=== PATIENT | female | born 1940 | race Asian ===

== ENCOUNTER 2017-11-18 17:20 | Inpatient (IN) | payer MEDICARE, OTHER ==
[~2017-11-18] VITALS: Ht 154.9 cm; Wt 44.5 kg
[2017-11-18] MEDS ORDERED: Gastrograffin 30ml ORAL ONE (17:45)
[2017-11-18 18:15] VITALS: BP 137/57
[2017-11-18 18:56] LABS: BILIRUBIN, URINE NEGATIVE (NEGATIVE); GLUCOSE, URINE (UA) NEGATIVE (NEGATIVE); KETONES,URINE NEGATIVE (NEGATIVE); LEUKOCYTE ESTERASE ,URINE 3+ (NEGATIVE); NITRITE,URINE NEGATIVE (NEGATIVE); PH,URINE 7 (4.5-8.0); PROTEIN,URINE 1+ (NEGATIVE); UROBILINOGEN,URINE 4 MG/DL (0.0-1.0)
[2017-11-18 18:58] LABS: APPEARANCE,URINE SLIGHTLY CLOUDY; COLOR,URINE YELLOW
[2017-11-18 19:00] LABS: BASOPHILS % (AUTO) 1.1 % (0.0-2.0); EOSINOPHILS % (AUTO) 1.3 % (0.0-3.0); LYMPHOCYTES % (AUTO) 24.7 % (20.0-45.0); MEAN CORPUSCULAR VOLUME 87 FL (80-99); MONOCYTES % (AUTO) 8.4 % (1.0-10.0); NEUTROPHILS % (AUTO) 64.6 % (45.0-75.0); PLATELET COUNT 318 K/UL (150-450); RED BLOOD COUNT 3.91 M/UL (4.20-5.40); RED CELL DISTRIBUTION WIDTH 12.6 % (11.6-14.8); WHITE BLOOD COUNT 7.1 K/UL (4.8-10.8)
[2017-11-18 19:09] LABS: ALANINE AMINOTRANSFERASE 26 U/L (12-78); ALBUMIN 2.5 G/DL (3.4-5.0); ALBUMIN/GLOBULIN RATIO 0.5 (1.0-2.7); ALKALINE PHOSPHATASE 136 U/L (46-116); ANION GAP 4 mmol/L (5-15); ASPARTATE AMINO TRANSFERASE 62 U/L (15-37); BILIRUBIN,TOTAL 0.7 MG/DL (0.2-1.0); BLOOD UREA NITROGEN 9 mg/dL (7-18); CALCIUM 8.6 MG/DL (8.5-10.1); CARBON DIOXIDE 31 MMOL/L (21-32); CHLORIDE 86 MMOL/L (98-107); CREATININE 0.3 MG/DL (0.55-1.30); POTASSIUM 5.5 MMOL/L (3.5-5.1)
[2017-11-18 19:11] LABS: SODIUM 119 MMOL/L (136-145)
--- NOTE | 2017-11-18 19:55 | Emergency Room Report ---
History of Present Illness General Chief Complaint: Malfunctioning Gastric Tube Source: Patient, EMS Present Illness HPI Patient is a 77-year-old female brought in by EMS for possible malfunctioning G- tube. Patient had prior history of neurologic debilitation. Patient was noted to be G-tube dependent. The patient's G-tube had become malplaced reportedly had become leaking. Allergies: Coded Allergies: AMOXICILLIN (Verified Allergy, Mild, 06/21/09) ASPIRIN (Verified Allergy, Mild, 06/21/09) SALICYLATES (Verified Allergy, Mild, 06/21/09) PENICILLINS (Unverified Allergy, Unknown, 11/18/17) Patient History Last Menstrual Period: N/A Reviewed Nursing Documentation: PMH: Agreed; PSxH: Agreed Nursing Documentation-PMH Past Medical History: No History, Except For Hx Hypertension: Yes Hx Diabetes: Yes Hx Cerebrovascular Accident: Yes Physical Exam Vital Signs Date Time Temp Pulse Resp B/P (MAP) Pulse Ox O2 Delivery O2 Flow Rate FiO2 11/18/17 17:16 97.2 80 16 130/84 97 Room Air 97.2 Medical Decision Making Diagnostic Impression: Primary Impression: Malfunction of gastrostomy tube Additional Impressions: Hyponatremia Dehydration Urinary tract infection ER Course Patient presented for G-tube malfunction.The differential diagnosis included was not limited to dehydration, electrolyte abnormalities, cellulitis, bowel obstruction, gastric outlet obstruction among others.Because of complexity of patient's case laboratory testing and imaging studies were ordered. KUB with Gastrografin read by radiology showed no evidence of G-tube leaking. The patient was noted to have very low sodium was started on IV fluids. Dr. Tyrell Underwood was contacted for inpatient management. Labs Test 11/18/17 16:15 11/18/17 18:15 White Blood Count 7.1 K/UL (4.8-10.8) Red Blood Count 3.91 M/UL (4.20-5.40) Hemoglobin 12.0 G/DL (12.0-16.0) Hematocrit 34.0 % (37.0-47.0) Mean Corpuscular Volume 87 FL (80-99) Mean Corpuscular Hemoglobin 30.7 PG (27.0-31.0) Mean Corpuscular Hemoglobin Concent 35.3 G/DL (32.0-36.0) Red Cell Distribution Width 12.6 % (11.6-14.8) Platelet Count 318 K/UL (150-450) Mean Platelet Volume 5.8 FL (6.5-10.1) Neutrophils (%) (Auto) 64.6 % (45.0-75.0) Lymphocytes (%) (Auto) 24.7 % (20.0-45.0) Monocytes (%) (Auto) 8.4 % (1.0-10.0) Eosinophils (%) (Auto) 1.3 % (0.0-3.0) Basophils (%) (Auto) 1.1 % (0.0-2.0) Prothrombin Time 10.5 SEC (9.30-11.50) Prothromb Time International Ratio 1.0 (0.9-1.1) Activated Partial Thromboplast Time 31 SEC (23-33) Sodium Level 119 MMOL/L (136-145) Potassium Level 5.5 MMOL/L (3.5-5.1) Chloride Level 86 MMOL/L (98-107) Carbon Dioxide Level 31 MMOL/L (21-32) Anion Gap 4 mmol/L (5-15) Blood Urea Nitrogen 9 mg/dL (7-18) Creatinine 0.3 MG/DL (0.55-1.30) Estimat Glomerular Filtration Rate mL/min (>60) Glucose Level 116 MG/DL (74-106) Calcium Level 8.6 MG/DL (8.5-10.1) Total Bilirubin 0.7 MG/DL (0.2-1.0) Aspartate Amino Transf (AST/SGOT) 62 U/L (15-37) Alanine Aminotransferase (ALT/SGPT) 26 U/L (12-78) Alkaline Phosphatase 136 U/L (46-116) Total Protein 7.9 G/DL (6.4-8.2) Albumin 2.5 G/DL (3.4-5.0) Globulin 5.4 g/dL Albumin/Globulin Ratio 0.5 (1.0-2.7) Urine Color Yellow Urine Appearance Slightly cloudy Urine pH 7 (4.5-8.0) Urine Specific [place] 1.010 (1.005-1.035) Urine Protein 1+ (NEGATIVE) Urine Glucose (UA) Negative (NEGATIVE) Urine Ketones Negative (NEGATIVE) Urine Occult Blood 3+ (NEGATIVE) Urine Nitrite Negative (NEGATIVE) Urine Bilirubin Negative (NEGATIVE) Urine Urobilinogen 4 MG/DL (0.0-1.0) Urine Leukocyte Esterase 3+ (NEGATIVE) Urine RBC 5-10 /HPF (0 - 2) Urine WBC 10-15 /HPF (0 - 2) Urine Squamous Epithelial Cells Few /LPF (NONE/OCC) Urine Amorphous Sediment Few /LPF (NONE) Urine Bacteria Many /HPF (NONE) EKG Diagnostic Results Rate: normal - 75 Rhythm: NSR ST Segments: no acute changes Last Vital Signs Date Time Temp Pulse Resp B/P (MAP) Pulse Ox O2 Delivery O2 Flow Rate FiO2 11/18/17 18:15 80 16 137/57 99 Room Air 11/18/17 17:16 97.2 97.2 Status: improved Disposition: HOME, SELF-CARE Condition: Stable Scripts Unable to Obtain Active Prescriptions or Reported Meds Referrals: NOT CHOSEN IPA/,REFERRING (PCP) Raul Weaver November 18, 2017 19:55
[2017-11-18 19:57] VITALS: BP 148/54
[2017-11-18 21:25] VITALS: BP 151/61
[2017-11-19] VITALS (7 sets, daily range): BP systolic 158–197; BP diastolic 69–97
[2017-11-19] MEDS ORDERED: OMEPRAZOLE20 M2 GT (02:09)
[2017-11-19] MEDS ORDERED: CARDIZEM90 MG GT (02:14)
[2017-11-19] MEDS ORDERED: DiphenhydrAMINE 25mg/10ml Elixir GT PRN (04:30)
[2017-11-19] MEDS: Vancomycin 500mg/D5W 110ml IVPB SCH ×4 (06:05→17:31)
[2017-11-19] MEDS: NovoLOG Insulin Flexpen SUBQ SCH ×4 (06:30→23:44)
[2017-11-19] MEDS: Heparin 5000 units/ml inj SUBQ SCH ×2 (08:27→21:08)
[2017-11-19] MEDS ORDERED: TRAMADOL HCL100 M2 ORAL (09:40)
[2017-11-19] MEDS ORDERED: OMEPRAZOLE20 M2 ORAL (09:40)
[2017-11-19] MEDS ORDERED: DILTIAZEM HCL90 MG PO (09:40)
[2017-11-19] MEDS ORDERED: MACROBID100 MG ORAL (09:40)
[2017-11-19] MEDS ORDERED: SENNA LAXATIVE8.6 MG (09:40)
--- NOTE | 2017-11-19 09:51 | Diagnostic Imaging Report ---
Indication: Gastrostomy tube placement Comparison: None Single view of the abdomen obtained Findings: Contrast demonstrated within the stomach and duodenum. No extravasation seen. The gastrostomy tip is in the antrum of the stomach. IMPRESSION: Unremarkable gastrostomy check
[2017-11-19 11:09] LABS: BASOPHILS % (AUTO) 1.2 % (0.0-2.0); HEMATOCRIT 32.1 % (37.0-47.0); HEMOGLOBIN 11.2 G/DL (12.0-16.0); LYMPHOCYTES % (AUTO) 21.3 % (20.0-45.0); MEAN CORPUSCULAR VOLUME 89 FL (80-99); MONOCYTES % (AUTO) 6.4 % (1.0-10.0); NEUTROPHILS % (AUTO) 70.2 % (45.0-75.0); PLATELET COUNT 207 K/UL (150-450); RED BLOOD COUNT 3.61 M/UL (4.20-5.40); RED CELL DISTRIBUTION WIDTH 12.7 % (11.6-14.8); WHITE BLOOD COUNT 4.2 K/UL (4.8-10.8)
[2017-11-19 12:38] LABS: CHLORIDE 95 MMOL/L (98-107)
[2017-11-19] MEDS: Norco 5mg/325mg tab GT PRN ×2 (12:57→17:57)
[2017-11-19 13:02] LABS: ALANINE AMINOTRANSFERASE 23 U/L (12-78); ALBUMIN 2.5 G/DL (3.4-5.0); ALBUMIN/GLOBULIN RATIO 0.5 (1.0-2.7); ALKALINE PHOSPHATASE 128 U/L (46-116); ANION GAP 8 mmol/L (5-15); ASPARTATE AMINO TRANSFERASE 19 U/L (15-37); BILIRUBIN,TOTAL 0.5 MG/DL (0.2-1.0); BLOOD UREA NITROGEN 4 mg/dL (7-18); CALCIUM 8.3 MG/DL (8.5-10.1); CARBON DIOXIDE 26 MMOL/L (21-32); CREATININE 0.4 MG/DL (0.55-1.30); POTASSIUM 3.3 MMOL/L (3.5-5.1); SODIUM 129 MMOL/L (136-145)
[2017-11-19] MEDS ORDERED: Sterile Water Irrig 1000ml IRRIG ONE (16:45)
[2017-11-19] MEDS ORDERED: Tubing IV Secondary IV ONE (16:45)
[2017-11-19] MEDS ORDERED: HydrALAZINE 25mg tab ORAL PRN (19:00)
[2017-11-19] MEDS: HydrALAZINE 25mg tab ORAL PRN (21:18)
[2017-11-20] VITALS: BP 165/69
[2017-11-20] MEDS: HydrALAZINE 25mg tab ORAL PRN ×2 (01:39→14:05)
--- NOTE | 2017-11-20 03:00 | History and Physical Report ---
DATE OF ADMISSION: 11/18/2017 REASON FOR ADMISSION: Hyponatremia and G-tube malfunction. HISTORY OF PRESENT ILLNESS: This is a 77-year-old Arabic female, lives at home with family members and was brought into the emergency room by EMS because of a nonfunctioning G-tube. The patient has a prior stroke and is quite debilitated. Family members provide total care. In the emergency room, abnormal laboratory studies were also noted and hospitalization initiated. PAST MEDICAL HISTORY: Cerebrovascular disease, dysphagia, gastrostomy tube, hypertensive heart disease, and type 2 diabetes mellitus. MEDICATIONS: Medications prior to admission, reviewed and reconciled. ALLERGIES: Include aspirin, penicillin, and salicylate. FAMILY HISTORY: Noncontributory. SOCIAL HISTORY: No record of smoking, alcohol, or substance abuse. REVIEW OF SYSTEMS: Not obtainable from the patient. All available data from family members and prior records is outlined above. PHYSICAL EXAMINATION: VITAL SIGNS: Blood pressure 130/84, heart rate 80, respirations 16, and afebrile. HEENT: Temporal wasting. Oropharynx clear. Mucous membranes moist. NECK: Supple. Jugular venous pressure normal. LUNGS: Clear. CARDIAC: Regular rhythm and rate. Normal S1 and S2 with a fourth heart sound. ABDOMEN: Soft. G-tube site is leaking. There is erythema around the site. EXTREMITIES: Revealed no clubbing or cyanosis. There is no edema. There is distal muscle atrophy and contractures. There is diffuse body rash and decubitus pictured in the chart. LABORATORY DATA: White count 7.1 and hemoglobin 12. Glucose 116. Sodium 119, potassium 5.5, chloride 86, bicarb 31, BUN 9, and creatinine 0.3. Urinalysis with 10 to 15 white cells. IMPRESSION: 1. Gastrostomy tube malfunction. 2. Dysphagia. 3. Hyponatremia. 4. Hypochloremia. 5. Type 2 diabetes mellitus. 6. Cerebrovascular disease with dementia. 7. Moderate protein-calorie malnutrition. 8. Hyperkalemia. PLAN: 1. NPO. 2. Gastrointestinal consult to evaluate feeding tube. 3. Saline hydration. 4. No diuretic therapy. 5. DVT and stress ulcer prophylaxes. 6. Await urine cultures. 7. Empiric antibiotics. Tyrell Underwood M.D. DR: KENNETH JOB#: [id number] CC:
--- NOTE | 2017-11-20 03:15 | Progress Note ---
DATE: 11/19/2017 INTERNAL MEDICINE PROGRESS NOTE SUBJECTIVE: G-tube was evaluated by Dr. Rojas and functioning adequately. Skin infection overlying the site was noted. The patient's laboratory studies have improved. OBJECTIVE: VITAL SIGNS: Blood pressure 165/69, pulse 73, and respirations 19. LUNGS: Bilateral breath sounds. CARDIAC: Regular rhythm and rate. Normal S1, S2. ABDOMEN: Soft. G-tube site intact. Erythema and rash around the site. EXTREMITIES: Trace dependent edema. LABORATORY DATA: Sodium 129, potassium 3.3, bicarbonate 26, BUN 4, and creatinine 0.4. Albumin 2.5. B12, folate, and TSH are within normal limits. LABORATORY DATA: White count 4.2, hemoglobin 11.2. IMPRESSION: 1. Hyponatremia, improving. 2. Hypochloremia, improving. 3. Hyperkalemia, resolved and now with lower range potassium. 4. Accelerated hypertension. 5. Cerebrovascular disease. 6. Type 2 diabetes mellitus. 7. Severe protein calorie malnutrition. PLAN: 1. Advance feedings. 2. Replace potassium. 3. Adjust IV fluids with continued saline hydration. 4. Check uric acid. 5. Check magnesium. 6. Protein supplements. 7. Nutritional consult. 8. Continue antibiotics and skin care. 9. Await culture results. Tyrell Underwood M.D. DR: HALIMA JOB#: [id number] CC: KISHAN
[2017-11-20 04:00] VITALS: BP 155/72
[2017-11-20] MEDS: NovoLOG Insulin Flexpen SUBQ SCH ×3 (06:00→17:32)
[2017-11-20] MEDS: Vancomycin 500mg/D5W 110ml IVPB SCH ×4 (07:26→17:26)
[2017-11-20 08:00] VITALS: BP 187/86
[2017-11-20] MEDS: Metoprolol 25mg tab GT SCH ×2 (08:32→20:40)
[2017-11-20] MEDS: Heparin 5000 units/ml inj SUBQ SCH ×2 (08:34→20:40)
[2017-11-20 09:29] LABS: BASOPHILS % (AUTO) 0.9 % (0.0-2.0); EOSINOPHILS % (AUTO) 1.7 % (0.0-3.0); HEMATOCRIT 30.9 % (37.0-47.0); HEMOGLOBIN 10.8 G/DL (12.0-16.0); LYMPHOCYTES % (AUTO) 23.5 % (20.0-45.0); MEAN CORPUSCULAR VOLUME 88 FL (80-99); MONOCYTES % (AUTO) 9.4 % (1.0-10.0); NEUTROPHILS % (AUTO) 64.4 % (45.0-75.0); PLATELET COUNT 294 K/UL (150-450); RED BLOOD COUNT 3.49 M/UL (4.20-5.40); RED CELL DISTRIBUTION WIDTH 12.7 % (11.6-14.8); WHITE BLOOD COUNT 4.6 K/UL (4.8-10.8)
[2017-11-20 09:34] LABS: ALANINE AMINOTRANSFERASE 21 U/L (12-78); ALBUMIN 2.3 G/DL (3.4-5.0); ALBUMIN/GLOBULIN RATIO 0.5 (1.0-2.7); ALKALINE PHOSPHATASE 113 U/L (46-116); ANION GAP 7 mmol/L (5-15); ASPARTATE AMINO TRANSFERASE 13 U/L (15-37); BILIRUBIN,TOTAL 0.4 MG/DL (0.2-1.0); BLOOD UREA NITROGEN 5 mg/dL (7-18); CALCIUM 7.8 MG/DL (8.5-10.1); CARBON DIOXIDE 27 MMOL/L (21-32); CHLORIDE 96 MMOL/L (98-107); CREATININE 0.4 MG/DL (0.55-1.30); SODIUM 130 MMOL/L (136-145)
[2017-11-20 12:00] VITALS: BP 175/75
[2017-11-20] MEDS ORDERED: Cefepime HCl 2 GM in D5W 110 ML IVPB SCH (13:00)
--- NOTE | 2017-11-20 14:33 | Physician Query ---
[facility] [address] [id number] Patient: Tan Woodruff [facility] Rec #: [id number] PT Number #: [id number] Dear Dr. Dr. Underwood Date: 11/20/2017 Email Production Specialist/CDS Name: Yonatan Rosas Email Production Specialist/CDS Phone No.: [phone] Exercise your independent professional judgment when responding to the query. Questions asked do not imply a particular answer is desired or expected. We greatly appreciate your clarification on this issue. CLINICAL DOCUMENTATION STATES: Protein Calorie Malnutrition (H&P from 11/20/2017 ) Clinical finding shows: Patient is admitted with Hyponatremia and G tube malfunction. Abnormal laboratory studies were noted. Albumin level from last 3 days are as follow: 2.5/2.5/2.3 BMI: 18.5 Please select the most appropriate option: [] Mild [] Moderate [] Protein/Calorie Malnutrition [] Protein Malnutrition >Serum albumin 2.8 to 3.4 g/dL or Pre-albumin 5 to 7 mg/dl (3) >Inadequate nutritional intake (1, 2, 3, 4) >NPO > 5 days >Weight loss: 5% in 1 month or 7.5% in 3 months or 10% in 6 months (1,3,4) >BMI 16 to 18.4 or Weight <90 of ideal body weight (1,2,3,4) [] Severe Malnutrition (Protein/Calorie) [] Severe Protein Malnutrition >Serum Albumin < 2.8 g/dL (1,2) >Lymphocytes < 1500/uL (2) >Inadequate nutritional intake3 , high stress e.g. major trauma, sepsis, pancreatitis, recio etc. >Decubitus ulcers (1,2) , skin breakdown(2), easy hair pluckability >Weight <80% standard for height (2) >Triceps skin fold <3 mm2 >Mid-arm muscle circumference <25 cm2 >Creatinine-height index <60% standard (2) _ [] Hypoalbuminemia [] Emancipated w/ Malnutrition [] [place] (rare in [place]) [] Marasmus [] Other [] Unable to determine [] Not Applicable Condition Present on Admission: [] Yes [] No [ ] Unable to determine Please also document in your Progress Notes and/or Discharge Summary and indicate if the condition was present on admission. Date: 11/20/2017 M.D. References: 1 [facility] [place] Board. (2007). Nutritional support strategy for protein -energy malnutrition in the elderly. Clinical Practice Guidelines. 2 Jensen [place] (2011). Malnutrition and nutritional assessment. In [place] (18th Ed.) Tashi's Principle of Internal Medicine ([phone]) [place], [place]: [facility] 3 Rahel Betts (2001). Clinical Nutrition: Protein-energy malnutrition in the inpatient. [place] [employer] Journal, vol. 165 no. 10 (pp. 1216- 3159 ). 4 Jabari Haro (2012). Geriactric Nutrition: Nutritional Issues in Older Adults. [email or web address]
--- NOTE | 2017-11-20 14:44 | Diagnostic Imaging Report ---
Indication: Abnormal labs Technique: US ABD Complete Comparison: None Findings: Limited exam due to overlying bowel gas and bandages. Liver appears normal in length. There is increased hepatic echogenicity. There is question of some ankle lesions within the posterior liver. There is gallbladder wall thickening with apparent gallbladder wall measuring approximately 2 to 4 mm in thickness. There is no pericholecystic fluid. There is a anechoic structure adjacent to the gallbladder which may represent a small cyst in the adjacent liver or may potentially be related to the gallbladder. Sonographic Hylton sign not reported. The common bile duct is normal in caliber measuring 4 to 6 mm. Kidneys are symmetric in size. Both demonstrate normal parenchymal echogenicity and no evidence of urinary tract stone or hydronephrosis bilaterally. Spleen is normal in size. IMPRESSION: Limited exam due to overlying bowel gas, overlying bandages and patient contracture/body habitus. Within these limitations the following observations are made: Equivocal gallbladder wall thickening. No definite cholelithiasis or gallbladder sludge appreciated. Sonographic Hylton sign not reported. Correlate clinically. If there is concern for acute cholecystitis then recommend further evaluation with additional imaging (contrast-enhanced CT or HIDA scan). Anechoic structures in the liver possibly representing cysts. Subcentimeter anechoic structure adjacent to the gallbladder may represent a cyst in the adjacent liver or may originate from the gallbladder itself. Attention to this area on follow-up exams recommended. No appreciable biliary ductal dilatation. Renal parenchymal echogenicity is within normal limits. No evidence of hydronephrosis bilaterally.
--- NOTE | 2017-11-20 15:21 | Cardiology Report ---
APPROVED REPORT EKG Measurement Heart [id number] Normal sinus rhythm Cannot rule out Anterior infarct, age undetermined Abnormal ECG
[2017-11-20 16:00] VITALS: BP 159/77
--- NOTE | 2017-11-20 16:00 | Consultation ---
DATE OF CONSULTATION: 11/19/2017 NOTE: CANCELED DICTATION Alex Rojas M.D. DR: MEDHAT JOB#: [id number] CC: KISHAN
--- NOTE | 2017-11-20 16:00 | Consultation ---
DATE OF CONSULTATION: 11/19/2017 GASTROENTEROLOGY CONSULTATION CONSULTING PHYSICIAN: Alex Rojas M.D. REFERRING PHYSICIAN: Tyrell Underwood M.D. CHIEF COMPLAINT: I was asked to see this patient by Dr. Tyrell Underwood for evaluation of malfunction of gastrostomy tube. HISTORY OF PRESENT ILLNESS: The patient is a debilitated 77-year-old middle woman, who lives at home, who was brought in due to leakage of gastrostomy tube. The problem was unclear, but the nurse states that the family stated there is leakage around the gastrostomy site. The gastrostomy catheter appears to be a 26-[place] catheter, which is old and quite deteriorated. The x-ray studies in the emergency room showed it appears to be in good position. The patient was still quite debilitated and contracted. She is nonverbal and bedbound. She lives at home and requires tube feedings [id number]. In the emergency room, she was noted to be severely hyponatremic and she is to be treated soon and the laboratory findings are being followed. There is no further information available from this patient. PAST MEDICAL HISTORY: History of cerebrovascular disease with stroke and contracture deformities, which are severe, history of dysphagia, status post gastrostomy tube placement, history of hypertensive heart disease, and type 2 diabetes. MEDICATIONS: See chart list for details. ALLERGIES: Aspirin, penicillin, and salsalate. FAMILY HISTORY: Unavailable and noncontributory in this setting. SOCIAL HISTORY: The patient has had no recent history of smoking or drinking. She lives at home with family and requires [id number] care. REVIEW OF SYSTEMS: Otherwise negative. PHYSICAL EXAMINATION: GENERAL: This is a thin elderly debilitated woman, seen in her room. She has severe contracture deformities of the hip with hip flexion. HEENT: Normocephalic and atraumatic. Sclerae anicteric. Oropharynx could not be evaluated. NECK: Somewhat stiff alone. The patient was contracted. CHEST: Revealed coarse breath sounds. CARDIOVASCULAR: Revealed a regular rate. ABDOMEN: Soft with a 26-[place] gastrostomy tube. There is some degree of skin moisturization around the gastrostomy site but does not appear to be infected. EXTREMITIES: Revealed contractures. NEUROLOGIC: Notable for dementia and contracture deformities. LABORATORY DATA: Laboratory data were noted. ASSESSMENT: This patient presents with dysfunctional gastrostomy tube, which is also old and needs to be replaced. This was done at bedside today as the gastrostomy tube has been placed, the 20-[place] catheter. The position was verified by bedside techniques. The open skin irritation around the gastrostomy is mainly due to moisture and can be avoided with the area kept dry. I advised the nurse to change the dressing with dry gauze every eight hours and to maintain dry as to minimize leakage. The tube feeding can be restarted today and the patient can be monitored. In the meantime, the patient received IV hydration as to correct her hyponatremia. This is being done with IV saline. The patient also has some mild degree of abnormal liver tests of unclear etiology. An ultrasound of the abdomen will be ordered to evaluate the liver and gallbladder areas. Hepatitis serologies will also be ordered. RECOMMENDATIONS: Per above discussion and per orders written in the chart. Thank you for asking me to participate in the care of this patient. Alex Rojas M.D. DR: NOE JOB#: [id number] CC: KISHAN
[2017-11-20] MEDS ORDERED: NS 275ml ONE (16:48)
[2017-11-20] MEDS ORDERED: Tubing IV Secondary IV ONE (16:48)
--- NOTE | 2017-11-20 17:15 | Consultation ---
DATE OF CONSULTATION: 11/20/2017 INFECTIOUS DISEASES CONSULTATION CONSULTING PHYSICIAN: Mary Manriquez M.D. REFERRING PHYSICIAN: Tyrell Underwood M.D. REASON FOR CONSULTATION: G-tube site cellulitis. HISTORY OF PRESENTING ILLNESS: This is a 77-year-old lady with history of diabetes, hypertension, CVA, and status post G-tube placement, who came in because of a nonfunctioning G-tube. There has been leaking around the G-tube and there is a G-tube site cellulitis. An Infectious Diseases consultation has been obtained for antibiotics. PAST MEDICAL HISTORY: 1. History of diabetes. 2. Hypertension. 3. Hypertensive heart disease. 4. CVA. 5. Dysphagia. 6. Status post G-tube placement. MEDICATIONS: As an inpatient, she is on amlodipine, metoprolol, hydralazine, Levaquin, insulin, [place], subcutaneous heparin, intravenous vancomycin, and Benadryl. ALLERGIES: 1. Amoxicillin. 2. Aspirin. 3. Penicillin. 4. Salicylates. SOCIAL HISTORY: No history of smoking, alcohol, or drug use. FAMILY HISTORY: Unknown. REVIEW OF SYSTEMS: Unable to obtain currently. PHYSICAL EXAMINATION: VITAL SIGNS: On examination, temperature of 97.9, T-max of 98.9, pulse of 79, respiratory rate 17, blood pressure 187/86, and O2 saturation of 98%. HEENT: Pupils equally reactive to light and accommodation. Mouth appears clean without thrush. NECK: Supple. No adenopathy. No JVD. CARDIOVASCULAR: Regular rate and rhythm. No murmurs. LUNGS: Clear to auscultation bilaterally. No crackles. No wheezes. ABDOMEN: Soft and nontender. No organomegaly. G-tube site with surrounding erythema noted. EXTREMITIES: No cyanosis, no clubbing, no edema. LABORATORY AND DIAGNOSTIC DATA: White count 4.6, hemoglobin 10.8, hematocrit 30.9,MCV 88, and platelet count of 294,000 with neutrophils of 64%. Sodium 130, potassium 3, chloride 96, bicarb 27, BUN 5, creatinine 0.4, glucose 102, and calcium 7.8. Total bilirubin 0.4. AST 13, ALT 21, and alkaline phosphatase 113. Total protein 6.8. Albumin 2.3. UA is showing 10 to 15 white cells. Urine culture is showing gram-negative rods. Wound cultures are pending from 11/18/2017. Abdominal x-ray was unremarkable. ASSESSMENT: This is a 77-year-old lady with history of diabetes and hypertension, who comes in with, 1. Gastrostomy tube site cellulitis. 2. Gram-negative urinary tract infection. PLAN: 1. Continue IV vancomycin. 2. Discontinue Levaquin. 3. We will start the patient on cefepime. 4. We will order an ultrasound of the abdomen to rule out an abdominal abscess. 5. We would suggest a GI evaluation. I would like to thank, Dr. Underwood, for this consultation. Mary Manriquez M.D. DR: SG JOB#: [id number] CC: Tyrell Underwood M.D.
--- NOTE | 2017-11-20 19:51 | General Progress Note ---
Assessment/Plan Assessment/Plan Assessment - dysphagia - abnormal LFT - OBS Recommendations - continue TF - GT site care - f/u LFT - check abd u/s - elevated HOB Subjective Allergies: Coded Allergies: AMOXICILLIN (Verified Allergy, Mild, 06/21/09) ASPIRIN (Verified Allergy, Mild, 06/21/09) SALICYLATES (Verified Allergy, Mild, 06/21/09) PENICILLINS (Unverified Allergy, Unknown, 11/18/17) Subjective non-verbal tolerating TF d/w RN no significant leak Objective Last 24 Hour Vital Signs Date Time Temp Pulse Resp B/P (MAP) Pulse Ox O2 Delivery O2 Flow Rate FiO2 11/20/17 17:26 79 152/76 11/20/17 16:00 97.9 77 18 159/77 98 Room Air 97.9 11/20/17 16:00 74 11/20/17 14:05 164/74 11/20/17 12:00 97.2 71 20 175/75 95 Room Air 97.2 11/20/17 12:00 68 11/20/17 08:32 79 187/86 11/20/17 08:32 79 187/86 11/20/17 08:00 71 11/20/17 08:00 97.9 79 17 187/86 98 Room Air 97.9 11/20/17 04:00 72 11/20/17 04:00 97.5 76 20 155/72 98 Room Air 97.5 11/20/17 01:39 165/69 11/20/17 00:00 68 11/20/17 00:00 97.5 76 20 165/69 99 Room Air 97.5 11/19/17 21:18 165/69 11/19/17 20:00 68 11/19/17 20:00 97.3 73 19 165/69 99 Room Air 97.3 Intake and Output 11/19/17 11/20/17 19:00 07:00 Intake Total 1830 ml 1445 ml Output Total 950 ml Balance 880 ml 1445 ml Intake Free Water 30 ml IV Total 1725 ml 1445 ml Tube Feeding 75 ml Output Urine Total 950 ml # Voids 1 2 # Bowel Movements 3 1 Laboratory Tests 11/20/17 08:30: White Blood Count 4.6L, Red Blood Count 3.49L, Hemoglobin 10.8L, Hematocrit 30.9L, Mean Corpuscular Volume 88, Mean Corpuscular Hemoglobin 31.0, Mean Corpuscular Hemoglobin Concent 35.1, Red Cell Distribution Width 12.7, Platelet Count 294, Mean Platelet Volume 5.8L, Neutrophils (%) (Auto) 64.4, Lymphocytes ( %) (Auto) 23.5, Monocytes (%) (Auto) 9.4, Eosinophils (%) (Auto) 1.7, Basophils (%) (Auto) 0.9, Sodium Level 130L, Potassium Level 3.0L, Chloride Level 96L, Carbon Dioxide Level 27, Anion Gap 7, Blood Urea Nitrogen 5L, Creatinine 0.4L, Estimat Glomerular Filtration Rate , Glucose Level 102, Uric Acid 2.7, Calcium Level 7.8L, Magnesium Level 1.8, Total Bilirubin 0.4, Aspartate Amino Transf ( AST/SGOT) 13L, Alanine Aminotransferase (ALT/SGPT) 21, Alkaline Phosphatase 113 , Total Protein 6.8, Albumin 2.3L, Globulin 4.5, Albumin/Globulin Ratio 0.5L 11/20/17 17:30: Vancomycin Level Trough 7.2 Height (Feet): 5 Height (Inches): 1.00 Weight (Pounds): 98 Objective Debilitated Woman NCAT Supple CTA RRR Abd soft, ND, GT in good position (++) contractures OBS JUAN RAMON CAMACHO November 20, 2017 19:51
[2017-11-20 20:00] VITALS: BP 156/91
--- NOTE | 2017-11-20 20:45 | Consultation ---
DATE OF CONSULTATION: 11/20/2017 NEPHROLOGY CONSULTATION CONSULTING PHYSICIAN: Bernardo Levi M.D. REFERRING PHYSICIAN: Tyrell Underwood M.D. REASON FOR CONSULTATION: Hyponatremia. HISTORY OF PRESENT ILLNESS: The patient is a resident of an [facility], who has had prior CVAs, who is unable to give a history. She presented with gastrostomy tube malfunction and hyponatremia. The patient is severely disabled with tube feeding, contractures, old CVA. PAST HISTORY AND REVIEW OF SYSTEMS: Unable to obtain at this time. MEDICATIONS: Per the computer list medications at the facility include diltiazem, nitrofurantoin, omeprazole, and tramadol. Medications in the hospital currently include cefepime, levofloxacin, vancomycin, amlodipine, diphenhydramine, subcutaneous heparin, hydralazine p.r.n., [place], insulin sliding scale, metoprolol, and vancomycin. PHYSICAL EXAMINATION: GENERAL: The patient is lying in bed, eyes open, nonverbal. VITAL SIGNS: Temperature 97.2 degrees, pulse 71, respirations 20, and blood pressure 175/75. HEENT: Sclerae nonicteric. Does not open her mouth. NECK: No adenopathy. LUNGS: Clear. HEART: Regular rhythm. No murmur. ABDOMEN: Soft without organomegaly or masses. Gastrostomy is in position. EXTREMITIES: Muscle atrophy. Contracture of the right leg. SKIN: There is a wound dressing over the left foot, which is contraced. NEUROLOGIC: The patient is aphasic, nonverbal, has had right hemiplegia with contractures and also left-sided weakness. LABORATORY AND DIAGNOSTIC DATA: Pertinent labs as follows, on 11/18/2017, sodium 119, 11/19/2017 sodium 129 and 11/20/2017 sodium 130, potassium 3.0, chloride 96, CO2 27, BUN 5 and creatinine 0.4. Calcium is 7.8. Albumin is 2.3. TSH is 2.71. White count 4.6, hemoglobin is 10.8. Urinalysis on admission had pH of 7 with specific gravity of 1.010, 1+ protein, 10 to 15 white cells and 5 to 10 red cells per high-power field. 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 I do not have any further prior to admission medications and there is no obvious diuretics or other medications to cause hyponatremia, very likely the patient got free water in the senior living for hydration. PLAN: At this time, the patient has had correction of most of her sodium in line to avoid over correction limit fluids and replace her potassium. Her TSH is normal and I doubt that she has adrenal insufficiency. We will check a cortisone and repeat her electrolytes tomorrow. Thank you so much. Bernardo Levi M.D. DR: SOLOMON JOB#: [id number] CC:
--- NOTE | 2017-11-20 21:45 | Progress Note ---
DATE: 11/20/2017 CARDIOLOGY PROGRESS NOTE SUBJECTIVE: The patient continues on IV antibiotics and local skin care. The patient is started back on feedings. Abdominal ultrasound was completed, results pending. OBJECTIVE: VITAL SIGNS: Blood pressure 175/75, pulse 71, respiratory rate 20 and afebrile. LUNGS: Bilateral breath sounds. CARDIAC: Regular rhythm and rate. Normal S1 and S2. ABDOMEN: Soft. Slight erythema of NG tube. EXTREMITIES: With trace edema. There is a stage IV heel decubitus on the left and multiple stage I and II. IMPRESSION: 1. G-tube migration, not stable, cellulitis at G-tube site. 2. Multiple decubitus. 3. Hypertensive heart disease. 4. CVA with advanced dementia. 5. Dysphagia with feeding tube. PLAN: 1. Advance directives per family, DNR. 2. Advance antihypertensives. 3. Skin care. 4. Antimicrobials. 5. Follow up results of ultrasound. 6. GI and Infectious Disease followup. Tyrell Underwood M.D. DR: NATASHA JOB#: [id number] CC:
[2017-11-21] VITALS (7 sets, daily range): BP systolic 144–163; BP diastolic 55–103
[2017-11-21] MEDS ORDERED: Norco 5mg/325mg tab GT PRN (00:45)
[2017-11-21] MEDS ORDERED: DiphenhydrAMINE 25mg/10ml Elixir GT PRN (04:30)
[2017-11-21] MEDS: Vancomycin 750mg/NS 250ml 250 ML IVPB SCH ×2 (05:01→17:49)
[2017-11-21] MEDS: NovoLOG Insulin Flexpen SUBQ SCH ×3 (05:58→18:27)
[2017-11-21] MEDS ORDERED: Vancomycin 750mg/NS 250ml IVPB SCH (06:00)
[2017-11-21 06:28] LABS: ANION GAP 4 mmol/L (5-15); BLOOD UREA NITROGEN 6 mg/dL (7-18); CALCIUM 8.5 MG/DL (8.5-10.1); CARBON DIOXIDE 29 MMOL/L (21-32); CHLORIDE 92 MMOL/L (98-107); CREATININE 0.4 MG/DL (0.55-1.30); PHOSPHORUS 2.8 MG/DL (2.5-4.9); POTASSIUM 4.4 MMOL/L (3.5-5.1); SODIUM 125 MMOL/L (136-145)
[2017-11-21] MEDS: Metoprolol 25mg tab GT SCH ×2 (08:21→21:56)
[2017-11-21] MEDS: Heparin 5000 units/ml inj SUBQ SCH ×2 (08:24→21:55)
[2017-11-21] MEDS ORDERED: Sodium Chloride 1gm Tab ORAL SCH (10:30)
[2017-11-21] MEDS ORDERED: Sterile Water For Irrig 2000ml IRRIG ONE (10:43)
[2017-11-21] MEDS: Cefepime HCl 2 GM in D5W 110 ML IVPB SCH (12:22)
--- NOTE | 2017-11-21 12:56 | Nephrology Progress Note ---
Assessment/Plan Problem List: (1) Malnutrition of moderate degree (2) Malfunction of gastrostomy tube (3) Hyponatremia Plan Na lower, observe with fluid restriction for siadh Subjective ROS Limited/Unobtainable: Yes Objective Objective Last 24 Hour Vital Signs Date Time Temp Pulse Resp B/P (MAP) Pulse Ox O2 Delivery O2 Flow Rate FiO2 11/21/17 11:46 98.2 75 18 148/68 95 98.2 11/21/17 08:21 71 161/72 11/21/17 08:21 71 161/72 11/21/17 08:03 97.8 71 18 161/72 95 97.8 11/21/17 04:00 97.7 78 19 144/103 98 Room Air 97.7 11/21/17 00:00 98.1 73 20 148/55 100 Room Air 98.1 11/20/17 20:40 79 150/91 11/20/17 20:00 98.2 79 18 156/91 98 98.2 11/20/17 20:00 80 11/20/17 17:26 79 152/76 11/20/17 16:00 97.9 77 18 159/77 98 Room Air 97.9 11/20/17 16:00 74 11/20/17 14:05 164/74 Intake and Output 11/20/17 11/21/17 19:00 07:00 Intake Total 1382 ml 1160.000 ml Balance 1382 ml 1160.000 ml Intake Free Water 250 ml IV Total 1327 ml 250.000 ml Tube Feeding 55 ml 660 ml # Voids 1 2 Laboratory Tests 11/20/17 17:30: Vancomycin Level Trough 7.2 11/21/17 05:50: Sodium Level 125L, Potassium Level 4.4, Chloride Level 92L, Carbon Dioxide Level 29, Anion Gap 4L, Blood Urea Nitrogen 6L, Creatinine 0.4L, Estimat Glomerular Filtration Rate , Glucose Level 119H, Calcium Level 8.5, Phosphorus Level 2.8, Magnesium Level 1.9, Cortisol AM Sample [Pending] Height (Feet): 5 Height (Inches): 1.00 Weight (Pounds): 98 General Appearance: confused EENT: normal ENT inspection Neck: normal alignment Cardiovascular: regular rhythm Respiratory/Chest: lungs clear Abdomen: soft Neurologic: motor weakness, unresponsive BLAIRE ANDRADE November 21, 2017 12:56
--- NOTE | 2017-11-21 15:57 | General Progress Note ---
Assessment/Plan Assessment/Plan Assessment - dysphagia - abnormal LFT - borderline GB thickening on U/S - OBS Recommendations - continue TF - GT site care - elevated HOB - periodic labs Subjective Allergies: Coded Allergies: AMOXICILLIN (Verified Allergy, Mild, 06/21/09) ASPIRIN (Verified Allergy, Mild, 06/21/09) SALICYLATES (Verified Allergy, Mild, 06/21/09) PENICILLINS (Unverified Allergy, Unknown, 11/18/17) Subjective non-verbal tolerating TF new GT in good position no significant leak Objective Last 24 Hour Vital Signs Date Time Temp Pulse Resp B/P (MAP) Pulse Ox O2 Delivery O2 Flow Rate FiO2 11/21/17 11:46 98.2 75 18 148/68 95 98.2 11/21/17 08:21 71 161/72 11/21/17 08:21 71 161/72 11/21/17 08:03 97.8 71 18 161/72 95 97.8 11/21/17 04:00 97.7 78 19 144/103 98 Room Air 97.7 11/21/17 00:00 98.1 73 20 148/55 100 Room Air 98.1 11/20/17 20:40 79 150/91 11/20/17 20:00 98.2 79 18 156/91 98 98.2 11/20/17 20:00 80 11/20/17 17:26 79 152/76 11/20/17 16:00 97.9 77 18 159/77 98 Room Air 97.9 11/20/17 16:00 74 Intake and Output 11/20/17 11/21/17 19:00 07:00 Intake Total 1382 ml 1160.000 ml Balance 1382 ml 1160.000 ml Intake Free Water 250 ml IV Total 1327 ml 250.000 ml Tube Feeding 55 ml 660 ml # Voids 1 2 Laboratory Tests 11/20/17 17:30: Vancomycin Level Trough 7.2 11/21/17 05:50: Sodium Level 125L, Potassium Level 4.4, Chloride Level 92L, Carbon Dioxide Level 29, Anion Gap 4L, Blood Urea Nitrogen 6L, Creatinine 0.4L, Estimat Glomerular Filtration Rate , Glucose Level 119H, Calcium Level 8.5, Phosphorus Level 2.8, Magnesium Level 1.9, Cortisol AM Sample [Pending] Height (Feet): 5 Height (Inches): 1.00 Weight (Pounds): 98 Objective Debilitated Woman NCAT Supple CTA RRR Abd soft, ND, GT in good position, (+) margin of erythema (++) contractures OBS JUAN RAMON CAMACHO November 21, 2017 15:57
[2017-11-21] MEDS: Sodium Chloride 1gm Tab ORAL SCH (17:48)
--- NOTE | 2017-11-21 18:08 | Infectious Diseases Prog Note ---
Assessment/Plan Assessment/Plan A: GT site cellulitis UTI with E. coli & Enterococcus Left heel pressure ulcer DM HPN Penicillin allergy P; Continue Cefepime & Vancomycin Will f/u cultures Subjective ROS Limited/Unobtainable: Yes Allergies: Coded Allergies: AMOXICILLIN (Verified Allergy, Mild, 06/21/09) ASPIRIN (Verified Allergy, Mild, 06/21/09) SALICYLATES (Verified Allergy, Mild, 06/21/09) PENICILLINS (Unverified Allergy, Unknown, 11/18/17) Objective Vital Signs Last 24 Hour Vital Signs Date Time Temp Pulse Resp B/P (MAP) Pulse Ox O2 Delivery O2 Flow Rate FiO2 11/21/17 17:48 71 149/60 11/21/17 16:02 97.6 71 18 149/60 95 97.6 11/21/17 11:46 98.2 75 18 148/68 95 98.2 11/21/17 08:21 71 161/72 11/21/17 08:21 71 161/72 11/21/17 08:03 97.8 71 18 161/72 95 97.8 11/21/17 04:00 97.7 78 19 144/103 98 Room Air 97.7 11/21/17 00:00 98.1 73 20 148/55 100 Room Air 98.1 11/20/17 20:40 79 150/91 11/20/17 20:00 98.2 79 18 156/91 98 98.2 11/20/17 20:00 80 Height (Feet): 5 Height (Inches): 1.00 Weight (Pounds): 98 General Appearance: no acute distress HEENT: mucous membranes moist Respiratory/Chest: lungs clear Cardiovascular: normal rate Abdomen: soft, non tender, other - GT feeding Skin: ulcers, other - left heel Neurologic/Psychiatric: alert, aphasia Musculoskeletal: other - contracted legs Microbiology Date/Time Source Procedure Growth Status 11/18/17 23:30 Wound Gram Stain - Final Resulted 11/18/17 23:30 Wound Culture - Preliminary Staphylococcus Aureus Gram Negative Bacillus 2 Resulted 11/18/17 19:58 Nasal Nares MRSA Culture - Final NO METHICILLIN RESISTANT STAPH AUREUS... Complete 11/18/17 18:15 Urine,Clean Catch Urine Culture - Preliminary Escherichia Coli Enterococcus Species Resulted 11/18/17 19:58 Rectum VRE Culture - Final Enterococcus Faecalis - Vre Complete Laboratory Tests Test 11/21/17 05:50 Sodium Level 125 MMOL/L (136-145) L Potassium Level 4.4 MMOL/L (3.5-5.1) Chloride Level 92 MMOL/L (98-107) L Carbon Dioxide Level 29 MMOL/L (21-32) Anion Gap 4 mmol/L (5-15) L Blood Urea Nitrogen 6 mg/dL (7-18) L Creatinine 0.4 MG/DL (0.55-1.30) L Estimat Glomerular Filtration Rate mL/min (>60) Glucose Level 119 MG/DL (74-106) H Calcium Level 8.5 MG/DL (8.5-10.1) Phosphorus Level 2.8 MG/DL (2.5-4.9) Magnesium Level 1.9 MG/DL (1.8-2.4) Cortisol AM Sample 12.9 UG/DL Current Medications Medications (Trade) Dose Ordered Sig/Satish Route PRN Reason Start Time Stop Time Status Last Admin Dose Admin Acetaminophen/ Hydrocodone Bitart ([place] 5/325) 1 tab Q4H PRN GT Moderate Pain (Pain Scale 4-6) 11/21/17 00:45 11/26/17 12:41 Amlodipine Besylate (Norvasc) 5 mg BID ORAL 11/21/17 09:00 12/20/17 17:59 11/21/17 17:48 Cefepime HCl 2 gm/ Dextrose 110 ml @ 220 mls/hr Q24H IVPB 11/21/17 13:00 11/27/17 12:59 11/21/17 12:22 Dextrose (Dextrose 50%) 25 ml STAT PRN IV Hypoglycemia 11/21/17 04:30 12/19/17 04:29 Dextrose (Dextrose 50%) 50 ml STAT PRN IV Hypoglycemia 11/21/17 04:30 12/19/17 04:29 Diphenhydramine HCl (Benadryl) 25 mg Q6H PRN GT Itching 11/21/17 04:30 12/19/17 04:29 Heparin Sodium (Porcine) (Heparin 5000 units/ml) 5,000 units EVERY 12 HOURS SUBQ 11/21/17 09:00 12/19/17 08:59 11/21/17 08:24 Hydralazine HCl (Apresoline) 25 mg Q4HR PRN ORAL SBP>160 11/21/17 01:00 12/19/17 19:28 Insulin Aspart (NovoLOG) Q6HR SUBQ 11/21/17 06:00 12/19/17 06:29 11/21/17 12:00 Metoprolol Tartrate (Lopressor) 25 mg Q12HR GT 11/21/17 09:00 12/20/17 08:59 11/21/17 08:21 Sodium Chloride (NaCl) 1 gm BID ORAL 11/21/17 18:00 12/21/17 17:59 11/21/17 17:48 Vancomycin HCl (Vanco rx to dose) 1 ea DAILY PRN MISC Per rx protocol 11/21/17 09:00 12/19/17 04:29 Vancomycin/Sodium Chloride 250 ml @ 166.667 mls/hr Q12HR@0600,1800 IVPB 11/21/17 06:00 11/26/17 05:59 11/21/17 17:49 FER MORTON November 21, 2017 18:08
[2017-11-22] VITALS (8 sets, daily range): BP systolic 141–165; BP diastolic 56–81
[2017-11-22] MEDS: NovoLOG Insulin Flexpen SUBQ SCH ×5 (00:06→23:40)
[2017-11-22] MEDS: HydrALAZINE 25mg tab ORAL PRN ×2 (04:25→12:16)
[2017-11-22] MEDS: Vancomycin 750mg/NS 250ml 250 ML IVPB SCH ×2 (06:09→17:45)
--- NOTE | 2017-11-22 08:18 | Infectious Diseases Prog Note ---
Assessment/Plan Assessment/Plan A: GT site cellulitis UTI with E. coli & Enterococcus Left heel pressure ulcer DM HPN Hyponatremia Penicillin allergy P; Continue Cefepime & Vancomycin Will f/u cultures Subjective ROS Limited/Unobtainable: Yes Allergies: Coded Allergies: AMOXICILLIN (Verified Allergy, Mild, 06/21/09) ASPIRIN (Verified Allergy, Mild, 06/21/09) SALICYLATES (Verified Allergy, Mild, 06/21/09) PENICILLINS (Unverified Allergy, Unknown, 11/18/17) Objective Vital Signs Last 24 Hour Vital Signs Date Time Temp Pulse Resp B/P (MAP) Pulse Ox O2 Delivery O2 Flow Rate FiO2 11/22/17 08:00 97.0 79 18 163/75 96 Room Air 97.0 11/22/17 06:37 97.0 79 18 155/80 98 Room Air 97.0 11/22/17 04:25 163/71 11/22/17 04:12 97.0 74 20 163/71 98 Nasal Cannula 97.0 11/22/17 00:24 97.9 72 20 155/70 97 Room Air 97.9 11/21/17 21:56 97.7 79 18 149/71 99 97.7 11/21/17 21:56 79 149/71 11/21/17 19:24 97.7 74 20 163/74 99 Room Air 97.7 11/21/17 17:48 71 149/60 11/21/17 16:02 97.6 71 18 149/60 95 97.6 11/21/17 11:46 98.2 75 18 148/68 95 98.2 11/21/17 08:21 71 161/72 11/21/17 08:21 71 161/72 Height (Feet): 5 Height (Inches): 1.00 Weight (Pounds): 98 General Appearance: no acute distress HEENT: mucous membranes moist Respiratory/Chest: lungs clear Cardiovascular: normal rate Abdomen: soft, non tender, other - GT feeding Extremities: no edema Skin: ulcers Neurologic/Psychiatric: aphasia, other - opens eyes Musculoskeletal: atrophy Current Medications Medications (Trade) Dose Ordered Sig/Satish Route PRN Reason Start Time Stop Time Status Last Admin Dose Admin Acetaminophen/ Hydrocodone Bitart ([place] 5/325) 1 tab Q4H PRN GT Moderate Pain (Pain Scale 4-6) 11/21/17 00:45 11/26/17 12:41 Amlodipine Besylate (Norvasc) 5 mg BID ORAL 11/21/17 09:00 12/20/17 17:59 11/21/17 17:48 Cefepime HCl 2 gm/ Dextrose 110 ml @ 220 mls/hr Q24H IVPB 11/21/17 13:00 11/27/17 12:59 11/21/17 12:22 Dextrose (Dextrose 50%) 25 ml STAT PRN IV Hypoglycemia 11/21/17 04:30 12/19/17 04:29 Dextrose (Dextrose 50%) 50 ml STAT PRN IV Hypoglycemia 11/21/17 04:30 12/19/17 04:29 Diphenhydramine HCl (Benadryl) 25 mg Q6H PRN GT Itching 11/21/17 04:30 12/19/17 04:29 Heparin Sodium (Porcine) (Heparin 5000 units/ml) 5,000 units EVERY 12 HOURS SUBQ 11/21/17 09:00 12/19/17 08:59 11/21/17 21:55 Hydralazine HCl (Apresoline) 25 mg Q4HR PRN ORAL SBP>160 11/21/17 01:00 12/19/17 19:28 11/22/17 04:25 Insulin Aspart (NovoLOG) Q6HR SUBQ 11/21/17 06:00 12/19/17 06:29 11/22/17 05:49 Metoprolol Tartrate (Lopressor) 25 mg Q12HR GT 11/21/17 09:00 12/20/17 08:59 11/21/17 21:56 Sodium Chloride (NaCl) 1 gm BID ORAL 11/21/17 18:00 12/21/17 17:59 11/21/17 17:48 Vancomycin HCl (Vanco rx to dose) 1 ea DAILY PRN MISC Per rx protocol 11/21/17 09:00 12/19/17 04:29 Vancomycin/Sodium Chloride 250 ml @ 166.667 mls/hr Q12HR@0600,1800 IVPB 11/21/17 06:00 11/26/17 05:59 11/22/17 06:09 FER MORTON November 22, 2017 08:18
[2017-11-22] MEDS: Sodium Chloride 1gm Tab ORAL SCH ×2 (08:22→17:45)
[2017-11-22] MEDS: Metoprolol 25mg tab GT SCH ×2 (08:22→20:50)
[2017-11-22] MEDS: Heparin 5000 units/ml inj SUBQ SCH ×2 (08:38→20:51)
[2017-11-22 11:04] LABS: ANION GAP 8 mmol/L (5-15); BLOOD UREA NITROGEN 10 mg/dL (7-18); CALCIUM 8.9 MG/DL (8.5-10.1); CARBON DIOXIDE 28 MMOL/L (21-32); CHLORIDE 95 MMOL/L (98-107); CREATININE 0.5 MG/DL (0.55-1.30); POTASSIUM 4.1 MMOL/L (3.5-5.1); SODIUM 131 MMOL/L (136-145)
[2017-11-22] MEDS: Cefepime HCl 2 GM in D5W 110 ML IVPB SCH (12:18)
--- NOTE | 2017-11-22 13:43 | Nephrology Progress Note ---
Assessment/Plan Problem List: (1) Malnutrition of moderate degree (2) Malfunction of gastrostomy tube (3) Hyponatremia Plan Na better today, observe with fluid restriction for siadh Subjective ROS Limited/Unobtainable: Yes Objective Objective Last 24 Hour Vital Signs Date Time Temp Pulse Resp B/P (MAP) Pulse Ox O2 Delivery O2 Flow Rate FiO2 11/22/17 13:32 81 141/64 11/22/17 12:16 165/81 11/22/17 12:00 97.7 78 18 165/81 100 Room Air 97.7 11/22/17 08:22 79 163/75 11/22/17 08:22 79 163/75 11/22/17 08:00 97.0 79 18 163/75 96 Room Air 97.0 11/22/17 06:37 97.0 79 18 155/80 98 Room Air 97.0 11/22/17 04:25 163/71 11/22/17 04:12 97.0 74 20 163/71 98 Nasal Cannula 97.0 11/22/17 00:24 97.9 72 20 155/70 97 Room Air 97.9 11/21/17 21:56 97.7 79 18 149/71 99 97.7 11/21/17 21:56 79 149/71 11/21/17 19:24 97.7 74 20 163/74 99 Room Air 97.7 11/21/17 17:48 71 149/60 11/21/17 16:02 97.6 71 18 149/60 95 97.6 Intake and Output 11/21/17 11/22/17 19:00 07:00 Intake Total 775 ml 760 ml Balance 775 ml 760 ml Intake Free Water 60 ml 100 ml IV Total 110 ml Tube Feeding 605 ml 660 ml # Voids 3 3 # Bowel Movements 2 1 Laboratory Tests 11/22/17 08:55: Sodium Level 131L, Potassium Level 4.1, Chloride Level 95L, Carbon Dioxide Level 28, Anion Gap 8, Blood Urea Nitrogen 10, Creatinine 0.5L, Estimat Glomerular Filtration Rate , Glucose Level 132H, Calcium Level 8.9 Height (Feet): 5 Height (Inches): 1.00 Weight (Pounds): 98 General Appearance: no apparent distress EENT: normal ENT inspection Neck: normal alignment Cardiovascular: normal rate, regular rhythm Respiratory/Chest: lungs clear Abdomen: non tender, soft Extremities: other - no edeema, contractures Neurologic: motor weakness BLAIRE ANDRADE November 22, 2017 13:43
--- NOTE | 2017-11-22 22:00 | General Progress Note ---
Assessment/Plan Assessment/Plan Assessment - dysphagia - abnormal LFT - borderline GB thickening on U/S - OBS Recommendations - continue TF - GT site care - elevated HOB - periodic labs Subjective Allergies: Coded Allergies: AMOXICILLIN (Verified Allergy, Mild, 06/21/09) ASPIRIN (Verified Allergy, Mild, 06/21/09) SALICYLATES (Verified Allergy, Mild, 06/21/09) PENICILLINS (Unverified Allergy, Unknown, 11/18/17) Subjective non-verbal tolerating TF new GT in good position no significant leak Objective Last 24 Hour Vital Signs Date Time Temp Pulse Resp B/P (MAP) Pulse Ox O2 Delivery O2 Flow Rate FiO2 11/22/17 20:50 83 144/64 11/22/17 17:46 79 152/56 11/22/17 16:00 97.0 79 18 152/56 99 Room Air 97.0 11/22/17 13:32 81 141/64 11/22/17 12:16 165/81 11/22/17 12:00 97.7 78 18 165/81 100 Room Air 97.7 11/22/17 08:22 79 163/75 11/22/17 08:22 79 163/75 11/22/17 08:00 97.0 79 18 163/75 96 Room Air 97.0 11/22/17 06:37 97.0 79 18 155/80 98 Room Air 97.0 11/22/17 04:25 163/71 11/22/17 04:12 97.0 74 20 163/71 98 Nasal Cannula 97.0 11/22/17 00:24 97.9 72 20 155/70 97 Room Air 97.9 Intake and Output 11/21/17 11/22/17 19:00 07:00 Intake Total 775 ml 760 ml Balance 775 ml 760 ml Intake Free Water 60 ml 100 ml IV Total 110 ml Tube Feeding 605 ml 660 ml # Voids 3 3 # Bowel Movements 2 1 Laboratory Tests 11/22/17 08:55: Sodium Level 131L, Potassium Level 4.1, Chloride Level 95L, Carbon Dioxide Level 28, Anion Gap 8, Blood Urea Nitrogen 10, Creatinine 0.5L, Estimat Glomerular Filtration Rate , Glucose Level 132H, Calcium Level 8.9 Height (Feet): 5 Height (Inches): 1.00 Weight (Pounds): 98 Objective Debilitated Woman NCAT Supple CTA RRR Abd soft, ND, GT in good position, (+) margin of erythema (++) contractures OBS JUAN RAMON CAMACHO November 22, 2017 22:00
[2017-11-23] VITALS: BP 147/61
--- NOTE | 2017-11-23 02:30 | Progress Note ---
DATE: 11/21/2017 INTERNAL MEDICINE PROGRESS NOTE SUBJECTIVE: The patient is tolerating feedings by G-tube. No leakage noted. The patient remains on adjusted IV fluids for electrolyte disturbances. She continues on antimicrobial therapy. Blood pressure control is improved, but still not optimal. The patient remains at baseline level of interaction with advanced dementia. OBJECTIVE: VITAL SIGNS: Blood pressure 149/60, pulse 71, respiratory rate 18, and afebrile. LUNGS: Bilateral breath sounds. No wheezing. CARDIAC: Regular rhythm and rate. Normal S1 and S2 with a fourth heart sound. ABDOMEN: Soft. G-tube intact. Erythema around the site. No edema. Contractures are noted. Aphasia. LABORATORY AND DIAGNOSTIC DATA: Wound culture from the G-tube site revealed Staph aureus and Pseudomonas aeruginosa. Urine culture revealed E. coli and enterococcus. Sodium 125, potassium 4.4, chloride 92, bicarbonate 29, BUN 6 and creatinine 0.4. IMPRESSION: 1. Polymicrobial G-tube site cellulitis. 2. Polymicrobial urinary tract infection. 3. Pressure ulcers. 4. Type 2 diabetes mellitus. 5. Hypertensive heart disease. 6. Hyponatremia. PLAN: 1. Antimicrobials. 2. Skin care. 3. Saline hydration. 4. Fluid restriction to follow. 5. Skin care. 6. Nutrition by feeding tube. Tyrell Underwood M.D. DR: NATASHA JOB#: [id number] CC:
--- NOTE | 2017-11-23 02:30 | Progress Note ---
DATE: 11/22/2017 INTERNAL MEDICINE PROGRESS NOTE SUBJECTIVE: The patient is without apparent distress. She is tolerating nutrition by feeding tube. OBJECTIVE: VITAL SIGNS: Blood pressure 144/64, pulse 83, and respiratory rate 18. NECK: Supple. LUNGS: Clear. CARDIAC: Regular rhythm and rate. Normal S1 and, S2. No new murmur. ABDOMEN: Soft. G-tube intact. Erythema around G-tube site. Slightly better. EXTREMITIES: With contractures. No edema. NEUROLOGIC: Aphasia. LABORATORY AND DIAGNOSTIC DATA: Sodium 131, potassium 4.1, bicarbonate 28, BUN 10 and creatinine 0.5. IMPRESSION: 1. Hypertension, controlled. 2. Dysphagia with G-tube and associated cellulitis. 3. Urinary tract infection, polymicrobial. 4. Anemia. 5. Hyponatremia, overall improved. 6. Multiple decubitus ulcers. PLAN: 1. Continue current antihypertensives. 2. Avoid tighter control. 3. Continue antibiotics per [facility] sales consultant. 4. Skin care. 5. Fluid restriction. Tyrell Underwood M.D. DR: NATASHA JOB#: [id number] CC:
[2017-11-23 04:00] VITALS: BP 146/62
[2017-11-23] MEDS: Vancomycin 750mg/NS 250ml 250 ML IVPB SCH ×2 (05:16→21:23)
[2017-11-23] MEDS: NovoLOG Insulin Flexpen SUBQ SCH ×4 (05:20→23:37)
[2017-11-23 08:00] VITALS: BP 149/76
[2017-11-23 08:34] LABS: ANION GAP 6 mmol/L (5-15); BLOOD UREA NITROGEN 11 mg/dL (7-18); CALCIUM 8.5 MG/DL (8.5-10.1); CARBON DIOXIDE 30 MMOL/L (21-32); CHLORIDE 98 MMOL/L (98-107); CREATININE 0.5 MG/DL (0.55-1.30); POTASSIUM 3.3 MMOL/L (3.5-5.1); SODIUM 134 MMOL/L (136-145)
[2017-11-23] MEDS: Sodium Chloride 1gm Tab ORAL SCH ×2 (08:55→17:30)
[2017-11-23] MEDS: Metoprolol 25mg tab GT SCH ×2 (08:56→20:26)
[2017-11-23] MEDS: Heparin 5000 units/ml inj SUBQ SCH ×2 (08:58→20:27)
[2017-11-23 09:39] LABS: EOSINOPHILS % (AUTO) 1.6 % (0.0-3.0); HEMATOCRIT 32.4 % (37.0-47.0); HEMOGLOBIN 11.1 G/DL (12.0-16.0); MEAN CORPUSCULAR VOLUME 89 FL (80-99); MONOCYTES % (AUTO) 8.7 % (1.0-10.0); NEUTROPHILS % (AUTO) 70.8 % (45.0-75.0); PLATELET COUNT 296 K/UL (150-450); RED BLOOD COUNT 3.63 M/UL (4.20-5.40); WHITE BLOOD COUNT 6.3 K/UL (4.8-10.8)
--- NOTE | 2017-11-23 09:56 | Infectious Diseases Prog Note ---
Assessment/Plan Assessment/Plan A: GT site cellulitis UTI with E. coli & Enterococcus Left heel pressure ulcer DM HPN Hyponatremia Penicillin allergy P; Continue Cefepime & Vancomycin Will f/u cultures Subjective ROS Limited/Unobtainable: Yes Allergies: Coded Allergies: AMOXICILLIN (Verified Allergy, Mild, 06/21/09) ASPIRIN (Verified Allergy, Mild, 06/21/09) SALICYLATES (Verified Allergy, Mild, 06/21/09) PENICILLINS (Unverified Allergy, Unknown, 11/18/17) Objective Vital Signs Last 24 Hour Vital Signs Date Time Temp Pulse Resp B/P (MAP) Pulse Ox O2 Delivery O2 Flow Rate FiO2 11/23/17 08:56 79 149/76 11/23/17 08:56 79 149/76 11/23/17 08:00 98.2 79 18 149/76 99 Room Air 98.2 11/23/17 04:00 98.1 81 15 146/62 99 Room Air 98.1 11/23/17 00:00 98.1 81 15 147/61 98 Room Air 98.1 11/22/17 20:50 83 144/64 11/22/17 20:00 97.2 85 15 144/64 98 Room Air 97.2 11/22/17 17:46 79 152/56 11/22/17 16:00 97.0 79 18 152/56 99 Room Air 97.0 11/22/17 13:32 81 141/64 11/22/17 12:16 165/81 11/22/17 12:00 97.7 78 18 165/81 100 Room Air 97.7 Height (Feet): 5 Height (Inches): 1.00 Weight (Pounds): 98 General Appearance: no acute distress HEENT: mucous membranes moist Respiratory/Chest: lungs clear Cardiovascular: normal rate Abdomen: soft, non tender, other - gt FEEDING Skin: ulcers Neurologic/Psychiatric: aphasia Musculoskeletal: other - contracted legs Laboratory Tests Test 11/23/17 05:30 White Blood Count 6.3 K/UL (4.8-10.8) Red Blood Count 3.63 M/UL (4.20-5.40) L Hemoglobin 11.1 G/DL (12.0-16.0) L Hematocrit 32.4 % (37.0-47.0) L Mean Corpuscular Volume 89 FL (80-99) Mean Corpuscular Hemoglobin 30.4 PG (27.0-31.0) Mean Corpuscular Hemoglobin Concent 34.1 G/DL (32.0-36.0) Red Cell Distribution Width 13.0 % (11.6-14.8) Platelet Count 296 K/UL (150-450) Mean Platelet Volume 5.5 FL (6.5-10.1) L Neutrophils (%) (Auto) 70.8 % (45.0-75.0) Lymphocytes (%) (Auto) 18.0 % (20.0-45.0) L Monocytes (%) (Auto) 8.7 % (1.0-10.0) Eosinophils (%) (Auto) 1.6 % (0.0-3.0) Basophils (%) (Auto) 1.0 % (0.0-2.0) Sodium Level 134 MMOL/L (136-145) L Potassium Level 3.3 MMOL/L (3.5-5.1) L Chloride Level 98 MMOL/L (98-107) Carbon Dioxide Level 30 MMOL/L (21-32) Anion Gap 6 mmol/L (5-15) Blood Urea Nitrogen 11 mg/dL (7-18) Creatinine 0.5 MG/DL (0.55-1.30) L Estimat Glomerular Filtration Rate mL/min (>60) Glucose Level 141 MG/DL (74-106) H Calcium Level 8.5 MG/DL (8.5-10.1) Pro-B-Type Natriuretic Peptide 408 pg/mL (0-125) H Current Medications Medications (Trade) Dose Ordered Sig/Satish Route PRN Reason Start Time Stop Time Status Last Admin Dose Admin Acetaminophen/ Hydrocodone Bitart ([place] 5/325) 1 tab Q4H PRN GT Moderate Pain (Pain Scale 4-6) 11/21/17 00:45 11/26/17 12:41 Amlodipine Besylate (Norvasc) 5 mg BID ORAL 11/21/17 09:00 12/20/17 17:59 11/23/17 08:56 Cefepime HCl 2 gm/ Dextrose 110 ml @ 220 mls/hr Q24H IVPB 11/21/17 13:00 11/27/17 12:59 11/22/17 12:18 Dextrose (Dextrose 50%) 25 ml STAT PRN IV Hypoglycemia 11/21/17 04:30 12/19/17 04:29 Dextrose (Dextrose 50%) 50 ml STAT PRN IV Hypoglycemia 11/21/17 04:30 12/19/17 04:29 Diphenhydramine HCl (Benadryl) 25 mg Q6H PRN GT Itching 11/21/17 04:30 12/19/17 04:29 Heparin Sodium (Porcine) (Heparin 5000 units/ml) 5,000 units EVERY 12 HOURS SUBQ 11/21/17 09:00 12/19/17 08:59 11/23/17 08:58 Hydralazine HCl (Apresoline) 25 mg Q4HR PRN ORAL SBP>160 11/21/17 01:00 12/19/17 19:28 11/22/17 12:16 Insulin Aspart (NovoLOG) Q6HR SUBQ 11/21/17 06:00 12/19/17 06:29 11/23/17 05:20 Metoprolol Tartrate (Lopressor) 25 mg Q12HR GT 11/21/17 09:00 12/20/17 08:59 11/23/17 08:56 Sodium Chloride (NaCl) 1 gm BID ORAL 11/21/17 18:00 12/21/17 17:59 11/23/17 08:55 Vancomycin HCl (Vanco rx to dose) 1 ea DAILY PRN MISC Per rx protocol 11/21/17 09:00 12/19/17 04:29 Vancomycin/Sodium Chloride 250 ml @ 166.667 mls/hr Q12HR@0600,1800 IVPB 11/21/17 06:00 11/26/17 05:59 11/23/17 05:16 FER MORTON November 23, 2017 09:56
--- NOTE | 2017-11-23 10:04 | Diagnostic Imaging Report ---
APPROVED REPORT CPT Code: 22530 Present Symptoms Comments: R/O DVT Technically difficult and limited study due to BLE contracture of hip and knee. BILATERAL: Imaging reveals a patent deep venous system bilaterally. There is no evidence of thrombus within the femoral, or tibial segments. The greater saphenous veins are also within normal limits. Doppler indicates normal spontaneous flow within these segments. The popliteal veins were not imaged due to contracture of knee.
[2017-11-23 12:00] VITALS: BP 159/70
[2017-11-23] MEDS: Cefepime HCl 2 GM in D5W 110 ML IVPB SCH (12:37)
[2017-11-23 15:50] VITALS: BP 131/62
--- NOTE | 2017-11-23 19:28 | Nephrology Progress Note ---
Assessment/Plan Problem List: (1) Malnutrition of moderate degree (2) Malfunction of gastrostomy tube (3) Hyponatremia (4) Hypokalemia Plan Na better today, observe with fluid restriction for siadh replace K Subjective ROS Limited/Unobtainable: Yes Objective Objective Last 24 Hour Vital Signs Date Time Temp Pulse Resp B/P (MAP) Pulse Ox O2 Delivery O2 Flow Rate FiO2 11/23/17 17:30 77 131/62 11/23/17 15:50 97.3 77 18 131/62 100 Room Air 97.3 11/23/17 12:00 97.0 74 18 159/70 96 Room Air 97.0 11/23/17 08:56 79 149/76 11/23/17 08:56 79 149/76 11/23/17 08:00 98.2 79 18 149/76 99 Room Air 98.2 11/23/17 04:00 98.1 81 15 146/62 99 Room Air 98.1 11/23/17 00:00 98.1 81 15 147/61 98 Room Air 98.1 11/22/17 20:50 83 144/64 11/22/17 20:00 97.2 85 15 144/64 98 Room Air 97.2 Intake and Output 11/22/17 11/23/17 19:00 07:00 Intake Total 925.000 ml 660 ml Balance 925.000 ml 660 ml Intake Free Water 70 ml IV Total 250.000 ml Tube Feeding 605 ml 660 ml # Voids 2 Laboratory Tests 11/23/17 05:30: White Blood Count 6.3, Red Blood Count 3.63L, Hemoglobin 11.1L, Hematocrit 32.4L , Mean Corpuscular Volume 89, Mean Corpuscular Hemoglobin 30.4, Mean Corpuscular Hemoglobin Concent 34.1, Red Cell Distribution Width 13.0, Platelet Count 296, Mean Platelet Volume 5.5L, Neutrophils (%) (Auto) 70.8, Lymphocytes ( %) (Auto) 18.0L, Monocytes (%) (Auto) 8.7, Eosinophils (%) (Auto) 1.6, Basophils (%) (Auto) 1.0, Sodium Level 134L, Potassium Level 3.3L, Chloride Level 98, Carbon Dioxide Level 30, Anion Gap 6, Blood Urea Nitrogen 11, Creatinine 0.5L, Estimat Glomerular Filtration Rate , Glucose Level 141H, Calcium Level 8.5, Pro-B-Type Natriuretic Peptide 408H 11/23/17 17:45: Vancomycin Level Trough [Pending] Height (Feet): 5 Height (Inches): 1.00 Weight (Pounds): 98 General Appearance: no apparent distress EENT: normal ENT inspection Neck: normal alignment Cardiovascular: regular rhythm Respiratory/Chest: lungs clear Abdomen: soft Neurologic: abnormal sheet metal assembler II-XII, motor weakness BLAIRE ANDRADE November 23, 2017 19:28
[2017-11-23 20:00] VITALS: BP 148/79
--- NOTE | 2017-11-23 20:30 | Progress Note ---
DATE: 11/23/2017 INTERNAL MEDICINE AND CARDIOLOGY PROGRESS NOTE SUBJECTIVE: The patient is noncommunicative. No apparent distress. OBJECTIVE: VITAL SIGNS: Blood pressure 131/62, pulse 77, respirations 18, and afebrile. LUNGS: Clear. CARDIAC: Regular. ABDOMEN: Soft. EXTREMITIES: With no edema. Wound as pictured. Contractures are severe. LABORATORY DATA: Labs reviewed. IMPRESSION: 1. Hyponatremia, improving. 2. Severe protein-calorie malnutrition. 3. Dysphagia with G-tube and cellulitis around the G-tube site. 4. Decubitus. 5. CVA with advanced dementia, contractures, and aphasia. 6. Hypertension. 7. Acute on chronic diastolic congestive heart failure. PLAN: 1. Discontinue intravenous fluids. 2. Fluid restriction. 3. Antimicrobials. 4. Skin care. 5. Respiratory hygiene. 6. Discharge planning to be addressed with family members. 7. Social service to confirm adequate care at home for this patient's needs. Tyrell Underwood M.D. : HALIMA JOB#: [id number] CC:
--- NOTE | 2017-11-23 23:55 | General Progress Note ---
Assessment/Plan Assessment/Plan Assessment - dysphagia - abnormal LFT - borderline GB thickening on U/S - OBS Recommendations - continue TF - GT site care - elevated HOB - periodic labs Subjective Allergies: Coded Allergies: AMOXICILLIN (Verified Allergy, Mild, 06/21/09) ASPIRIN (Verified Allergy, Mild, 06/21/09) SALICYLATES (Verified Allergy, Mild, 06/21/09) PENICILLINS (Unverified Allergy, Unknown, 11/18/17) Subjective non-verbal tolerating TF new GT in good position no events overnight Objective Last 24 Hour Vital Signs Date Time Temp Pulse Resp B/P (MAP) Pulse Ox O2 Delivery O2 Flow Rate FiO2 11/23/17 20:26 75 148/79 11/23/17 20:00 98.1 86 19 148/79 99 98.1 11/23/17 17:30 77 131/62 11/23/17 15:50 97.3 77 18 131/62 100 Room Air 97.3 11/23/17 12:00 97.0 74 18 159/70 96 Room Air 97.0 11/23/17 08:56 79 149/76 11/23/17 08:56 79 149/76 11/23/17 08:00 98.2 79 18 149/76 99 Room Air 98.2 11/23/17 04:00 98.1 81 15 146/62 99 Room Air 98.1 11/23/17 00:00 98.1 81 15 147/61 98 Room Air 98.1 Intake and Output 11/22/17 11/23/17 19:00 07:00 Intake Total 925.000 ml 660 ml Balance 925.000 ml 660 ml Intake Free Water 70 ml IV Total 250.000 ml Tube Feeding 605 ml 660 ml # Voids 2 Laboratory Tests 11/23/17 05:30: White Blood Count 6.3, Red Blood Count 3.63L, Hemoglobin 11.1L, Hematocrit 32.4L , Mean Corpuscular Volume 89, Mean Corpuscular Hemoglobin 30.4, Mean Corpuscular Hemoglobin Concent 34.1, Red Cell Distribution Width 13.0, Platelet Count 296, Mean Platelet Volume 5.5L, Neutrophils (%) (Auto) 70.8, Lymphocytes ( %) (Auto) 18.0L, Monocytes (%) (Auto) 8.7, Eosinophils (%) (Auto) 1.6, Basophils (%) (Auto) 1.0, Sodium Level 134L, Potassium Level 3.3L, Chloride Level 98, Carbon Dioxide Level 30, Anion Gap 6, Blood Urea Nitrogen 11, Creatinine 0.5L, Estimat Glomerular Filtration Rate , Glucose Level 141H, Calcium Level 8.5, Pro-B-Type Natriuretic Peptide 408H 11/23/17 17:45: Vancomycin Level Trough 14.8H Height (Feet): 5 Height (Inches): 1.00 Weight (Pounds): 98 Objective Debilitated Woman NCAT Supple CTA RRR Abd soft, ND, GT in good position, (+) margin of erythema (++) contractures OBS JUAN RAMON CAMACHO November 23, 2017 23:55
[2017-11-24] VITALS: BP 133/56
[2017-11-24 04:00] VITALS: BP 147/74
[2017-11-24] MEDS: Vancomycin 750mg/NS 250ml 250 ML IVPB SCH (05:35)
[2017-11-24] MEDS: NovoLOG Insulin Flexpen SUBQ SCH ×4 (05:39→23:50)
[2017-11-24 08:07] VITALS: BP 149/67
[2017-11-24] MEDS: Sodium Chloride 1gm Tab ORAL SCH ×2 (09:06→17:37)
[2017-11-24] MEDS: Metoprolol 25mg tab GT SCH ×2 (09:07→20:28)
[2017-11-24] MEDS: Heparin 5000 units/ml inj SUBQ SCH ×2 (09:09→20:29)
--- NOTE | 2017-11-24 11:44 | Infectious Diseases Prog Note ---
"Assessment/Plan Assessment/Plan antibiotics : vancomycin iv, cefepime A 1. e.coli | enterococcus UTI 2. GT site cellulitis with staph aureus | pseudomonas 3. diabetes mellitus 4. hypertension P 1. continue vancomycin iv, cefepime 2. will follow up cultures Subjective ROS Limited/Unobtainable: Yes Allergies: Coded Allergies: AMOXICILLIN (Verified Allergy, Mild, 06/21/09) ASPIRIN (Verified Allergy, Mild, 06/21/09) SALICYLATES (Verified Allergy, Mild, 06/21/09) PENICILLINS (Unverified Allergy, Unknown, 11/18/17) Objective Vital Signs Last 24 Hour Vital Signs Date Time Temp Pulse Resp B/P (MAP) Pulse Ox O2 Delivery O2 Flow Rate FiO2 11/24/17 09:07 78 149/67 11/24/17 09:07 78 149/67 11/24/17 08:07 98.1 78 20 149/67 98 98.1 11/24/17 04:00 98.2 81 19 147/74 98 98.2 11/24/17 04:00 Room Air 11/24/17 00:00 Room Air 11/24/17 00:00 97.9 79 19 133/56 98 97.9 11/23/17 20:26 75 148/79 11/23/17 20:00 Room Air 11/23/17 20:00 98.1 86 19 148/79 99 98.1 11/23/17 17:30 77 131/62 11/23/17 15:50 97.3 77 18 131/62 100 Room Air 97.3 11/23/17 12:00 97.0 74 18 159/70 96 Room Air 97.0 Height (Feet): 5 Height (Inches): 1.00 Weight (Pounds): 98 Respiratory/Chest: lungs clear Cardiovascular: normal rate, regular rhythm, no gallop/murmur Abdomen: soft, non tender, other - GT Extremities: no edema, other - left foot dressings Laboratory Tests Test 11/23/17 17:45 Vancomycin Level Trough 14.8 ug/mL (5.0-12.0) H Current Medications Medications (Trade) Dose Ordered Sig/Satish Route PRN Reason Start Time Stop Time Status Last Admin Dose Admin Acetaminophen/ Hydrocodone Bitart ([place] 5/325) 1 tab Q4H PRN GT Moderate Pain (Pain Scale 4-6) 5/5/18 00:45 11/26/17 12:41 Amlodipine Besylate (Norvasc) 5 mg BID ORAL 11/21/17 09:00 12/20/17 17:59 11/24/17 09:07 Cefepime HCl 2 gm/ Dextrose 110 ml @ 220 mls/hr Q24H IVPB 11/21/17 13:00 11/27/17 12:59 11/23/17 12:37 Dextrose (Dextrose 50%) 25 ml STAT PRN IV Hypoglycemia 11/21/17 04:30 12/19/17 04:29 Dextrose (Dextrose 50%) 50 ml STAT PRN IV Hypoglycemia 11/21/17 04:30 12/19/17 04:29 Diphenhydramine HCl (Benadryl) 25 mg Q6H PRN GT Itching 11/21/17 04:30 12/19/17 04:29 Heparin Sodium (Porcine) (Heparin 5000 units/ml) 5,000 units EVERY 12 HOURS SUBQ 11/21/17 09:00 12/19/17 08:59 11/24/17 09:09 Hydralazine HCl (Apresoline) 25 mg Q4HR PRN ORAL SBP>160 11/21/17 01:00 12/19/17 19:28 11/22/17 12:16 Insulin Aspart (NovoLOG) Q6HR SUBQ 11/21/17 06:00 12/19/17 06:29 11/24/17 05:39 Metoprolol Tartrate (Lopressor) 25 mg Q12HR GT 11/21/17 09:00 12/20/17 08:59 11/24/17 09:07 Sodium Chloride (NaCl) 1 gm BID ORAL 11/21/17 18:00 12/21/17 17:59 11/24/17 09:06 Vancomycin HCl (Vanco rx to dose) 1 ea DAILY PRN MISC Per rx protocol 11/21/17 09:00 12/19/17 04:29 Vancomycin/Sodium Chloride 250 ml @ 166.667 mls/hr Q12HR@0600,1800 IVPB 11/21/17 06:00 11/26/17 05:59 11/24/17 05:35 FELICITAS MUIR November 24, 2017 11:44"
[2017-11-24 12:46] VITALS: BP 146/67
[2017-11-24] MEDS: Cefepime HCl 2 GM in D5W 110 ML IVPB SCH (13:00)
[2017-11-24 15:55] VITALS: BP 157/77
--- NOTE | 2017-11-24 19:56 | General Progress Note ---
Assessment/Plan Assessment/Plan Assessment - dysphagia - abnormal LFT - borderline GB thickening on U/S - OBS Recommendations - continue TF - GT site care - elevated HOB - periodic labs Subjective Allergies: Coded Allergies: AMOXICILLIN (Verified Allergy, Mild, 06/21/09) ASPIRIN (Verified Allergy, Mild, 06/21/09) SALICYLATES (Verified Allergy, Mild, 06/21/09) PENICILLINS (Unverified Allergy, Unknown, 11/18/17) Subjective non-verbal tolerating TF new GT in good position no events overnight Objective Last 24 Hour Vital Signs Date Time Temp Pulse Resp B/P (MAP) Pulse Ox O2 Delivery O2 Flow Rate FiO2 11/24/17 17:38 82 157/77 11/24/17 15:55 98.2 82 18 157/77 96 98.2 11/24/17 12:46 97.7 77 18 146/67 99 97.7 11/24/17 09:07 78 149/67 11/24/17 09:07 78 149/67 11/24/17 08:07 98.1 78 20 149/67 98 98.1 11/24/17 04:00 98.2 81 19 147/74 98 98.2 11/24/17 04:00 Room Air 11/24/17 00:00 Room Air 11/24/17 00:00 97.9 79 19 133/56 98 97.9 11/23/17 20:26 75 148/79 11/23/17 20:00 Room Air 11/23/17 20:00 98.1 86 19 148/79 99 98.1 Intake and Output 11/23/17 11/24/17 19:00 07:00 Intake Total 765 ml 1126.667 ml Balance 765 ml 1126.667 ml Intake Free Water 50 ml 50 ml IV Total 110 ml 416.667 ml Tube Feeding 605 ml 660 ml # Voids 5 2 Height (Feet): 5 Height (Inches): 1.00 Weight (Pounds): 98 Objective Debilitated Woman NCAT Supple CTA RRR Abd soft, ND, GT in good position, (+) margin of erythema (++) contractures OBS JUAN RAMON CAMACHO November 24, 2017 19:56
[2017-11-24 20:40] VITALS: BP 141/70
--- NOTE | 2017-11-24 20:41 | Nephrology Progress Note ---
Assessment/Plan Problem List: (1) Malnutrition of moderate degree (2) Malfunction of gastrostomy tube (3) Hyponatremia (4) Hypokalemia Plan Na better, observe with fluid restriction for siadh replace K Subjective ROS Limited/Unobtainable: Yes Objective Objective Last 24 Hour Vital Signs Date Time Temp Pulse Resp B/P (MAP) Pulse Ox O2 Delivery O2 Flow Rate FiO2 11/24/17 20:40 97.7 84 17 141/70 98 97.7 11/24/17 20:28 84 141/71 11/24/17 17:38 82 157/77 11/24/17 15:55 98.2 82 18 157/77 96 98.2 11/24/17 12:46 97.7 77 18 146/67 99 97.7 11/24/17 09:07 78 149/67 11/24/17 09:07 78 149/67 11/24/17 08:07 98.1 78 20 149/67 98 98.1 11/24/17 04:00 98.2 81 19 147/74 98 98.2 11/24/17 04:00 Room Air 11/24/17 00:00 Room Air 11/24/17 00:00 97.9 79 19 133/56 98 97.9 Intake and Output 11/23/17 11/24/17 19:00 07:00 Intake Total 765 ml 1126.667 ml Balance 765 ml 1126.667 ml Intake Free Water 50 ml 50 ml IV Total 110 ml 416.667 ml Tube Feeding 605 ml 660 ml # Voids 5 2 Height (Feet): 5 Height (Inches): 1.00 Weight (Pounds): 98 General Appearance: lethargic Neck: normal alignment Cardiovascular: regular rhythm Respiratory/Chest: lungs clear Abdomen: soft Extremities: trace edema Neurologic: motor weakness BLAIRE ANDRADE November 24, 2017 20:41
[2017-11-24] MEDS ORDERED: Levofloxacin 500mg tab ORAL ONE (22:30)
[2017-11-25 00:33] VITALS: BP 134/73
--- NOTE | 2017-11-25 01:30 | Progress Note ---
DATE: 11/24/2017 NOTE: "POOR AUDIO QUALITY" SUBJECTIVE: The patient continues on antimicrobials. no apparent shortness of breath or respiratory distress. OBJECTIVE: GENERAL: Unchanged. Feels dry. VITALS SIGNS: Blood pressure 141/70, pulse 84, respiratory rate 18. LUNGS: Clear. CARDIAC: Regular. Normal S1 and S2. ABDOMEN: Soft. EXTREMITIES: Trace edema. Severe contractures . IMPRESSION: 1. UTI. 2. Sepsis. 3. Infected decubiti with cellulitis. 4. G-tube site cellulitis. 5. CVA with dementia. 6. Hyponatremia, corrected. PLAN: 1. Continue nutrition by feeding tube. 2. Antibiotics per Infectious Disease workers compensation consultant. 3. Wound care. 4. Fluid restriction. 5. Titrate diabetic regimen. Tyrell Underwood M.D. DR: NATASHA JOB#: [id number] CC:
[2017-11-25 04:21] VITALS: BP 126/72
[2017-11-25] MEDS: NovoLOG Insulin Flexpen SUBQ SCH ×4 (05:33→23:53)
[2017-11-25 08:35] VITALS: BP 152/73
[2017-11-25 09:27] LABS: BASOPHILS % (AUTO) 0.9 % (0.0-2.0); EOSINOPHILS % (AUTO) 1.8 % (0.0-3.0); HEMATOCRIT 30.7 % (37.0-47.0); HEMOGLOBIN 10.2 G/DL (12.0-16.0); MEAN CORPUSCULAR VOLUME 91 FL (80-99); MONOCYTES % (AUTO) 8.3 % (1.0-10.0); PLATELET COUNT 297 K/UL (150-450); RED BLOOD COUNT 3.38 M/UL (4.20-5.40); RED CELL DISTRIBUTION WIDTH 13.5 % (11.6-14.8); WHITE BLOOD COUNT 7.3 K/UL (4.8-10.8)
[2017-11-25] MEDS: Metoprolol 25mg tab GT SCH ×2 (09:41→20:27)
[2017-11-25] MEDS: Sodium Chloride 1gm Tab ORAL SCH ×2 (09:41→17:38)
[2017-11-25] MEDS: Heparin 5000 units/ml inj SUBQ SCH ×2 (09:43→20:28)
[2017-11-25 09:51] LABS: ALANINE AMINOTRANSFERASE 47 U/L (12-78); ALBUMIN 2.4 G/DL (3.4-5.0); ALBUMIN/GLOBULIN RATIO 0.5 (1.0-2.7); ALKALINE PHOSPHATASE 112 U/L (46-116); ANION GAP 5 mmol/L (5-15); ASPARTATE AMINO TRANSFERASE 36 U/L (15-37); BILIRUBIN,TOTAL 0.3 MG/DL (0.2-1.0); BLOOD UREA NITROGEN 19 mg/dL (7-18); CALCIUM 8.6 MG/DL (8.5-10.1); CARBON DIOXIDE 31 MMOL/L (21-32); CHLORIDE 102 MMOL/L (98-107); CREATININE 0.6 MG/DL (0.55-1.30); POTASSIUM 3.7 MMOL/L (3.5-5.1); SODIUM 138 MMOL/L (136-145)
[2017-11-25 12:44] VITALS: BP 153/73
--- NOTE | 2017-11-25 13:54 | Infectious Diseases Prog Note ---
Assessment/Plan Assessment/Plan A: GT site cellulitis UTI with E. coli & Enterococcus Left heel pressure ulcer DM HPN Hyponatremia Penicillin allergy MRSA & VRE colonization P; Continue Levaquin Subjective ROS Limited/Unobtainable: Yes Allergies: Coded Allergies: AMOXICILLIN (Verified Allergy, Mild, 06/21/09) ASPIRIN (Verified Allergy, Mild, 06/21/09) SALICYLATES (Verified Allergy, Mild, 06/21/09) PENICILLINS (Unverified Allergy, Unknown, 11/18/17) Objective Vital Signs Last 24 Hour Vital Signs Date Time Temp Pulse Resp B/P (MAP) Pulse Ox O2 Delivery O2 Flow Rate FiO2 11/25/17 12:44 98.6 76 18 153/73 99 Nasal Cannula 98.6 11/25/17 09:41 88 152/73 11/25/17 09:39 88 152/73 11/25/17 08:35 99.1 88 20 152/73 98 Nasal Cannula 99.1 11/25/17 04:22 Room Air 11/25/17 04:21 97.6 87 17 126/72 98 97.6 11/25/17 00:34 Room Air 11/25/17 00:33 97.4 82 17 134/73 98 97.4 11/24/17 20:41 Room Air 11/24/17 20:40 97.7 84 17 141/70 98 97.7 11/24/17 20:28 84 141/71 11/24/17 17:38 82 157/77 11/24/17 15:55 98.2 82 18 157/77 96 98.2 Height (Feet): 5 Height (Inches): 1.00 Weight (Pounds): 98 General Appearance: no acute distress HEENT: mucous membranes moist Respiratory/Chest: lungs clear Cardiovascular: normal rate Abdomen: soft, non tender, other - Gt feeding Extremities: no edema Neurologic/Psychiatric: aphasia Laboratory Tests Test 11/25/17 06:49 White Blood Count 7.3 K/UL (4.8-10.8) Red Blood Count 3.38 M/UL (4.20-5.40) L Hemoglobin 10.2 G/DL (12.0-16.0) L Hematocrit 30.7 % (37.0-47.0) L Mean Corpuscular Volume 91 FL (80-99) Mean Corpuscular Hemoglobin 30.2 PG (27.0-31.0) Mean Corpuscular Hemoglobin Concent 33.3 G/DL (32.0-36.0) Red Cell Distribution Width 13.5 % (11.6-14.8) Platelet Count 297 K/UL (150-450) Mean Platelet Volume 5.2 FL (6.5-10.1) L Neutrophils (%) (Auto) 68.0 % (45.0-75.0) Lymphocytes (%) (Auto) 21.0 % (20.0-45.0) Monocytes (%) (Auto) 8.3 % (1.0-10.0) Eosinophils (%) (Auto) 1.8 % (0.0-3.0) Basophils (%) (Auto) 0.9 % (0.0-2.0) Sodium Level 138 MMOL/L (136-145) Potassium Level 3.7 MMOL/L (3.5-5.1) Chloride Level 102 MMOL/L (98-107) Carbon Dioxide Level 31 MMOL/L (21-32) Anion Gap 5 mmol/L (5-15) Blood Urea Nitrogen 19 mg/dL (7-18) H Creatinine 0.6 MG/DL (0.55-1.30) Estimat Glomerular Filtration Rate mL/min (>60) Glucose Level 127 MG/DL (74-106) H Calcium Level 8.6 MG/DL (8.5-10.1) Magnesium Level 2.3 MG/DL (1.8-2.4) Total Bilirubin 0.3 MG/DL (0.2-1.0) Aspartate Amino Transf (AST/SGOT) 36 U/L (15-37) Alanine Aminotransferase (ALT/SGPT) 47 U/L (12-78) Alkaline Phosphatase 112 U/L (46-116) Total Protein 7.6 G/DL (6.4-8.2) Albumin 2.4 G/DL (3.4-5.0) L Globulin 5.2 g/dL Albumin/Globulin Ratio 0.5 (1.0-2.7) L Current Medications Medications (Trade) Dose Ordered Sig/Satish Route PRN Reason Start Time Stop Time Status Last Admin Dose Admin Acetaminophen/ Hydrocodone Bitart ([place] 5/325) 1 tab Q4H PRN GT Moderate Pain (Pain Scale 4-6) 11/21/17 00:45 11/26/17 12:41 Amlodipine Besylate (Norvasc) 5 mg BID ORAL 11/21/17 09:00 12/20/17 17:59 11/25/17 09:39 Dextrose (Dextrose 50%) 25 ml STAT PRN IV Hypoglycemia 11/21/17 04:30 12/19/17 04:29 Dextrose (Dextrose 50%) 50 ml STAT PRN IV Hypoglycemia 11/21/17 04:30 12/19/17 04:29 Diphenhydramine HCl (Benadryl) 25 mg Q6H PRN GT Itching 11/21/17 04:30 12/19/17 04:29 Heparin Sodium (Porcine) (Heparin 5000 units/ml) 5,000 units EVERY 12 HOURS SUBQ 11/21/17 09:00 12/19/17 08:59 11/25/17 09:43 Hydralazine HCl (Apresoline) 25 mg Q4HR PRN ORAL SBP>160 11/21/17 01:00 12/19/17 19:28 11/22/17 12:16 Insulin Aspart (NovoLOG) Q6HR SUBQ 11/21/17 06:00 12/19/17 06:29 11/25/17 12:17 Levofloxacin (Levaquin) 250 mg DAILY ORAL 11/25/17 09:00 12/02/17 08:59 11/25/17 09:38 Metoprolol Tartrate (Lopressor) 25 mg Q12HR GT 11/21/17 09:00 12/20/17 08:59 11/25/17 09:41 Sodium Chloride (NaCl) 1 gm BID ORAL 11/21/17 18:00 12/21/17 17:59 11/25/17 09:41 FER MORTON November 25, 2017 13:54
--- NOTE | 2017-11-25 16:30 | Nephrology Progress Note ---
Assessment/Plan Problem List: (1) Malnutrition of moderate degree (2) Malfunction of gastrostomy tube (3) Hyponatremia (4) Hypokalemia Plan Na better, observe with fluid restriction for siadh replace K done Subjective ROS Limited/Unobtainable: Yes Objective Objective Last 24 Hour Vital Signs Date Time Temp Pulse Resp B/P (MAP) Pulse Ox O2 Delivery O2 Flow Rate FiO2 11/25/17 16:16 97.9 82 18 100 Nasal Cannula 97.9 11/25/17 12:44 98.6 76 18 153/73 99 Nasal Cannula 98.6 11/25/17 09:41 88 152/73 11/25/17 09:39 88 152/73 11/25/17 08:35 99.1 88 20 152/73 98 Nasal Cannula 99.1 11/25/17 04:22 Room Air 11/25/17 04:21 97.6 87 17 126/72 98 97.6 11/25/17 00:34 Room Air 11/25/17 00:33 97.4 82 17 134/73 98 97.4 11/24/17 20:41 Room Air 11/24/17 20:40 97.7 84 17 141/70 98 97.7 11/24/17 20:28 84 141/71 11/24/17 17:38 82 157/77 Intake and Output 11/24/17 11/25/17 19:00 07:00 Intake Total 793.333 ml 655 ml Balance 793.333 ml 655 ml Intake Free Water 50 ml 50 ml IV Total 83.333 ml Tube Feeding 660 ml 605 ml # Voids 7 2 Laboratory Tests 11/25/17 06:49: White Blood Count 7.3, Red Blood Count 3.38L, Hemoglobin 10.2L, Hematocrit 30.7L , Mean Corpuscular Volume 91, Mean Corpuscular Hemoglobin 30.2, Mean Corpuscular Hemoglobin Concent 33.3, Red Cell Distribution Width 13.5, Platelet Count 297, Mean Platelet Volume 5.2L, Neutrophils (%) (Auto) 68.0, Lymphocytes ( %) (Auto) 21.0, Monocytes (%) (Auto) 8.3, Eosinophils (%) (Auto) 1.8, Basophils (%) (Auto) 0.9, Sodium Level 138, Potassium Level 3.7, Chloride Level 102, Carbon Dioxide Level 31, Anion Gap 5, Blood Urea Nitrogen 19H, Creatinine 0.6, Estimat Glomerular Filtration Rate , Glucose Level 127H, Calcium Level 8.6, Magnesium Level 2.3, Total Bilirubin 0.3, Aspartate Amino Transf (AST/SGOT) 36, Alanine Aminotransferase (ALT/SGPT) 47, Alkaline Phosphatase 112, Total Protein 7.6, Albumin 2.4L, Globulin 5.2, Albumin/Globulin Ratio 0.5L Height (Feet): 5 Height (Inches): 1.00 Weight (Pounds): 98 General Appearance: no apparent distress, lethargic EENT: normal ENT inspection Neck: normal alignment Cardiovascular: regular rhythm Respiratory/Chest: lungs clear Abdomen: soft Neurologic: abnormal electroplating technician II-XII, motor weakness BLAIRE ANDRADE November 25, 2017 16:30
[2017-11-25 20:00] VITALS: BP 141/95
--- NOTE | 2017-11-25 22:21 | General Progress Note ---
Assessment/Plan Assessment/Plan Assessment - dysphagia - abnormal LFT - borderline GB thickening on U/S - OBS Recommendations - continue TF - GT site care - elevated HOB - periodic labs Subjective Allergies: Coded Allergies: AMOXICILLIN (Verified Allergy, Mild, 06/21/09) ASPIRIN (Verified Allergy, Mild, 06/21/09) SALICYLATES (Verified Allergy, Mild, 06/21/09) PENICILLINS (Unverified Allergy, Unknown, 11/18/17) Subjective non-verbal tolerating TF new GT in good position no events overnight Objective Last 24 Hour Vital Signs Date Time Temp Pulse Resp B/P (MAP) Pulse Ox O2 Delivery O2 Flow Rate FiO2 11/25/17 20:27 87 141/95 11/25/17 20:00 98.2 87 18 141/95 99 98.2 11/25/17 17:38 82 153/73 11/25/17 16:16 97.9 82 18 100 Nasal Cannula 97.9 11/25/17 12:44 98.6 76 18 153/73 99 Nasal Cannula 98.6 11/25/17 09:41 88 152/73 11/25/17 09:39 88 152/73 11/25/17 08:35 99.1 88 20 152/73 98 Nasal Cannula 99.1 11/25/17 04:22 Room Air 11/25/17 04:21 97.6 87 17 126/72 98 97.6 11/25/17 00:34 Room Air 11/25/17 00:33 97.4 82 17 134/73 98 97.4 Intake and Output 11/24/17 11/25/17 19:00 07:00 Intake Total 793.333 ml 655 ml Balance 793.333 ml 655 ml Intake Free Water 50 ml 50 ml IV Total 83.333 ml Tube Feeding 660 ml 605 ml # Voids 7 2 Laboratory Tests 11/25/17 06:49: White Blood Count 7.3, Red Blood Count 3.38L, Hemoglobin 10.2L, Hematocrit 30.7L , Mean Corpuscular Volume 91, Mean Corpuscular Hemoglobin 30.2, Mean Corpuscular Hemoglobin Concent 33.3, Red Cell Distribution Width 13.5, Platelet Count 297, Mean Platelet Volume 5.2L, Neutrophils (%) (Auto) 68.0, Lymphocytes ( %) (Auto) 21.0, Monocytes (%) (Auto) 8.3, Eosinophils (%) (Auto) 1.8, Basophils (%) (Auto) 0.9, Sodium Level 138, Potassium Level 3.7, Chloride Level 102, Carbon Dioxide Level 31, Anion Gap 5, Blood Urea Nitrogen 19H, Creatinine 0.6, Estimat Glomerular Filtration Rate , Glucose Level 127H, Calcium Level 8.6, Magnesium Level 2.3, Total Bilirubin 0.3, Aspartate Amino Transf (AST/SGOT) 36, Alanine Aminotransferase (ALT/SGPT) 47, Alkaline Phosphatase 112, Total Protein 7.6, Albumin 2.4L, Globulin 5.2, Albumin/Globulin Ratio 0.5L Height (Feet): 5 Height (Inches): 1.00 Weight (Pounds): 98 Objective Debilitated Woman NCAT Supple CTA RRR Abd soft, ND, GT in good position, (+) margin of erythema (++) contractures OBS JUAN RAMON CAMACHO November 25, 2017 22:21
[2017-11-25 23:56] VITALS: BP 145/63
--- NOTE | 2017-11-26 03:15 | Progress Note ---
DATE: 11/25/2017 INTERNAL MEDICINE PROGRESS NOTE SUBJECTIVE: The patient is without new signs or distress. She is tolerating feedings by G-tube. She continues with wound care. Family members anticipate taking the patient home. We will consider hospice in the future although it appears that she was on hospice for a year and it was discontinued. Home health will be started upon discharge in the interim. OBJECTIVE: VITAL SIGNS: Blood pressure 152/73, pulse 88, respirations 20, and temperature max 99.1. HEENT: Oropharynx is clear. NECK: Supple. LUNGS: Clear. CARDIAC: Regular. Normal S1 and S2 with no new murmur. ABDOMEN: Soft. G-tube site with less erythema and no drainage. EXTREMITIES: Left heel ulcer is dry and clean. NEUROLOGIC: Contractures are noted and severe cognitive impairment. LABORATORY DATA: White count 7.3 and hemoglobin 10.2. Potassium 3.7. BUN 19, creatinine 0.6, and albumin 2.4. IMPRESSION: 1. Gastrostomy tube site cellulitis. 2. Heel pressure ulcers have healed. 3. Severe protein-calorie malnutrition. 4. Hyponatremia, corrected. 5. Hypovolemia and dehydration, resolved. 6. Cerebrovascular accident with dementia. 7. Contractures. 8. Aphasia. 9. Dysphagia. 10. Type 2 diabetes mellitus, controlled. 11. Urinary tract infection with sepsis, status post therapy. PLAN: 1. Skin care. 2. Antimicrobials per G-tube. 3. Nutrition by feeding tube. 4. Discharge planning as outlined above. Tyrell Underwood M.D. DR: KENNETH JOB#: [id number] CC:
[2017-11-26 04:00] VITALS: BP 160/76
[2017-11-26] MEDS: NovoLOG Insulin Flexpen SUBQ SCH ×2 (05:44→12:00)
[2017-11-26 08:12] VITALS: BP 154/76
[2017-11-26] MEDS: Metoprolol 25mg tab GT SCH (08:27)
[2017-11-26 08:29] VITALS: BP 154/76
[2017-11-26] MEDS: Heparin 5000 units/ml inj SUBQ SCH (08:31)
--- NOTE | 2017-11-26 10:50 | General Progress Note ---
Assessment/Plan Assessment/Plan Assessment - dysphagia - abnormal LFT - borderline GB thickening on U/S - OBS - anemia Recommendations - continue TF - GT site care - elevated HOB - periodic labs Subjective Allergies: Coded Allergies: AMOXICILLIN (Verified Allergy, Mild, 06/21/09) ASPIRIN (Verified Allergy, Mild, 06/21/09) SALICYLATES (Verified Allergy, Mild, 06/21/09) PENICILLINS (Unverified Allergy, Unknown, 11/18/17) Subjective non-verbal tolerating TF no events overnight Objective Last 24 Hour Vital Signs Date Time Temp Pulse Resp B/P (MAP) Pulse Ox O2 Delivery O2 Flow Rate FiO2 11/26/17 08:29 82 154/76 11/26/17 08:27 82 154/76 11/26/17 08:12 97.5 82 18 154/76 97 Room Air 97.5 11/26/17 04:00 98.3 83 18 160/76 99 98.3 11/25/17 23:56 98.8 81 18 145/63 100 98.8 11/25/17 21:00 Room Air 11/25/17 20:27 87 141/95 11/25/17 20:00 98.2 87 18 141/95 99 98.2 11/25/17 17:38 82 153/73 11/25/17 16:16 97.9 82 18 100 Nasal Cannula 97.9 11/25/17 12:44 98.6 76 18 153/73 99 Nasal Cannula 98.6 Intake and Output 11/25/17 11/26/17 19:00 07:00 Intake Total 55 ml 755 ml Balance 55 ml 755 ml Intake Free Water 150 ml Tube Feeding 55 ml 605 ml # Voids 3 4 Height (Feet): 5 Height (Inches): 1.00 Weight (Pounds): 98 Objective Debilitated Woman NCAT Supple CTA RRR Abd soft, ND, GT in good position, (+) margin of erythema (++) contractures OBS Alex Rojas MD November 26, 2017 10:50
[2017-11-26] MEDS ORDERED: NORVASC10 MG GT (11:25)
[2017-11-26] MEDS ORDERED: BENADRYL25 M3 GT (11:27)
[2017-11-26] MEDS ORDERED: LEVOFLOXACIN250 MG GT (11:30)
[2017-11-26] MEDS ORDERED: METOPROLOL TART25 MG GT (11:33)
[2017-11-26] MEDS ORDERED: D5 1/2NS 1000ml IV ONE (12:06)
--- NOTE | 2017-11-27 01:45 | Discharge Summary ---
DATE OF ADMISSION: 11/18/2017 DATE OF DISCHARGE: 11/26/2017 DISPOSITION: Home. CONDITION: Stable. FOLLOWUP DOCTOR: With primary care physician. ACTIVITY: Bed rest. DIET: By G-tube. MEDICATIONS: Listed on discharge medication list. PHYSICAL EXAMINATION: VITAL SIGNS: On discharge, blood pressure 154/76, pulse 82, and respirations 18. HEENT: Oropharynx clear. NECK: Supple. LUNGS: Clear. CARDIAC: Regular rhythm and rate. Normal S1, S2 with a fourth heart sound. ABDOMEN: Soft and nontender. G-tube intact. Minimal erythema around the site. No leakage. EXTREMITIES: With severe contractures. Stage IV left heel wound. No edema. 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 She was brought to the emergency room for evaluation of nonfunctional leaking G-tube and was noted to have multiple other acute on chronic medical conditions including hyponatremia and active infection of the skin with significant decubitus. The patient was seen by GI consult. G-tube was replaced and found to be functioning appropriately thereafter. Nutrition was reinitiated and was to be continued post discharge with protein supplementation. In addition, there was an infection around the G-tube site with results of cultures revealing Pseudomonas as well as Staph aureus, the latter felt to be a colonizer. The patient was treated with IV antibiotics and completion of therapy with oral antibiotics by G-tube at discharge. The patient was also noted to be hyponatremic, hypovolemic, and treated with saline hydration with subsequent salt tablet for possible SIADH component. Sodium was normalized as well as volume status at the time of discharge. The patient's wounds were evaluated. The patient's daughter was offered fdc care as these wounds developed at home. Family members refused fdc care and opted to take the patient home despite recommendations. Home healthcare was arranged and APS report was to be filed by social service. disaster recovery manager confirmed primary care follow-up as well as new home healthcare company as the prior company had reportedly stopped seeing the patient. FINAL DIAGNOSES: 1. Gastrostomy tube site infection. 2. Gastrostomy tube malfunction. 3. Gastrostomy tube replacement. 4. Dysphagia. 5. Cerebrovascular disease with contractures and aphasia as well as advanced dementia. 6. Hyponatremia. 7. Hypovolemia. 8. Decubitus, multiple. 9. Type 2 diabetes mellitus. 10. Hypertensive heart disease. 11. Urinary tract infection. 12. Severe protein-calorie malnutrition. 13. Acute on chronic diastolic congestive heart failure. Tyrell Underwood M.D. DR: KENNETH JOB#: [id number] CC:
== END 2017-11-26 12:07 | disposition home health service (06) | DRG 393 ==
LOC: EDBD 17:20 → EMR 18:14 → 2E 18:23 → EDBEDREQ 19:42 → EDBEDREQSVC 19:42 → EDBEDREQ 21:09 → 4W 11-21 00:06
PROC: 0D20XUZ Change Feeding Device in Upper Intestinal Tract, External Approach (ICD-10-PCS; principal; 2017-11-19)
DX: K94.22 Gastrostomy infection (principal); E43 Unspecified severe protein-calorie malnutrition; I50.33 Acute on chronic diastolic (congestive) heart failure; N39.0 Urinary tract infection, site not specified; E22.2 Syndrome of inappropriate secretion of antidiuretic hormone; Z68.1 Body mass index [BMI] 19.9 or less, adult; K94.23 Gastrostomy malfunction; R13.10 Dysphagia, unspecified; I69.320 Aphasia following cerebral infarction; E87.8 Other disorders of electrolyte and fluid balance, not elsewhere classified; I11.0 Hypertensive heart disease with heart failure; E11.9 Type 2 diabetes mellitus without complications; Z88.6 Allergy status to analgesic agent; Z88.0 Allergy status to penicillin; F01.50 Vascular dementia, unspecified severity, without behavioral disturbance, psychotic disturbance, mood disturbance, and anxiety; E87.5 Hyperkalemia; Y83.3 Surgical operation with formation of external stoma as the cause of abnormal reaction of the patient, or of later complication, without mention of misadventure at the time of the procedure; M24.50 Contracture, unspecified joint; Z88.1 Allergy status to other antibiotic agents; B96.20 Unspecified Escherichia coli [E. coli] as the cause of diseases classified elsewhere; B95.2 Enterococcus as the cause of diseases classified elsewhere; L89.629 Pressure ulcer of left heel, unspecified stage; B95.61 Methicillin susceptible Staphylococcus aureus infection as the cause of diseases classified elsewhere; B96.5 Pseudomonas (aeruginosa) (mallei) (pseudomallei) as the cause of diseases classified elsewhere; Z66 Do not resuscitate
CPT/HCPCS: 36415; 43760; 74018; 76700; 80048; 80053; 80202; 81001; 82533; 82607; 82746; 82962; 83735; 83880; 84100; 84443; 84550; 85025; 85610; 85730; 86850; 86900; 86901; 87070; 87081; 87086; 87181; 87205; 93005; 93970; 99285; J1815; J8499

== ENCOUNTER 2017-11-30 11:18 | Inpatient (IN) | payer MEDICARE, OTHER ==
[~2017-11-30] VITALS: Ht 121.9 cm; Wt 45.4 kg
[~2017-11-30 11:18] MED LIST: BENADRYL25 M3 GT; CARDIZEM90 MG GT; DILTIAZEM HCL90 MG PO; LEVOFLOXACIN250 MG GT; MACROBID100 MG ORAL; METOPROLOL TART25 MG GT; NORVASC10 MG GT; OMEPRAZOLE20 M2 GT; OMEPRAZOLE20 M2 ORAL; SENNA LAXATIVE8.6 MG; TRAMADOL HCL100 M2 ORAL
[2017-11-30 11:22] VITALS: BP 124/63
[2017-11-30] MEDS ORDERED: VIBRAMYCIN100 MG ORAL (11:25)
[2017-11-30] MEDS ORDERED: CIPROFLOXACIN500 M2 ORAL (11:25)
[2017-11-30 12:34] LABS: BASOPHILS % (AUTO) 0.9 % (0.0-2.0); EOSINOPHILS % (AUTO) 1.6 % (0.0-3.0); HEMATOCRIT 35.3 % (37.0-47.0); HEMOGLOBIN 11.4 G/DL (12.0-16.0); LYMPHOCYTES % (AUTO) 23.9 % (20.0-45.0); MEAN CORPUSCULAR VOLUME 90 FL (80-99); MONOCYTES % (AUTO) 8.2 % (1.0-10.0); NEUTROPHILS % (AUTO) 65.3 % (45.0-75.0); PLATELET COUNT 306 K/UL (150-450); RED BLOOD COUNT 3.92 M/UL (4.20-5.40); RED CELL DISTRIBUTION WIDTH 13.6 % (11.6-14.8); WHITE BLOOD COUNT 7.2 K/UL (4.8-10.8)
[2017-11-30 12:37] LABS: ANION GAP 6 mmol/L (5-15); BLOOD UREA NITROGEN 12 mg/dL (7-18); CALCIUM 8.2 MG/DL (8.5-10.1); CARBON DIOXIDE 29 MMOL/L (21-32); CHLORIDE 99 MMOL/L (98-107); CREATININE 0.5 MG/DL (0.55-1.30); POTASSIUM 3.7 MMOL/L (3.5-5.1); SODIUM 134 MMOL/L (136-145)
--- NOTE | 2017-11-30 12:38 | Emergency Room Report ---
History of Present Illness General Chief Complaint: General Complaint Source: Family Member, EMS Present Illness HPI Patient is sent in for a nonfunctioning G-tube. In addition to that there is a question about whether she has infection of her left heel. The daughter states she has foul drainage from the pressure sore. Allegedly, they were expecting antibiotics to be started. Family deny fever. No vomiting. Patient unable to given hx. H/O HTN H/O CVA Patient discharged 11/26 with these d/c dx: 1. Gastrostomy tube site infection. 2. Gastrostomy tube malfunction. 3. Gastrostomy tube replacement. 4. Dysphagia. 5. Cerebrovascular disease with contractures and aphasia as well as advanced dementia. 6. Hyponatremia. 7. Hypovolemia. 8. Decubitus, multiple. 9. Type 2 diabetes mellitus. 10. Hypertensive heart disease. 11. Urinary tract infection. 12. Severe protein-calorie malnutrition. 13. Acute on chronic diastolic congestive heart failure. Allergies: Coded Allergies: AMOXICILLIN (Verified Allergy, Mild, 06/21/09) ASPIRIN (Verified Allergy, Mild, 06/21/09) SALICYLATES (Verified Allergy, Mild, 06/21/09) PENICILLINS (Unverified Allergy, Unknown, 11/18/17) Patient History Limited by: medical condition Past Medical History: see triage record, old chart reviewed Past Surgical History: other - g tube Social History: Denies: smoking Social History Narrative at home Reviewed Nursing Documentation: PMH: Agreed; PSxH: Agreed Nursing Documentation-PMH Past Medical History Deferred: No Family Available Hx Hypertension: Yes Hx Diabetes: Yes Hx Cancer: No Hx Cerebrovascular Accident: Yes Hx Aphasia: Yes Review of Systems All Other Systems: limited Physical Exam Vital Signs Date Time Temp Pulse Resp B/P (MAP) Pulse Ox O2 Delivery O2 Flow Rate FiO2 11/30/17 11:09 97.8 74 16 124/63 98 Room Air 97.9 Sp02 EP Interpretation: reviewed, normal General Appearance: no apparent distress, thin, other - ebulic but looks at examiner, responds to pain with withdrawal, Chronically Ill Eyes: bilateral eye normal inspection, bilateral eye PERRL Neck: other - some rigidity Respiratory: lungs clear, normal breath sounds Cardiovascular #1: regular rate, rhythm Gastrointestinal: normal inspection, normal bowel sounds, other - G tube, scaphoid Musculoskeletal: no calf tenderness, pelvis stable, other - contractures Neurologic: responsive, sensory intact, motor weakness - spasticity, other - looks with eyes at examiner Reflexes: 3+ knee (R), 3+ knee (L) Skin: other - stage 4 decubitus L ankle to bone with some eschar and drainage Procedures Additional Procedure Procedure Narrative Old G tube removed. Min transient bleeding. New gastrostomy tube placed with ease. BS good, stomach contents aspirated and xray ordered. Medical Decision Making Diagnostic Impression: Primary Impression: Osteomyelitis Qualified Codes: M86.9 - Osteomyelitis, unspecified Additional Impressions: Gastrostomy tube dysfunction Malnutrition of moderate degree Functional quadriplegia ER Course Patient with 2 problems. 1. G tube not working. Plan to replace and check xray. 2. Heel decub to bone. Need to exclude osteo and sepsis. Also need to exclude other source for potential infection. Evaluation with EKG, labs. Will get wound culture. L foot x-ray ordered. O2 sat good and normal lung exam - CXR not indicated. EKG without injury. CXR clear. Labs with normal WBC but elevated ESR. Xrays with osteopenia and erosive lesion on heel. Elevated ESR and xrays suggest active osteomyelitis. G tube replaced by me with abd film done after with good placement. Blood cultures ordered and antibiotics ordered. Patient admitted medical Dr. Underwood. Laboratory Tests Test 11/30/17 11:15 11/30/17 12:21 White Blood Count 7.2 K/UL (4.8-10.8) Red Blood Count 3.92 M/UL (4.20-5.40) L Hemoglobin 11.4 G/DL (12.0-16.0) L Hematocrit 35.3 % (37.0-47.0) L Mean Corpuscular Volume 90 FL (80-99) Mean Corpuscular Hemoglobin 29.2 PG (27.0-31.0) Mean Corpuscular Hemoglobin Concent 32.4 G/DL (32.0-36.0) Red Cell Distribution Width 13.6 % (11.6-14.8) Platelet Count 306 K/UL (150-450) Mean Platelet Volume 6.3 FL (6.5-10.1) L Neutrophils (%) (Auto) 65.3 % (45.0-75.0) Lymphocytes (%) (Auto) 23.9 % (20.0-45.0) Monocytes (%) (Auto) 8.2 % (1.0-10.0) Eosinophils (%) (Auto) 1.6 % (0.0-3.0) Basophils (%) (Auto) 0.9 % (0.0-2.0) Erythrocyte Sedimentation Rate 100 MM/HR (0-30) H Prothrombin Time 40.2 SEC (9.30-11.50) H Prothrombin Time INR 3.8 (0.9-1.1) H PTT 46 SEC (23-33) H Sodium Level 134 MMOL/L (136-145) L Potassium Level 3.7 MMOL/L (3.5-5.1) Chloride Level 99 MMOL/L (98-107) Carbon Dioxide Level 29 MMOL/L (21-32) Anion Gap 6 mmol/L (5-15) Blood Urea Nitrogen 12 mg/dL (7-18) Creatinine 0.5 MG/DL (0.55-1.30) L Estimate Glomerular Filtration Rate mL/min (>60) Glucose Level 124 MG/DL (74-106) H Lactic Acid Level 1.70 mmol/L (0.66-2.22) Calcium Level 8.2 MG/DL (8.5-10.1) L Total Bilirubin 0.7 MG/DL (0.2-1.0) Aspartate Amino Transferase (AST) 38 U/L (15-37) H Alanine Aminotransferase (ALT) 38 U/L (12-78) Alkaline Phosphatase 103 U/L (46-116) Total Creatine Kinase 66 U/L (26-308) Troponin I 0.036 ng/mL (0.000-0.056) Pro-B-Type Natriuretic Peptide 378 pg/mL (0-125) H Total Protein 8.2 G/DL (6.4-8.2) Albumin 2.6 G/DL (3.4-5.0) L Globulin 5.6 g/dL Albumin/Globulin Ratio 0.5 (1.0-2.7) L Urine Color Yellow Urine Appearance Clear Urine pH 8 (4.5-8.0) Urine Specific [place] 1.015 (1.005-1.035) Urine Protein Negative (NEGATIVE) Urine Glucose (UA) Negative (NEGATIVE) Urine Ketones Negative (NEGATIVE) Urine Occult Blood Negative (NEGATIVE) Urine Nitrite Negative (NEGATIVE) Urine Bilirubin Negative (NEGATIVE) Urine Urobilinogen 1 MG/DL (0.0-1.0) H Urine Leukocyte Esterase 1+ (NEGATIVE) H Urine RBC 0-2 /HPF (0 - 2) Urine WBC 2-4 /HPF (0 - 2) Urine Squamous Epithelial Cells Moderate /LPF (NONE/OCC) H Urine Bacteria Few /HPF (NONE) EKG Diagnostic Results Rate: normal Rhythm: NSR ST Segments: no acute changes Rhythm Strip Diag. Results EP Interpretation: yes Rhythm: NSR, no PVC's, no ectopy Other X-Ray Diagnostic Results Other X-Ray Diagnostic Results #1: X-Ray ordered: R heel # of Views/Limited Vs Complete: 3 View Indication: Other EP Interpretation: Yes Interpretation: no dislocation, no fractures, other - bone defect and ST defect Impression: Other Electronically Signed by: Tyrell Dia MD Other X-Ray Diagnostic Results #2: X-Ray ordered: abd # of Views/Limited Vs Complete: 1 View Indication: Other EP Interpretation: Yes Interpretation: nonspecific bowel gas, no sbo, other - G tube in place Impression: Other Electronically Signed by: Tyrell Dia MD Last Vital Signs Date Time Temp Pulse Resp B/P (MAP) Pulse Ox O2 Delivery O2 Flow Rate FiO2 11/30/17 11:22 97.9 16 124/63 98 Room Air 97.9 11/30/17 11:09 74 Status: improved Disposition: ADMITTED INPATIENT Condition: Serious Referrals: NOT CHOSEN MASOUD/,REFERRING (PCP) Tyrell Dia M.D. November 30, 2017 12:38
[2017-11-30 12:41] LABS: INR 3.8 (0.9-1.1)
[2017-11-30 12:42] LABS: APPEARANCE,URINE CLEAR; BILIRUBIN, URINE NEGATIVE (NEGATIVE); GLUCOSE, URINE (UA) NEGATIVE (NEGATIVE); KETONES,URINE NEGATIVE (NEGATIVE); LEUKOCYTE ESTERASE ,URINE 1+ (NEGATIVE); NITRITE,URINE NEGATIVE (NEGATIVE); PH,URINE 8 (4.5-8.0); PROTEIN,URINE NEGATIVE (NEGATIVE); UROBILINOGEN,URINE 1 MG/DL (0.0-1.0)
[2017-11-30 12:43] LABS: COLOR,URINE YELLOW
[2017-11-30 12:51] LABS: ALANINE AMINOTRANSFERASE 38 U/L (12-78); ALBUMIN 2.6 G/DL (3.4-5.0); ALBUMIN/GLOBULIN RATIO 0.5 (1.0-2.7); ALKALINE PHOSPHATASE 103 U/L (46-116); ASPARTATE AMINO TRANSFERASE 38 U/L (15-37); BILIRUBIN,TOTAL 0.7 MG/DL (0.2-1.0); CREATINE KINASE 66 U/L (26-308)
--- NOTE | 2017-11-30 15:16 | Diagnostic Imaging Report ---
Indication: Gastrostomy tube placed Technique: XRAY Abdomen 1v Comparison: 11/18/2017 Findings: Gastrostomy tube balloon is noted within the distal stomach. The retention balloon is inflated more than prior, measuring possibly 4 cm in diameter (previously measuring 3.2 cm diameter). Injected contrast opacifies the stomach and small bowel. Some less dense contrast is also noted within the colon, possibly sequela from prior contrast administration. No extraluminal extravasation of contrast noted. There are degenerative changes in the spine. No acute osseous abnormality seen. Impression: Gastrostomy tube in the stomach.
--- NOTE | 2017-11-30 15:21 | Diagnostic Imaging Report ---
Indication: Question osteomyelitis Technique: XRAY Foot Complete L Comparison: None Findings: The bones are severely demineralized. This limits evaluation for subtle fractures. No definite/displaced fractures identified. Anatomic alignment appears preserved. Probable heel ulcer. There is possible destructive change in the posterior calcaneus which is concerning for osteomyelitis. IMPRESSION: Severe osteopenia. Heel ulcer with bony irregularity of the posterior calcaneus concerning for osteomyelitis. Correlate clinically. Consider MRI for confirmation as clinically indicated.
[2017-11-30] MEDS ORDERED: Vancomycin 500 MG in D5W 110 ML IVPB ONE (15:45)
[2017-11-30] MEDS ORDERED: traMADol 50mg tab GT PRN ×2 (17:30)
[2017-11-30] MEDS ORDERED: Levofloxacin 500mg tab GT SCH (18:30)
[2017-11-30] MEDS: NS w/KCl 20mEq 1,000 ML IV SCH (18:45)
[2017-11-30 20:00] VITALS: BP 131/73
[2017-11-30] MEDS: Metoprolol 25mg tab GT SCH (21:00)
[2017-12-01] VITALS: BP 153/82
--- NOTE | 2017-12-01 01:00 | History and Physical Report ---
DATE OF ADMISSION: 11/30/2017 REASON FOR ADMISSION: Left heel infection. HISTORY OF PRESENT ILLNESS: This 77-year-old female was sent to the emergency room because of a nonfunctioning G-tube. There is also complaint of left heel infection with increasing drainage noted. The patient was just hospitalized here and discharged on 11/26/2017 following treatment of a G-tube site infection with G-tube replacement and assessment of her left heel ulcer, which was with imaging studies noted to be negative for osteomyelitis. The patient was offered long term home care, but family members refused. The patient was discharged on oral antibiotics. PAST MEDICAL HISTORY: Cerebrovascular disease, hypertensive heart disease, type 2 diabetes mellitus, protein-calorie malnutrition, history of diastolic congestive heart failure, cerebrovascular disease with dementia and aphasia, and history of hyponatremia due to SIADH. ALLERGIES: Include penicillin, aspirin, and salicylates. SOCIAL HISTORY: Negative for smoking, alcohol, or substance abuse. FAMILY HISTORY: Noncontributory. MEDICATIONS: Reviewed and reconciled. REVIEW OF SYSTEMS: Not obtainable. PHYSICAL EXAMINATION: VITAL SIGNS: Afebrile, blood pressure 124/63, pulse 74, and respirations 16. HEENT: Temporal wasting. Dry mucous membranes. NECK: Supple. LUNGS: Clear. CARDIAC: Regular rhythm and rate. Normal S1, S2 with a fourth heart sound. ABDOMEN: Soft. G-tube intact, site without drainage. EXTREMITIES: Contractures, severe. There is no edema. The left heel has a stage IV ulcer. At this time, no drainage is noted. LABORATORY AND DIAGNOSTIC DATA: studies, plain films suggest possible osteomyelitis. White count 7, hemoglobin 11, sedimentation rate 100. Lactic acid 1.7. Pro-natriuretic peptide 378. Sodium 134, BUN 12, creatinine 0.5. PLAN: 1. Panculture. 2. Empiric antibiotics. 3. MRI of the left foot. 4. Protein supplements by a feeding tube. 5. Cautious hydration. 6. Titrate cardiovascular regimen and diabetic therapy based on clinical parameters. 7. We will obtain social service evaluation as it appears that family members are not able to provide adequate care at home. Tyrell Underwood M.D. DR: HALIMA JOB#: [id number] CC:
[2017-12-01 04:00] VITALS: BP 141/65
[2017-12-01] MEDS: Vancomycin 750mg/NS 250ml IVPB SCH ×2 (04:06→16:18)
[2017-12-01 08:22] LABS: BASOPHILS % (AUTO) 1.2 % (0.0-2.0); EOSINOPHILS % (AUTO) 2.1 % (0.0-3.0); HEMATOCRIT 30.1 % (37.0-47.0); LYMPHOCYTES % (AUTO) 12.2 % (20.0-45.0); MEAN CORPUSCULAR VOLUME 91 FL (80-99); NEUTROPHILS % (AUTO) 77.6 % (45.0-75.0); PLATELET COUNT 318 K/UL (150-450); RED BLOOD COUNT 3.32 M/UL (4.20-5.40); RED CELL DISTRIBUTION WIDTH 13.5 % (11.6-14.8); WHITE BLOOD COUNT 6.8 K/UL (4.8-10.8)
[2017-12-01 08:40] LABS: ALANINE AMINOTRANSFERASE 29 U/L (12-78); ALBUMIN 2.4 G/DL (3.4-5.0); ALBUMIN/GLOBULIN RATIO 0.5 (1.0-2.7); ALKALINE PHOSPHATASE 102 U/L (46-116); ANION GAP 6 mmol/L (5-15); ASPARTATE AMINO TRANSFERASE 18 U/L (15-37); BILIRUBIN,TOTAL 0.4 MG/DL (0.2-1.0); BLOOD UREA NITROGEN 13 mg/dL (7-18); CALCIUM 8.3 MG/DL (8.5-10.1); CARBON DIOXIDE 30 MMOL/L (21-32); CHLORIDE 103 MMOL/L (98-107); CREATININE 0.6 MG/DL (0.55-1.30); POTASSIUM 2.9 MMOL/L (3.5-5.1); SODIUM 139 MMOL/L (136-145)
[2017-12-01] MEDS: Metoprolol 25mg tab GT SCH ×2 (09:00→22:30)
[2017-12-01 12:00] VITALS: BP 140/67
--- NOTE | 2017-12-01 14:38 | Cardiology Report ---
APPROVED REPORT EKG Measurement Heart [id number] Normal sinus rhythm Possible Left atrial enlargement Borderline ECG
[2017-12-01 16:00] VITALS: BP 154/65
[2017-12-01] MEDS: NS w/KCl 20mEq 1,000 ML IV SCH ×2 (16:18→22:30)
--- NOTE | 2017-12-01 17:15 | Consultation ---
DATE OF CONSULTATION: 12/01/2017 INFECTIOUS DISEASES CONSULTATION CONSULTING PHYSICIAN: Mary Manriquez M.D. REFERRING PHYSICIAN: Tyrell Underwood M.D. REASON FOR CONSULTATION: Left heel ulcer infection to rule out osteomyelitis. HISTORY OF PRESENTING ILLNESS: This is a 77-year-old lady with history of CVA, hypertension, diabetes, who came in because of a nonfunctioning G-tube. She also had a left heel infection with increasing drainage and Infectious Diseases consultation has been obtained for antibiotics. PAST MEDICAL HISTORY: 1. History of CVA. 2. Hypertension. 3. Diabetes. 4. Congestive heart failure. 5. Dementia. 6. Hyponatremia due to SIADH. SOCIAL HISTORY: No history of smoking, alcohol, or drug use. FAMILY HISTORY: Noncontributory. REVIEW OF SYSTEMS: Unable to obtain currently. MEDICATIONS: As an inpatient, the patient is on amlodipine, Levaquin, vancomycin, metoprolol, famotidine, and tramadol. ALLERGIES: 1. Amoxicillin. 2. Penicillin. 3. Aspirin. 4. Salicylates. PHYSICAL EXAMINATION: VITAL SIGNS: Temperature of 97.3, T-max of 98.7, pulse of 82, respiratory rate of 20, blood pressure 161/77, and O2 saturation of 98%. HEENT: Pupils are equally reactive to light and accommodation. Mouth appears clean without thrush. NECK: Supple. No adenopathy. No JVD. CARDIOVASCULAR: Regular rate and rhythm. No murmurs. LUNGS: Clear to auscultation bilaterally. No crackles. No wheezes. ABDOMEN: Soft and nontender. No organomegaly. G-tube noted. EXTREMITIES: No cyanosis, no clubbing, no edema. Left heel ulcer noted, which is clean with some necrotic area in the posterior end. LABORATORY DATA: White count 6.8, hemoglobin 10, hematocrit 30.1, MCV 91, and platelet count of 318 with neutrophils of 77%. Sodium 139, potassium 2.9, chloride 103, bicarb 30, BUN 13, creatinine 0.6, glucose 150, calcium 8.3. Total bilirubin 0.4, AST 18, ALT 29, alkaline phosphatase 102, and C-reactive protein 4.8. Total protein 7.5. Albumin 2.4. UA showing 2 to 4 white cells. Foot x-ray is showing heel ulcer with bony irregularity of the posterior calcaneus concerning for osteomyelitis, severe osteopenia noted. Abdominal x-ray showing G-tube in the stomach. ASSESSMENT: This is a 77-year-old lady with history of cerebrovascular accident, hypertension, diabetes, who comes in with: 1. Nonfunctioning gastrostomy tube. 2. Left heel infection with possible osteomyelitis. 3. Diabetes. 4. Hypertension. PLAN: 1. Continue vancomycin and Levaquin. 2. We will order left heel cultures. 3. The patient was unable to do an MRI because of contractures. I would like to thank Dr. Underwood for this consultation. Mary Manriquez M.D. DR: RADHA JOB#: [id number] CC: Tyrell Underwood M.D.
[2017-12-01 20:00] VITALS: BP 146/76
[2017-12-01 23:42] VITALS: BP 150/63
--- NOTE | 2017-12-02 00:45 | Progress Note ---
DATE: 12/01/2017 INTERNAL MEDICINE PROGRESS NOTE SUBJECTIVE: The patient remains on IV fluids. She is tolerating tube feedings with NG tube. The G-tube is functioning appropriately. Infectious Disease consultation was appreciated. Antibiotics are continuing. Heel wound is being assessed for osteomyelitis; however, MRI could not be performed due to patient's severe contractures. The case was discussed with radiologist, Dr. Sinha and recommendation for 3-phase bone scan attempt was made. OBJECTIVE: VITAL SIGNS: Afebrile, blood pressure 146/76, pulse 82, respiratory rate 16, temporal wasting. LUNGS: Clear. CARDIAC: Regular. ABDOMEN: Soft with G-tube intact. EXTREMITIES: With edema. Wounds without changes documented. LABORATORY AND DIAGNOSTIC DATA: Potassium 2.9. Albumin 2.4. IMPRESSION: 1. Cerebrovascular disease with dementia. 2. Hypokalemia. 3. Left heel wound, possible osteomyelitis. 4. Severe protein-calorie malnutrition. 5. Dysphagia with G-tube. 6. Aphasia. 7. Anemia of chronic disease. 8. Hypertensive heart disease. 9. Type 2 diabetes mellitus. PLAN: 1. Maintain plan of care as previously outlined. 2. Replace potassium. 3. Check magnesium. 4. Attempt 3-phase bone scan. Tyrell Underwood M.D. : NATASHA JOB#: [id number] CC:
[2017-12-02 04:00] VITALS: BP 169/82
[2017-12-02 04:13] LABS: ANION GAP 6 mmol/L (5-15); BLOOD UREA NITROGEN 15 mg/dL (7-18); CALCIUM 8.2 MG/DL (8.5-10.1); CARBON DIOXIDE 31 MMOL/L (21-32); CHLORIDE 106 MMOL/L (98-107); CREATININE 0.6 MG/DL (0.55-1.30); POTASSIUM 3.4 MMOL/L (3.5-5.1); SODIUM 143 MMOL/L (136-145)
[2017-12-02] MEDS: Vancomycin 750mg/NS 250ml IVPB SCH ×2 (06:20→17:32)
[2017-12-02 08:00] VITALS: BP 163/77
[2017-12-02] MEDS: Metoprolol 25mg tab GT SCH ×2 (08:47→20:44)
[2017-12-02] MEDS: NS w/KCl 20mEq 1,000 ML IV SCH (11:38)
[2017-12-02 12:00] VITALS: BP 144/89
--- NOTE | 2017-12-02 14:26 | Diagnostic Imaging Report ---
Indication: Reason For Exam: INFECT Technique: IV administration mCi 99 M technetium MDP. Flow, blood pool, and static images obtained of the bilateral distal lower extremities. Comparison: Reference made to foot radiograph dated 11/30/2017 Findings: Increased activity is seen in the region of the left calcaneal tuberosity on the flow, blood pool, and static images. This corresponds to the area of abnormality reported on recent radiograph. No other worrisome foci of increased tracer uptake demonstrated Impression: Increased flow, blood pool, and static activity in the region of the left calcaneal tuberosity. This is consistent with osteomyelitis, also suspected on recent plain radiograph
[2017-12-02 16:00] VITALS: BP 139/74
[2017-12-02 20:00] VITALS: BP 133/67
[2017-12-02] MEDS ORDERED: Heparin 2000 units/Ns 1000ml INJ ONE (22:30)
[2017-12-02] MEDS ORDERED: Lidocaine 1% Plain 30 ml INJ ONE (22:30)
[2017-12-03] VITALS: BP 151/73
--- NOTE | 2017-12-03 | Progress Note ---
DATE: 12/02/2017 CARDIOLOGY PROGRESS NOTE SUBJECTIVE: The patient without any apparent distress. She has increasing swelling of her upper extremity. The bone scan is positive for osteomyelitis of the left heel. PHYSICAL EXAMINATION: VITAL SIGNS: Blood pressure 133/67, pulse 84, and respirations 19. LUNGS: Clear. CARDIAC: Regular. Normal S1, S2. ABDOMEN: Soft. G-tube intact. EXTREMITIES: A 1+ upper extremity edema. Left heel dressing in place. Severe contractures. IMPRESSION: 1. Osteomyelitis, left heel. 2. Severe protein-calorie malnutrition. 3. Dysphagia with G-tube. 4. Advanced dementia with cerebrovascular disease. 5. Type 2 diabetes mellitus. PLAN: Continue antibiotics per ID. Surgical evaluation for I and D. Noninvasive vascular study of lower extremity if possible as contractures are limiting. Discontinue IV fluids. Continue nutrition by feeding tube. Tyrell Underwood M.D. DR: BUCKY JOB#: [id number] CC:
[2017-12-03 04:00] VITALS: BP 153/78
[2017-12-03] MEDS: Vancomycin 750mg/NS 250ml IVPB SCH ×2 (04:39→15:15)
[2017-12-03 08:00] VITALS: BP 150/76
[2017-12-03] MEDS: Metoprolol 25mg tab GT SCH ×2 (08:54→20:30)
[2017-12-03] MEDS ORDERED: NovoLOG Insulin Flexpen SUBQ SCH (11:30)
[2017-12-03] MEDS ORDERED: Lidocaine 1% Plain 30 ml INJ PRN (12:14)
[2017-12-03] MEDS ORDERED: Heparin 2000 units/Ns 1000ml INJ PRN (12:15)
[2017-12-03 12:30] VITALS: BP 144/72
[2017-12-03 16:00] VITALS: BP 137/76
--- NOTE | 2017-12-03 16:02 | Consultation ---
Consult Note Assessment/Plan A/ 1) Osteomyelitis left calcaneus 2) Complex Pressure ulcer Stage 4 left heel 3) PAD - noted on arterial duplex 4) Severe rigid knee contractures 5) DM 6) Nonambulatory P/ 1) All studies reviewed - moderate to severe dz on arterial studies and x-rays correlate with bone scan + osteo 2) Complex wound noted with achilles detached, exposed bone, exposed kaiger's triangle. 3) Patient is an unlikely candidate for vascular intervention due to her rigid knee contractures, light of this and the complex wound with osteomyelitis, and the fact that the patient is nonambulatory, I believe the patient has a poor prognosis for limb salvage and would recommend an above knee amputation. 4) Will obtain a vascular consult to confirm if patient is nonoperable to treat arterial dz. 5) Agree with current wound care regimen Thank you Alex Vega DPM December 03, 2017 16:02
--- NOTE | 2017-12-03 16:44 | Diagnostic Imaging Report ---
Indications: Needs long-term IV access Technique: Ultrasound confirms patent compressible left basilic vein. Total sterile technique, including sterile probe cover and sterile gel, hat, mask,, sterile gown, large sterile drape, and preparation with 2% chlorhexidine utilized. Local anesthesia with 1% lidocaine. Under real-time ultrasound guidance, puncture vein using 21-gauge needle, documented and archived, passage 0.018 guidewire under direct fluoroscopy, which was used to determine appropriate catheter length, exchange for 5 Yemeni peel-away sheath. 5 Yemeni Bard dual-lumen power PICC cut to 41 cm. It was inserted through the peel-away sheath. Peel-away sheath and guidewire removed. Catheter fixed to the skin. Both catheter ports aspirated and flushed. Patient tolerated procedure well, without immediate complication. Digital radiograph documents satisfactory catheter tip position, at the cavoatrial junction. Total fluoroscopy time 0.6 minutes. Total dose area product 8.6 dGycm2 Impression: Successful placement of left arm PICC under sonographic and fluoroscopic guidance, as described above.
[2017-12-03 20:00] VITALS: BP 146/83
[2017-12-03] MEDS ORDERED: Ertapenem 1gm in NS 55ml IVPB SCH (20:00)
[2017-12-03] MEDS: Dyna-Hex 2% Top Sol 2oz TOPIC SCH (20:29)
[2017-12-04] VITALS: BP 145/82
--- NOTE | 2017-12-04 00:30 | Progress Note ---
DATE: 12/03/2017 SUBJECTIVE: The patient is poorly responsive. Left heel ulcer is associated with osteomyelitis. Noninvasive vascular studies revealed severe ischemia of the associated limb. The patient has severe contractures. She was seen in consultation by metal filer, Dr. Melendez and vascular surgeon, Dr. Gonzalez. She was not felt to be a candidate for revascularization for debridement due to her bedridden status and amputation was recommended. I have attempted to contact family members, but so far unsuccessful. OBJECTIVE: VITAL SIGNS: Blood pressure 144/72, pulse 89, and respirations 18. LUNGS: Clear. CARDIAC: Regular. ABDOMEN: Soft. EXTREMITIES: No edema. Left wound healed and unchanged. LABORATORY DATA: Cultures noted. IMPRESSION: 1. Osteomyelitis. 2. Poor IV access. 3. Status post PICC placement. 4. Severe peripheral artery disease. 5. Nonambulatory state. 6. Advanced dementia. 7. Dysphagia with gastrostomy tube. 8. Type 2 diabetes mellitus. 9. Hypertensive heart disease. PLAN: 1. Continue antibiotics. 2. Local wound care. 3. Nutrition by feeding tube. 4. We will continue efforts to discuss further care with family members. Tyrell Underwood M.D. DR: KENNETH JOB#: [id number] CC:
--- NOTE | 2017-12-04 01:30 | Consultation ---
DATE OF CONSULTATION: 12/03/2017 VASCULAR SURGERY CONSULTATION CONSULTING PHYSICIAN: Monico Gonzalez M.D. REFERRING PHYSICIAN: 1. Alex Melendez D.P.M. 2. Tyrell Underwood M.D. REASON FOR CONSULT: Left heel necrosis. HISTORY OF PRESENT ILLNESS: The patient is a 77-year-old, nonverbal [place]ian elderly female who presented through the emergency room with malfunctioning G-tube and left heel wound necrosis. The patient was found to have severe knee contracture and left heel wound necrosis with exposed bone and clinical osteomyelitis. Vascular Surgery is consulted for further evaluation. The patient is nonverbal. All the history was obtained from medical records. PAST MEDICAL HISTORY: As above, history of stroke, hypertension, type 2 diabetes mellitus, malnutrition, history of diastolic congestive heart failure, dementia, aphasia, history of hyponatremia due to SIADH. MEDICATIONS: See attached MAR. ALLERGIES: Penicillin, aspirin, and salicylates. SOCIAL HISTORY: Unobtainable due to nonverbal dementia, stroke. FAMILY HISTORY: Unobtainable. REVIEW OF SYSTEMS: Unobtainable due to dementia. PHYSICAL EXAMINATION: GENERAL: The patient is nonverbal. VITAL SIGNS: Afebrile at 97 degrees, heart rate 74, blood pressure 124/63, and respirations 16. The patient has palpable radial pulses. LUNGS: Clear to auscultation. HEART: Regular rate and rhythm. ABDOMEN: Soft and nontender. She has palpable femoral pulses. She is severely contracted in her knees and legs. She had locked knees. She has absent pedal pulses bilaterally. She has extensive left heel wound necrosis with exposed bone. LABORATORY AND DIAGNOSTIC DATA: WBC is 7 and hemoglobin 11. Lactate 1.7. BUN is 12 and creatinine 0.5. IMPRESSION: 1. Nonsalvageable left leg with extensive large left heel necrosis and exposed bone. 2. Clinical osteomyelitis with calcific tibial multilevel arterial occlusive disease and absent pedal pulses. 3. Severe knee contracture, nonambulatory, nonverbal, stroke, dementia, and encephalopathy. 4. History of diabetes, hypertension, and heart failure. PLAN AND RECOMMENDATION: The patient will benefit from left leg above-knee amputation. The patient is not a candidate for any modes of revascularization surgical or percutaneous given severe knee contracture and her comorbidities. We will schedule her for an left leg above-knee amputation once medically optimized for anesthesia and OR and consented by family. The above was discussed at length with the patient's nurse, Dr. Underwood and Dr. Melendez. Monico Gonzalez M.D. DR: ESTER JOB#: [id number] CC:
[2017-12-04] MEDS: Vancomycin 750mg/NS 250ml IVPB SCH ×2 (03:24→17:09)
--- NOTE | 2017-12-04 03:30 | Consultation ---
DATE OF CONSULTATION: 12/03/2017 CONSULTING PHYSICIAN: Alex Melendez D.P.M. REQUESTING PHYSICIAN: Tyrell Underwood M.D. REASON FOR CONSULTATION: Osteomyelitis left heel in the presence of diabetes mellitus. HISTORY OF PRESENT ILLNESS: The patient is an unfortunate 77-year-old female who was admitted to [facility] on November 30, 2017 for osteomyelitis of the left heel. The patient is nonverbal and history was obtained through chart review. PAST MEDICAL HISTORY: Significant for G-tube placement, left heel ulcer, cerebrovascular disease, hypertensive heart disease, type 2 diabetes mellitus, protein-calorie malnutrition, history of diastolic congestive heart failure, dementia, aphasia, and history of . MEDICATIONS: Per MAR and include ertapenem, heparin for DVT prophylaxis, and vancomycin. ALLERGIES: She is allergic to penicillin, aspirin and salicylates. SOCIAL HISTORY: Noncontributory. FAMILY HISTORY: Noncontributory. REVIEW OF SYSTEMS: Unobtainable as the patient is nonverbal. PHYSICAL EXAMINATION: VITAL SIGNS: Temperature is 98.0 degrees, pulse is 91, respiration rate is 18, blood pressure is 153/78, and saturating 97% on room air. EXTREMITIES: Lower extremity physical exam, vascular, nonpalpable pedal pulses are noted bilaterally. Feet are equally warm. There is no edema or cyanosis noted. DERMATOLOGICAL: There are no open sores or lesions noted on the right lower extremity. Left lower extremity, there is a large full-thickness ulceration noted on the posterior aspect of the left heel. The wound base is mainly granular with a thick layer of biofilm. No malodor is noted from the site. There is positive serous discharge noted. Kager's triangle was exposed. The Achilles tendon is completely detached from the posterior attachment to the calcaneus. There is bone exposed as well. No purulence is noted. Again, no malodor and no periwound erythema. MUSCULOSKELETAL: The patient is nonambulatory and bedbound with rigid contractures of bilateral knees, which are severe. LABORATORY AND DIAGNOSTIC DATA: White blood cell count is 6.8, hemoglobin and hematocrit is 10.0 and 30.1, and platelet count is 318. Sedimentation rate is 113. Potassium is 3.4, BUN is 15, creatinine is 0.6, and glucose is 139. Lactic acid is 1.70. C-reactive protein is 4.8. Albumin is 2.4. INR is 3.8. Cultures of the left foot wound show E. coli Staph aureus and diphtheroids. Blood cultures x2 are negative after 48 hours. Imaging, foot x-ray done of the left foot shows severe osteopenia. Heel ulcer is noted with bony irregularity of the posterior calcaneus concerning for osteomyelitis. Bone scan performed that showed increased flow and blood flow and static activity in the region of the left calcaneal tuberosity, which is consistent with osteomyelitis and correlates with recent radiographs. Arterial studies of bilateral lower extremities show right lower extremity has Doppler tibial arterial waveforms analysis, which is compatible with moderate ischemia at rest, the left lower extremity shows Doppler tibial arterial waveforms analysis compatible with [id number] ischemia with apparent stenosis in the mid superficial femoral artery. ASSESSMENT: 1. Osteomyelitis of the left calcaneus. 2. Complex pressure ulcer stage IV of the left heel. 3. Peripheral arterial disease as noted on the arterial duplex. 4. Severe rigid knee contractures noted. 5. Diabetes mellitus. 6. Nonambulatory. PLAN: 1. All studies reviewed, moderate to severe disease on arterial studies and x-rays correlate with bone scan showing possible osteomyelitis. 2. Complex wound is noted with Achilles detached exposed bone and exposed Kager's triangle. 3. The patient is an unlikely candidate for vascular intervention due to her rigid knee contractures. In light of this complex wound with osteomyelitis and the fact that the patient is nonambulatory, I believe the patient has a poor prognosis for limb salvage and would recommend an above-knee amputation. 4. We will obtain a Vascular consult to confirm if the patient is nonoperable to treat her arterial disease. 5. Agree with the current wound care regimen at this time. Thank you for the courtesy of this consultation, Dr. Underwood. Alex Melendez D.P.M. DR: DORCAS JOB#: [id number] CC:
[2017-12-04 04:00] VITALS: BP 156/86
[2017-12-04 08:00] VITALS: BP 151/80
[2017-12-04] MEDS: Metoprolol 25mg tab GT SCH ×2 (10:02→21:21)
--- NOTE | 2017-12-04 11:03 | Infectious Diseases Prog Note ---
"Assessment/Plan Assessment/Plan antibiotics : vancomycin iv, ertapenem A 1. 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 DM 3. hypertension 4. CVA P 1. continue iv vancomycin 2. d/c ertapenem 3. start ceftriaxone 4. will follow up cultures 5. plan per vascular surgery and podiatry Subjective ROS Limited/Unobtainable: Yes Allergies: Coded Allergies: AMOXICILLIN (Verified Allergy, Mild, 06/21/09) ASPIRIN (Verified Allergy, Mild, 06/21/09) SALICYLATES (Verified Allergy, Mild, 06/21/09) PENICILLINS (Unverified Allergy, Unknown, 11/18/17) Objective Vital Signs Last 24 Hour Vital Signs Date Time Temp Pulse Resp B/P (MAP) Pulse Ox O2 Delivery O2 Flow Rate FiO2 12/04/17 10:03 105 151/80 12/04/17 10:02 105 151/80 12/04/17 08:00 97.1 105 20 151/80 95 Room Air 97.1 12/04/17 04:00 99.2 102 18 156/86 99.2 12/04/17 00:00 99.3 95 19 145/82 100 99.3 12/03/17 20:30 92 146/83 12/03/17 20:00 98.1 92 18 146/83 100 98.1 12/03/17 20:00 Room Air 12/03/17 16:00 98.4 82 18 137/76 96 Room Air 98.4 12/03/17 12:30 97.5 89 18 144/72 96 Room Air 97.5 Height (Feet): 4 Height (Inches): 0.00 Weight (Pounds): 100 Respiratory/Chest: lungs clear Cardiovascular: normal rate, regular rhythm, no gallop/murmur Abdomen: soft, non tender, other - GT Extremities: no edema, other - left heel ulcer, left arm PICC Current Medications Medications (Trade) Dose Ordered Sig/Satish Route PRN Reason Start Time Stop Time Status Last Admin Dose Admin Amlodipine Besylate (Norvasc) 10 mg DAILY GT 12/01/17 09:00 12/31/17 08:59 12/04/17 10:03 Chlorhexidine Gluconate (Mireya-Hex 2%) 1 applic DAILY@1999 TOPIC 12/03/17 20:00 01/02/18 19:59 12/03/17 20:29 Dextrose (Dextrose 50%) 25 ml STAT PRN IV Hypoglycemia 11/30/17 17:30 12/30/17 17:29 Dextrose (Dextrose 50%) 50 ml STAT PRN IV Hypoglycemia 11/30/17 17:30 12/30/17 17:29 Ertapenem 1 gm/ Sodium Chloride 55 ml @ 110 mls/hr Q24H IVPB 12/03/17 20:00 12/08/17 19:59 12/03/17 20:29 Famotidine (Pepcid) 20 mg BID GT 11/30/17 18:00 12/30/17 17:59 12/04/17 10:03 Metoprolol Tartrate (Lopressor) 25 mg Q12HR GT 11/30/17 21:00 12/30/17 20:59 12/04/17 10:02 Tramadol HCl (Ultram) 50 mg Q8H PRN GT For Pain 11/30/17 17:30 12/07/17 17:29 Vancomycin HCl (Vanco rx to dose) 1 ea DAILY PRN MISC Per rx protocol 11/30/17 17:30 12/30/17 17:29 Vancomycin/Sodium Chloride 250 ml @ 166.667 mls/hr Q12HR@0400,1600 IVPB 12/01/17 04:00 12/06/17 03:59 12/04/17 03:24 FELICITAS MUIR December 04, 2017 11:03"
[2017-12-04 12:00] VITALS: BP 142/75
[2017-12-04] MEDS: 1/2NS w/KCl 20mEq 1000ml 1,000 ML IV SCH (14:55)
[2017-12-04 16:00] VITALS: BP 144/74
[2017-12-04 16:40] LABS: BASOPHILS % (AUTO) 0.7 % (0.0-2.0); EOSINOPHILS % (AUTO) 1.2 % (0.0-3.0); HEMATOCRIT 31.1 % (37.0-47.0); HEMOGLOBIN 10.5 G/DL (12.0-16.0); MEAN CORPUSCULAR VOLUME 90 FL (80-99); MONOCYTES % (AUTO) 7.9 % (1.0-10.0); NEUTROPHILS % (AUTO) 73.2 % (45.0-75.0); PLATELET COUNT 338 K/UL (150-450); RED BLOOD COUNT 3.44 M/UL (4.20-5.40); RED CELL DISTRIBUTION WIDTH 14.3 % (11.6-14.8); WHITE BLOOD COUNT 10.7 K/UL (4.8-10.8)
--- NOTE | 2017-12-04 17:01 | Progress Note ---
DATE: 12/04/2017 CARDIOLOGY PROGRESS NOTE SUBJECTIVE: The patient was seen and evaluated. The patient's was at bedside. A export sales assistant was available from the nursing staff, who communicated my concerns, plan of care, and other service loss control consultant recommendations following the recent evaluations and diagnostic studies. OBJECTIVE: GENERAL: The patient is in no distress. VITALS SIGNS: Stable. Blood pressure is in the range of 140 to 150 systolic, heart rate 94 to 105, and respiratory rate 18 to 20. LUNGS: Clear. CARDIAC: Regular. Normal S1, S2. ABDOMEN: Soft. G-tube intact. EXTREMITIES: With severe contractures. Left heel has dressing in place. The bone is exposed when reviewed. IMPRESSION: The patient has osteomyelitis of the left heel. The patient has severe vascular disease. The patient is bed-bound and has advanced dementia with contractures and is not amenable to any vascular intervention as discussed by the Vascular and Podiatry consultants yesterday. PLAN: It is recommended that the patient have amputation. Otherwise, because of her severe debility, hospice care may be an alternative and this has been relayed to the patient's , who will discuss with his daughter. In the interim, additional IV fluid hydration will be added in view of suspected mild dehydration and hypovolemia due to insensible losses. Tyrell Underwood M.D. DR: KENNETH JOB#: [id number] CC:
[2017-12-04 17:07] LABS: ALANINE AMINOTRANSFERASE 28 U/L (12-78); ALBUMIN 2.4 G/DL (3.4-5.0); ALBUMIN/GLOBULIN RATIO 0.5 (1.0-2.7); ALKALINE PHOSPHATASE 96 U/L (46-116); ANION GAP 5 mmol/L (5-15); ASPARTATE AMINO TRANSFERASE 24 U/L (15-37); BILIRUBIN,TOTAL 0.3 MG/DL (0.2-1.0); BLOOD UREA NITROGEN 20 mg/dL (7-18); CALCIUM 8.1 MG/DL (8.5-10.1); CARBON DIOXIDE 32 MMOL/L (21-32); CHLORIDE 109 MMOL/L (98-107); CREATININE 0.6 MG/DL (0.55-1.30); POTASSIUM 3.6 MMOL/L (3.5-5.1); SODIUM 146 MMOL/L (136-145)
[2017-12-04 20:00] VITALS: BP 153/77
[2017-12-04] MEDS: Dyna-Hex 2% Top Sol 2oz TOPIC SCH (20:00)
[2017-12-04] MEDS: cefTRIAXone 2 GM in D5W 55 ML IVPB SCH (20:00)
[2017-12-05] VITALS (7 sets, daily range): BP systolic 124–151; BP diastolic 74–97
[2017-12-05] MEDS: 1/2NS w/KCl 20mEq 1000ml 1,000 ML IV SCH ×2 (03:36→15:44)
[2017-12-05] MEDS: Vancomycin 750mg/NS 250ml IVPB SCH ×2 (03:36→15:40)
[2017-12-05] MEDS: Metoprolol 25mg tab GT SCH ×2 (08:46→20:42)
--- NOTE | 2017-12-05 11:46 | Consultation ---
DATE OF CONSULTATION: 12/03/2017 INTERNAL MEDICINE CONSULTATION CONSULTING PHYSICIAN: Satinder Kirk M.D. REASON FOR CONSULTATION: Internal Medicine consultation regarding the patient's diabetes, peripheral artery disease, and diabetic foot ulcer. HISTORY OF PRESENT ILLNESS: This is an unfortunate 77-year-old female. She has a history of dementia, stroke, diabetes, severe peripheral artery disease, and has a prior history of G-tube. She was previously admitted several days ago for a G-tube site infection. She was diagnosed with left heel osteomyelitis and treated with oral antibiotics. The wound was progressed and family brought the patient back to the emergency room. While in house, the patient has been on antibiotic therapy. She has been receiving local wound care. She has severe peripheral artery disease. A bone scan is positive for osteomyelitis. The patient completed a full course of antibiotic therapy. Podiatry consultation has been obtained and a below-knee amputation has been recommended. PAST MEDICAL HISTORY: As above. PAST SURGICAL HISTORY: Includes history of a G-tube. CURRENT MEDICATIONS: Reconciled and reviewed. ALLERGIES: Include penicillin, aspirin, and salicylates. FAMILY HISTORY: Noncontributory. SOCIAL HISTORY: There is no known history of tobacco, ethanol, or drugs. REVIEW OF SYSTEMS: From the patient is unobtainable as she is nonverbal. PHYSICAL EXAMINATION: VITAL SIGNS: Temperature 98.1, pulse 87, respirations 20, and blood pressure 148/87. GENERAL: The patient is a chronically ill-appearing thin female, in no apparent distress. She is awake, but does not answer to questions. NECK: Supple. HEART: Regular rate and rhythm. LUNGS: Clear. ABDOMEN: Soft, nontender, and nondistended. EXTREMITIES: Without clubbing or cyanosis. There is a large pressure ulcer involving the entire back of the heel with some yellow slough noted. LABORATORY DATA: Most recent laboratories show white count of 10, hemoglobin 10, hematocrit 31, and platelet count 338. Coags, INR was 3.8. Sodium 146, potassium 3.6, chloride 109, bicarb 32, BUN 20, and creatinine 0.6. Urinalysis is clear. ASSESSMENT: This is an unfortunate female with a prior history of stroke, dementia, dysphagia, status post G-tube and with left foot osteomyelitis. She has failed conservative therapy as an outpatient. RECOMMENDATIONS: 1. Agreed plan for possible below-knee amputation. 2. the patient could possibly benefit from a six-week course of IV antibiotics. 3. An aggressive wound care at a subacute or assisted facility. 4. Regardless the patient's overall prognosis in light of her multiple comorbidities is poor, hospice would be appropriate. Family does not want more aggressive measures. Satinder Kirk M.D. DR: DOUGIE JOB#: [id number] CC:
[2017-12-05] MEDS: Potassium Chloride 40 MEQ in 1/2 NS 1000ml 1,000 ML IV SCH (17:57)
[2017-12-05] MEDS: Dyna-Hex 2% Top Sol 2oz TOPIC SCH (20:03)
[2017-12-05] MEDS: cefTRIAXone 2 GM in D5W 55 ML IVPB SCH (20:04)
[2017-12-05] MEDS: Norco 5mg/325mg tab ORAL SCH (20:43)
[2017-12-05] MEDS: Heparin 5000 units/ml inj SUBQ SCH (20:44)
--- NOTE | 2017-12-05 23:31 | Progress Note ---
DATE: 12/05/2017 CARDIOLOGY PROGRESS NOTE SUBJECTIVE: The patient remains withdrawn. Poor oral hygiene noted. Difficulty with mouth care due to the patient's clenching her mouth shut. This was discussed with the patient's daughter today as well as multiple other issues. The patient's daughter confirmed DNR/DNI status and does not want any life support. The patient's daughter also confirms that she wants her mother pain. She understands that the length of her life is not something that we can readily determine. As such, amputation is felt to be likely the best method at this point for improving her comfort care and reduce pain and this will be pursued. OBJECTIVE: VITAL SIGNS: Notable for heart rate 112, blood pressure 129/80, and respiratory rate 20. LUNGS: Clear. CARDIAC: Regular rhythm. Rapid rate. Normal S1, S2. EXTREMITIES: Unchanged with ulcer and dressing in place. IMPRESSION: 1. Osteomyelitis, left heel. 2. Severe contractures. 3. Advanced dementia. 4. Severe protein-calorie malnutrition. 5. Dehydration. 6. Hyponatremia. PLAN: 1. DNR/DNI. 2. We will discuss amputation with surgical staff. 3. Hypotonic IV fluid hydration. 4. Continue nutrition by feeding tube. 5. Pain control as needed. Tyrell Underwood M.D. DR: KENNETH JOB#: [id number] CC:
[2017-12-06 00:33] VITALS: BP 123/75
[2017-12-06 04:30] VITALS: BP 140/76
[2017-12-06] MEDS: Potassium Chloride 40 MEQ in 1/2 NS 1000ml 1,000 ML IV SCH ×2 (04:34→15:18)
[2017-12-06 08:00] VITALS: BP 135/78
[2017-12-06] MEDS: Heparin 5000 units/ml inj SUBQ SCH ×2 (08:52→20:22)
[2017-12-06] MEDS: Norco 5mg/325mg tab ORAL SCH ×2 (08:52→20:15)
[2017-12-06] MEDS: Metoprolol 25mg tab GT SCH ×2 (08:55→20:14)
--- NOTE | 2017-12-06 09:33 | General Progress Note ---
Assessment/Plan Problem List: (1) Hypokalemia ICD Codes: E87.6 - Hypokalemia SNOMED: 12718455 (2) Functional quadriplegia ICD Codes: R53.2 - Functional quadriplegia SNOMED: 880572697246593 (3) Malnutrition of moderate degree ICD Codes: E44.0 - Moderate protein-calorie malnutrition SNOMED: 899436807 (4) Osteomyelitis ICD Codes: M86.9 - Osteomyelitis, unspecified SNOMED: 71868951 Qualifiers: Qualified Codes: M86.9 - Osteomyelitis, unspecified (5) Gastrostomy tube dysfunction ICD Codes: K94.23 - Gastrostomy malfunction SNOMED: 423495699 Status: stable Assessment/Plan iv abx ivf monitor lytes wound care possible amputation Subjective ROS Limited/Unobtainable: Yes Constitutional: Reports: malaise, weakness HEENT: Reports: no symptoms Cardiovascular: Reports: no symptoms Respiratory: Reports: no symptoms Gastrointestinal/Abdominal: Reports: difficulty swallowing Genitourinary: Reports: no symptoms Neurologic/Psychiatric: Reports: pre-existing deficit Endocrine: Reports: no symptoms Hematologic/Lymphatic: Reports: no symptoms Allergies: Coded Allergies: AMOXICILLIN (Verified Allergy, Mild, 06/21/09) ASPIRIN (Verified Allergy, Mild, 06/21/09) SALICYLATES (Verified Allergy, Mild, 06/21/09) PENICILLINS (Unverified Allergy, Unknown, 11/18/17) All Systems: reviewed and negative except above Subjective no events. tachycardic. on ivf. on pain rx. IV abx. no distress. appears comfortable. Objective Last 24 Hour Vital Signs Date Time Temp Pulse Resp B/P (MAP) Pulse Ox O2 Delivery O2 Flow Rate FiO2 12/06/17 08:55 126 135/78 12/06/17 08:54 126 135/78 12/06/17 04:30 98.2 117 18 140/76 93 98.2 12/06/17 04:00 Nasal Cannula 4.0 12/06/17 00:33 98.4 110 16 123/75 92 98.4 12/06/17 00:00 Nasal Cannula 4.0 12/05/17 20:42 124 136/83 12/05/17 20:01 97.4 124 19 136/83 92 97.4 12/05/17 20:00 Nasal Cannula 4.0 12/05/17 18:56 98.0 122 20 128/74 89 98.0 12/05/17 16:00 98.0 112 20 129/80 95 98.0 12/05/17 12:00 98.1 109 20 124/76 95 98.1 Intake and Output 12/05/17 12/06/17 19:00 07:00 Intake Total 1275.000 ml 1860 ml Balance 1275.000 ml 1860 ml Intake Oral 0 ml Free Water 50 ml 150 ml IV Total 875.000 ml 1110 ml Tube Feeding 350 ml 600 ml # Voids 5 2 # Bowel Movements 1 2 Height (Feet): 4 Height (Inches): 0.00 Weight (Pounds): 100 General Appearance: WD/WN, thin Neck: supple Cardiovascular: bradycardia Respiratory/Chest: chest wall non-tender, lungs clear, normal breath sounds Abdomen: normal bowel sounds, non tender, soft, no organomegaly Edema: no edema noted Arm (L), no edema noted Arm (R), no edema noted Leg (L), no edema noted Leg (R), no edema noted Pedal (L), no edema noted Pedal (R), no edema noted Generalized CAROL SMITH December 06, 2017 09:33
[2017-12-06] MEDS ORDERED: Tubing IV Secondary IV ONE (09:55)
--- NOTE | 2017-12-06 10:33 | Infectious Diseases Prog Note ---
"Assessment/Plan Assessment/Plan antibiotics : vancomycin iv, ceftriaxone A 1. 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 DM 3. hypertension 4. CVA P 1. continue iv vancomycin, ceftriaxone 2. will follow up cultures 3. plan per vascular surgery and podiatry Subjective ROS Limited/Unobtainable: Yes Allergies: Coded Allergies: AMOXICILLIN (Verified Allergy, Mild, 06/21/09) ASPIRIN (Verified Allergy, Mild, 06/21/09) SALICYLATES (Verified Allergy, Mild, 06/21/09) PENICILLINS (Unverified Allergy, Unknown, 11/18/17) Objective Vital Signs Last 24 Hour Vital Signs Date Time Temp Pulse Resp B/P (MAP) Pulse Ox O2 Delivery O2 Flow Rate FiO2 12/06/17 08:55 126 135/78 12/06/17 08:54 126 135/78 12/06/17 04:30 98.2 117 18 140/76 93 98.2 12/06/17 04:00 Nasal Cannula 4.0 12/06/17 00:33 98.4 110 16 123/75 92 98.4 12/06/17 00:00 Nasal Cannula 4.0 12/05/17 20:42 124 136/83 12/05/17 20:01 97.4 124 19 136/83 92 97.4 12/05/17 20:00 Nasal Cannula 4.0 12/05/17 18:56 98.0 122 20 128/74 89 98.0 12/05/17 16:00 98.0 112 20 129/80 95 98.0 12/05/17 12:00 98.1 109 20 124/76 95 98.1 Height (Feet): 4 Height (Inches): 0.00 Weight (Pounds): 100 Respiratory/Chest: lungs clear Cardiovascular: normal rate, regular rhythm, no gallop/murmur Abdomen: soft, non tender, other - Gt Extremities: no edema, other - left heel ulcer Current Medications Medications (Trade) Dose Ordered Sig/Satish Route PRN Reason Start Time Stop Time Status Last Admin Dose Admin Acetaminophen/ Hydrocodone Bitart (Cavour 5/325) 1 tab EVERY 12 HOURS ORAL 12/05/17 21:00 12/12/17 20:59 12/06/17 08:52 Amlodipine Besylate (Norvasc) 10 mg DAILY GT 12/01/17 09:00 12/31/17 08:59 12/06/17 08:54 Ceftriaxone Sodium 2 gm/ Dextrose 55 ml @ 110 mls/hr Q24H IVPB 12/04/17 20:00 12/11/17 19:59 12/05/17 20:04 Chlorhexidine Gluconate (Mireya-Hex 2%) 1 applic DAILY@2000 TOPIC 12/03/17 20:00 01/02/18 19:59 12/05/17 20:03 Dextrose (Dextrose 50%) 25 ml STAT PRN IV Hypoglycemia 11/30/17 17:30 12/30/17 17:29 Dextrose (Dextrose 50%) 50 ml STAT PRN IV Hypoglycemia 11/30/17 17:30 12/30/17 17:29 Famotidine (Pepcid) 20 mg BID GT 11/30/17 18:00 12/30/17 17:59 12/06/17 08:50 Heparin Sodium (Porcine) (Heparin 5000 units/ml) 5,000 units EVERY 12 HOURS SUBQ 12/05/17 21:00 01/04/18 20:59 12/06/17 08:52 Metoprolol Tartrate (Lopressor) 25 mg Q12HR GT 11/30/17 21:00 12/30/17 20:59 12/06/17 08:55 Potassium Chloride 40 meq/ Sodium Chloride 1,020 ml @ 100 mls/hr [id number] IV 12/05/17 18:00 01/04/18 17:59 12/06/17 04:34 Tramadol HCl (Ultram) 50 mg Q8H PRN GT For Pain 11/30/17 17:30 12/07/17 17:29 12/05/17 13:19 Vancomycin HCl (Vanco rx to dose) 1 ea DAILY PRN MISC Per rx protocol 11/30/17 17:30 12/30/17 17:29 FELICITAS MUIR December 06, 2017 10:33"
[2017-12-06 12:00] VITALS: BP 117/68
[2017-12-06] MEDS: Vancomycin 750mg/NS 250ml IVPB SCH (15:18)
[2017-12-06 16:00] VITALS: BP 144/74
--- NOTE | 2017-12-06 19:45 | Progress Note ---
DATE: 12/06/2017 CARDIOLOGY PROGRESS NOTE SUBJECTIVE: The patient has some hypoxia, but no congestion noted last night. She is stable on nasal cannula. OBJECTIVE: VITAL SIGNS: Blood pressure 117/68, pulse 106, respirations 20, afebrile, and T-max 99.1 degrees. LUNGS: Coarse breath sounds. No wheezes or rales. CARDIAC: Regular rhythm. Rapid rate. Normal S1 and S2. ABDOMEN: Soft. G-tube intact. EXTREMITIES: No edema. Left heel dressed. LABORATORY DATA: Pending. IMPRESSION: 1. Osteomyelitis, left foot. 2. Hypoxia and congestion, possible aspiration or pulmonary venous congestion. 3. Dehydration and hypernatremia, corrected. 4. Type 2 diabetes mellitus. 5. Hypertensive heart disease. 6. Cerebrovascular disease with advanced dementia. 7. Severe contractures. PLAN: 1. Antimicrobials. 2. Discontinue IV fluids. 3. Followup lab studies. 4. Recheck chest x-ray. 5. DNR/DNI per daughter. 6. Await vascular followup. 7. Family member now agreeable to amputation with goal of resolution of pain and discomfort with respect to left heel. Tyrell Underwood M.D. DR: Jeanna JOB#: [id number] CC:
[2017-12-06 20:00] VITALS: BP 139/73
[2017-12-06] MEDS: Dyna-Hex 2% Top Sol 2oz TOPIC SCH (20:14)
[2017-12-06] MEDS: cefTRIAXone 2 GM in D5W 55 ML IVPB SCH (20:17)
[2017-12-07] VITALS: BP 131/68
[2017-12-07] MEDS: Vancomycin 750mg/NS 250ml IVPB SCH ×2 (03:00→16:27)
[2017-12-07 04:00] VITALS: BP 136/79
[2017-12-07 07:18] LABS: HEMOGLOBIN 9.8 G/DL (12.0-16.0); MEAN CORPUSCULAR VOLUME 91 FL (80-99); PLATELET COUNT 325 K/UL (150-450); RED BLOOD COUNT 3.18 M/UL (4.20-5.40); RED CELL DISTRIBUTION WIDTH 14.8 % (11.6-14.8)
[2017-12-07 07:31] LABS: ALANINE AMINOTRANSFERASE 26 U/L (12-78); ALBUMIN 1.9 G/DL (3.4-5.0); ALBUMIN/GLOBULIN RATIO 0.4 (1.0-2.7); ALKALINE PHOSPHATASE 96 U/L (46-116); ANION GAP 7 mmol/L (5-15); ASPARTATE AMINO TRANSFERASE 22 U/L (15-37); BILIRUBIN,TOTAL 0.5 MG/DL (0.2-1.0); BLOOD UREA NITROGEN 15 mg/dL (7-18); CALCIUM 7.8 MG/DL (8.5-10.1); CARBON DIOXIDE 30 MMOL/L (21-32); CHLORIDE 110 MMOL/L (98-107); CREATININE 0.6 MG/DL (0.55-1.30); POTASSIUM 3.2 MMOL/L (3.5-5.1); SODIUM 147 MMOL/L (136-145)
[2017-12-07 07:38] LABS: WHITE BLOOD COUNT 22.6 K/UL (4.8-10.8)
[2017-12-07 08:00] VITALS: BP 140/70
[2017-12-07] MEDS: Norco 5mg/325mg tab ORAL SCH ×2 (09:00→21:27)
[2017-12-07] MEDS ORDERED: traMADol 50mg tab GT PRN (09:30)
[2017-12-07] MEDS: Metoprolol 25mg tab GT SCH ×2 (10:13→21:27)
[2017-12-07] MEDS: Heparin 5000 units/ml inj SUBQ SCH ×2 (10:23→21:00)
--- NOTE | 2017-12-07 10:53 | Diagnostic Imaging Report ---
Indication: Abnormal breath sounds Comparison: 06/21/2009 A single view chest radiograph was obtained. Findings: There is a moderate size right pleural effusion. PICC line is present with the tip in the SVC. Heart is enlarged. Bones are osteopenic. IMPRESSION: Moderate right pleural effusion suspected.
[2017-12-07 12:00] VITALS: BP 139/79
--- NOTE | 2017-12-07 13:22 | Diagnostic Imaging Report ---
Indication: Tachypnea Comparison: 12/06/2017 A single view chest radiograph was obtained. Findings: PICC line is stable. Cardiomegaly is stable. Moderate right pleural effusion suspected. IMPRESSION: No change. Moderate right pleural effusion
[2017-12-07 16:00] VITALS: BP 128/75
[2017-12-07 20:00] VITALS: BP 140/75
[2017-12-07] MEDS: Dyna-Hex 2% Top Sol 2oz TOPIC SCH (21:26)
[2017-12-07] MEDS: cefTRIAXone 2 GM in D5W 55 ML IVPB SCH (21:26)
[2017-12-08] VITALS: BP 134/75
[2017-12-08] MEDS: Vancomycin 750mg/NS 250ml IVPB SCH ×2 (02:40→15:59)
[2017-12-08 04:00] VITALS: BP 137/75
[2017-12-08 04:43] LABS: HEMATOCRIT 29.2 % (37.0-47.0); HEMOGLOBIN 9.6 G/DL (12.0-16.0); MEAN CORPUSCULAR VOLUME 91 FL (80-99); PLATELET COUNT 341 K/UL (150-450); RED BLOOD COUNT 3.22 M/UL (4.20-5.40); RED CELL DISTRIBUTION WIDTH 14.5 % (11.6-14.8); WHITE BLOOD COUNT 19.1 K/UL (4.8-10.8)
[2017-12-08 05:05] LABS: ANION GAP 6 mmol/L (5-15); BLOOD UREA NITROGEN 19 mg/dL (7-18); CALCIUM 7.8 MG/DL (8.5-10.1); CARBON DIOXIDE 30 MMOL/L (21-32); CHLORIDE 112 MMOL/L (98-107); CREATININE 0.6 MG/DL (0.55-1.30); POTASSIUM 3.4 MMOL/L (3.5-5.1); SODIUM 148 MMOL/L (136-145)
[2017-12-08 05:09] LABS: ALANINE AMINOTRANSFERASE 34 U/L (12-78); ALBUMIN 1.6 G/DL (3.4-5.0); ALBUMIN/GLOBULIN RATIO 0.3 (1.0-2.7); ALKALINE PHOSPHATASE 99 U/L (46-116); ASPARTATE AMINO TRANSFERASE 34 U/L (15-37); BILIRUBIN,TOTAL 0.4 MG/DL (0.2-1.0)
[2017-12-08 08:00] VITALS: BP 133/76
--- NOTE | 2017-12-08 08:32 | Anethesia Preoperative Eval ---
Anesthesia Pre-op PMH/ROS General Date of Evaluation: December 08, 2017 Anesthesiologist: Sahil ASA Score: ASA 3 Mallampati Score Class I : Soft palate, uvula, fauces, pillars visible Class II: Soft palate, uvula, fauces visible Class III: Soft palate, base of uvula visible Class IV: Only hard plate visible Mallampati Classification: Class II Surgeon: Lisa Diagnosis: Osteomyelitis, PVD Surgical Procedure: AKA Allergies: Coded Allergies: AMOXICILLIN (Verified Allergy, Mild, 06/21/09) ASPIRIN (Verified Allergy, Mild, 06/21/09) SALICYLATES (Verified Allergy, Mild, 06/21/09) PENICILLINS (Unverified Allergy, Unknown, 11/18/17) Past Medical History Cardiovascular: Reports: HTN, CAD, other - Hypertensive heart disease, diastolic dysfunction and CHF Neurologic/Psychiatric: Reports: dementia, CVA PMH Narrative: PVD, HTN, hypertensive heart disease, diastolic dysfunction, CVA, dementia, contractures, Osteomyelitis Anesthesia Pre-op Phys. Exam Physician Exam Last Vital Signs Date Time Temp Pulse Resp B/P (MAP) Pulse Ox O2 Delivery O2 Flow Rate FiO2 12/08/17 04:00 98.1 102 18 137/75 100 98.1 12/07/17 16:00 Non-Rebreather 15.0 Constitutional: other - Patient is contracted and non communicative Neurologic: other - Deferred Cardiovascular: other - On face mask O2 Respiratory: other - Deferred Gastrointestinal: other - Deferred Airway Exam Mallampati Score: Class II Anesthesia Pre-op A/P Labs Hematology Test 12/08/17 05:00 White Blood Count 19.1 K/UL (4.8-10.8) H Red Blood Count 3.22 M/UL (4.20-5.40) L Hemoglobin 9.6 G/DL (12.0-16.0) L Hematocrit 29.2 % (37.0-47.0) L Mean Corpuscular Volume 91 FL (80-99) Mean Corpuscular Hemoglobin 29.9 PG (27.0-31.0) Mean Corpuscular Hemoglobin Concent 32.9 G/DL (32.0-36.0) Red Cell Distribution Width 14.5 % (11.6-14.8) Platelet Count 341 K/UL (150-450) Mean Platelet Volume 6.8 FL (6.5-10.1) Neutrophils (%) (Auto) % (45.0-75.0) Lymphocytes (%) (Auto) % (20.0-45.0) Monocytes (%) (Auto) % (1.0-10.0) Eosinophils (%) (Auto) % (0.0-3.0) Basophils (%) (Auto) % (0.0-2.0) Differential Total Cells Counted 100 Neutrophils % (Manual) 80 % (45-75) H Lymphocytes % (Manual) 14 % (20-45) L Monocytes % (Manual) 6 % (1-10) Eosinophils % (Manual) 0 % (0-3) Basophils % (Manual) 0 % (0-2) Band Neutrophils 0 % (0-8) Platelet Estimate Adequate Platelet Morphology Normal Hypochromasia 2+ Anisocytosis 1+ Coagulation Test 12/08/17 04:20 Prothrombin Time 10.1 SEC (9.30-11.50) Prothromb Time International Ratio 1.0 (0.9-1.1) Activated Partial Thromboplast Time 35 SEC (23-33) H Chemistry Test 12/08/17 04:20 Sodium Level 148 MMOL/L (136-145) H Potassium Level 3.4 MMOL/L (3.5-5.1) L Chloride Level 112 MMOL/L (98-107) H Carbon Dioxide Level 30 MMOL/L (21-32) Anion Gap 6 mmol/L (5-15) Blood Urea Nitrogen 19 mg/dL (7-18) H Creatinine 0.6 MG/DL (0.55-1.30) Estimat Glomerular Filtration Rate mL/min (>60) Glucose Level 144 MG/DL (74-106) H Calcium Level 7.8 MG/DL (8.5-10.1) L Total Bilirubin 0.4 MG/DL (0.2-1.0) Aspartate Amino Transf (AST/SGOT) 34 U/L (15-37) Alanine Aminotransferase (ALT/SGPT) 34 U/L (12-78) Alkaline Phosphatase 99 U/L (46-116) Total Protein 6.5 G/DL (6.4-8.2) Albumin 1.6 G/DL (3.4-5.0) L Globulin 4.9 g/dL Albumin/Globulin Ratio 0.3 (1.0-2.7) L Risk Assessment & Plan Status Change Before Surgery: Yes - Case cancelled secondary to episode of hypoxia...now on face mask O2 Luca Batxer MD December 08, 2017 08:32
--- NOTE | 2017-12-08 08:47 | General Progress Note ---
Assessment/Plan Problem List: (1) Hypokalemia ICD Codes: E87.6 - Hypokalemia SNOMED: 37821963 (2) Functional quadriplegia ICD Codes: R53.2 - Functional quadriplegia SNOMED: 527833737928682 (3) Malnutrition of moderate degree ICD Codes: E44.0 - Moderate protein-calorie malnutrition SNOMED: 824491911 (4) Osteomyelitis ICD Codes: M86.9 - Osteomyelitis, unspecified SNOMED: 01576178 Qualifiers: Qualified Codes: M86.9 - Osteomyelitis, unspecified (5) Gastrostomy tube dysfunction ICD Codes: K94.23 - Gastrostomy malfunction SNOMED: 483905877 (6) Respiratory failure ICD Codes: J96.90 - Respiratory failure, unspecified, unspecified whether with hypoxia or hypercapnia SNOMED: 912337196 (7) Pneumonia ICD Codes: J18.9 - Pneumonia, unspecified organism SNOMED: 881815808 (8) Pleural effusion ICD Codes: J90 - Pleural effusion, not elsewhere classified SNOMED: 40956807 Status: deteriorating Assessment/Plan iv abx ivf monitor abg tap effusion monitor lytes wound care possible amputation when stabilized Subjective ROS Limited/Unobtainable: Yes Constitutional: Reports: malaise, weakness HEENT: Reports: no symptoms Cardiovascular: Reports: no symptoms Respiratory: Reports: shortness of breath Gastrointestinal/Abdominal: Reports: no symptoms Genitourinary: Reports: no symptoms Neurologic/Psychiatric: Reports: pre-existing deficit Endocrine: Reports: no symptoms Hematologic/Lymphatic: Reports: no symptoms Allergies: Coded Allergies: AMOXICILLIN (Verified Allergy, Mild, 06/21/09) ASPIRIN (Verified Allergy, Mild, 06/21/09) SALICYLATES (Verified Allergy, Mild, 06/21/09) PENICILLINS (Unverified Allergy, Unknown, 11/18/17) All Systems: reviewed and negative except above Subjective no events. tachycardic and tachypneic. on nrb. on ivf. on pain rx. IV abx. no distress. Objective Last 24 Hour Vital Signs Date Time Temp Pulse Resp B/P (MAP) Pulse Ox O2 Delivery O2 Flow Rate FiO2 12/08/17 04:00 98.1 102 18 137/75 100 98.1 12/08/17 00:00 98.6 110 18 134/75 100 98.6 12/07/17 21:27 98.7 12/07/17 21:27 125 140/75 12/07/17 20:00 98.7 125 18 140/75 98 98.7 12/07/17 16:00 97.5 118 39 128/75 98 Non-Rebreather 15.0 97.5 12/07/17 12:00 99.9 104 36 139/79 96 Non-Rebreather 15.0 99.9 12/07/17 10:34 98.0 12/07/17 10:13 119 140/70 12/07/17 10:13 119 140/70 12/07/17 09:35 100.2 12/07/17 09:00 100.2 Intake and Output 12/07/17 12/08/17 19:00 07:00 Intake Total 610 ml 305.000 ml Balance 610 ml 305.000 ml Free Water 60 ml IV Total 305.000 ml Tube Feeding 550 ml # Voids 3 3 # Bowel Movements 1 Laboratory Tests 12/07/17 09:47: Arterial Blood pH 7.532H, Arterial Blood Partial Pressure CO2 33.7L, Arterial Blood Partial Pressure O2 72.8L, Arterial Blood HCO3 27.7H, Arterial Blood Oxygen Saturation 94.5, Arterial Blood Base Excess 5.1, Braden Test Positive 12/08/17 04:20: Prothrombin Time 10.1, Prothromb Time International Ratio 1.0, Activated Partial Thromboplast Time 35H, Sodium Level 148H, Potassium Level 3.4L, Chloride Level 112H, Carbon Dioxide Level 30, Anion Gap 6, Blood Urea Nitrogen 19H, Creatinine 0.6, Estimat Glomerular Filtration Rate , Glucose Level 144H, Calcium Level 7.8L, Total Bilirubin 0.4, Aspartate Amino Transf (AST/SGOT) 34, Alanine Aminotransferase (ALT/SGPT) 34, Alkaline Phosphatase 99, Total Protein 6.5, Albumin 1.6L, Globulin 4.9, Albumin/Globulin Ratio 0.3L 12/08/17 05:00: White Blood Count 19.1H, Red Blood Count 3.22L, Hemoglobin 9.6L, Hematocrit 29.2L, Mean Corpuscular Volume 91, Mean Corpuscular Hemoglobin 29.9, Mean Corpuscular Hemoglobin Concent 32.9, Red Cell Distribution Width 14.5, Platelet Count 341, Mean Platelet Volume 6.8, Neutrophils (%) (Auto) , Lymphocytes (%) ( Auto) , Monocytes (%) (Auto) , Eosinophils (%) (Auto) , Basophils (%) (Auto) , Differential Total Cells Counted 100, Neutrophils % (Manual) 80H, Lymphocytes % (Manual) 14L, Monocytes % (Manual) 6, Eosinophils % (Manual) 0, Basophils % ( Manual) 0, Band Neutrophils 0, Platelet Estimate Adequate, Platelet Morphology Normal, Hypochromasia 2+, Anisocytosis 1+ 12/08/17 08:24: Arterial Blood pH 7.514H, Arterial Blood Partial Pressure CO2 38.2, Arterial Blood Partial Pressure O2 81.5, Arterial Blood HCO3 30.1H, Arterial Blood Oxygen Saturation 95.4, Arterial Blood Base Excess 6.7, Braden Test Positive Height (Feet): 4 Height (Inches): 0.00 Weight (Pounds): 100 General Appearance: WD/WN, confused, mild distress Neck: supple Cardiovascular: tachycardia Respiratory/Chest: normal breath sounds, rhonchi - bilaterally Abdomen: normal bowel sounds, non tender, soft, no organomegaly Edema: no edema noted Arm (L), no edema noted Arm (R), no edema noted Leg (L), no edema noted Leg (R), no edema noted Pedal (L), no edema noted Pedal (R), no edema noted Generalized CAROL SMITH December 08, 2017 08:47
--- NOTE | 2017-12-08 08:49 | General Progress Note ---
Assessment/Plan Problem List: (1) Hypokalemia ICD Codes: E87.6 - Hypokalemia SNOMED: 45113143 (2) Functional quadriplegia ICD Codes: R53.2 - Functional quadriplegia SNOMED: 352906929041197 (3) Malnutrition of moderate degree ICD Codes: E44.0 - Moderate protein-calorie malnutrition SNOMED: 417374225 (4) Osteomyelitis ICD Codes: M86.9 - Osteomyelitis, unspecified SNOMED: 25794982 Qualifiers: Qualified Codes: M86.9 - Osteomyelitis, unspecified (5) Gastrostomy tube dysfunction ICD Codes: K94.23 - Gastrostomy malfunction SNOMED: 538447385 (6) Respiratory failure ICD Codes: J96.90 - Respiratory failure, unspecified, unspecified whether with hypoxia or hypercapnia SNOMED: 559394819 (7) Pneumonia ICD Codes: J18.9 - Pneumonia, unspecified organism SNOMED: 567878685 (8) Pleural effusion ICD Codes: J90 - Pleural effusion, not elsewhere classified SNOMED: 33327661 Assessment/Plan iv abx ivf monitor abg hospital monitor lytes wound care possible amputation when stabilized Subjective Date patient seen: December 07, 2017 Constitutional: Reports: malaise, weakness HEENT: Reports: no symptoms Cardiovascular: Reports: no symptoms Respiratory: Reports: SOB at rest Gastrointestinal/Abdominal: Reports: difficulty swallowing Genitourinary: Reports: no symptoms Neurologic/Psychiatric: Reports: no symptoms Endocrine: Reports: no symptoms Hematologic/Lymphatic: Reports: no symptoms Allergies: Coded Allergies: AMOXICILLIN (Verified Allergy, Mild, 06/21/09) ASPIRIN (Verified Allergy, Mild, 06/21/09) SALICYLATES (Verified Allergy, Mild, 06/21/09) PENICILLINS (Unverified Allergy, Unknown, 11/18/17) All Systems: reviewed and negative except above Subjective no events. no distress, on o2. poorly responsive. Objective Last 24 Hour Vital Signs Date Time Temp Pulse Resp B/P (MAP) Pulse Ox O2 Delivery O2 Flow Rate FiO2 12/08/17 04:00 98.1 102 18 137/75 100 98.1 12/08/17 00:00 98.6 110 18 134/75 100 98.6 12/07/17 21:27 98.7 12/07/17 21:27 125 140/75 12/07/17 20:00 98.7 125 18 140/75 98 98.7 12/07/17 16:00 97.5 118 39 128/75 98 Non-Rebreather 15.0 97.5 12/07/17 12:00 99.9 104 36 139/79 96 Non-Rebreather 15.0 99.9 12/07/17 10:34 98.0 12/07/17 10:13 119 140/70 12/07/17 10:13 119 140/70 12/07/17 09:35 100.2 12/07/17 09:00 100.2 Intake and Output 12/07/17 12/08/17 19:00 07:00 Intake Total 610 ml 305.000 ml Balance 610 ml 305.000 ml Free Water 60 ml IV Total 305.000 ml Tube Feeding 550 ml # Voids 3 3 # Bowel Movements 1 Laboratory Tests 12/07/17 09:47: Arterial Blood pH 7.532H, Arterial Blood Partial Pressure CO2 33.7L, Arterial Blood Partial Pressure O2 72.8L, Arterial Blood HCO3 27.7H, Arterial Blood Oxygen Saturation 94.5, Arterial Blood Base Excess 5.1, Braden Test Positive 12/08/17 04:20: Prothrombin Time 10.1, Prothromb Time International Ratio 1.0, Activated Partial Thromboplast Time 35H, Sodium Level 148H, Potassium Level 3.4L, Chloride Level 112H, Carbon Dioxide Level 30, Anion Gap 6, Blood Urea Nitrogen 19H, Creatinine 0.6, Estimat Glomerular Filtration Rate , Glucose Level 144H, Calcium Level 7.8L, Total Bilirubin 0.4, Aspartate Amino Transf (AST/SGOT) 34, Alanine Aminotransferase (ALT/SGPT) 34, Alkaline Phosphatase 99, Total Protein 6.5, Albumin 1.6L, Globulin 4.9, Albumin/Globulin Ratio 0.3L 12/08/17 05:00: White Blood Count 19.1H, Red Blood Count 3.22L, Hemoglobin 9.6L, Hematocrit 29.2L, Mean Corpuscular Volume 91, Mean Corpuscular Hemoglobin 29.9, Mean Corpuscular Hemoglobin Concent 32.9, Red Cell Distribution Width 14.5, Platelet Count 341, Mean Platelet Volume 6.8, Neutrophils (%) (Auto) , Lymphocytes (%) ( Auto) , Monocytes (%) (Auto) , Eosinophils (%) (Auto) , Basophils (%) (Auto) , Differential Total Cells Counted 100, Neutrophils % (Manual) 80H, Lymphocytes % (Manual) 14L, Monocytes % (Manual) 6, Eosinophils % (Manual) 0, Basophils % ( Manual) 0, Band Neutrophils 0, Platelet Estimate Adequate, Platelet Morphology Normal, Hypochromasia 2+, Anisocytosis 1+ 12/08/17 08:24: Arterial Blood pH 7.514H, Arterial Blood Partial Pressure CO2 38.2, Arterial Blood Partial Pressure O2 81.5, Arterial Blood HCO3 30.1H, Arterial Blood Oxygen Saturation 95.4, Arterial Blood Base Excess 6.7, Braden Test Positive Height (Feet): 4 Height (Inches): 0.00 Weight (Pounds): 100 General Appearance: WD/WN, lethargic, confused Neck: supple Cardiovascular: tachycardia Respiratory/Chest: chest wall non-tender, lungs clear Edema: no edema noted Arm (L), no edema noted Arm (R), no edema noted Leg (L), no edema noted Leg (R), no edema noted Pedal (L), no edema noted Pedal (R), no edema noted Generalized CAROL SMITH December 08, 2017 08:49
[2017-12-08] MEDS: Heparin 5000 units/ml inj SUBQ SCH ×2 (09:00→20:56)
[2017-12-08] MEDS: Norco 5mg/325mg tab ORAL SCH ×2 (09:00→20:55)
[2017-12-08] MEDS: Metoprolol 25mg tab GT SCH ×2 (10:19→20:55)
[2017-12-08 12:00] VITALS: BP 132/71
--- NOTE | 2017-12-08 13:18 | Infectious Diseases Prog Note ---
"Assessment/Plan Assessment/Plan A 1. 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 DM 3. hypertension 4. CVA P 1. continue iv vancomycin, ceftriaxone 2. will have left AKA, after being stable Subjective ROS Limited/Unobtainable: Yes Allergies: Coded Allergies: AMOXICILLIN (Verified Allergy, Mild, 06/21/09) ASPIRIN (Verified Allergy, Mild, 06/21/09) SALICYLATES (Verified Allergy, Mild, 06/21/09) PENICILLINS (Unverified Allergy, Unknown, 11/18/17) Objective Vital Signs Last 24 Hour Vital Signs Date Time Temp Pulse Resp B/P (MAP) Pulse Ox O2 Delivery O2 Flow Rate FiO2 12/08/17 12:00 97.7 96 28 132/71 96 Non-Rebreather 15.0 97.7 12/08/17 10:21 107 138/73 12/08/17 10:19 107 138/73 12/08/17 08:00 97.9 113 32 133/76 96 Non-Rebreather 15.0 97.9 12/08/17 04:00 98.1 102 18 137/75 100 98.1 12/08/17 00:00 98.6 110 18 134/75 100 98.6 12/07/17 21:27 98.7 12/07/17 21:27 125 140/75 12/07/17 20:00 98.7 125 18 140/75 98 98.7 12/07/17 16:00 97.5 118 39 128/75 98 Non-Rebreather 15.0 97.5 Height (Feet): 4 Height (Inches): 0.00 Weight (Pounds): 100 HEENT: normocephalic Respiratory/Chest: lungs clear, other - O2 by rebreathing mask Cardiovascular: tachycardia Abdomen: soft, non tender, other - GT feeding Extremities: no edema, other - left leg contracture Skin: ulcers, other - on left heel Neurologic/Psychiatric: unresponsiveness Microbiology Date/Time Source Procedure Growth Status 12/06/17 23:10 Foot Left Gram Stain - Final Resulted 12/06/17 23:10 Wound Culture - Preliminary Staphylococcus Aureus Gram Negative Bacillus 2 Resulted Laboratory Tests Test 12/08/17 04:20 12/08/17 05:00 12/08/17 08:24 Prothrombin Time 10.1 SEC (9.30-11.50) Prothromb Time International Ratio 1.0 (0.9-1.1) Activated Partial Thromboplast Time 35 SEC (23-33) H Sodium Level 148 MMOL/L (136-145) H Potassium Level 3.4 MMOL/L (3.5-5.1) L Chloride Level 112 MMOL/L (98-107) H Carbon Dioxide Level 30 MMOL/L (21-32) Anion Gap 6 mmol/L (5-15) Blood Urea Nitrogen 19 mg/dL (7-18) H Creatinine 0.6 MG/DL (0.55-1.30) Estimat Glomerular Filtration Rate mL/min (>60) Glucose Level 144 MG/DL (74-106) H Calcium Level 7.8 MG/DL (8.5-10.1) L Total Bilirubin 0.4 MG/DL (0.2-1.0) Aspartate Amino Transf (AST/SGOT) 34 U/L (15-37) Alanine Aminotransferase (ALT/SGPT) 34 U/L (12-78) Alkaline Phosphatase 99 U/L (46-116) Total Protein 6.5 G/DL (6.4-8.2) Albumin 1.6 G/DL (3.4-5.0) L Globulin 4.9 g/dL Albumin/Globulin Ratio 0.3 (1.0-2.7) L White Blood Count 19.1 K/UL (4.8-10.8) H Red Blood Count 3.22 M/UL (4.20-5.40) L Hemoglobin 9.6 G/DL (12.0-16.0) L Hematocrit 29.2 % (37.0-47.0) L Mean Corpuscular Volume 91 FL (80-99) Mean Corpuscular Hemoglobin 29.9 PG (27.0-31.0) Mean Corpuscular Hemoglobin Concent 32.9 G/DL (32.0-36.0) Red Cell Distribution Width 14.5 % (11.6-14.8) Platelet Count 341 K/UL (150-450) Mean Platelet Volume 6.8 FL (6.5-10.1) Neutrophils (%) (Auto) % (45.0-75.0) Lymphocytes (%) (Auto) % (20.0-45.0) Monocytes (%) (Auto) % (1.0-10.0) Eosinophils (%) (Auto) % (0.0-3.0) Basophils (%) (Auto) % (0.0-2.0) Differential Total Cells Counted 100 Neutrophils % (Manual) 80 % (45-75) H Lymphocytes % (Manual) 14 % (20-45) L Monocytes % (Manual) 6 % (1-10) Eosinophils % (Manual) 0 % (0-3) Basophils % (Manual) 0 % (0-2) Band Neutrophils 0 % (0-8) Platelet Estimate Adequate Platelet Morphology Normal Hypochromasia 2+ Anisocytosis 1+ Arterial Blood pH 7.514 (7.350-7.450) Arterial Blood Partial Pressure CO2 38.2 mmHg (35.0-45.0) Arterial Blood Partial Pressure O2 81.5 mmHg (75.0-100.0) Arterial Blood HCO3 30.1 mmol/L (22.0-26.0) H Arterial Blood Oxygen Saturation 95.4 % (92.0-98.0) Arterial Blood Base Excess 6.7 Braden Test Positive Current Medications Medications (Trade) Dose Ordered Sig/Satish Route PRN Reason Start Time Stop Time Status Last Admin Dose Admin Acetaminophen (Tylenol) 650 mg Q4H PRN ORAL Mild Pain/Temp > 100.5 12/07/17 09:30 01/06/18 09:29 12/07/17 09:35 Acetaminophen/ Hydrocodone Bitart (Elma 5/325) 1 tab EVERY 12 HOURS ORAL 12/05/17 21:00 12/12/17 20:59 12/07/17 21:27 Amlodipine Besylate (Norvasc) 10 mg DAILY GT 12/01/17 09:00 12/31/17 08:59 12/08/17 10:21 Ceftriaxone Sodium 2 gm/ Dextrose 55 ml @ 110 mls/hr Q24H IVPB 12/04/17 20:00 12/11/17 19:59 12/07/17 21:26 Chlorhexidine Gluconate (Mireya-Hex 2%) 1 applic DAILY@2000 TOPIC 12/03/17 20:00 01/02/18 19:59 12/07/17 21:26 Dextrose (Dextrose 50%) 25 ml STAT PRN IV Hypoglycemia 11/30/17 17:30 12/30/17 17:29 Dextrose (Dextrose 50%) 50 ml STAT PRN IV Hypoglycemia 11/30/17 17:30 12/30/17 17:29 Famotidine (Pepcid) 20 mg BID GT 11/30/17 18:00 12/30/17 17:59 12/08/17 10:21 Heparin Sodium (Porcine) (Heparin 5000 units/ml) 5,000 units EVERY 12 HOURS SUBQ 12/05/17 21:00 01/04/18 20:59 12/07/17 10:23 Metoprolol Tartrate (Lopressor) 25 mg Q12HR GT 11/30/17 21:00 12/30/17 20:59 12/08/17 10:19 Vancomycin HCl (Vanco rx to dose) 1 ea DAILY PRN MISC Per rx protocol 11/30/17 17:30 12/30/17 17:29 Vancomycin/Sodium Chloride 250 ml @ 166.667 mls/hr Q12H IVPB 12/06/17 15:00 12/11/17 14:59 12/08/17 02:40 FER MORTON December 08, 2017 13:18"
--- NOTE | 2017-12-08 14:44 | Vascular Surgery Progress Note ---
Subjective Subjective All noted Non verbal Looks in distress on oxygen Per daughter family agreed for left AKA-- cancelled today due to medical issues as per Dr Kirk Objective Objective Last 24 Hour Vital Signs Date Time Temp Pulse Resp B/P (MAP) Pulse Ox O2 Delivery O2 Flow Rate FiO2 12/08/17 12:00 97.7 96 28 132/71 96 Non-Rebreather 15.0 97.7 12/08/17 10:21 107 138/73 12/08/17 10:19 107 138/73 12/08/17 08:00 97.9 113 32 133/76 96 Non-Rebreather 15.0 97.9 12/08/17 04:00 98.1 102 18 137/75 100 98.1 12/08/17 00:00 98.6 110 18 134/75 100 98.6 12/07/17 21:27 98.7 12/07/17 21:27 125 140/75 12/07/17 20:00 98.7 125 18 140/75 98 98.7 12/07/17 16:00 97.5 118 39 128/75 98 Non-Rebreather 15.0 97.5 Intake and Output 12/07/17 12/08/17 19:00 07:00 Intake Total 610 ml 305.000 ml Balance 610 ml 305.000 ml Free Water 60 ml IV Total 305.000 ml Tube Feeding 550 ml # Voids 3 3 # Bowel Movements 1 Laboratory Tests Test 12/08/17 04:20 12/08/17 05:00 12/08/17 08:24 12/08/17 13:50 Prothrombin Time 10.1 SEC (9.30-11.50) Prothromb Time International Ratio 1.0 (0.9-1.1) Activated Partial Thromboplast Time 35 SEC (23-33) H Sodium Level 148 MMOL/L (136-145) H Potassium Level 3.4 MMOL/L (3.5-5.1) L Chloride Level 112 MMOL/L (98-107) H Carbon Dioxide Level 30 MMOL/L (21-32) Anion Gap 6 mmol/L (5-15) Blood Urea Nitrogen 19 mg/dL (7-18) H Creatinine 0.6 MG/DL (0.55-1.30) Estimat Glomerular Filtration Rate mL/min (>60) Glucose Level 144 MG/DL (74-106) H Calcium Level 7.8 MG/DL (8.5-10.1) L Total Bilirubin 0.4 MG/DL (0.2-1.0) Aspartate Amino Transf (AST/SGOT) 34 U/L (15-37) Alanine Aminotransferase (ALT/SGPT) 34 U/L (12-78) Alkaline Phosphatase 99 U/L (46-116) Total Protein 6.5 G/DL (6.4-8.2) Albumin 1.6 G/DL (3.4-5.0) L Globulin 4.9 g/dL Albumin/Globulin Ratio 0.3 (1.0-2.7) L White Blood Count 19.1 K/UL (4.8-10.8) H Red Blood Count 3.22 M/UL (4.20-5.40) L Hemoglobin 9.6 G/DL (12.0-16.0) L Hematocrit 29.2 % (37.0-47.0) L Mean Corpuscular Volume 91 FL (80-99) Mean Corpuscular Hemoglobin 29.9 PG (27.0-31.0) Mean Corpuscular Hemoglobin Concent 32.9 G/DL (32.0-36.0) Red Cell Distribution Width 14.5 % (11.6-14.8) Platelet Count 341 K/UL (150-450) Mean Platelet Volume 6.8 FL (6.5-10.1) Neutrophils (%) (Auto) % (45.0-75.0) Lymphocytes (%) (Auto) % (20.0-45.0) Monocytes (%) (Auto) % (1.0-10.0) Eosinophils (%) (Auto) % (0.0-3.0) Basophils (%) (Auto) % (0.0-2.0) Differential Total Cells Counted 100 Neutrophils % (Manual) 80 % (45-75) H Lymphocytes % (Manual) 14 % (20-45) L Monocytes % (Manual) 6 % (1-10) Eosinophils % (Manual) 0 % (0-3) Basophils % (Manual) 0 % (0-2) Band Neutrophils 0 % (0-8) Platelet Estimate Adequate Platelet Morphology Normal Hypochromasia 2+ Anisocytosis 1+ Arterial Blood pH 7.514 (7.350-7.450) Arterial Blood Partial Pressure CO2 38.2 mmHg (35.0-45.0) Arterial Blood Partial Pressure O2 81.5 mmHg (75.0-100.0) Arterial Blood HCO3 30.1 mmol/L (22.0-26.0) H Arterial Blood Oxygen Saturation 95.4 % (92.0-98.0) Arterial Blood Base Excess 6.7 Braden Test Positive Vancomycin Level Trough Pending Height (Feet): 4 Height (Inches): 0.00 Weight (Pounds): 100 Objective Non verbal Lungs rhonchi on oxygen cvs rrr abd soft nontender + femorals severely contracted knees legs with left foot ulcer exposed bone Assessment/Plan Assessment Worsening resp issues with tachypnea ? r/o aspiration/ pneumonia Non salvageable left leg with exposed bone clinical osteo Severe PAD multilevel Dementia CVA Non ambulatory Malnourished Plan Medical pulm eval optimization Abx per ID Nutrition Left leg AKA once medically cleared for OR d/w Monico Abbasi MD December 08, 2017 14:44
[2017-12-08] MEDS ORDERED: Lidocaine 1% Plain 30 ml INJ PRN (15:00)
[2017-12-08 16:00] VITALS: BP 127/78
--- NOTE | 2017-12-08 17:04 | Diagnostic Imaging Report ---
Indication: Pleural effusion Technique: Grayscale duplex images of the chest in anticipation of thoracentesis Comparison: Reference made to chest radiograph 12/07/2017 Findings: Only trace right pleural fluid is demonstrated, insufficient for safe thoracentesis. There is upward displacement of the right-sided abdominal viscera and considerable atelectatic lung noted Impression: Only trace pleural fluid demonstrated, sufficient for safe thoracentesis. Opacity at the right lung base seen on recent chest radiograph therefore most likely represents atelectatic lung rather than pleural fluid
[2017-12-08] MEDS: D5 1/2NS w/KCl 20mEq 1,000 ML IV SCH (19:01)
[2017-12-08 20:00] VITALS: BP 129/76
--- NOTE | 2017-12-08 20:30 | Progress Note ---
DATE: 12/08/2017 CARDIOLOGY PROGRESS NOTE SUBJECTIVE: The patient's surgery was postponed due to leukocytosis and tachypnea. The patient's chest radiograph revealed possible right-sided pleural effusion. An ultrasound revealed minimal effusion, but moderate atelectasis with right-sided abdominal contents protruding upwards. OBJECTIVE: GENERAL: The patient is withdrawn. VITAL SIGNS: Blood pressure 134/75, pulse 110, respiratory rate 18. LUNGS: Diminished breath sounds on the right. HEART: Regular rhythm. Rapid rate. Normal S1, S2. ABDOMEN: Soft. G-tube site has moderate drainage. EXTREMITIES: There is no edema. GENITOURINARY: Urine is notable for purulence. IMPRESSION: 1. Sepsis. 2. Atelectasis, right lung. 3. Osteomyelitis, left foot. 4. Dehydration. 5. 6. Hypokalemia. 7. Acute on chronic kidney injury. DISCUSSION AND PLAN: The patient's condition has deteriorated. She appears to be poor, preterminal. I will discuss with the patient's daughter alternative care at this time. In the interim, hypotonic IV fluids with potassium will be added. GI consult to re-evaluate G-tube site will be obtained. Respiratory hygiene has been initiated. Antibiotics per Infectious Disease test consultant. Tyrell Underwood M.D. DR: JESSICA JOB#: [id number] CC:
[2017-12-08] MEDS: Dyna-Hex 2% Top Sol 2oz TOPIC SCH (20:52)
[2017-12-08] MEDS: cefTRIAXone 2 GM in D5W 55 ML IVPB SCH (20:53)
--- NOTE | 2017-12-08 21:45 | Progress Note ---
DATE: 12/07/2017 CARDIOLOGY PROGRESS NOTE Late entry from 12/07/2017. SUBJECTIVE: The patient was seen and evaluated. She has had some hypoxia. She was started on oxygen. She does not appear to have any secretion. OBJECTIVE: VITAL SIGNS: Blood pressure 139/79, pulse 104, respirations 36, and temperature 99.9. LUNGS: Diminished breath sounds on the right. HEART: Regular rhythm and rate. Normal S1, S2. ABDOMEN: Soft. G-tube site with some drainage. EXTREMITIES: No edema. Heel has dressing in place. LABORATORY AND DIAGNOSTIC DATA: Chest x-ray today revealed moderate right pleural effusion. White count has increased to 22.6. Potassium 3.2. IMPRESSION: 1. Sepsis. 2. Dehydration. 3. Hypernatremia. 4. Hypokalemia. 5. Secondary sinus tachycardia. 6. Severe protein-calorie malnutrition. 7. Osteomyelitis, left heel. 8. Possible right pleural effusion with hypoxia. PLAN: 1. Ultrasound and possible thoracentesis. 2. Reassess for surgical plan of amputation pending above. 3. Add water per G-tube. 4. Continue pain control. 5. Antimicrobials per Infectious disease communication consultant. Tyrell Underwood M.D. DR: KENNETH JOB#: [id number] CC:
[2017-12-08 21:48] LABS: APPEARANCE,URINE CLEAR; BILIRUBIN, URINE NEGATIVE (NEGATIVE); COLOR,URINE PALE YELLOW; GLUCOSE, URINE (UA) NEGATIVE (NEGATIVE); KETONES,URINE NEGATIVE (NEGATIVE); LEUKOCYTE ESTERASE ,URINE NEGATIVE (NEGATIVE); NITRITE,URINE NEGATIVE (NEGATIVE); PH,URINE 6.5 (4.5-8.0); PROTEIN,URINE 1+ (NEGATIVE); UROBILINOGEN,URINE NORMAL MG/DL (0.0-1.0)
[2017-12-09] VITALS: BP 124/69
[2017-12-09] MEDS: Vancomycin 750mg/NS 250ml IVPB SCH (02:14)
[2017-12-09 04:00] VITALS: BP 130/79
[2017-12-09 07:36] LABS: HEMOGLOBIN 10.7 G/DL (12.0-16.0); MEAN CORPUSCULAR VOLUME 91 FL (80-99); PLATELET COUNT 383 K/UL (150-450); RED CELL DISTRIBUTION WIDTH 14.5 % (11.6-14.8); WHITE BLOOD COUNT 15.6 K/UL (4.8-10.8)
--- NOTE | 2017-12-09 07:39 | General Progress Note ---
Assessment/Plan Problem List: (1) Hypokalemia ICD Codes: E87.6 - Hypokalemia SNOMED: 61452455 (2) Functional quadriplegia ICD Codes: R53.2 - Functional quadriplegia SNOMED: 631469308954002 (3) Malnutrition of moderate degree ICD Codes: E44.0 - Moderate protein-calorie malnutrition SNOMED: 150906725 (4) Osteomyelitis ICD Codes: M86.9 - Osteomyelitis, unspecified SNOMED: 03589624 Qualifiers: Qualified Codes: M86.9 - Osteomyelitis, unspecified (5) Gastrostomy tube dysfunction ICD Codes: K94.23 - Gastrostomy malfunction SNOMED: 350025330 (6) Respiratory failure ICD Codes: J96.90 - Respiratory failure, unspecified, unspecified whether with hypoxia or hypercapnia SNOMED: 470318336 (7) Pneumonia ICD Codes: J18.9 - Pneumonia, unspecified organism SNOMED: 729506809 (8) Pleural effusion ICD Codes: J90 - Pleural effusion, not elsewhere classified SNOMED: 36323574 Status: not improved Assessment/Plan iv abx ivf wean fio2 monitor abg standards analyst lytes- am labs pending. wound care possible amputation when stabilized Subjective ROS Limited/Unobtainable: No Constitutional: Reports: malaise, weakness HEENT: Reports: no symptoms Cardiovascular: Reports: no symptoms Respiratory: Reports: cough, shortness of breath Gastrointestinal/Abdominal: Reports: difficulty swallowing Genitourinary: Reports: no symptoms Neurologic/Psychiatric: Reports: pre-existing deficit Endocrine: Reports: no symptoms Hematologic/Lymphatic: Reports: anemia Allergies: Coded Allergies: AMOXICILLIN (Verified Allergy, Mild, 06/21/09) ASPIRIN (Verified Allergy, Mild, 06/21/09) SALICYLATES (Verified Allergy, Mild, 06/21/09) PENICILLINS (Unverified Allergy, Unknown, 11/18/17) All Systems: reviewed and negative except above Subjective no events. no distress, on o2. poorly responsive. tachycardic. no enough fluid to tap. Objective Last 24 Hour Vital Signs Date Time Temp Pulse Resp B/P (MAP) Pulse Ox O2 Delivery O2 Flow Rate FiO2 12/09/17 04:00 Non-Rebreather 15.0 12/09/17 04:00 98.1 104 20 130/79 98 98.1 12/09/17 00:00 Non-Rebreather 15.0 12/09/17 00:00 97.9 104 20 124/69 96 97.9 12/08/17 20:55 110 129/76 12/08/17 20:00 Non-Rebreather 15.0 12/08/17 20:00 98.4 110 20 129/76 98 98.4 12/08/17 19:10 98.4 12/08/17 18:11 100.6 12/08/17 16:00 100.9 116 20 127/78 96 Non-Rebreather 15.0 100.9 12/08/17 12:00 97.7 96 28 132/71 96 Non-Rebreather 15.0 97.7 12/08/17 10:21 107 138/73 12/08/17 10:19 107 138/73 12/08/17 08:00 97.9 113 32 133/76 96 Non-Rebreather 15.0 97.9 Intake and Output 12/08/17 12/09/17 19:00 07:00 Intake Total 950.000 ml Balance 950.000 ml Free Water 150 ml IV Total 250.000 ml Tube Feeding 550 ml # Voids 3 Laboratory Tests 12/08/17 08:24: Arterial Blood pH 7.514H, Arterial Blood Partial Pressure CO2 38.2, Arterial Blood Partial Pressure O2 81.5, Arterial Blood HCO3 30.1H, Arterial Blood Oxygen Saturation 95.4, Arterial Blood Base Excess 6.7, Braden Test Positive 12/08/17 13:50: Vancomycin Level Trough 14.5H 12/08/17 21:15: Urine Color Pale yellow, Urine Appearance Clear, Urine pH 6.5, Urine Specific [place] 1.010, Urine Protein 1+H, Urine Glucose (UA) Negative, Urine Ketones Negative, Urine Occult Blood 1+H, Urine Nitrite Negative, Urine Bilirubin Negative, Urine Urobilinogen Normal, Urine Leukocyte Esterase Negative, Urine RBC 0-2, Urine WBC 0-2, Urine Squamous Epithelial Cells None, Urine Bacteria Few 12/09/17 07:05: White Blood Count [Pending], Red Blood Count [Pending], Hemoglobin [Pending], Hematocrit [Pending], Mean Corpuscular Volume [Pending], Mean Corpuscular Hemoglobin [Pending], Mean Corpuscular Hemoglobin Concent [Pending], Red Cell Distribution Width [Pending], Platelet Count [Pending], Mean Platelet Volume [ Pending], Neutrophils (%) (Auto) [Pending], Lymphocytes (%) (Auto) [Pending], Monocytes (%) (Auto) [Pending], Eosinophils (%) (Auto) [Pending], Basophils (%) (Auto) [Pending], Sodium Level [Pending], Potassium Level [Pending], Chloride Level [Pending], Carbon Dioxide Level [Pending], Blood Urea Nitrogen [Pending], Creatinine [Pending], Estimat Glomerular Filtration Rate [Pending], Glucose Level [Pending], Calcium Level [Pending], Magnesium Level [Pending], Total Bilirubin [Pending], Aspartate Amino Transf (AST/SGOT) [Pending], Alanine Aminotransferase (ALT/SGPT) [Pending], Alkaline Phosphatase [Pending], Total Protein [Pending], Albumin [Pending], Globulin [Pending] Height (Feet): 4 Height (Inches): 0.00 Weight (Pounds): 100 General Appearance: WD/WN, lethargic, confused Neck: supple Cardiovascular: tachycardia Respiratory/Chest: rhonchi - bilaterally Abdomen: normal bowel sounds, non tender, soft, no organomegaly Neurologic: disoriented CAROL SMITH December 09, 2017 07:39
[2017-12-09] MEDS: D5 1/2NS w/KCl 20mEq 1,000 ML IV SCH ×3 (07:50→20:47)
[2017-12-09 08:00] VITALS: BP 140/74
[2017-12-09 08:02] LABS: ALANINE AMINOTRANSFERASE 43 U/L (12-78); ALBUMIN 1.7 G/DL (3.4-5.0); ALBUMIN/GLOBULIN RATIO 0.3 (1.0-2.7); ALKALINE PHOSPHATASE 105 U/L (46-116); ANION GAP 8 mmol/L (5-15); ASPARTATE AMINO TRANSFERASE 39 U/L (15-37); BILIRUBIN,TOTAL 0.2 MG/DL (0.2-1.0); BLOOD UREA NITROGEN 18 mg/dL (7-18); CALCIUM 8.3 MG/DL (8.5-10.1); CARBON DIOXIDE 29 MMOL/L (21-32); CHLORIDE 114 MMOL/L (98-107); CREATININE 0.6 MG/DL (0.55-1.30); POTASSIUM 3.6 MMOL/L (3.5-5.1); SODIUM 150 MMOL/L (136-145)
[2017-12-09] MEDS: Heparin 5000 units/ml inj SUBQ SCH ×2 (09:00→20:46)
[2017-12-09] MEDS: Norco 5mg/325mg tab ORAL SCH ×3 (09:41→20:39)
[2017-12-09] MEDS: Metoprolol 25mg tab GT SCH ×2 (10:18→20:40)
--- NOTE | 2017-12-09 11:11 | Infectious Diseases Prog Note ---
"Assessment/Plan Assessment/Plan antibiotics : vancomycin iv, ceftriaxone A 1. 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 DM 3. hypertension 4. CVA 5. right pleural effusion P 1. continue iv vancomycin, ceftriaxone 2. start fluconazole 3. will follow up cultures 4. amputation planned Subjective ROS Limited/Unobtainable: Yes Allergies: Coded Allergies: AMOXICILLIN (Verified Allergy, Mild, 06/21/09) ASPIRIN (Verified Allergy, Mild, 06/21/09) SALICYLATES (Verified Allergy, Mild, 06/21/09) PENICILLINS (Unverified Allergy, Unknown, 11/18/17) Objective Vital Signs Last 24 Hour Vital Signs Date Time Temp Pulse Resp B/P (MAP) Pulse Ox O2 Delivery O2 Flow Rate FiO2 12/09/17 10:18 112 138/75 12/09/17 09:00 112 138/75 12/09/17 08:00 98.3 114 22 140/74 100 98.3 12/09/17 04:00 Non-Rebreather 15.0 12/09/17 04:00 98.1 104 20 130/79 98 98.1 12/09/17 00:00 Non-Rebreather 15.0 12/09/17 00:00 97.9 104 20 124/69 96 97.9 12/08/17 20:55 110 129/76 12/08/17 20:00 Non-Rebreather 15.0 12/08/17 20:00 98.4 110 20 129/76 98 98.4 12/08/17 19:10 98.4 12/08/17 18:11 100.6 12/08/17 16:00 100.9 116 20 127/78 96 Non-Rebreather 15.0 100.9 12/08/17 12:00 97.7 96 28 132/71 96 Non-Rebreather 15.0 97.7 Height (Feet): 4 Height (Inches): 0.00 Weight (Pounds): 100 Respiratory/Chest: lungs clear Cardiovascular: normal rate, regular rhythm, no gallop/murmur Abdomen: soft, non tender, other - GT Extremities: no edema, other - left heel in dressings Microbiology Date/Time Source Procedure Growth Status 12/06/17 23:10 Foot Left Gram Stain - Final Resulted 12/06/17 23:10 Wound Culture - Preliminary Staphylococcus Aureus - Mrsa Escherichia Coli YEAST Resulted Laboratory Tests Test 12/08/17 13:50 12/08/17 21:15 12/09/17 07:05 Vancomycin Level Trough 14.5 ug/mL (5.0-12.0) H Urine Color Pale yellow Urine Appearance Clear Urine pH 6.5 (4.5-8.0) Urine Specific [place] 1.010 (1.005-1.035) Urine Protein 1+ (NEGATIVE) H Urine Glucose (UA) Negative (NEGATIVE) Urine Ketones Negative (NEGATIVE) Urine Occult Blood 1+ (NEGATIVE) H Urine Nitrite Negative (NEGATIVE) Urine Bilirubin Negative (NEGATIVE) Urine Urobilinogen Normal MG/DL (0.0-1.0) Urine Leukocyte Esterase Negative (NEGATIVE) Urine RBC 0-2 /HPF (0 - 2) Urine WBC 0-2 /HPF (0 - 2) Urine Squamous Epithelial Cells None /LPF (NONE/OCC) Urine Bacteria Few /HPF (NONE) White Blood Count 15.6 K/UL (4.8-10.8) H Red Blood Count 3.50 M/UL (4.20-5.40) L Hemoglobin 10.7 G/DL (12.0-16.0) L Hematocrit 32.0 % (37.0-47.0) L Mean Corpuscular Volume 91 FL (80-99) Mean Corpuscular Hemoglobin 30.5 PG (27.0-31.0) Mean Corpuscular Hemoglobin Concent 33.3 G/DL (32.0-36.0) Red Cell Distribution Width 14.5 % (11.6-14.8) Platelet Count 383 K/UL (150-450) Mean Platelet Volume 6.5 FL (6.5-10.1) Neutrophils (%) (Auto) % (45.0-75.0) Lymphocytes (%) (Auto) % (20.0-45.0) Monocytes (%) (Auto) % (1.0-10.0) Eosinophils (%) (Auto) % (0.0-3.0) Basophils (%) (Auto) % (0.0-2.0) Differential Total Cells Counted 100 Neutrophils % (Manual) 81 % (45-75) H Lymphocytes % (Manual) 14 % (20-45) L Monocytes % (Manual) 2 % (1-10) Eosinophils % (Manual) 2 % (0-3) Basophils % (Manual) 0 % (0-2) Band Neutrophils 1 % (0-8) Platelet Estimate Adequate Platelet Morphology Normal Anisocytosis 1+ Sodium Level 150 MMOL/L (136-145) H Potassium Level 3.6 MMOL/L (3.5-5.1) Chloride Level 114 MMOL/L (98-107) H Carbon Dioxide Level 29 MMOL/L (21-32) Anion Gap 8 mmol/L (5-15) Blood Urea Nitrogen 18 mg/dL (7-18) Creatinine 0.6 MG/DL (0.55-1.30) Estimat Glomerular Filtration Rate mL/min (>60) Glucose Level 158 MG/DL (74-106) H Calcium Level 8.3 MG/DL (8.5-10.1) L Magnesium Level 2.5 MG/DL (1.8-2.4) H Total Bilirubin 0.2 MG/DL (0.2-1.0) Aspartate Amino Transf (AST/SGOT) 39 U/L (15-37) H Alanine Aminotransferase (ALT/SGPT) 43 U/L (12-78) Alkaline Phosphatase 105 U/L (46-116) Total Protein 6.8 G/DL (6.4-8.2) Albumin 1.7 G/DL (3.4-5.0) L Globulin 5.1 g/dL Albumin/Globulin Ratio 0.3 (1.0-2.7) L Current Medications Medications (Trade) Dose Ordered Sig/Satish Route PRN Reason Start Time Stop Time Status Last Admin Dose Admin Acetaminophen (Tylenol) 650 mg Q4H PRN ORAL Mild Pain/Temp > 100.5 12/07/17 09:30 01/06/18 09:29 12/08/17 18:11 Acetaminophen/ Hydrocodone Bitart ([place] 5/325) 1 tab EVERY 12 HOURS ORAL 12/05/17 21:00 12/12/17 20:59 12/09/17 09:41 Amlodipine Besylate (Norvasc) 5 mg DAILY GT 12/09/17 09:00 01/08/18 08:59 12/09/17 09:00 Ceftriaxone Sodium 2 gm/ Dextrose 55 ml @ 110 mls/hr Q24H IVPB 12/04/17 20:00 12/11/17 19:59 12/08/17 20:53 Chlorhexidine Gluconate (Mireya-Hex 2%) 1 applic DAILY@2000 TOPIC 12/03/17 20:00 01/02/18 19:59 12/08/17 20:52 Dextrose (Dextrose 50%) 25 ml STAT PRN IV Hypoglycemia 11/30/17 17:30 12/30/17 17:29 Dextrose (Dextrose 50%) 50 ml STAT PRN IV Hypoglycemia 11/30/17 17:30 12/30/17 17:29 Dextrose/ Electrolytes 1,000 ml @ 75 mls/hr [id number] IV 12/08/17 18:30 01/07/18 18:29 12/08/17 19:01 Famotidine (Pepcid) 20 mg BID GT 11/30/17 18:00 12/30/17 17:59 12/09/17 10:21 Heparin Sodium (Porcine) (Heparin 5000 units/ml) 5,000 units EVERY 12 HOURS SUBQ 12/05/17 21:00 01/04/18 20:59 12/07/17 10:23 Lidocaine HCl (Xylocaine 1% 30ml) 30 ml ONCE PRN INJ PROCEDURE 12/08/17 15:00 12/10/17 23:59 Metoprolol Tartrate (Lopressor) 25 mg Q12HR GT 11/30/17 21:00 12/30/17 20:59 12/09/17 10:18 Vancomycin HCl (Vanco rx to dose) 1 ea DAILY PRN MISC Per rx protocol 11/30/17 17:30 12/30/17 17:29 Vancomycin/Sodium Chloride 250 ml @ 166.667 mls/hr Q12H IVPB 12/06/17 15:00 12/11/17 14:59 12/09/17 02:14 FELICITAS MUIR December 09, 2017 11:11"
[2017-12-09 12:08] VITALS: BP 139/71
[2017-12-09] MEDS: Fluconazole 100mg tab ORAL SCH (12:16)
[2017-12-09] MEDS: Vancomycin 750mg/NS 250ml 250 ML IVPB SCH (15:19)
[2017-12-09 16:10] VITALS: BP 128/75
--- NOTE | 2017-12-09 16:15 | Diagnostic Imaging Report ---
Indication: Abdominal pain. Gastrostomy placed. Comparison: None Findings: There are the indwelling gastrostomy, water-soluble contrast was administered via a syringe. Fluoroscopic observation shows the catheter tip and balloon within the antrum of the stomach. Contrast opacifies the stomach, duodenum and proximal small bowel. There is no evidence of a leak. IMPRESSION: Gastrostomy tip in the antrum of the stomach. No extravasation identified. Total fluoroscopic time 0.5 minutes
--- NOTE | 2017-12-09 16:53 | Cardiology Report ---
APPROVED REPORT EKG Measurement Heart [id number] 130P53 [id number] Sinus tachycardia Otherwise normal ECG
[2017-12-09 20:00] VITALS: BP 131/62
[2017-12-09] MEDS ORDERED: cefTRIAXone 2 GM in D5W 55 ML IVPB SCH (20:00)
[2017-12-09] MEDS ORDERED: Tubing IV Secondary IV ONE (20:26)
[2017-12-09] MEDS ORDERED: NS 275ml ONE (20:26)
[2017-12-09] MEDS ORDERED: Sterile Water Irrig 1000ml IRRIG ONE (20:26)
[2017-12-09] MEDS ORDERED: NS 500ML ONE (20:26)
[2017-12-09] MEDS: Dyna-Hex 2% Top Sol 2oz TOPIC SCH (20:39)
--- NOTE | 2017-12-09 23:27 | General Progress Note ---
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 Will get fistulogram to evaluate abnormality OK to continue feeding Thank you Alex Rojas MD Subjective Allergies: Coded Allergies: AMOXICILLIN (Verified Allergy, Mild, 06/21/09) ASPIRIN (Verified Allergy, Mild, 06/21/09) SALICYLATES (Verified Allergy, Mild, 06/21/09) PENICILLINS (Unverified Allergy, Unknown, 11/18/17) Objective Last 24 Hour Vital Signs Date Time Temp Pulse Resp B/P (MAP) Pulse Ox O2 Delivery O2 Flow Rate FiO2 12/09/17 20:40 102 131/62 12/09/17 20:00 97.3 102 20 131/62 97 97.3 12/09/17 19:54 Venturi Mask 14.0 55 12/09/17 19:54 96 Venturi Mask 14.0 55 12/09/17 16:10 98.1 104 19 128/75 97 98.1 12/09/17 12:08 98.0 98 24 139/71 99 Room Air 98.0 12/09/17 10:18 112 138/75 12/09/17 09:15 Venturi Mask 14.0 55 12/09/17 09:15 98 Venturi Mask 14.0 55 12/09/17 09:00 112 138/75 12/09/17 08:00 98.3 114 22 140/74 100 98.3 12/09/17 04:00 Non-Rebreather 15.0 12/09/17 04:00 98.1 104 20 130/79 98 98.1 12/09/17 00:00 Non-Rebreather 15.0 12/09/17 00:00 97.9 104 20 124/69 96 97.9 Intake and Output 12/08/17 12/09/17 19:00 07:00 Intake Total 950.000 ml 830.000 ml Balance 950.000 ml 830.000 ml Free Water 150 ml IV Total 250.000 ml 830.000 ml Tube Feeding 550 ml # Voids 3 Laboratory Tests 12/09/17 07:05: White Blood Count 15.6H, Red Blood Count 3.50L, Hemoglobin 10.7L, Hematocrit 32.0L, Mean Corpuscular Volume 91, Mean Corpuscular Hemoglobin 30.5, Mean Corpuscular Hemoglobin Concent 33.3, Red Cell Distribution Width 14.5, Platelet Count 383, Mean Platelet Volume 6.5, Neutrophils (%) (Auto) , Lymphocytes (%) ( Auto) , Monocytes (%) (Auto) , Eosinophils (%) (Auto) , Basophils (%) (Auto) , Differential Total Cells Counted 100, Neutrophils % (Manual) 81H, Lymphocytes % (Manual) 14L, Monocytes % (Manual) 2, Eosinophils % (Manual) 2, Basophils % ( Manual) 0, Band Neutrophils 1, Platelet Estimate Adequate, Platelet Morphology Normal, Anisocytosis 1+, Sodium Level 150H, Potassium Level 3.6, Chloride Level 114H, Carbon Dioxide Level 29, Anion Gap 8, Blood Urea Nitrogen 18, Creatinine 0.6, Estimat Glomerular Filtration Rate , Glucose Level 158H, Calcium Level 8.3L , Magnesium Level 2.5H, Total Bilirubin 0.2, Aspartate Amino Transf (AST/SGOT) 39H, Alanine Aminotransferase (ALT/SGPT) 43, Alkaline Phosphatase 105, Total Protein 6.8, Albumin 1.7L, Globulin 5.1, Albumin/Globulin Ratio 0.3L Height (Feet): 4 Height (Inches): 0.00 Weight (Pounds): 100 Alex Rojas MD December 09, 2017 23:27
[2017-12-10] VITALS: BP 128/76
[2017-12-10] MEDS: D5 1/2NS w/KCl 20mEq 1,000 ML IV SCH ×3 (01:41→21:10)
[2017-12-10] MEDS: Vancomycin 750mg/NS 250ml 250 ML IVPB SCH ×2 (03:00→15:35)
[2017-12-10 04:00] VITALS: BP 126/78
--- NOTE | 2017-12-10 04:45 | Progress Note ---
DATE: 12/09/2017 CARDIOLOGY PROGRESS NOTE SUBJECTIVE: The patient remains in serious condition. Deteriorating clinical parameters. She remains hypoxic on facemask. Most recent chest x-ray revealed a right pleural effusion on 12/07/2017. The patient's antibiotic spectrum has been brought in to include antifungal coverage. OBJECTIVE: VITAL SIGNS: Blood pressure 131/62, pulse 102, respirations 20, and afebrile. LUNGS: Diminished breath sounds. HEART: Regular rhythm. Rapid rate. Normal S1, S2. ABDOMEN: Soft. G-tube intact. EXTREMITIES: No edema. LABORATORY DATA: Sodium 150, potassium 3.6, chloride 114, bicarb 29, BUN 18, and creatinine 0.6. Magnesium 2.5. Albumin 1.7. White count 15.6 and hemoglobin 10.7. IMPRESSION: 1. Sepsis. 2. Osteomyelitis. 3. Secondary sinus tachycardia. 4. Hypoxia. 5. Right pleural effusion. 6. Severe protein-calorie malnutrition. 7. Dehydration. 8. Hypernatremia. 9. Hyperchloremia. 10. Dysphagia with gastrostomy tube. 11. Hypertensive heart disease. 12. Chronic diastolic congestive heart failure. 13. Severe peripheral artery disease. PLAN: 1. Hold parameters for antihypertensive. 2. Antimicrobials per Infectious Disease csm consultant. 3. Hypotonic IV fluid hydration with potassium as needed. 4. Repeat chest x-ray. 5. Consider thoracentesis and supplemental oxygen. 6. Unstable for amputation at this time. Tyrell Underwood M.D. DR: KENNETH JOB#: [id number] CC:
--- NOTE | 2017-12-10 06:57 | Diagnostic Imaging Report ---
APPROVED REPORT CPT Code: 09646 Symptoms Comments: Infection Comments Technically difficult/ limited study (bilateral contractures of the hip and knee). RIGHT LEG: Common femoral artery waveform analysis is within normal limits at rest. Color flow duplex sonography reveals patency of the proximal superficial femoral artery. The popliteal artery was also patent. The tibioperoneal trunk was not well visualized. The distal posterior tibial, and anterior tibial arteries are calcified. The Doppler tibial artery waveform analysis is compatible with moderate ischemia at rest. Right mid to distal superficial femoral artery was not well visualized. LEFT LEG: Common femoral artery waveform analysis is within normal limits at rest. Color flow duplex sonography reveals a mild (30-40%) stenosis in the mid superficial femoral artery. The popliteal artery and tibioperoneal trunk were not well visualized. The distal posterior tibial, and anterior tibial arteries are calcified. The Doppler tibial artery waveform analysis is compatible with moderate to severe ischemia at rest.
[2017-12-10 08:00] VITALS: BP 129/77
[2017-12-10] MEDS: Fluconazole 100mg tab ORAL SCH (09:59)
[2017-12-10] MEDS: Metoprolol 25mg tab GT SCH ×2 (10:00→21:10)
[2017-12-10] MEDS: Norco 5mg/325mg tab ORAL SCH ×2 (10:00→21:09)
[2017-12-10] MEDS: Heparin 5000 units/ml inj SUBQ SCH ×2 (10:05→21:11)
--- NOTE | 2017-12-10 11:20 | Diagnostic Imaging Report ---
Indication: Dyspnea Comparison: 12/07/2017 A single view chest radiograph was obtained. Findings: Abnormal density with air bronchograms demonstrated in the right perihilar and basilar aspect of the right lung with silhouetting of the right hemidiaphragm. The diaphragm is likely elevated though not visualized based on the position of the right hemicolon. Heart size is probably enlarged. There is a probable small right pleural effusion. PICC line is stable in good position. IMPRESSION: Moderate right perihilar and basilar airspace disease. Superimposed atelectasis present given volume loss which appears relatively stable. Suspect a right pleural effusion as well.
--- NOTE | 2017-12-10 11:41 | Consultation ---
DATE OF CONSULTATION: 12/09/2017 GASTROENTEROLOGY CONSULTATION CONSULTING PHYSICIAN: Alex Rojas M.D. CHIEF COMPLAINT: I was asked to see this patient by Dr. Tyrell Underwood for evaluation of gastrostomy tube leakage and dysfunction. HISTORY OF PRESENT ILLNESS: The patient is an unfortunate 77-year-old woman with multiple medical problems including stroke, contracture deformities, and gastrostomy tube dependent with gastrostomy site leakage. There is also a left heel with increasing drainage. The patient was recently hospitalized for gastrostomy tube site infection and with gastrostomy tube replacement. The patient herself is noncommunicative and noninteractive. PAST MEDICAL HISTORY: History of cerebrovascular disease, hypertensive heart disease, type 2 diabetes mellitus, protein-calorie malnutrition, diastolic congestive heart failure, stroke with dementia and aphasia, contracture deformities, dysphagia, status post gastrostomy tube placement, and history of hyponatremia due to SIADH. ALLERGIES: Penicillin, aspirin, and salicylates. FAMILY HISTORY: Noncontributory. SOCIAL HISTORY: The patient has no history of smoking or drinking. REVIEW OF SYSTEMS: Not obtainable. PHYSICAL EXAMINATION: GENERAL: The patient is a 77-year-old woman, seen in her room. HEENT: Normocephalic and atraumatic. Sclerae are anicteric. NECK: Supple. CHEST: Clear to auscultation. CARDIOVASCULAR: Revealed a regular rate. ABDOMEN: Soft with gastrostomy tube in place. There was significant leakage of drainage from the gastrostomy site. It was cleaned and cleared. There appeared to be a fistula to the left of the gastrostomy site, which could be probed for about 1 inch or so EXTREMITIES: Severe contracture deformities. NEUROLOGIC: obtundation. LABORATORY DATA: Laboratory data was noted. 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 This fistula was most likely communicating with a gastrostomy tract itself but given the degree of the discharge, I would obtain a fistulogram to see if there is direct connection with the stomach. If so, then the fistula may need to be closed surgically. For the time being, the gastrostomy tube feeding should be continued. The studies are on the way. RECOMMENDATIONS: 1. Fistulogram to evaluate the apparent fistula tract. 2. Dressing changes and gastrostomy site care. 3. Continue gastrostomy tube feeding. Thank you for asking me to participate in the care of this patient. Alex Rojas M.D. DR: BIPIN JOB#: [id number] CC: KISHAN
--- NOTE | 2017-12-10 11:41 | General Progress Note ---
Assessment/Plan Problem List: (1) Hypokalemia ICD Codes: E87.6 - Hypokalemia SNOMED: 15404635 (2) Functional quadriplegia ICD Codes: R53.2 - Functional quadriplegia SNOMED: 605354591266298 (3) Malnutrition of moderate degree ICD Codes: E44.0 - Moderate protein-calorie malnutrition SNOMED: 022654284 (4) Osteomyelitis ICD Codes: M86.9 - Osteomyelitis, unspecified SNOMED: 20025720 Qualifiers: Qualified Codes: M86.9 - Osteomyelitis, unspecified (5) Gastrostomy tube dysfunction ICD Codes: K94.23 - Gastrostomy malfunction SNOMED: 001300904 (6) Respiratory failure ICD Codes: J96.90 - Respiratory failure, unspecified, unspecified whether with hypoxia or hypercapnia SNOMED: 202433245 (7) Pneumonia ICD Codes: J18.9 - Pneumonia, unspecified organism SNOMED: 957380926 (8) Pleural effusion ICD Codes: J90 - Pleural effusion, not elsewhere classified SNOMED: 53280603 Status: stable, not improved Assessment/Plan iv abx ivf wean fio2 monitor abg head of insight lytes wound care possible amputation when stabilized Subjective ROS Limited/Unobtainable: Yes Constitutional: Reports: malaise, weakness HEENT: Reports: no symptoms Cardiovascular: Reports: no symptoms Respiratory: Reports: shortness of breath Gastrointestinal/Abdominal: Reports: difficulty swallowing Genitourinary: Reports: no symptoms Neurologic/Psychiatric: Reports: pre-existing deficit Endocrine: Reports: no symptoms Hematologic/Lymphatic: Reports: no symptoms Allergies: Coded Allergies: AMOXICILLIN (Verified Allergy, Mild, 06/21/09) ASPIRIN (Verified Allergy, Mild, 06/21/09) SALICYLATES (Verified Allergy, Mild, 06/21/09) PENICILLINS (Unverified Allergy, Unknown, 11/18/17) All Systems: reviewed and negative except above Subjective no events. no distress, on o2- venti mask. sats 100%. poorly responsive. tachycardic. Objective Last 24 Hour Vital Signs Date Time Temp Pulse Resp B/P (MAP) Pulse Ox O2 Delivery O2 Flow Rate FiO2 12/10/17 10:00 98 129/77 12/10/17 10:00 98 129/77 12/10/17 08:00 97.7 98 20 129/77 98 Venturi Mask 15.0 97.7 12/10/17 04:00 Venturi Mask 15.0 12/10/17 04:00 97.4 94 20 126/78 98 97.4 12/10/17 00:00 97.4 87 20 128/76 100 97.4 12/09/17 20:40 102 131/62 12/09/17 20:00 97.3 102 20 131/62 97 97.3 12/09/17 20:00 Venturi Mask 15.0 12/09/17 19:54 Venturi Mask 14.0 55 12/09/17 19:54 96 Venturi Mask 14.0 55 12/09/17 16:10 98.1 104 19 128/75 97 98.1 12/09/17 12:08 98.0 98 24 139/71 99 Room Air 98.0 Intake and Output 12/09/17 12/10/17 19:00 07:00 Intake Total 775.000 ml 980.000 ml Balance 775.000 ml 980.000 ml IV Total 775.000 ml 980.000 ml # Voids 1 4 # Bowel Movements 1 2 Height (Feet): 4 Height (Inches): 0.00 Weight (Pounds): 100 CAROL MSITH December 10, 2017 11:41
[2017-12-10 12:00] VITALS: BP 132/71
--- NOTE | 2017-12-10 13:05 | Infectious Diseases Prog Note ---
"Assessment/Plan Assessment/Plan A 1. 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 DM 3. hypertension 4. CVA P 1. continue iv vancomycin, ceftriaxone 2. will have left AKA, after being stable Subjective ROS Limited/Unobtainable: Yes Allergies: Coded Allergies: AMOXICILLIN (Verified Allergy, Mild, 06/21/09) ASPIRIN (Verified Allergy, Mild, 06/21/09) SALICYLATES (Verified Allergy, Mild, 06/21/09) PENICILLINS (Unverified Allergy, Unknown, 11/18/17) Objective Vital Signs Last 24 Hour Vital Signs Date Time Temp Pulse Resp B/P (MAP) Pulse Ox O2 Delivery O2 Flow Rate FiO2 12/10/17 10:00 98 129/77 12/10/17 10:00 98 129/77 12/10/17 08:00 97.7 98 20 129/77 98 Venturi Mask 15.0 97.7 12/10/17 04:00 Venturi Mask 15.0 12/10/17 04:00 97.4 94 20 126/78 98 97.4 12/10/17 00:00 97.4 87 20 128/76 100 97.4 12/09/17 20:40 102 131/62 12/09/17 20:00 97.3 102 20 131/62 97 97.3 12/09/17 20:00 Venturi Mask 15.0 12/09/17 19:54 Venturi Mask 14.0 55 12/09/17 19:54 96 Venturi Mask 14.0 55 12/09/17 16:10 98.1 104 19 128/75 97 98.1 Height (Feet): 4 Height (Inches): 0.00 Weight (Pounds): 100 HEENT: other - O2 by mask Respiratory/Chest: rhonchi - bilaterally Cardiovascular: normal rate Abdomen: soft, non tender, other - GT feeding Extremities: no edema Skin: ulcers, other - left heel Neurologic/Psychiatric: unresponsiveness Current Medications Medications (Trade) Dose Ordered Sig/Satish Route PRN Reason Start Time Stop Time Status Last Admin Dose Admin Acetaminophen (Tylenol) 650 mg Q4H PRN ORAL Mild Pain/Temp > 100.5 12/07/17 09:30 01/06/18 09:29 12/08/17 18:11 Acetaminophen/ Hydrocodone Bitart ([place] 5/325) 1 tab EVERY 12 HOURS ORAL 12/05/17 21:00 12/12/17 20:59 12/10/17 10:00 Amlodipine Besylate (Norvasc) 5 mg DAILY GT 12/09/17 09:00 01/08/18 08:59 12/10/17 10:00 Ceftriaxone Sodium 2 gm/ Dextrose 110 ml @ 220 mls/hr Q24H IVPB 12/10/17 20:00 12/16/17 19:59 Chlorhexidine Gluconate (Mireya-Hex 2%) 1 applic DAILY@2000 TOPIC 12/03/17 20:00 01/02/18 19:59 12/09/17 20:39 Dextrose (Dextrose 50%) 25 ml STAT PRN IV Hypoglycemia 11/30/17 17:30 12/30/17 17:29 Dextrose (Dextrose 50%) 50 ml STAT PRN IV Hypoglycemia 11/30/17 17:30 12/30/17 17:29 Dextrose/ Electrolytes 1,000 ml @ 100 mls/hr Q10H IV 12/10/17 01:30 01/09/18 01:29 12/10/17 01:41 Famotidine (Pepcid) 20 mg BID GT 11/30/17 18:00 12/30/17 17:59 12/10/17 09:59 Fluconazole (Diflucan) 100 mg DAILY ORAL 12/09/17 12:00 12/16/17 11:59 12/10/17 09:59 Heparin Sodium (Porcine) (Heparin 5000 units/ml) 5,000 units EVERY 12 HOURS SUBQ 12/05/17 21:00 01/04/18 20:59 12/10/17 10:05 Lidocaine HCl (Xylocaine 1% 30ml) 30 ml ONCE PRN INJ PROCEDURE 12/08/17 15:00 12/10/17 23:59 Metoprolol Tartrate (Lopressor) 25 mg Q12HR GT 11/30/17 21:00 12/30/17 20:59 12/10/17 10:00 Vancomycin HCl (Vanco rx to dose) 1 ea DAILY PRN MISC Per rx protocol 11/30/17 17:30 12/30/17 17:29 Vancomycin/Sodium Chloride 250 ml @ 166.667 mls/hr Q12H IVPB 12/09/17 15:00 12/14/17 14:59 12/10/17 03:00 FER MORTON December 10, 2017 13:05"
[2017-12-10 16:00] VITALS: BP 134/71
[2017-12-10] MEDS: Dyna-Hex 2% Top Sol 2oz TOPIC SCH (19:54)
[2017-12-10] MEDS: cefTRIAXone 2 GM in D5W 110 ML IVPB SCH (19:54)
[2017-12-10 20:00] VITALS: BP 133/78
--- NOTE | 2017-12-10 21:45 | Progress Note ---
DATE: 12/10/2017 CARDIOLOGY PROGRESS NOTE SUBJECTIVE: The patient remains withdrawn and lethargic. She continues on IV fluids and oxygen. Chest x-ray yesterday revealed new infiltrates and effusion on the right. OBJECTIVE: VITAL SIGNS: Blood pressure 129/77, pulse 98, respiratory rate 20 and afebrile. LUNGS: Diminished breath sounds. Scattered rhonchi. HEART: Regular rhythm and rate. Normal S1 and S2. ABDOMEN: Soft. G-tube intact. EXTREMITIES: Left foot with dressing in place. Contractures remain severe. IMPRESSION: 1. Left heel osteomyelitis. 2. Pneumonia with parapneumonic effusion, health-care acquired. 3. Hypoxia. 4. Severe peripheral artery disease. 5. Severe contractures with underlying cerebrovascular disease. 6. Dysphagia with G-tube. 7. Acute on chronic diastolic congestive heart failure. 8. Secondary sinus tachycardia. 9. Toxic and metabolic encephalopathy. PLAN: 1. Antimicrobials. 2. Respiratory hygiene. 3. Nutrition by feeding tube. 4. Wound care. 5. Pulmonary evaluation pending to assess for thoracentesis. 6. Left BKA once stabilized from pulmonary standpoint. Tyrell Underwood M.D. DR: NATASHA JOB#: [id number] CC:
--- NOTE | 2017-12-10 23:44 | General Progress Note ---
Assessment/Plan Assessment/Plan Assessment - dysphagia - s/p recent GT - OBS - severe contracture deformities. Recommendations continue TF fistulogram by IR follow lab and exam Subjective Allergies: Coded Allergies: AMOXICILLIN (Verified Allergy, Mild, 06/21/09) ASPIRIN (Verified Allergy, Mild, 06/21/09) SALICYLATES (Verified Allergy, Mild, 06/21/09) PENICILLINS (Unverified Allergy, Unknown, 11/18/17) Subjective above noted GT upper GI done instead of fistulogram tolerated TF fistulogram re- ordered Objective Last 24 Hour Vital Signs Date Time Temp Pulse Resp B/P (MAP) Pulse Ox O2 Delivery O2 Flow Rate FiO2 12/10/17 21:10 95 133/78 12/10/17 20:00 97.1 95 20 133/78 100 97.1 12/10/17 16:00 97.3 88 20 134/71 98 Venturi Mask 15.0 97.3 12/10/17 12:00 97.7 96 20 132/71 98 Venturi Mask 15.0 97.7 12/10/17 10:00 98 129/77 12/10/17 10:00 98 129/77 12/10/17 08:00 97.7 98 20 129/77 98 Venturi Mask 15.0 97.7 12/10/17 04:00 Venturi Mask 15.0 12/10/17 04:00 97.4 94 20 126/78 98 97.4 12/10/17 00:00 97.4 87 20 128/76 100 97.4 Intake and Output 12/09/17 12/10/17 19:00 07:00 Intake Total 775.000 ml 980.000 ml Balance 775.000 ml 980.000 ml IV Total 775.000 ml 980.000 ml # Voids 1 4 # Bowel Movements 1 2 Height (Feet): 4 Height (Inches): 0.00 Weight (Pounds): 100 Objective Thin woman NCAT CTA RRR abd soft, (+) GT , (+) small fistula at GI site proximity (++) contracture deformities Alex Rojas MD December 10, 2017 23:44
[2017-12-11] VITALS: BP 132/70
[2017-12-11] MEDS: Vancomycin 750mg/NS 250ml 250 ML IVPB SCH ×2 (02:45→16:46)
[2017-12-11 04:00] VITALS: BP 112/67
[2017-12-11] MEDS: D5 1/2NS w/KCl 20mEq 1,000 ML IV SCH ×2 (06:31→17:40)
[2017-12-11 07:01] LABS: BASOPHILS % (AUTO) 0.9 % (0.0-2.0); EOSINOPHILS % (AUTO) 3.1 % (0.0-3.0); HEMATOCRIT 28.8 % (37.0-47.0); HEMOGLOBIN 9.5 G/DL (12.0-16.0); MEAN CORPUSCULAR VOLUME 92 FL (80-99); MONOCYTES % (AUTO) 7.6 % (1.0-10.0); NEUTROPHILS % (AUTO) 72.4 % (45.0-75.0); PLATELET COUNT 355 K/UL (150-450); RED BLOOD COUNT 3.14 M/UL (4.20-5.40); RED CELL DISTRIBUTION WIDTH 13.9 % (11.6-14.8); WHITE BLOOD COUNT 9.2 K/UL (4.8-10.8)
[2017-12-11 07:19] LABS: ALANINE AMINOTRANSFERASE 37 U/L (12-78); ALBUMIN 1.6 G/DL (3.4-5.0); ALBUMIN/GLOBULIN RATIO 0.3 (1.0-2.7); ALKALINE PHOSPHATASE 95 U/L (46-116); ANION GAP 7 mmol/L (5-15); ASPARTATE AMINO TRANSFERASE 36 U/L (15-37); BILIRUBIN,TOTAL 0.2 MG/DL (0.2-1.0); BLOOD UREA NITROGEN 11 mg/dL (7-18); CALCIUM 7.7 MG/DL (8.5-10.1); CARBON DIOXIDE 30 MMOL/L (21-32); CHLORIDE 105 MMOL/L (98-107); CREATININE 0.6 MG/DL (0.55-1.30); POTASSIUM 2.9 MMOL/L (3.5-5.1); SODIUM 142 MMOL/L (136-145)
[2017-12-11 08:00] VITALS: BP 127/68
--- NOTE | 2017-12-11 08:28 | General Progress Note ---
Assessment/Plan Problem List: (1) Hypokalemia ICD Codes: E87.6 - Hypokalemia SNOMED: 44171890 (2) Functional quadriplegia ICD Codes: R53.2 - Functional quadriplegia SNOMED: 802789018164040 (3) Malnutrition of moderate degree ICD Codes: E44.0 - Moderate protein-calorie malnutrition SNOMED: 645646263 (4) Osteomyelitis ICD Codes: M86.9 - Osteomyelitis, unspecified SNOMED: 02599294 Qualifiers: Qualified Codes: M86.9 - Osteomyelitis, unspecified (5) Gastrostomy tube dysfunction ICD Codes: K94.23 - Gastrostomy malfunction SNOMED: 811393446 (6) Respiratory failure ICD Codes: J96.90 - Respiratory failure, unspecified, unspecified whether with hypoxia or hypercapnia SNOMED: 820926974 (7) Pneumonia ICD Codes: J18.9 - Pneumonia, unspecified organism SNOMED: 291560616 (8) Pleural effusion ICD Codes: J90 - Pleural effusion, not elsewhere classified SNOMED: 36675961 Status: stable, progressing Assessment/Plan iv abx ivf wean fio2 monitor abg monitor lytes wound care possible amputation when stabilized- ?thursday Subjective ROS Limited/Unobtainable: Yes Constitutional: Reports: malaise, weakness HEENT: Reports: no symptoms Cardiovascular: Reports: no symptoms Respiratory: Reports: shortness of breath, sputum Gastrointestinal/Abdominal: Reports: difficulty swallowing Genitourinary: Reports: no symptoms Neurologic/Psychiatric: Reports: pre-existing deficit Endocrine: Reports: no symptoms Hematologic/Lymphatic: Reports: no symptoms Allergies: Coded Allergies: AMOXICILLIN (Verified Allergy, Mild, 06/21/09) ASPIRIN (Verified Allergy, Mild, 06/21/09) SALICYLATES (Verified Allergy, Mild, 06/21/09) PENICILLINS (Unverified Allergy, Unknown, 11/18/17) All Systems: reviewed and negative except above Subjective no events. no distress, on o2- venti mask. sats 100%. poorly responsive. tachycardic. wbc trending down. Objective Last 24 Hour Vital Signs Date Time Temp Pulse Resp B/P (MAP) Pulse Ox O2 Delivery O2 Flow Rate FiO2 12/11/17 04:00 97.4 89 20 112/67 100 97.4 12/11/17 04:00 Venturi Mask 10.0 12/11/17 00:00 Venturi Mask 10.0 12/11/17 00:00 97.4 83 20 132/70 100 97.4 12/10/17 21:10 95 133/78 12/10/17 20:00 95 Venturi Mask 14.0 55 12/10/17 20:00 Venturi Mask 10.0 12/10/17 20:00 Venturi Mask 14.0 55 12/10/17 20:00 97.1 95 20 133/78 100 97.1 12/10/17 16:00 97.3 88 20 134/71 98 Venturi Mask 15.0 97.3 12/10/17 12:00 97.7 96 20 132/71 98 Venturi Mask 15.0 97.7 12/10/17 10:00 98 129/77 12/10/17 10:00 98 129/77 Intake and Output 12/10/17 12/11/17 18:59 06:59 Intake Total 1803.334 ml Balance 1803.334 ml Free Water 150 ml IV Total 1153.334 ml Tube Feeding 500 ml # Voids 4 3 # Bowel Movements 2 Laboratory Tests 12/11/17 06:46: White Blood Count 9.2, Red Blood Count 3.14L, Hemoglobin 9.5L, Hematocrit 28.8L , Mean Corpuscular Volume 92, Mean Corpuscular Hemoglobin 30.2, Mean Corpuscular Hemoglobin Concent 33.0, Red Cell Distribution Width 13.9, Platelet Count 355, Mean Platelet Volume 6.4L, Neutrophils (%) (Auto) 72.4, Lymphocytes ( %) (Auto) 16.0L, Monocytes (%) (Auto) 7.6, Eosinophils (%) (Auto) 3.1H, Basophils (%) (Auto) 0.9, Sodium Level 142, Potassium Level 2.9L, Chloride Level 105, Carbon Dioxide Level 30, Anion Gap 7, Blood Urea Nitrogen 11, Creatinine 0.6, Estimat Glomerular Filtration Rate , Glucose Level 171H, Calcium Level 7.7L, Total Bilirubin 0.2, Aspartate Amino Transf (AST/SGOT) 36, Alanine Aminotransferase (ALT/SGPT) 37, Alkaline Phosphatase 95, Total Protein 6.3L, Albumin 1.6L, Globulin 4.7, Albumin/Globulin Ratio 0.3L Height (Feet): 4 Height (Inches): 0.00 Weight (Pounds): 100 General Appearance: WD/WN, lethargic, confused Neck: supple Cardiovascular: normal peripheral pulses, tachycardia Respiratory/Chest: crackles/rales, rhonchi - bilaterally Abdomen: normal bowel sounds, non tender, soft, no organomegaly Edema: no edema noted Arm (L), no edema noted Arm (R), no edema noted Leg (L), no edema noted Leg (R), no edema noted Pedal (L), no edema noted Pedal (R), no edema noted Generalized Neurologic: disoriented, unresponsive, aphasia CAROL SMITH December 11, 2017 08:28
[2017-12-11] MEDS: Norco 5mg/325mg tab ORAL SCH ×3 (09:47→22:00)
[2017-12-11] MEDS: Fluconazole 100mg tab ORAL SCH (09:48)
[2017-12-11] MEDS: Heparin 5000 units/ml inj SUBQ SCH ×2 (09:49→21:45)
[2017-12-11] MEDS: Metoprolol 25mg tab GT SCH ×2 (09:52→21:51)
--- NOTE | 2017-12-11 10:15 | Consultation ---
DATE OF CONSULTATION: 12/11/2017 PULMONARY CONSULTATION CONSULTING PHYSICIAN: Raj Reyes M.D. REFERRING PHYSICIAN: Tyrell Underwood M.D. REASON FOR CONSULTATION: Pneumonia, volume loss, on x-ray, pleural effusion. HISTORY OF PRESENT ILLNESS: The patient is a 77-year-old female, sent to the emergency room. The patient initially was sent on 11/30/2017 with nonfunctioning G-tube. The patient has multiple medical problems including CVA and the patient noted to have worsening infiltrates on x-ray. I was called to assist to evaluate further. The patient also had a chest ultrasound, which suggested only small amount of pleural fluid. The patient's x-ray now appeared to have worsened, I was called to assist to evaluate further. The patient is unable to give much in the way of history. The patient appears to be in no significant distress. She is currently Do Not Resuscitate. The patient has multitude of medical problems and has been followed by multiple consultants while in the hospital. The patient is also on antibiotics at the present time. The patient felt to have left heel osteomyelitis, diabetes, and CVA and has been treated accordingly by Infectious Disease. The patient has significant amount of dysphagia and significant amount of contractures. PAST MEDICAL HISTORY: Notable for CVA, hypertensive heart disease, diabetes, protein-calorie malnutrition, CHF, stroke, dementia, aphasia, contractures, G-tube, and SIADH. MEDICATIONS: Reviewed. ALLERGIES: Reviewed. SOCIAL HISTORY: Nonsmoker and nondrinker. Retired. Do Not Resuscitate. REVIEW OF SYSTEMS: Unobtainable. PHYSICAL EXAMINATION: GENERAL: A well-developed female, chronically ill, chronically contracted. VITAL SIGNS: Blood pressure 112/67, temperature 97.9, and respiratory rate 20. The patient's saturation 100%. The patient is on a Venturi mask at present. HEENT: Oropharynx is somewhat dry. HEENT is otherwise negative. NECK: Supple. LUNGS: With reduced breath sounds, rhonchi right lung CARDIAC: Normal S1 and S2. Regular rate and rhythm, without murmurs, rubs, or gallops. ABDOMEN: Soft, nontender. G-tube in place. EXTREMITIES: Significant contractures. No significant edema. NEUROLOGICAL: Difficult to fully assess. Responds to painful stimuli overall. SKIN: Noted. LABORATORY AND DIAGNOSTIC DATA: Laboratory data reviewed. White count 9.2, which appears to be overall improved, hemoglobin 9.1, and hematocrit 28. Chemistry is noted, potassium 2.9 this morning. BUN and creatinine normal 11 and 0.6. Arterial blood gases, 7.51, 38, 81. X-ray as mentioned with right-sided infiltrate, which is extensive with possibility of elevated hemidiaphragm. IMPRESSION: 1. Evidence of pneumonia, possible aspiration, possible mild parapneumonic effusion. 2. G-tube, possible fistulous tract. 3. Left heel osteomyelitis. 4. Toxic metabolic encephalopathy. 5. Significant contractures. 6. History of CVA. 7. History of dysphagia. RECOMMENDATIONS: Supportive care. Consider CT of the chest to better evaluate. Continue antimicrobial. Obtain sputum culture if any and monitor clinically for improvement. The patient is Do Not Resuscitate. Prognosis is overall poor. Conservative management. Nebulized therapy. Oxygen therapy. Aspiration precautions. We will follow clinically for changes. Raj Reyes M.D. DR: DELORES JOB#: [id number] CC:
--- NOTE | 2017-12-11 11:06 | Diagnostic Imaging Report ---
Clinical Indication: Shortness breath, dysphasia, aphasia, dementia Technique: Spiral acquisitions obtained through the chest. No IV contrast utilized, per referring physician request. Multiplanar reconstructions generated. Total dose length product 500 mGycm. CTDIvol(s) 16 mGy. Dose reduction achieved using automated exposure control Comparison: No comparison chest CTs. Reference made to recent chest radiograph dated 12/10/2017 Findings: There is a small to moderate size right pleural effusion. There is very dense consolidation of the nearly the entire right middle lobe and nearly the entire right lower lobe. Some atelectasis and patchy airspace disease is also seen in the right upper lobe. There is also considerable volume loss of the right middle and lower lobes, resulting in elevation of the right hemidiaphragm. Some secretions are seen within the trachea. There is some compressive atelectasis of the left lower lobe. The left upper lobe is largely clear, although evaluation is somewhat limited due to respiratory motion artifact. There is a left arm PICC in place. The heart size is upper limits of normal. There is a small pericardial effusion. No definite mediastinal or hilar mass or adenopathy. There is a subcentimeter nodule in the lower pole of the left thyroid lobe. The bones demonstrate a compression/burst fracture deformity of the T9 vertebral body, resulting in approximately 60% height loss. No significant posterior retropulsion. The included upper abdominal anatomy demonstrates multiple hepatic cysts. Contrast presumably from recent upper GI study is seen within the colon. Impression: Extensive consolidation, presumably secondary to pneumonia, involving most of the right middle and lower lobes. There there is also atelectasis resulting in significant volume loss Less extensive patchy infiltrates in the right upper lobe Small to moderate right pleural effusion Minimal compressive atelectatic changes in the left lower lobe Small pericardial effusion T9 vertebral body compression fracture. Consider MRI for better characterization if this is clinically relevant Multiple hepatic cysts Left arm PICC Left lower lobe subcentimeter thyroid nodule. No further follow-up necessary The CT scanner at [facility] is accredited by the [employer] and the scans are performed using protocols designed to limit radiation exposure to as low as reasonably achievable to attain images of sufficient resolution adequate for diagnostic evaluation.
--- NOTE | 2017-12-11 11:16 | Infectious Diseases Prog Note ---
"Assessment/Plan Assessment/Plan antibiotics : vancomycin iv, ceftriaxone, fluconazole A 1. 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 DM 3. hypertension 4. CVA 5. right pleural effusion 6. pneumonia P 1. continue iv vancomycin, ceftriaxone 2. continue fluconazole 3. will follow up cultures 4. amputation planned Subjective ROS Limited/Unobtainable: Yes Allergies: Coded Allergies: AMOXICILLIN (Verified Allergy, Mild, 06/21/09) ASPIRIN (Verified Allergy, Mild, 06/21/09) SALICYLATES (Verified Allergy, Mild, 06/21/09) PENICILLINS (Unverified Allergy, Unknown, 11/18/17) Objective Vital Signs Last 24 Hour Vital Signs Date Time Temp Pulse Resp B/P (MAP) Pulse Ox O2 Delivery O2 Flow Rate FiO2 12/11/17 09:52 92 127/68 12/11/17 09:46 92 127/68 12/11/17 08:00 97.5 92 20 127/68 94 Nasal Cannula 5.0 97.5 12/11/17 04:00 97.4 89 20 112/67 100 97.4 12/11/17 04:00 Venturi Mask 10.0 12/11/17 00:00 Venturi Mask 10.0 12/11/17 00:00 97.4 83 20 132/70 100 97.4 12/10/17 21:10 95 133/78 12/10/17 20:00 95 Venturi Mask 14.0 55 12/10/17 20:00 Venturi Mask 10.0 12/10/17 20:00 Venturi Mask 14.0 55 12/10/17 20:00 97.1 95 20 133/78 100 97.1 12/10/17 16:00 97.3 88 20 134/71 98 Venturi Mask 15.0 97.3 12/10/17 12:00 97.7 96 20 132/71 98 Venturi Mask 15.0 97.7 Height (Feet): 4 Height (Inches): 0.00 Weight (Pounds): 100 Respiratory/Chest: lungs clear Cardiovascular: normal rate, regular rhythm, no gallop/murmur Abdomen: soft, non tender, other - GT Extremities: no edema, other - left foot in dressings Laboratory Tests Test 12/11/17 06:46 White Blood Count 9.2 K/UL (4.8-10.8) Red Blood Count 3.14 M/UL (4.20-5.40) L Hemoglobin 9.5 G/DL (12.0-16.0) L Hematocrit 28.8 % (37.0-47.0) L Mean Corpuscular Volume 92 FL (80-99) Mean Corpuscular Hemoglobin 30.2 PG (27.0-31.0) Mean Corpuscular Hemoglobin Concent 33.0 G/DL (32.0-36.0) Red Cell Distribution Width 13.9 % (11.6-14.8) Platelet Count 355 K/UL (150-450) Mean Platelet Volume 6.4 FL (6.5-10.1) L Neutrophils (%) (Auto) 72.4 % (45.0-75.0) Lymphocytes (%) (Auto) 16.0 % (20.0-45.0) L Monocytes (%) (Auto) 7.6 % (1.0-10.0) Eosinophils (%) (Auto) 3.1 % (0.0-3.0) H Basophils (%) (Auto) 0.9 % (0.0-2.0) Sodium Level 142 MMOL/L (136-145) Potassium Level 2.9 MMOL/L (3.5-5.1) L Chloride Level 105 MMOL/L (98-107) Carbon Dioxide Level 30 MMOL/L (21-32) Anion Gap 7 mmol/L (5-15) Blood Urea Nitrogen 11 mg/dL (7-18) Creatinine 0.6 MG/DL (0.55-1.30) Estimat Glomerular Filtration Rate mL/min (>60) Glucose Level 171 MG/DL (74-106) H Calcium Level 7.7 MG/DL (8.5-10.1) L Total Bilirubin 0.2 MG/DL (0.2-1.0) Aspartate Amino Transf (AST/SGOT) 36 U/L (15-37) Alanine Aminotransferase (ALT/SGPT) 37 U/L (12-78) Alkaline Phosphatase 95 U/L (46-116) Total Protein 6.3 G/DL (6.4-8.2) L Albumin 1.6 G/DL (3.4-5.0) L Globulin 4.7 g/dL Albumin/Globulin Ratio 0.3 (1.0-2.7) L Current Medications Medications (Trade) Dose Ordered Sig/Satish Route PRN Reason Start Time Stop Time Status Last Admin Dose Admin Acetaminophen (Tylenol) 650 mg Q4H PRN ORAL Mild Pain/Temp > 100.5 12/07/17 09:30 01/06/18 09:29 12/08/17 18:11 Acetaminophen/ Hydrocodone Bitart ([place] 5/325) 1 tab EVERY 12 HOURS ORAL 12/05/17 21:00 12/12/17 20:59 12/11/17 09:47 Amlodipine Besylate (Norvasc) 5 mg DAILY GT 12/09/17 09:00 01/08/18 08:59 12/11/17 09:46 Ceftriaxone Sodium 2 gm/ Dextrose 110 ml @ 220 mls/hr Q24H IVPB 12/10/17 20:00 12/16/17 19:59 12/10/17 19:54 Chlorhexidine Gluconate (Mireya-Hex 2%) 1 applic DAILY@2000 TOPIC 12/03/17 20:00 01/02/18 19:59 12/10/17 19:54 Dextrose (Dextrose 50%) 25 ml STAT PRN IV Hypoglycemia 11/30/17 17:30 12/30/17 17:29 Dextrose (Dextrose 50%) 50 ml STAT PRN IV Hypoglycemia 11/30/17 17:30 12/30/17 17:29 Dextrose/ Electrolytes 1,000 ml @ 100 mls/hr Q10H IV 12/10/17 01:30 01/09/18 01:29 12/11/17 06:31 Famotidine (Pepcid) 20 mg BID GT 11/30/17 18:00 12/30/17 17:59 12/11/17 09:46 Fluconazole (Diflucan) 100 mg DAILY ORAL 12/09/17 12:00 12/16/17 11:59 12/11/17 09:48 Heparin Sodium (Porcine) (Heparin 5000 units/ml) 5,000 units EVERY 12 HOURS SUBQ 12/05/17 21:00 01/04/18 20:59 12/11/17 09:49 Metoprolol Tartrate (Lopressor) 25 mg Q12HR GT 11/30/17 21:00 12/30/17 20:59 12/11/17 09:52 Potassium Chloride (K-Dur) 40 meq ONCE ORAL 12/11/17 12:00 12/11/17 13:00 Vancomycin HCl (Vanco rx to dose) 1 ea DAILY PRN MISC Per rx protocol 11/30/17 17:30 12/30/17 17:29 Vancomycin/Sodium Chloride 250 ml @ 166.667 mls/hr Q12H IVPB 12/09/17 15:00 12/14/17 14:59 12/11/17 02:45 FELICITAS MUIR December 11, 2017 11:16"
[2017-12-11 12:00] VITALS: BP 128/64
[2017-12-11 16:00] VITALS: BP 126/76
--- NOTE | 2017-12-11 16:15 | Diagnostic Imaging Report ---
Indication: Fistula adjacent to gastrostomy tract Technique: Red Lockett catheter was placed through the small cutaneous fistula tract immediately to the left of the gastrostomy shaft. Water-soluble contrast was injected and spot images were obtained. Comparison: none Findings: Contrast initially surrounds the gastrostomy balloon, subsequently fills the gastric lumen. Impression: Fistulogram demonstrating communication with the gastric lumen. This indicates the fistula is either directly to the stomach or to the gastrostomy tract Dr. Rojas notified at the time of interpretation
[2017-12-11 20:00] VITALS: BP 127/70
[2017-12-11] MEDS: cefTRIAXone 2 GM in D5W 110 ML IVPB SCH (20:12)
[2017-12-11] MEDS: Dyna-Hex 2% Top Sol 2oz TOPIC SCH (20:12)
[2017-12-11] MEDS ORDERED: Acetaminophen 500mg (ES) tab ORAL PRN (22:00)
--- NOTE | 2017-12-11 23:15 | General Progress Note ---
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 Recommendations continue TF consider surgical consult for closure of fistula follow lab and exam Subjective Allergies: Coded Allergies: AMOXICILLIN (Verified Allergy, Mild, 06/21/09) ASPIRIN (Verified Allergy, Mild, 06/21/09) SALICYLATES (Verified Allergy, Mild, 06/21/09) PENICILLINS (Unverified Allergy, Unknown, 11/18/17) Subjective above noted fistulogram performed tract to gastric lumen identified Objective Last 24 Hour Vital Signs Date Time Temp Pulse Resp B/P (MAP) Pulse Ox O2 Delivery O2 Flow Rate FiO2 12/11/17 21:51 90 127/70 12/11/17 20:25 Nasal Cannula 3.0 32 12/11/17 20:25 94 Nasal Cannula 3.0 32 12/11/17 20:00 98.1 90 18 127/70 100 98.1 12/11/17 16:00 97.0 89 20 126/76 94 Nasal Cannula 3.0 97.0 12/11/17 12:00 97.2 84 20 128/64 94 Nasal Cannula 5.0 97.2 12/11/17 09:52 92 127/68 12/11/17 09:46 92 127/68 12/11/17 08:00 97.5 92 20 127/68 94 Nasal Cannula 5.0 97.5 12/11/17 04:00 97.4 89 20 112/67 100 97.4 12/11/17 04:00 Venturi Mask 10.0 12/11/17 00:00 Venturi Mask 10.0 12/11/17 00:00 97.4 83 20 132/70 100 97.4 Intake and Output 12/10/17 12/11/17 19:00 07:00 Intake Total 1853.334 ml Balance 1853.334 ml Free Water 150 ml IV Total 1153.334 ml Tube Feeding 550 ml # Voids 4 3 # Bowel Movements 2 Laboratory Tests 12/11/17 06:46: White Blood Count 9.2, Red Blood Count 3.14L, Hemoglobin 9.5L, Hematocrit 28.8L , Mean Corpuscular Volume 92, Mean Corpuscular Hemoglobin 30.2, Mean Corpuscular Hemoglobin Concent 33.0, Red Cell Distribution Width 13.9, Platelet Count 355, Mean Platelet Volume 6.4L, Neutrophils (%) (Auto) 72.4, Lymphocytes ( %) (Auto) 16.0L, Monocytes (%) (Auto) 7.6, Eosinophils (%) (Auto) 3.1H, Basophils (%) (Auto) 0.9, Sodium Level 142, Potassium Level 2.9L, Chloride Level 105, Carbon Dioxide Level 30, Anion Gap 7, Blood Urea Nitrogen 11, Creatinine 0.6, Estimat Glomerular Filtration Rate , Glucose Level 171H, Calcium Level 7.7L, Total Bilirubin 0.2, Aspartate Amino Transf (AST/SGOT) 36, Alanine Aminotransferase (ALT/SGPT) 37, Alkaline Phosphatase 95, Total Protein 6.3L, Albumin 1.6L, Globulin 4.7, Albumin/Globulin Ratio 0.3L Height (Feet): 4 Height (Inches): 0.00 Weight (Pounds): 100 Objective Thin woman NCAT CTA RRR abd soft, (+) GT , (+) small fistula at GI site proximity (++) contracture deformities Alex Rojas MD December 11, 2017 23:15
[2017-12-12] VITALS: BP 126/69
[2017-12-12] MEDS: D5 1/2NS w/KCl 20mEq 1,000 ML IV SCH ×2 (01:30→12:04)
[2017-12-12] MEDS: Vancomycin 750mg/NS 250ml 250 ML IVPB SCH ×2 (02:52→15:21)
[2017-12-12 04:00] VITALS: BP 115/64
--- NOTE | 2017-12-12 04:30 | Progress Note ---
DATE: 12/11/2017 CARDIOLOGY PROGRESS NOTE SUBJECTIVE: The patient remains withdrawn. She appears to be uncomfortable. There is soft moaning noted. OBJECTIVE: VITAL SIGNS: Blood pressure 127/68, pulse 93, and respirations 20. She is afebrile. LUNGS: Good breath sounds. No wheezing. HEART: Regular rhythm and rate. Normal S1 and S2 with a fourth heart sound. ABDOMEN: Soft. G-tube intact. EXTREMITIES: With severe contractures left heel. Dressing in place. LABORATORY DATA: White count is down to 9.2 from a peak of 22.6. Hemoglobin is 9.5. Potassium is 2.9. Albumin 1.6. Sodium 142, bicarbonate 30, and chloride 105. IMPRESSION: 1. Resolved dehydration and hypernatremia. 2. Hypokalemia. 3. Osteomyelitis, left foot. 4. Healthcare-acquired pneumonia. 5. Parapneumonic effusion. 6. Severe contractures. 7. 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 8. Dysphagia with gastrostomy tube. 9. Severe peripheral artery disease. PLAN: 1. Respiratory hygiene. 2. Antibiotics per Infectious Disease [facility] consultant. 3. Decrease IV fluids. 4. Consider thoracentesis if symptomatic effusion. 5. Reschedule for amputation within the next 48 hours if continued improvement in other clinical parameters. Tyrell Underwood M.D. DR: Jeanna JOB#: [id number] CC:
[2017-12-12] MEDS: Norco 5mg/325mg tab ORAL SCH ×3 (06:11→21:29)
[2017-12-12 08:00] VITALS: BP 127/55
[2017-12-12] MEDS: Metoprolol 25mg tab GT SCH ×2 (08:38→21:30)
[2017-12-12] MEDS: Fluconazole 100mg tab ORAL SCH (08:38)
[2017-12-12] MEDS: Heparin 5000 units/ml inj SUBQ SCH ×2 (08:38→21:29)
--- NOTE | 2017-12-12 08:44 | General Progress Note ---
Assessment/Plan Problem List: (1) Hypokalemia ICD Codes: E87.6 - Hypokalemia SNOMED: 66087162 (2) Functional quadriplegia ICD Codes: R53.2 - Functional quadriplegia SNOMED: 614573539380725 (3) Malnutrition of moderate degree ICD Codes: E44.0 - Moderate protein-calorie malnutrition SNOMED: 092640188 (4) Osteomyelitis ICD Codes: M86.9 - Osteomyelitis, unspecified SNOMED: 47425240 Qualifiers: Qualified Codes: M86.9 - Osteomyelitis, unspecified (5) Gastrostomy tube dysfunction ICD Codes: K94.23 - Gastrostomy malfunction SNOMED: 920608433 (6) Respiratory failure ICD Codes: J96.90 - Respiratory failure, unspecified, unspecified whether with hypoxia or hypercapnia SNOMED: 796384782 (7) Pneumonia ICD Codes: J18.9 - Pneumonia, unspecified organism SNOMED: 385189106 (8) Pleural effusion ICD Codes: J90 - Pleural effusion, not elsewhere classified SNOMED: 66363914 Status: stable, progressing Assessment/Plan iv abx ivf wean fio2 resp rx monitor abg monitor lytes wound care possible amputation when stabilized- ?thursday Subjective ROS Limited/Unobtainable: Yes Constitutional: Reports: malaise, weakness HEENT: Reports: no symptoms Cardiovascular: Reports: no symptoms Respiratory: Reports: cough, SOB at rest Gastrointestinal/Abdominal: Reports: no symptoms Genitourinary: Reports: no symptoms Neurologic/Psychiatric: Reports: pre-existing deficit Endocrine: Reports: no symptoms Hematologic/Lymphatic: Reports: no symptoms Allergies: Coded Allergies: AMOXICILLIN (Verified Allergy, Mild, 06/21/09) ASPIRIN (Verified Allergy, Mild, 06/21/09) SALICYLATES (Verified Allergy, Mild, 06/21/09) PENICILLINS (Unverified Allergy, Unknown, 11/18/17) All Systems: reviewed and negative except above Subjective no events. no distress, on o2 nasal cannula. sats 100%. poorly responsive. wbc trending down. Objective Last 24 Hour Vital Signs Date Time Temp Pulse Resp B/P (MAP) Pulse Ox O2 Delivery O2 Flow Rate FiO2 12/12/17 08:38 84 127/55 12/12/17 08:38 84 127/55 12/12/17 08:00 98.9 84 24 127/55 91 Nasal Cannula 3.0 98.9 12/12/17 04:00 Nasal Cannula 3.0 12/12/17 04:00 97.4 83 18 115/64 100 97.4 12/12/17 00:00 98.0 85 18 126/69 100 98.0 12/12/17 00:00 Nasal Cannula 3.0 12/11/17 21:51 90 127/70 12/11/17 20:25 Nasal Cannula 3.0 32 12/11/17 20:25 94 Nasal Cannula 3.0 32 12/11/17 20:00 Nasal Cannula 3.0 12/11/17 20:00 98.1 90 18 127/70 100 98.1 12/11/17 16:00 97.0 89 20 126/76 94 Nasal Cannula 3.0 97.0 12/11/17 12:00 97.2 84 20 128/64 94 Nasal Cannula 5.0 97.2 12/11/17 09:52 92 127/68 12/11/17 09:46 92 127/68 Intake and Output 12/11/17 12/12/17 19:00 07:00 Intake Total 1700.000 ml 703.334 ml Balance 1700.000 ml 703.334 ml Free Water 100 ml 150 ml IV Total 1250.000 ml 553.334 ml Tube Feeding 350 ml # Voids 4 3 # Bowel Movements 2 Height (Feet): 4 Height (Inches): 0.00 Weight (Pounds): 100 Objective General Appearance: WD/WN, lethargic, confused Neck: supple Cardiovascular: normal peripheral pulses, tachycardia Respiratory/Chest: crackles/rales, rhonchi - bilaterally Abdomen: normal bowel sounds, non tender, soft, no organomegaly Edema: no edema noted Arm (L), no edema noted Arm (R), no edema noted Leg (L), no edema noted Leg (R), no edema noted Pedal (L), no edema noted Pedal (R), no edema noted Generalized Neurologic: disoriented, unresponsive, aphasia CAROL SMITH December 12, 2017 08:44
[2017-12-12 11:01] LABS: BASOPHILS % (AUTO) 0.8 % (0.0-2.0); EOSINOPHILS % (AUTO) 2.7 % (0.0-3.0); HEMOGLOBIN 8.6 G/DL (12.0-16.0); LYMPHOCYTES % (AUTO) 24.1 % (20.0-45.0); MEAN CORPUSCULAR VOLUME 91 FL (80-99); MONOCYTES % (AUTO) 7.9 % (1.0-10.0); NEUTROPHILS % (AUTO) 64.5 % (45.0-75.0); PLATELET COUNT 334 K/UL (150-450); RED BLOOD COUNT 2.85 M/UL (4.20-5.40); RED CELL DISTRIBUTION WIDTH 14.1 % (11.6-14.8); WHITE BLOOD COUNT 6.5 K/UL (4.8-10.8)
[2017-12-12 11:22] LABS: ANION GAP 5 mmol/L (5-15); BLOOD UREA NITROGEN 7 mg/dL (7-18); CALCIUM 7.7 MG/DL (8.5-10.1); CARBON DIOXIDE 30 MMOL/L (21-32); CHLORIDE 105 MMOL/L (98-107); CREATININE 0.5 MG/DL (0.55-1.30); SODIUM 140 MMOL/L (136-145)
[2017-12-12 12:00] VITALS: BP 126/60
[2017-12-12] MEDS ORDERED: Vitamin A&D ud Packet TOPIC SCH (13:00)
[2017-12-12] MEDS: Vitamin A&D Oint 2oz Tube TOPIC SCH ×3 (13:38→21:30)
--- NOTE | 2017-12-12 15:59 | Pulmonology Progress Note ---
Assessment/Plan Assessment/Plan IMPRESSION: 1. Evidence of pneumonia, with effusions extensvie 2. G-tube, possible fistulous tract. 3. Left heel osteomyelitis. 4. Toxic metabolic encephalopathy. 5. Significant contractures. 6. History of CVA. 7. History of dysphagia. PLAN care noted respiratory care follow up cxr oxygen antibiotics noted monitor clinically impression, plan, and exam edited and reviewed in detail care discussed with RN Subjective ROS Limited/Unobtainable: Yes Allergies: Coded Allergies: AMOXICILLIN (Verified Allergy, Mild, 06/21/09) ASPIRIN (Verified Allergy, Mild, 06/21/09) SALICYLATES (Verified Allergy, Mild, 06/21/09) PENICILLINS (Unverified Allergy, Unknown, 11/18/17) Subjective care reviewed wbc improved Objective Last 24 Hour Vital Signs Date Time Temp Pulse Resp B/P (MAP) Pulse Ox O2 Delivery O2 Flow Rate FiO2 12/12/17 12:00 98.6 89 21 126/60 91 Nasal Cannula 3.0 98.6 12/12/17 08:38 84 127/55 12/12/17 08:38 84 127/55 12/12/17 08:08 93 Nasal Cannula 3.0 32 12/12/17 08:08 Nasal Cannula 3.0 32 12/12/17 08:00 98.9 84 24 127/55 91 Nasal Cannula 3.0 98.9 12/12/17 04:00 Nasal Cannula 3.0 12/12/17 04:00 97.4 83 18 115/64 100 97.4 12/12/17 00:00 98.0 85 18 126/69 100 98.0 12/12/17 00:00 Nasal Cannula 3.0 12/11/17 21:51 90 127/70 12/11/17 20:25 Nasal Cannula 3.0 32 12/11/17 20:25 94 Nasal Cannula 3.0 32 12/11/17 20:00 Nasal Cannula 3.0 12/11/17 20:00 98.1 90 18 127/70 100 98.1 12/11/17 16:00 97.0 89 20 126/76 94 Nasal Cannula 3.0 97.0 Intake and Output 12/11/17 12/12/17 19:00 07:00 Intake Total 1700.000 ml 703.334 ml Balance 1700.000 ml 703.334 ml Free Water 100 ml 150 ml IV Total 1250.000 ml 553.334 ml Tube Feeding 350 ml # Voids 4 3 # Bowel Movements 2 Objective WDWN NAD reduced breath sounds with rhonchi focal [id number] without MRG NABS nontender no HSM no CCE weak with reduced LOC Laboratory Tests 12/12/17 09:45: White Blood Count 6.5, Red Blood Count 2.85L, Hemoglobin 8.6L, Hematocrit 26.0L , Mean Corpuscular Volume 91, Mean Corpuscular Hemoglobin 30.1, Mean Corpuscular Hemoglobin Concent 33.0, Red Cell Distribution Width 14.1, Platelet Count 334, Mean Platelet Volume 6.2L, Neutrophils (%) (Auto) 64.5, Lymphocytes ( %) (Auto) 24.1, Monocytes (%) (Auto) 7.9, Eosinophils (%) (Auto) 2.7, Basophils (%) (Auto) 0.8, Sodium Level 140, Potassium Level 3.0L, Chloride Level 105, Carbon Dioxide Level 30, Anion Gap 5, Blood Urea Nitrogen 7, Creatinine 0.5L, Estimat Glomerular Filtration Rate , Glucose Level 137H, Calcium Level 7.7L Current Medications Medications (Trade) Dose Ordered Sig/Satish Route PRN Reason Start Time Stop Time Status Last Admin Dose Admin Acetaminophen (Tylenol) 500 mg Q4H PRN ORAL Mild Pain/Temp > 100.5 12/11/17 22:00 01/10/18 21:59 Acetaminophen (Tylenol) 650 mg Q4H PRN ORAL Mild Pain/Temp > 100.5 12/07/17 09:30 01/06/18 09:29 12/08/17 18:11 Acetaminophen/ Hydrocodone Bitart ([place] 5/325) 1 tab EVERY 8 HOURS ORAL 12/11/17 22:00 12/18/17 21:59 12/12/17 14:29 Amlodipine Besylate (Norvasc) 5 mg DAILY GT 12/09/17 09:00 01/08/18 08:59 12/12/17 08:38 Ceftriaxone Sodium 2 gm/ Dextrose 110 ml @ 220 mls/hr Q24H IVPB 12/10/17 20:00 12/16/17 19:59 12/11/17 20:12 Chlorhexidine Gluconate (Mrieya-Hex 2%) 1 applic DAILY@2000 TOPIC 12/03/17 20:00 01/02/18 19:59 12/11/17 20:12 Dextrose (Dextrose 50%) 25 ml STAT PRN IV Hypoglycemia 11/30/17 17:30 12/30/17 17:29 Dextrose (Dextrose 50%) 50 ml STAT PRN IV Hypoglycemia 11/30/17 17:30 12/30/17 17:29 Dextrose/ Electrolytes 1,000 ml @ 50 mls/hr Q20H IV 12/12/17 01:30 01/11/18 01:29 12/12/17 12:04 Famotidine (Pepcid) 20 mg BID GT 11/30/17 18:00 12/30/17 17:59 12/12/17 08:38 Fluconazole (Diflucan) 100 mg DAILY ORAL 12/09/17 12:00 12/16/17 11:59 12/12/17 08:38 Heparin Sodium (Porcine) (Heparin 5000 units/ml) 5,000 units EVERY 12 HOURS SUBQ 12/05/17 21:00 01/04/18 20:59 12/12/17 08:38 Metoprolol Tartrate (Lopressor) 25 mg Q12HR GT 11/30/17 21:00 12/30/17 20:59 12/12/17 08:38 Potassium Chloride (K-Dur) 40 meq ONCE ONCE GT 12/12/17 20:00 12/12/17 20:01 Vancomycin HCl (Vanco rx to dose) 1 ea DAILY PRN MISC Per rx protocol 11/30/17 17:30 12/30/17 17:29 Vancomycin/Sodium Chloride 250 ml @ 166.667 mls/hr Q12H IVPB 12/09/17 15:00 12/14/17 14:59 12/12/17 15:21 Vitamin A/Vitamin D (A & D Oint) 1 applic QID TOPIC 12/12/17 13:00 01/11/18 12:59 12/12/17 13:38 Raj Reyes MD December 12, 2017 15:59
[2017-12-12 16:00] VITALS: BP 121/69
--- NOTE | 2017-12-12 16:43 | General Progress Note ---
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 Recommendations continue TF consider surgical consult for closure of fistula follow lab and exam Subjective Allergies: Coded Allergies: AMOXICILLIN (Verified Allergy, Mild, 06/21/09) ASPIRIN (Verified Allergy, Mild, 06/21/09) SALICYLATES (Verified Allergy, Mild, 06/21/09) PENICILLINS (Unverified Allergy, Unknown, 11/18/17) Subjective above noted GT occluded last night replaced at bedside this am by me Objective Last 24 Hour Vital Signs Date Time Temp Pulse Resp B/P (MAP) Pulse Ox O2 Delivery O2 Flow Rate FiO2 12/12/17 12:00 98.6 89 21 126/60 91 Nasal Cannula 3.0 98.6 12/12/17 08:38 84 127/55 12/12/17 08:38 84 127/55 12/12/17 08:08 93 Nasal Cannula 3.0 32 12/12/17 08:08 Nasal Cannula 3.0 32 12/12/17 08:00 98.9 84 24 127/55 91 Nasal Cannula 3.0 98.9 12/12/17 04:00 Nasal Cannula 3.0 12/12/17 04:00 97.4 83 18 115/64 100 97.4 12/12/17 00:00 98.0 85 18 126/69 100 98.0 12/12/17 00:00 Nasal Cannula 3.0 12/11/17 21:51 90 127/70 12/11/17 20:25 Nasal Cannula 3.0 32 12/11/17 20:25 94 Nasal Cannula 3.0 32 12/11/17 20:00 Nasal Cannula 3.0 12/11/17 20:00 98.1 90 18 127/70 100 98.1 Intake and Output 12/11/17 12/12/17 19:00 07:00 Intake Total 1700.000 ml 703.334 ml Balance 1700.000 ml 703.334 ml Free Water 100 ml 150 ml IV Total 1250.000 ml 553.334 ml Tube Feeding 350 ml # Voids 4 3 # Bowel Movements 2 Laboratory Tests 12/12/17 09:45: White Blood Count 6.5, Red Blood Count 2.85L, Hemoglobin 8.6L, Hematocrit 26.0L , Mean Corpuscular Volume 91, Mean Corpuscular Hemoglobin 30.1, Mean Corpuscular Hemoglobin Concent 33.0, Red Cell Distribution Width 14.1, Platelet Count 334, Mean Platelet Volume 6.2L, Neutrophils (%) (Auto) 64.5, Lymphocytes ( %) (Auto) 24.1, Monocytes (%) (Auto) 7.9, Eosinophils (%) (Auto) 2.7, Basophils (%) (Auto) 0.8, Sodium Level 140, Potassium Level 3.0L, Chloride Level 105, Carbon Dioxide Level 30, Anion Gap 5, Blood Urea Nitrogen 7, Creatinine 0.5L, Estimat Glomerular Filtration Rate , Glucose Level 137H, Calcium Level 7.7L Height (Feet): 4 Height (Inches): 0.00 Weight (Pounds): 100 Objective Thin woman NCAT CTA RRR abd soft, (+) GT , (+) small fistula at GI site proximity (++) contracture deformities Alex Rojas MD December 12, 2017 16:43
[2017-12-12 20:00] VITALS: BP 115/63
[2017-12-12] MEDS: cefTRIAXone 2 GM in D5W 110 ML IVPB SCH (21:25)
[2017-12-12] MEDS: Dyna-Hex 2% Top Sol 2oz TOPIC SCH (21:46)
[2017-12-13] VITALS: BP 118/57
[2017-12-13] MEDS: Vancomycin 750mg/NS 250ml 250 ML IVPB SCH (02:44)
[2017-12-13 04:00] VITALS: BP 122/61
[2017-12-13] MEDS: Norco 5mg/325mg tab ORAL SCH ×3 (05:56→21:13)
--- NOTE | 2017-12-13 06:59 | Pulmonology Progress Note ---
Assessment/Plan Assessment/Plan IMPRESSION: 1. Evidence of pneumonia, with effusion 2. G-tube, possible fistulous tract. 3. Left heel osteomyelitis. 4. Toxic metabolic encephalopathy. 5. Significant contractures. 6. History of CVA. 7. History of dysphagia. PLAN care noted amputation planned respiratory care follow up cxr CT reviewed oxygen antibiotics noted monitor clinically DNR treat conservatively impression, plan, and exam edited and reviewed in detail care discussed with RN Subjective ROS Limited/Unobtainable: Yes Allergies: Coded Allergies: AMOXICILLIN (Verified Allergy, Mild, 06/21/09) ASPIRIN (Verified Allergy, Mild, 06/21/09) SALICYLATES (Verified Allergy, Mild, 06/21/09) PENICILLINS (Unverified Allergy, Unknown, 11/18/17) Subjective care reviewed wbc and labs noted amputation planned Objective Last 24 Hour Vital Signs Date Time Temp Pulse Resp B/P (MAP) Pulse Ox O2 Delivery O2 Flow Rate FiO2 12/13/17 04:00 100 Nasal Cannula 3.0 12/13/17 04:00 97.5 85 18 122/61 100 97.5 12/13/17 00:00 100 Nasal Cannula 3.0 12/13/17 00:00 97.5 78 18 118/57 100 97.5 12/12/17 21:30 89 115/63 12/12/17 20:00 100 Nasal Cannula 3.0 12/12/17 20:00 98.1 89 18 115/63 100 98.1 12/12/17 16:00 98.1 81 21 121/69 91 Nasal Cannula 3.0 98.1 12/12/17 12:00 98.6 89 21 126/60 91 Nasal Cannula 3.0 98.6 12/12/17 08:38 84 127/55 12/12/17 08:38 84 127/55 12/12/17 08:08 93 Nasal Cannula 3.0 32 12/12/17 08:08 Nasal Cannula 3.0 32 12/12/17 08:00 98.9 84 24 127/55 91 Nasal Cannula 3.0 98.9 Intake and Output 12/12/17 12/13/17 19:00 07:00 Intake Total 916.667 ml 1503.334 ml Balance 916.667 ml 1503.334 ml Free Water 100 ml 50 ml IV Total 416.667 ml 1103.334 ml Tube Feeding 400 ml 350 ml # Voids 4 # Bowel Movements 2 2 Objective WDWN NAD reduced breath sounds with rhonchi scattered [id number] without MRG NABS nontender no HSM no CCE weak with reduced LOC Microbiology Date/Time Source Procedure Growth Status 12/12/17 02:10 Sputum Induced Gram Stain - Final Resulted 12/12/17 02:10 Sputum Induced Sputum Culture Pending Resulted Laboratory Tests 12/12/17 09:45: White Blood Count 6.5, Red Blood Count 2.85L, Hemoglobin 8.6L, Hematocrit 26.0L , Mean Corpuscular Volume 91, Mean Corpuscular Hemoglobin 30.1, Mean Corpuscular Hemoglobin Concent 33.0, Red Cell Distribution Width 14.1, Platelet Count 334, Mean Platelet Volume 6.2L, Neutrophils (%) (Auto) 64.5, Lymphocytes ( %) (Auto) 24.1, Monocytes (%) (Auto) 7.9, Eosinophils (%) (Auto) 2.7, Basophils (%) (Auto) 0.8, Sodium Level 140, Potassium Level 3.0L, Chloride Level 105, Carbon Dioxide Level 30, Anion Gap 5, Blood Urea Nitrogen 7, Creatinine 0.5L, Estimat Glomerular Filtration Rate , Glucose Level 137H, Calcium Level 7.7L Current Medications Medications (Trade) Dose Ordered Sig/Satish Route PRN Reason Start Time Stop Time Status Last Admin Dose Admin Acetaminophen (Tylenol) 500 mg Q4H PRN ORAL Mild Pain/Temp > 100.5 12/11/17 22:00 01/10/18 21:59 Acetaminophen (Tylenol) 650 mg Q4H PRN ORAL Mild Pain/Temp > 100.5 12/07/17 09:30 01/06/18 09:29 12/08/17 18:11 Acetaminophen/ Hydrocodone Bitart ([place] 5/325) 1 tab EVERY 8 HOURS ORAL 12/11/17 22:00 12/18/17 21:59 12/13/17 05:56 Amlodipine Besylate (Norvasc) 5 mg DAILY GT 12/09/17 09:00 01/08/18 08:59 12/12/17 08:38 Ceftriaxone Sodium 2 gm/ Dextrose 110 ml @ 220 mls/hr Q24H IVPB 12/10/17 20:00 12/16/17 19:59 12/12/17 21:25 Chlorhexidine Gluconate (Mireya-Hex 2%) 1 applic DAILY@2000 TOPIC 12/03/17 20:00 01/02/18 19:59 12/12/17 21:46 Dextrose (Dextrose 50%) 25 ml STAT PRN IV Hypoglycemia 11/30/17 17:30 12/30/17 17:29 Dextrose (Dextrose 50%) 50 ml STAT PRN IV Hypoglycemia 11/30/17 17:30 12/30/17 17:29 Dextrose/ Electrolytes 1,000 ml @ 50 mls/hr Q20H IV 12/12/17 01:30 01/11/18 01:29 12/12/17 12:04 Famotidine (Pepcid) 20 mg BID GT 11/30/17 18:00 12/30/17 17:59 12/12/17 18:00 Fluconazole (Diflucan) 100 mg DAILY ORAL 12/09/17 12:00 12/16/17 11:59 12/12/17 08:38 Heparin Sodium (Porcine) (Heparin 5000 units/ml) 5,000 units EVERY 12 HOURS SUBQ 12/05/17 21:00 01/04/18 20:59 12/12/17 21:29 Metoprolol Tartrate (Lopressor) 25 mg Q12HR GT 11/30/17 21:00 12/30/17 20:59 12/12/17 21:30 Vancomycin HCl (Vanco rx to dose) 1 ea DAILY PRN MISC Per rx protocol 11/30/17 17:30 12/30/17 17:29 Vancomycin/Sodium Chloride 250 ml @ 166.667 mls/hr Q12H IVPB 12/09/17 15:00 12/14/17 14:59 12/13/17 02:44 Vitamin A/Vitamin D (A & D Oint) 1 applic QID TOPIC 12/12/17 13:00 01/11/18 12:59 12/12/17 21:30 Raj Reyes MD December 13, 2017 06:59
[2017-12-13 08:00] VITALS: BP 138/67
--- NOTE | 2017-12-13 08:15 | General Progress Note ---
Assessment/Plan Problem List: (1) Hypokalemia ICD Codes: E87.6 - Hypokalemia SNOMED: 00792680 (2) Functional quadriplegia ICD Codes: R53.2 - Functional quadriplegia SNOMED: 466604496293753 (3) Malnutrition of moderate degree ICD Codes: E44.0 - Moderate protein-calorie malnutrition SNOMED: 224735276 (4) Osteomyelitis ICD Codes: M86.9 - Osteomyelitis, unspecified SNOMED: 33148440 Qualifiers: Qualified Codes: M86.9 - Osteomyelitis, unspecified (5) Gastrostomy tube dysfunction ICD Codes: K94.23 - Gastrostomy malfunction SNOMED: 218493119 (6) Respiratory failure ICD Codes: J96.90 - Respiratory failure, unspecified, unspecified whether with hypoxia or hypercapnia SNOMED: 211763740 (7) Pneumonia ICD Codes: J18.9 - Pneumonia, unspecified organism SNOMED: 234974696 (8) Pleural effusion ICD Codes: J90 - Pleural effusion, not elsewhere classified SNOMED: 65620700 Status: stable, progressing Assessment/Plan iv abx ivf wean fio2 resp rx monitor abg monitor lytes wound care possible amputation when stabilized- ?thursday Subjective ROS Limited/Unobtainable: Yes Constitutional: Reports: malaise, weakness HEENT: Reports: no symptoms Cardiovascular: Reports: no symptoms Respiratory: Reports: cough, sputum Gastrointestinal/Abdominal: Reports: difficulty swallowing Genitourinary: Reports: no symptoms Neurologic/Psychiatric: Reports: pre-existing deficit Endocrine: Reports: no symptoms Hematologic/Lymphatic: Reports: no symptoms Allergies: Coded Allergies: AMOXICILLIN (Verified Allergy, Mild, 06/21/09) ASPIRIN (Verified Allergy, Mild, 06/21/09) SALICYLATES (Verified Allergy, Mild, 06/21/09) PENICILLINS (Unverified Allergy, Unknown, 11/18/17) All Systems: reviewed and negative except above Subjective no events. no distress, on o2 nasal cannula. sats 100%. poorly responsive. wbc trending down. labs pending. overall improved Objective Last 24 Hour Vital Signs Date Time Temp Pulse Resp B/P (MAP) Pulse Ox O2 Delivery O2 Flow Rate FiO2 12/13/17 04:00 100 Nasal Cannula 3.0 12/13/17 04:00 97.5 85 18 122/61 100 97.5 12/13/17 00:00 100 Nasal Cannula 3.0 12/13/17 00:00 97.5 78 18 118/57 100 97.5 12/12/17 21:30 89 115/63 12/12/17 20:00 100 Nasal Cannula 3.0 12/12/17 20:00 98.1 89 18 115/63 100 98.1 12/12/17 16:00 98.1 81 21 121/69 91 Nasal Cannula 3.0 98.1 12/12/17 12:00 98.6 89 21 126/60 91 Nasal Cannula 3.0 98.6 12/12/17 08:38 84 127/55 12/12/17 08:38 84 127/55 Intake and Output 12/12/17 12/13/17 19:00 07:00 Intake Total 916.667 ml 1503.334 ml Balance 916.667 ml 1503.334 ml Free Water 100 ml 50 ml IV Total 416.667 ml 1103.334 ml Tube Feeding 400 ml 350 ml # Voids 4 # Bowel Movements 2 2 Laboratory Tests 12/12/17 09:45: White Blood Count 6.5, Red Blood Count 2.85L, Hemoglobin 8.6L, Hematocrit 26.0L , Mean Corpuscular Volume 91, Mean Corpuscular Hemoglobin 30.1, Mean Corpuscular Hemoglobin Concent 33.0, Red Cell Distribution Width 14.1, Platelet Count 334, Mean Platelet Volume 6.2L, Neutrophils (%) (Auto) 64.5, Lymphocytes ( %) (Auto) 24.1, Monocytes (%) (Auto) 7.9, Eosinophils (%) (Auto) 2.7, Basophils (%) (Auto) 0.8, Sodium Level 140, Potassium Level 3.0L, Chloride Level 105, Carbon Dioxide Level 30, Anion Gap 5, Blood Urea Nitrogen 7, Creatinine 0.5L, Estimat Glomerular Filtration Rate , Glucose Level 137H, Calcium Level 7.7L Height (Feet): 4 Height (Inches): 0.00 Weight (Pounds): 100 Objective General Appearance: WD/WN, lethargic, confused Neck: supple Cardiovascular: normal peripheral pulses, tachycardia Respiratory/Chest: crackles/rales, rhonchi - bilaterally Abdomen: normal bowel sounds, non tender, soft, no organomegaly Edema: no edema noted Arm (L), no edema noted Arm (R), no edema noted Leg (L), no edema noted Leg (R), no edema noted Pedal (L), no edema noted Pedal (R), no edema noted Generalized Neurologic: disoriented, unresponsive, aphasia CAROL SMITH December 13, 2017 08:15
--- NOTE | 2017-12-13 08:49 | Diagnostic Imaging Report ---
EXAM: XR Chest, 1 View CLINICAL HISTORY: SOB TECHNIQUE: Frontal view of the chest. COMPARISON: Radiograph of 12/06/[address] of 12/11/17. FINDINGS: [id number] right pleural effusion again noted as well as extensive right lung consolidation. Given differences in technique, there is little change in the interval. Left lung remains clear. Left arm PICC again noted. IMPRESSION: Given differences in technique, there is no significant interval change in extensive right lung consolidation and [id number] right pleural effusion.
[2017-12-13] MEDS: Fluconazole 100mg tab ORAL SCH (10:51)
[2017-12-13] MEDS: Vitamin A&D Oint 2oz Tube TOPIC SCH ×4 (10:51→21:14)
[2017-12-13] MEDS: Metoprolol 25mg tab GT SCH ×2 (10:51→21:12)
[2017-12-13] MEDS: Heparin 5000 units/ml inj SUBQ SCH ×2 (10:53→21:14)
[2017-12-13] MEDS ORDERED: Tubing IV Secondary IV ONE (11:37)
[2017-12-13 12:00] VITALS: BP 119/59
--- NOTE | 2017-12-13 12:52 | Infectious Diseases Prog Note ---
"Assessment/Plan Assessment/Plan A 1. 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 DM 3. hypertension 4. CVA P 1. continue iv vancomycin, ceftriaxone 2. will have left AKA, after being stable Subjective ROS Limited/Unobtainable: Yes Allergies: Coded Allergies: AMOXICILLIN (Verified Allergy, Mild, 06/21/09) ASPIRIN (Verified Allergy, Mild, 06/21/09) SALICYLATES (Verified Allergy, Mild, 06/21/09) PENICILLINS (Unverified Allergy, Unknown, 11/18/17) Objective Vital Signs Last 24 Hour Vital Signs Date Time Temp Pulse Resp B/P (MAP) Pulse Ox O2 Delivery O2 Flow Rate FiO2 12/13/17 12:00 97.9 77 18 119/59 96 Nasal Cannula 2.0 97.9 12/13/17 10:51 92 138/67 12/13/17 10:51 92 138/67 12/13/17 08:00 97.8 92 17 138/67 96 Nasal Cannula 2.0 97.8 12/13/17 04:00 100 Nasal Cannula 3.0 12/13/17 04:00 97.5 85 18 122/61 100 97.5 12/13/17 00:00 100 Nasal Cannula 3.0 12/13/17 00:00 97.5 78 18 118/57 100 97.5 12/12/17 21:30 89 115/63 12/12/17 20:00 100 Nasal Cannula 3.0 12/12/17 20:00 98.1 89 18 115/63 100 98.1 12/12/17 16:00 98.1 81 21 121/69 91 Nasal Cannula 3.0 98.1 Height (Feet): 4 Height (Inches): 0.00 Weight (Pounds): 100 General Appearance: no acute distress HEENT: mucous membranes moist Respiratory/Chest: lungs clear, other - o2 by nasal cannula Cardiovascular: normal rate Abdomen: soft, non tender, other - GT feeding Extremities: no edema Skin: ulcers Neurologic/Psychiatric: aphasia Microbiology Date/Time Source Procedure Growth Status 12/12/17 02:10 Sputum Induced Gram Stain - Final Resulted 12/12/17 02:10 Sputum Induced Sputum Culture Pending Resulted Current Medications Medications (Trade) Dose Ordered Sig/Satish Route PRN Reason Start Time Stop Time Status Last Admin Dose Admin Acetaminophen (Tylenol) 500 mg Q4H PRN ORAL Mild Pain/Temp > 100.5 12/11/17 22:00 01/10/18 21:59 Acetaminophen (Tylenol) 650 mg Q4H PRN ORAL Mild Pain/Temp > 100.5 12/07/17 09:30 01/06/18 09:29 12/08/17 18:11 Acetaminophen/ Hydrocodone Bitart ([place] 5/325) 1 tab EVERY 8 HOURS ORAL 12/11/17 22:00 12/18/17 21:59 12/13/17 05:56 Amlodipine Besylate (Norvasc) 5 mg DAILY GT 12/09/17 09:00 01/08/18 08:59 12/13/17 10:51 Ceftriaxone Sodium 2 gm/ Dextrose 110 ml @ 220 mls/hr Q24H IVPB 12/10/17 20:00 12/16/17 19:59 12/12/17 21:25 Chlorhexidine Gluconate (Mireya-Hex 2%) 1 applic DAILY@2000 TOPIC 12/03/17 20:00 01/02/18 19:59 12/12/17 21:46 Dextrose (Dextrose 50%) 25 ml STAT PRN IV Hypoglycemia 11/30/17 17:30 12/30/17 17:29 Dextrose (Dextrose 50%) 50 ml STAT PRN IV Hypoglycemia 11/30/17 17:30 12/30/17 17:29 Dextrose/ Electrolytes 1,000 ml @ 50 mls/hr Q20H IV 12/12/17 01:30 01/11/18 01:29 12/12/17 12:04 Famotidine (Pepcid) 20 mg BID GT 11/30/17 18:00 12/30/17 17:59 12/13/17 10:51 Fluconazole (Diflucan) 100 mg DAILY ORAL 12/09/17 12:00 12/16/17 11:59 12/13/17 10:51 Heparin Sodium (Porcine) (Heparin 5000 units/ml) 5,000 units EVERY 12 HOURS SUBQ 12/05/17 21:00 01/04/18 20:59 12/13/17 10:53 Metoprolol Tartrate (Lopressor) 25 mg Q12HR GT 11/30/17 21:00 12/30/17 20:59 12/13/17 10:51 Vancomycin HCl (Vanco rx to dose) 1 ea DAILY PRN MISC Per rx protocol 11/30/17 17:30 12/30/17 17:29 Vancomycin/Sodium Chloride 250 ml @ 166.667 mls/hr Q12H IVPB 12/09/17 15:00 12/14/17 14:59 12/13/17 02:44 Vitamin A/Vitamin D (A & D Oint) 1 applic QID TOPIC 12/12/17 13:00 01/11/18 12:59 12/13/17 10:51 FER MORTON December 13, 2017 12:52"
[2017-12-13] MEDS: D5 1/2NS w/KCl 20mEq 1,000 ML IV SCH (13:40)
[2017-12-13 16:05] VITALS: BP 103/65
[2017-12-13] MEDS: cefTRIAXone 2 GM in D5W 110 ML IVPB SCH (19:29)
[2017-12-13 20:00] VITALS: BP 125/64
--- NOTE | 2017-12-13 20:50 | General Progress Note ---
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 - osteomyelitis Recommendations continue TF consider surgical consult for closure of fistula follow lab and exam await amputation Subjective Allergies: Coded Allergies: AMOXICILLIN (Verified Allergy, Mild, 06/21/09) ASPIRIN (Verified Allergy, Mild, 06/21/09) SALICYLATES (Verified Allergy, Mild, 06/21/09) PENICILLINS (Unverified Allergy, Unknown, 11/18/17) Subjective above noted No events overnight amputation planned for next week Objective Last 24 Hour Vital Signs Date Time Temp Pulse Resp B/P (MAP) Pulse Ox O2 Delivery O2 Flow Rate FiO2 12/13/17 16:05 97.3 86 17 103/65 97 Nasal Cannula 2.0 97.3 12/13/17 14:42 97.9 12/13/17 13:43 97.9 12/13/17 12:00 97.9 77 18 119/59 96 Nasal Cannula 2.0 97.9 12/13/17 10:51 92 138/67 12/13/17 10:51 92 138/67 12/13/17 08:00 97.8 92 17 138/67 96 Nasal Cannula 2.0 97.8 12/13/17 04:00 100 Nasal Cannula 3.0 12/13/17 04:00 97.5 85 18 122/61 100 97.5 12/13/17 00:00 100 Nasal Cannula 3.0 12/13/17 00:00 97.5 78 18 118/57 100 97.5 12/12/17 21:30 89 115/63 Intake and Output 12/12/17 12/13/17 19:00 07:00 Intake Total 916.667 ml 1503.334 ml Balance 916.667 ml 1503.334 ml Free Water 100 ml 50 ml IV Total 416.667 ml 1103.334 ml Tube Feeding 400 ml 350 ml # Voids 4 # Bowel Movements 2 2 Laboratory Tests 12/13/17 14:00: Vancomycin Level Trough 22.2H Height (Feet): 4 Height (Inches): 0.00 Weight (Pounds): 100 Objective Thin woman NCAT CTA RRR abd soft, (+) GT , (+) small fistula at GI site proximity (++) contracture deformities Khorrami,Payman MD December 13, 2017 20:50
[2017-12-13] MEDS: Dyna-Hex 2% Top Sol 2oz TOPIC SCH (21:21)
[2017-12-13] MEDS: Vancomycin 500mg/D5W 110ml IVPB SCH ×2 (22:47)
[2017-12-14] VITALS: BP 112/57
[2017-12-14 04:00] VITALS: BP 115/60
[2017-12-14] MEDS: Norco 5mg/325mg tab ORAL SCH ×3 (05:48→20:55)
--- NOTE | 2017-12-14 07:52 | General Progress Note ---
Assessment/Plan Problem List: (1) Hypokalemia ICD Codes: E87.6 - Hypokalemia SNOMED: 28041314 (2) Functional quadriplegia ICD Codes: R53.2 - Functional quadriplegia SNOMED: 719522734596446 (3) Malnutrition of moderate degree ICD Codes: E44.0 - Moderate protein-calorie malnutrition SNOMED: 724508776 (4) Osteomyelitis ICD Codes: M86.9 - Osteomyelitis, unspecified SNOMED: 08561504 Qualifiers: Qualified Codes: M86.9 - Osteomyelitis, unspecified (5) Gastrostomy tube dysfunction ICD Codes: K94.23 - Gastrostomy malfunction SNOMED: 925011884 (6) Respiratory failure ICD Codes: J96.90 - Respiratory failure, unspecified, unspecified whether with hypoxia or hypercapnia SNOMED: 514863910 (7) Pneumonia ICD Codes: J18.9 - Pneumonia, unspecified organism SNOMED: 037255401 (8) Pleural effusion ICD Codes: J90 - Pleural effusion, not elsewhere classified SNOMED: 13936000 Assessment/Plan iv abx ivf wean fio2 resp rx monitor abg monitor lytes wound care possible amputation when stabilized- ?thursday Subjective ROS Limited/Unobtainable: Yes Constitutional: Reports: malaise, weakness HEENT: Reports: no symptoms Cardiovascular: Reports: no symptoms Respiratory: Reports: shortness of breath Gastrointestinal/Abdominal: Reports: difficulty swallowing Genitourinary: Reports: no symptoms Neurologic/Psychiatric: Reports: pre-existing deficit Endocrine: Reports: no symptoms Hematologic/Lymphatic: Reports: no symptoms Allergies: Coded Allergies: AMOXICILLIN (Verified Allergy, Mild, 06/21/09) ASPIRIN (Verified Allergy, Mild, 06/21/09) SALICYLATES (Verified Allergy, Mild, 06/21/09) PENICILLINS (Unverified Allergy, Unknown, 11/18/17) All Systems: reviewed and negative except above Subjective no events. no distress, on o2 nasal cannula. sats 100%. poorly responsive. awake though. labs pending. overall improved Objective Last 24 Hour Vital Signs Date Time Temp Pulse Resp B/P (MAP) Pulse Ox O2 Delivery O2 Flow Rate FiO2 12/14/17 04:00 98.3 86 18 115/60 100 98.3 12/14/17 00:00 100 Nasal Cannula 2.0 12/14/17 00:00 98.4 76 18 112/57 100 98.4 12/13/17 21:12 86 125/64 12/13/17 20:00 100 Nasal Cannula 2.0 12/13/17 20:00 98.5 86 18 125/64 100 98.5 12/13/17 19:39 94 Nasal Cannula 3.0 32 12/13/17 19:39 Nasal Cannula 3.0 32 12/13/17 16:05 97.3 86 17 103/65 97 Nasal Cannula 2.0 97.3 12/13/17 14:42 97.9 12/13/17 13:43 97.9 12/13/17 12:00 97.9 77 18 119/59 96 Nasal Cannula 2.0 97.9 12/13/17 10:51 92 138/67 12/13/17 10:51 92 138/67 12/13/17 08:00 97.8 92 17 138/67 96 Nasal Cannula 2.0 97.8 Intake and Output 12/13/17 12/14/17 19:00 07:00 Intake Total 550 ml 1080 ml Balance 550 ml 1080 ml Free Water 50 ml 50 ml IV Total 450 ml 680 ml Tube Feeding 50 ml 350 ml # Voids 4 3 # Bowel Movements 1 2 Laboratory Tests 12/13/17 14:00: Vancomycin Level Trough 22.2H 12/14/17 05:35: Blood Urea Nitrogen [Pending], Creatinine [Pending], Estimat Glomerular Filtration Rate [Pending] Height (Feet): 4 Height (Inches): 0.00 Weight (Pounds): 100 Objective General Appearance: WD/WN, lethargic, confused Neck: supple Cardiovascular: normal peripheral pulses, tachycardia Respiratory/Chest: crackles/rales, rhonchi - bilaterally Abdomen: normal bowel sounds, non tender, soft, no organomegaly Edema: no edema noted Arm (L), no edema noted Arm (R), no edema noted Leg (L), no edema noted Leg (R), no edema noted Pedal (L), no edema noted Pedal (R), no edema noted Generalized Neurologic: disoriented, unresponsive, aphasia CAROL SMITH December 14, 2017 07:52
[2017-12-14 07:58] LABS: BLOOD UREA NITROGEN 9 mg/dL (7-18); CREATININE 0.5 MG/DL (0.55-1.30)
[2017-12-14 08:00] VITALS: BP 126/54
[2017-12-14] MEDS: Vancomycin 500mg/D5W 110ml IVPB SCH ×4 (08:05→21:15)
[2017-12-14 08:18] LABS: BASOPHILS % (AUTO) 0.7 % (0.0-2.0); EOSINOPHILS % (AUTO) 2.1 % (0.0-3.0); HEMATOCRIT 29.9 % (37.0-47.0); HEMOGLOBIN 9.8 G/DL (12.0-16.0); LYMPHOCYTES % (AUTO) 24.9 % (20.0-45.0); MEAN CORPUSCULAR VOLUME 92 FL (80-99); MONOCYTES % (AUTO) 3.8 % (1.0-10.0); NEUTROPHILS % (AUTO) 68.5 % (45.0-75.0); PLATELET COUNT 270 K/UL (150-450); RED BLOOD COUNT 3.26 M/UL (4.20-5.40); RED CELL DISTRIBUTION WIDTH 14.3 % (11.6-14.8); WHITE BLOOD COUNT 7.3 K/UL (4.8-10.8)
[2017-12-14 08:19] LABS: ALANINE AMINOTRANSFERASE 46 U/L (12-78); ALBUMIN 2.1 G/DL (3.4-5.0); ALBUMIN/GLOBULIN RATIO 0.4 (1.0-2.7); ALKALINE PHOSPHATASE 107 U/L (46-116); ANION GAP 6 mmol/L (5-15); ASPARTATE AMINO TRANSFERASE 60 U/L (15-37); BILIRUBIN,TOTAL 0.3 MG/DL (0.2-1.0); BLOOD UREA NITROGEN 10 mg/dL (7-18); CALCIUM 8.3 MG/DL (8.5-10.1); CARBON DIOXIDE 29 MMOL/L (21-32); CHLORIDE 99 MMOL/L (98-107); CREATININE 0.5 MG/DL (0.55-1.30); POTASSIUM 4.7 MMOL/L (3.5-5.1); SODIUM 134 MMOL/L (136-145)
--- NOTE | 2017-12-14 08:25 | Pulmonology Progress Note ---
Assessment/Plan Assessment/Plan IMPRESSION: 1. Evidence of pneumonia, with effusion 2. G-tube, possible fistulous tract. 3. Left heel osteomyelitis. 4. Toxic metabolic encephalopathy. 5. Significant contractures. 6. History of CVA. 7. History of dysphagia. PLAN care noted amputation planned respiratory care follow up cxr CT reviewed oxygen antibiotics noted monitor clinically DNR treat conservatively and consider tap all reviewed in detail; prognosis poor impression, plan, and exam edited and reviewed in detail care discussed with RN Subjective ROS Limited/Unobtainable: Yes Allergies: Coded Allergies: AMOXICILLIN (Verified Allergy, Mild, 06/21/09) ASPIRIN (Verified Allergy, Mild, 06/21/09) SALICYLATES (Verified Allergy, Mild, 06/21/09) PENICILLINS (Unverified Allergy, Unknown, 11/18/17) Subjective care reviewed wbc and labs noted amputation planned Objective Last 24 Hour Vital Signs Date Time Temp Pulse Resp B/P (MAP) Pulse Ox O2 Delivery O2 Flow Rate FiO2 12/14/17 04:00 98.3 86 18 115/60 100 98.3 12/14/17 00:00 100 Nasal Cannula 2.0 12/14/17 00:00 98.4 76 18 112/57 100 98.4 12/13/17 21:12 86 125/64 12/13/17 20:00 100 Nasal Cannula 2.0 12/13/17 20:00 98.5 86 18 125/64 100 98.5 12/13/17 19:39 94 Nasal Cannula 3.0 32 12/13/17 19:39 Nasal Cannula 3.0 32 12/13/17 16:05 97.3 86 17 103/65 97 Nasal Cannula 2.0 97.3 12/13/17 14:42 97.9 12/13/17 13:43 97.9 12/13/17 12:00 97.9 77 18 119/59 96 Nasal Cannula 2.0 97.9 12/13/17 10:51 92 138/67 12/13/17 10:51 92 138/67 Intake and Output 12/13/17 12/14/17 19:00 07:00 Intake Total 550 ml 1080 ml Balance 550 ml 1080 ml Free Water 50 ml 50 ml IV Total 450 ml 680 ml Tube Feeding 50 ml 350 ml # Voids 4 3 # Bowel Movements 1 2 Objective WDWN NAD reduced breath sounds R>L with rhonchi minimal [id number] without MRG NABS nontender no HSM no CCE weak with reduced LOC Microbiology Date/Time Source Procedure Growth Status 12/12/17 02:10 Sputum Induced Gram Stain - Final Resulted 12/12/17 02:10 Sputum Culture - Preliminary Staphylococcus Aureus Usual Respiratory Sophie Resulted Laboratory Tests 12/13/17 14:00: Vancomycin Level Trough 22.2H 12/14/17 05:35: White Blood Count [Pending], Red Blood Count [Pending], Hemoglobin [Pending], Hematocrit [Pending], Mean Corpuscular Volume [Pending], Mean Corpuscular Hemoglobin [Pending], Mean Corpuscular Hemoglobin Concent [Pending], Red Cell Distribution Width [Pending], Platelet Count [Pending], Mean Platelet Volume [ Pending], Neutrophils (%) (Auto) [Pending], Lymphocytes (%) (Auto) [Pending], Monocytes (%) (Auto) [Pending], Eosinophils (%) (Auto) [Pending], Basophils (%) (Auto) [Pending], Sodium Level 134L, Potassium Level 4.7, Chloride Level 99, Carbon Dioxide Level 29, Anion Gap 6, Blood Urea Nitrogen 10, Creatinine 0.5L, Estimat Glomerular Filtration Rate , Glucose Level 105, Calcium Level 8.3L, Total Bilirubin 0.3, Aspartate Amino Transf (AST/SGOT) 60H, Alanine Aminotransferase (ALT/SGPT) 46, Alkaline Phosphatase 107, Total Protein 7.5, Albumin 2.1L, Globulin 5.4, Albumin/Globulin Ratio 0.4L Current Medications Medications (Trade) Dose Ordered Sig/Satish Route PRN Reason Start Time Stop Time Status Last Admin Dose Admin Acetaminophen (Tylenol) 500 mg Q4H PRN ORAL Mild Pain/Temp > 100.5 12/11/17 22:00 01/10/18 21:59 Acetaminophen (Tylenol) 650 mg Q4H PRN ORAL Mild Pain/Temp > 100.5 12/07/17 09:30 01/06/18 09:29 12/08/17 18:11 Acetaminophen/ Hydrocodone Bitart ([place] 5/325) 1 tab EVERY 8 HOURS ORAL 12/11/17 22:00 12/18/17 21:59 12/14/17 05:48 Amlodipine Besylate (Norvasc) 5 mg DAILY GT 12/09/17 09:00 01/08/18 08:59 12/13/17 10:51 Ceftriaxone Sodium 2 gm/ Dextrose 110 ml @ 220 mls/hr Q24H IVPB 12/10/17 20:00 12/16/17 23:59 12/13/17 19:29 Chlorhexidine Gluconate (Mireya-Hex 2%) 1 applic DAILY@2000 TOPIC 12/03/17 20:00 01/02/18 19:59 12/13/17 21:21 Dextrose (Dextrose 50%) 25 ml STAT PRN IV Hypoglycemia 11/30/17 17:30 12/30/17 17:29 Dextrose (Dextrose 50%) 50 ml STAT PRN IV Hypoglycemia 11/30/17 17:30 12/30/17 17:29 Dextrose/ Electrolytes 1,000 ml @ 50 mls/hr Q20H IV 12/12/17 01:30 01/11/18 01:29 12/13/17 13:40 Famotidine (Pepcid) 20 mg BID GT 11/30/17 18:00 12/30/17 17:59 12/13/17 18:31 Fluconazole (Diflucan) 100 mg DAILY ORAL 12/09/17 12:00 12/16/17 23:59 12/13/17 10:51 Heparin Sodium (Porcine) (Heparin 5000 units/ml) 5,000 units EVERY 12 HOURS SUBQ 12/05/17 21:00 01/04/18 20:59 12/13/17 21:14 Metoprolol Tartrate (Lopressor) 25 mg Q12HR GT 11/30/17 21:00 12/30/17 20:59 12/13/17 21:12 Vancomycin HCl (Vanco rx to dose) 1 ea DAILY PRN MISC Per rx protocol 11/30/17 17:30 12/30/17 17:29 Vancomycin HCl 500 mg/Dextrose 110 ml @ 110 mls/hr Q12H IVPB 12/13/17 20:00 12/16/17 23:59 12/14/17 08:05 Vitamin A/Vitamin D (A & D Oint) 1 applic QID TOPIC 12/12/17 13:00 01/11/18 12:59 12/13/17 21:14 Raj Reyes MD December 14, 2017 08:25
[2017-12-14] MEDS: Fluconazole 100mg tab ORAL SCH (08:41)
[2017-12-14] MEDS: Metoprolol 25mg tab GT SCH ×2 (08:41→20:55)
[2017-12-14] MEDS: Heparin 5000 units/ml inj SUBQ SCH ×2 (08:42→20:57)
--- NOTE | 2017-12-14 09:54 | General Progress Note ---
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 - osteomyelitis Recommendations continue TF consider surgical consult for closure of fistula follow lab and exam await amputation Subjective Allergies: Coded Allergies: AMOXICILLIN (Verified Allergy, Mild, 06/21/09) ASPIRIN (Verified Allergy, Mild, 06/21/09) SALICYLATES (Verified Allergy, Mild, 06/21/09) PENICILLINS (Unverified Allergy, Unknown, 11/18/17) Subjective above noted No events overnight d/w RN some GT site leak noted amputation planned for next week Objective Last 24 Hour Vital Signs Date Time Temp Pulse Resp B/P (MAP) Pulse Ox O2 Delivery O2 Flow Rate FiO2 12/14/17 08:41 87 126/54 12/14/17 08:40 87 126/54 12/14/17 04:00 98.3 86 18 115/60 100 98.3 12/14/17 00:00 100 Nasal Cannula 2.0 12/14/17 00:00 98.4 76 18 112/57 100 98.4 12/13/17 21:12 86 125/64 12/13/17 20:00 100 Nasal Cannula 2.0 12/13/17 20:00 98.5 86 18 125/64 100 98.5 12/13/17 19:39 94 Nasal Cannula 3.0 32 12/13/17 19:39 Nasal Cannula 3.0 32 12/13/17 16:05 97.3 86 17 103/65 97 Nasal Cannula 2.0 97.3 12/13/17 14:42 97.9 12/13/17 13:43 97.9 12/13/17 12:00 97.9 77 18 119/59 96 Nasal Cannula 2.0 97.9 12/13/17 10:51 92 138/67 12/13/17 10:51 92 138/67 Intake and Output 12/13/17 12/14/17 19:00 07:00 Intake Total 550 ml 1080 ml Balance 550 ml 1080 ml Free Water 50 ml 50 ml IV Total 450 ml 680 ml Tube Feeding 50 ml 350 ml # Voids 4 3 # Bowel Movements 1 2 Laboratory Tests 12/13/17 14:00: Vancomycin Level Trough 22.2H 12/14/17 05:35: White Blood Count 7.3, Red Blood Count 3.26L, Hemoglobin 9.8L, Hematocrit 29.9L , Mean Corpuscular Volume 92, Mean Corpuscular Hemoglobin 30.0, Mean Corpuscular Hemoglobin Concent 32.7, Red Cell Distribution Width 14.3, Platelet Count 270, Mean Platelet Volume 5.6L, Neutrophils (%) (Auto) 68.5, Lymphocytes ( %) (Auto) 24.9, Monocytes (%) (Auto) 3.8, Eosinophils (%) (Auto) 2.1, Basophils (%) (Auto) 0.7, Sodium Level 134L, Potassium Level 4.7, Chloride Level 99, Carbon Dioxide Level 29, Anion Gap 6, Blood Urea Nitrogen 10, Creatinine 0.5L, Estimat Glomerular Filtration Rate , Glucose Level 105, Calcium Level 8.3L, Total Bilirubin 0.3, Aspartate Amino Transf (AST/SGOT) 60H, Alanine Aminotransferase (ALT/SGPT) 46, Alkaline Phosphatase 107, Total Protein 7.5, Albumin 2.1L, Globulin 5.4, Albumin/Globulin Ratio 0.4L Height (Feet): 4 Height (Inches): 0.00 Weight (Pounds): 100 Objective Thin woman NCAT CTA RRR abd soft, (+) GT , (+) small fistula at GI site proximity (++) contracture deformities Alex Rojas MD December 14, 2017 09:54
[2017-12-14] MEDS: Vitamin A&D Oint 2oz Tube TOPIC SCH ×4 (10:08→20:59)
[2017-12-14 12:00] VITALS: BP 115/66
[2017-12-14] MEDS: D5 1/2NS w/KCl 20mEq 1,000 ML IV SCH (12:46)
--- NOTE | 2017-12-14 12:47 | Infectious Diseases Prog Note ---
"Assessment/Plan Assessment/Plan A 1. 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 DM 3. hypertension 4. CVA P 1. continue iv vancomycin, ceftriaxone 2. will have left AKA, after being stable Subjective ROS Limited/Unobtainable: Yes Allergies: Coded Allergies: AMOXICILLIN (Verified Allergy, Mild, 06/21/09) ASPIRIN (Verified Allergy, Mild, 06/21/09) SALICYLATES (Verified Allergy, Mild, 06/21/09) PENICILLINS (Unverified Allergy, Unknown, 11/18/17) Objective Vital Signs Last 24 Hour Vital Signs Date Time Temp Pulse Resp B/P (MAP) Pulse Ox O2 Delivery O2 Flow Rate FiO2 12/14/17 08:41 87 126/54 12/14/17 08:40 87 126/54 12/14/17 08:00 97.9 87 20 126/54 100 Nasal Cannula 2.0 97.9 12/14/17 07:47 Nasal Cannula 3.0 32 12/14/17 07:47 94 Nasal Cannula 3.0 32 12/14/17 04:00 98.3 86 18 115/60 100 98.3 12/14/17 00:00 100 Nasal Cannula 2.0 12/14/17 00:00 98.4 76 18 112/57 100 98.4 12/13/17 21:12 86 125/64 12/13/17 20:00 100 Nasal Cannula 2.0 12/13/17 20:00 98.5 86 18 125/64 100 98.5 12/13/17 19:39 94 Nasal Cannula 3.0 32 12/13/17 19:39 Nasal Cannula 3.0 32 12/13/17 16:05 97.3 86 17 103/65 97 Nasal Cannula 2.0 97.3 12/13/17 14:42 97.9 12/13/17 13:43 97.9 Height (Feet): 4 Height (Inches): 0.00 Weight (Pounds): 100 General Appearance: no acute distress HEENT: mucous membranes moist Respiratory/Chest: lungs clear Cardiovascular: normal rate, other - left arm PICC line Abdomen: soft, non tender, other - GT feeding Skin: ulcers, other - left heel Neurologic/Psychiatric: aphasia Microbiology Date/Time Source Procedure Growth Status 12/12/17 02:10 Sputum Induced Gram Stain - Final Resulted 12/12/17 02:10 Sputum Culture - Preliminary Staphylococcus Aureus Usual Respiratory Sophie Resulted Laboratory Tests Test 12/13/17 14:00 12/14/17 05:35 Vancomycin Level Trough 22.2 ug/mL (5.0-12.0) H White Blood Count 7.3 K/UL (4.8-10.8) Red Blood Count 3.26 M/UL (4.20-5.40) L Hemoglobin 9.8 G/DL (12.0-16.0) L Hematocrit 29.9 % (37.0-47.0) L Mean Corpuscular Volume 92 FL (80-99) Mean Corpuscular Hemoglobin 30.0 PG (27.0-31.0) Mean Corpuscular Hemoglobin Concent 32.7 G/DL (32.0-36.0) Red Cell Distribution Width 14.3 % (11.6-14.8) Platelet Count 270 K/UL (150-450) Mean Platelet Volume 5.6 FL (6.5-10.1) L Neutrophils (%) (Auto) 68.5 % (45.0-75.0) Lymphocytes (%) (Auto) 24.9 % (20.0-45.0) Monocytes (%) (Auto) 3.8 % (1.0-10.0) Eosinophils (%) (Auto) 2.1 % (0.0-3.0) Basophils (%) (Auto) 0.7 % (0.0-2.0) Sodium Level 134 MMOL/L (136-145) L Potassium Level 4.7 MMOL/L (3.5-5.1) Chloride Level 99 MMOL/L (98-107) Carbon Dioxide Level 29 MMOL/L (21-32) Anion Gap 6 mmol/L (5-15) Blood Urea Nitrogen 10 mg/dL (7-18) Creatinine 0.5 MG/DL (0.55-1.30) L Estimat Glomerular Filtration Rate mL/min (>60) Glucose Level 105 MG/DL (74-106) Calcium Level 8.3 MG/DL (8.5-10.1) L Total Bilirubin 0.3 MG/DL (0.2-1.0) Aspartate Amino Transf (AST/SGOT) 60 U/L (15-37) H Alanine Aminotransferase (ALT/SGPT) 46 U/L (12-78) Alkaline Phosphatase 107 U/L (46-116) Total Protein 7.5 G/DL (6.4-8.2) Albumin 2.1 G/DL (3.4-5.0) L Globulin 5.4 g/dL Albumin/Globulin Ratio 0.4 (1.0-2.7) L Current Medications Medications (Trade) Dose Ordered Sig/Satish Route PRN Reason Start Time Stop Time Status Last Admin Dose Admin Acetaminophen (Tylenol) 500 mg Q4H PRN ORAL Mild Pain/Temp > 100.5 12/11/17 22:00 01/10/18 21:59 Acetaminophen (Tylenol) 650 mg Q4H PRN ORAL Mild Pain/Temp > 100.5 12/07/17 09:30 01/06/18 09:29 12/08/17 18:11 Acetaminophen/ Hydrocodone Bitart ([place] 5/325) 1 tab EVERY 8 HOURS ORAL 12/11/17 22:00 12/18/17 21:59 12/14/17 05:48 Amlodipine Besylate (Norvasc) 5 mg DAILY GT 12/09/17 09:00 01/08/18 08:59 12/14/17 08:40 Ceftriaxone Sodium 2 gm/ Dextrose 110 ml @ 220 mls/hr Q24H IVPB 12/10/17 20:00 12/16/17 23:59 12/13/17 19:29 Chlorhexidine Gluconate (Mireya-Hex 2%) 1 applic DAILY@2000 TOPIC 12/03/17 20:00 01/02/18 19:59 12/13/17 21:21 Dextrose (Dextrose 50%) 25 ml STAT PRN IV Hypoglycemia 11/30/17 17:30 12/30/17 17:29 Dextrose (Dextrose 50%) 50 ml STAT PRN IV Hypoglycemia 11/30/17 17:30 12/30/17 17:29 Dextrose/ Electrolytes 1,000 ml @ 50 mls/hr Q20H IV 12/12/17 01:30 01/11/18 01:29 12/13/17 13:40 Famotidine (Pepcid) 20 mg BID GT 11/30/17 18:00 12/30/17 17:59 12/14/17 08:41 Fluconazole (Diflucan) 100 mg DAILY ORAL 12/09/17 12:00 12/16/17 23:59 12/14/17 08:41 Heparin Sodium (Porcine) (Heparin 5000 units/ml) 5,000 units EVERY 12 HOURS SUBQ 12/05/17 21:00 01/04/18 20:59 12/14/17 08:42 Metoprolol Tartrate (Lopressor) 25 mg Q12HR GT 11/30/17 21:00 12/30/17 20:59 12/14/17 08:41 Vancomycin HCl (Vanco rx to dose) 1 ea DAILY PRN MISC Per rx protocol 11/30/17 17:30 12/30/17 17:29 Vancomycin HCl 500 mg/Dextrose 110 ml @ 110 mls/hr Q12H IVPB 12/13/17 20:00 12/16/17 23:59 12/14/17 08:05 Vitamin A/Vitamin D (A & D Oint) 1 applic QID TOPIC 12/12/17 13:00 01/11/18 12:59 12/14/17 10:08 FER MORTON December 14, 2017 12:47"
[2017-12-14] MEDS ORDERED: Lidocaine 1% Plain 30 ml INJ PRN (13:45)
[2017-12-14] MEDS ORDERED: Heparin 2000 units/Ns 1000ml INJ PRN (13:45)
[2017-12-14 16:00] VITALS: BP 123/61
[2017-12-14 20:00] VITALS: BP 125/60
[2017-12-14] MEDS: Dyna-Hex 2% Top Sol 2oz TOPIC SCH (20:54)
[2017-12-14] MEDS: cefTRIAXone 2 GM in D5W 110 ML IVPB SCH (20:59)
[2017-12-15] VITALS: BP 121/58
--- NOTE | 2017-12-15 00:15 | Progress Note ---
DATE: 12/12/2017 CARDIOLOGY PROGRESS NOTE SUBJECTIVE: The patient remains congested with hypoxia and shortness of breath, on high-flow oxygen mask. She is poorly responsive. OBJECTIVE: VITAL SIGNS: Blood pressure 127/55, pulse 84, respiratory rate 24, and now afebrile. LUNGS: Bilateral breath sounds with rhonchi at the right. HEART: Regular rhythm and rate. Normal S1 and S2 with a fourth heart sound. ABDOMEN: Soft. G-tube intact. No leaking, but entry site slight erythema. EXTREMITIES: With contractures. Left heel has dressing in place. LABORATORY AND DIAGNOSTIC DATA: White count 6.5 and hemoglobin 8.6. Potassium 3, BUN 7 and creatinine 0.5. IMPRESSION: 1. Pneumonia with effusion, likely aspiration, healthcare-acquired. 2. Osteomyelitis left heel. 3. Hypokalemia. 4. Advanced dementia. 5. Hypertensive heart disease. 6. Severe protein-calorie malnutrition. PLAN: 1. Antimicrobials. 2. Respiratory hygiene. 3. Bronchodilators. 4. Oxygenation. 5. Consider thoracentesis. 6. Replace potassium. 7. Defer surgical amputation of left lower extremity until pulmonary parameters stabilize. 8. DVT prophylaxis. 9. Hold parameters for antihypertensives in place. Tyrell Underwood M.D. DR: NATASHA JOB#: [id number] CC:
--- NOTE | 2017-12-15 00:30 | Progress Note ---
DATE: 12/14/2017 CARDIOLOGY PROGRESS NOTE SUBJECTIVE: Less congestion and shortness of breath. Remains with oxygen requirements, secretions low. OBJECTIVE: VITAL SIGNS: Blood pressure 125/60, pulse 81, and respiratory rate 17. LUNGS: Few rhonchi at the right. HEART: Regular rhythm and rate. Normal S1 and S2. ABDOMEN: Soft. EXTREMITIES: No edema. Left heel intact. Severe contractures. LABORATORY DATA: Chest x-ray yesterday revealed right infiltrate and effusion. Sodium 134, potassium 4.7, bicarb 29, BUN 10, creatinine 0.5, and albumin 2.1. White count is 7.3 and hemoglobin 9.8. IMPRESSION: 1. Healthcare-acquired and aspiration pneumonia, right base with pleural effusion, slightly improved. 2. Sepsis, recovering. 3. Left heel osteomyelitis. 4. Severe peripheral artery disease. 5. Ischemic and hypertensive cardiomyopathy with no signs of acute congestive heart failure. 6. Anemia of chronic disease. 7. Cerebrovascular disease with severe contractures. 8. Severe protein calorie malnutrition. 9. Dysphagia with G-tube. 10. Remains high risk. PLAN: 1. Continue antibiotics, respiratory hygiene, thoracentesis unless persistently hypoxic and in respiratory distress. 2. Oxygen supplementation. 3. DVT prophylaxis. 4. Skin care. 5. Replace electrolytes as needed. 6. Titrate antihypertensives and insulin coverage by sliding scale. 7. Reschedule amputation of left lower extremity in the next 24 to 48 hours if continued clinical progress. Tyrell Underwood M.D. DR: RADHIKA JOB#: [id number] CC:
[2017-12-15 04:00] VITALS: BP 112/58
[2017-12-15] MEDS: Norco 5mg/325mg tab ORAL SCH ×3 (05:38→21:49)
--- NOTE | 2017-12-15 07:55 | General Progress Note ---
Assessment/Plan Problem List: (1) Hypokalemia ICD Codes: E87.6 - Hypokalemia SNOMED: 57290494 (2) Functional quadriplegia ICD Codes: R53.2 - Functional quadriplegia SNOMED: 449195396539783 (3) Malnutrition of moderate degree ICD Codes: E44.0 - Moderate protein-calorie malnutrition SNOMED: 845290850 (4) Osteomyelitis ICD Codes: M86.9 - Osteomyelitis, unspecified SNOMED: 44835092 Qualifiers: Qualified Codes: M86.9 - Osteomyelitis, unspecified (5) Gastrostomy tube dysfunction ICD Codes: K94.23 - Gastrostomy malfunction SNOMED: 552317061 (6) Respiratory failure ICD Codes: J96.90 - Respiratory failure, unspecified, unspecified whether with hypoxia or hypercapnia SNOMED: 280173185 (7) Pneumonia ICD Codes: J18.9 - Pneumonia, unspecified organism SNOMED: 463922730 (8) Pleural effusion ICD Codes: J90 - Pleural effusion, not elsewhere classified SNOMED: 88546896 Status: stable Assessment/Plan iv abx ivf wean fio2 resp rx monitor abg monitor lytes wound care amputation to be scheduled by vascular Subjective Allergies: Coded Allergies: AMOXICILLIN (Verified Allergy, Mild, 06/21/09) ASPIRIN (Verified Allergy, Mild, 06/21/09) SALICYLATES (Verified Allergy, Mild, 06/21/09) PENICILLINS (Unverified Allergy, Unknown, 11/18/17) Subjective no events. no distress, on o2 nasal cannula. sats 100%. poorly responsive. awake but nonverbal. Objective Last 24 Hour Vital Signs Date Time Temp Pulse Resp B/P (MAP) Pulse Ox O2 Delivery O2 Flow Rate FiO2 12/15/17 04:00 97.5 84 17 112/58 99 97.5 12/15/17 04:00 99 Nasal Cannula 2.0 12/15/17 00:00 97.8 77 18 121/58 100 97.8 12/14/17 20:55 81 125/60 12/14/17 20:00 97.6 81 17 125/60 100 97.6 12/14/17 20:00 100 Nasal Cannula 2.0 12/14/17 16:00 98.0 85 20 123/61 100 Nasal Cannula 2.0 98.0 12/14/17 12:00 97.7 90 20 115/66 99 Nasal Cannula 2.0 97.7 12/14/17 08:41 87 126/54 12/14/17 08:40 87 126/54 12/14/17 08:00 97.9 87 20 126/54 100 Nasal Cannula 2.0 97.9 Intake and Output 12/14/17 12/15/17 19:00 07:00 Intake Total 760 ml 1430 ml Balance 760 ml 1430 ml Free Water 50 ml 50 ml IV Total 660 ml 880 ml Tube Feeding 50 ml 500 ml # Voids 5 Height (Feet): 4 Height (Inches): 0.00 Weight (Pounds): 100 Objective General Appearance: WD/WN, lethargic, confused Neck: supple Cardiovascular: normal peripheral pulses, tachycardia Respiratory/Chest: crackles/rales, rhonchi - bilaterally Abdomen: normal bowel sounds, non tender, soft, no organomegaly Edema: no edema noted Arm (L), no edema noted Arm (R), no edema noted Leg (L), no edema noted Leg (R), no edema noted Pedal (L), no edema noted Pedal (R), no edema noted Generalized Neurologic: disoriented, unresponsive, aphasia CAROL SMITH December 15, 2017 07:55
[2017-12-15 08:00] VITALS: BP 115/63
[2017-12-15] MEDS: Fluconazole 100mg tab ORAL SCH (09:07)
[2017-12-15] MEDS: Vitamin A&D Oint 2oz Tube TOPIC SCH ×4 (09:07→20:51)
[2017-12-15] MEDS: Metoprolol 25mg tab GT SCH ×3 (09:07→20:50)
[2017-12-15] MEDS: D5 1/2NS w/KCl 20mEq 1,000 ML IV SCH (09:08)
[2017-12-15] MEDS: Heparin 5000 units/ml inj SUBQ SCH ×2 (09:08→20:51)
[2017-12-15] MEDS: Vancomycin 500mg/D5W 110ml IVPB SCH ×4 (09:36→20:00)
--- NOTE | 2017-12-15 10:15 | Cardiology Report ---
APPROVED REPORT EXAM: Two-dimensional and M-mode echocardiogram with Doppler and color Doppler. INDICATION Congestive Heart Failure M-Mode DIMENSIONS IVSd1.4 (0.7-1.1cm)Left Atrium (MM)3.2 (1.6-4.0cm) LVDd3.3 (3.5-5.6cm)Aortic Root3.2 (2.0-3.7cm) PWd1.4 (0.7-1.1cm)Aortic Cusp Exc.1.6 (1.5-2.0cm) LVDs1.7 (2.5-4.0cm) PWs1.7 cm Other Information Technically limited study due to pt's position. Normal left ventricular chamber size, systolic function and wall motion. Left ventricular ejection fraction estimated to be 65 %. Mild left ventricular hypertrophy. No evidence of pericardial effusion. Large right pleural effusion. All other cardiac chamber sizes are within normal limits. Focal aortic valve sclerosis with adequate cusp excursion. Thickened mitral valve leaflets with normal excursion. Mitral annulus and aortic root calcification. Normal pulmonic valve structure. Normal tricuspid valve structure. IVC at normal size with physiologic collapse. A color flow and spectral Doppler study was performed and revealed: Mild aortic regurgitation. Trace mitral regurgitation. Mitral diastolic velocities suggest reduced left ventricular relaxation c/w mild LV diastolic dysfunction (Grade I ). Trace tricuspid regurgitation. Tricuspid systolic velocities suggests peak right ventricular systolic pressure of 18 mmHg. Mild pulmonic regurgitation present.
--- NOTE | 2017-12-15 11:34 | Infectious Diseases Prog Note ---
"Assessment/Plan Assessment/Plan antibiotics : vancomycin iv, ceftriaxone, fluconazole A 1. 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 DM 3. hypertension 4. CVA 5. right pleural effusion 6. pneumonia P 1. continue iv vancomycin, ceftriaxone 2. continue fluconazole 3. will follow up cultures 4. amputation planned Subjective ROS Limited/Unobtainable: Yes Allergies: Coded Allergies: AMOXICILLIN (Verified Allergy, Mild, 06/21/09) ASPIRIN (Verified Allergy, Mild, 06/21/09) SALICYLATES (Verified Allergy, Mild, 06/21/09) PENICILLINS (Unverified Allergy, Unknown, 11/18/17) Objective Vital Signs Last 24 Hour Vital Signs Date Time Temp Pulse Resp B/P (MAP) Pulse Ox O2 Delivery O2 Flow Rate FiO2 12/15/17 09:07 85 115/63 12/15/17 09:06 85 115/63 12/15/17 08:00 97.0 85 20 115/63 99 97.0 12/15/17 07:26 94 Nasal Cannula 3.0 32 12/15/17 07:26 Nasal Cannula 3.0 32 12/15/17 04:00 97.5 84 17 112/58 99 97.5 12/15/17 04:00 99 Nasal Cannula 2.0 12/15/17 00:00 97.8 77 18 121/58 100 97.8 12/14/17 20:55 81 125/60 12/14/17 20:00 97.6 81 17 125/60 100 97.6 12/14/17 20:00 100 Nasal Cannula 2.0 12/14/17 16:00 98.0 85 20 123/61 100 Nasal Cannula 2.0 98.0 12/14/17 12:00 97.7 90 20 115/66 99 Nasal Cannula 2.0 97.7 Height (Feet): 4 Height (Inches): 0.00 Weight (Pounds): 100 Respiratory/Chest: lungs clear Cardiovascular: normal rate, regular rhythm, no gallop/murmur Abdomen: soft, non tender, other - GT Extremities: no edema, other - left foot in dressings Laboratory Tests Test 12/15/17 08:30 Vancomycin Level Trough 18.3 ug/mL (5.0-12.0) H Current Medications Medications (Trade) Dose Ordered Sig/Satish Route PRN Reason Start Time Stop Time Status Last Admin Dose Admin Acetaminophen (Tylenol) 500 mg Q4H PRN ORAL Mild Pain/Temp > 100.5 12/11/17 22:00 01/10/18 21:59 Acetaminophen (Tylenol) 650 mg Q4H PRN ORAL Mild Pain/Temp > 100.5 12/07/17 09:30 01/06/18 09:29 12/08/17 18:11 Acetaminophen/ Hydrocodone Bitart ([place] 5/325) 1 tab EVERY 8 HOURS ORAL 12/11/17 22:00 12/18/17 21:59 12/15/17 05:38 Amlodipine Besylate (Norvasc) 5 mg DAILY GT 12/09/17 09:00 01/08/18 08:59 12/15/17 09:06 Ceftriaxone Sodium 2 gm/ Dextrose 110 ml @ 220 mls/hr Q24H IVPB 12/10/17 20:00 12/16/17 23:59 12/14/17 20:59 Chlorhexidine Gluconate (Mireya-Hex 2%) 1 applic DAILY@2000 TOPIC 12/14/17 20:00 01/13/18 19:59 12/14/17 20:54 Dextrose (Dextrose 50%) 25 ml STAT PRN IV Hypoglycemia 11/30/17 17:30 12/30/17 17:29 Dextrose (Dextrose 50%) 50 ml STAT PRN IV Hypoglycemia 11/30/17 17:30 12/30/17 17:29 Dextrose/ Electrolytes 1,000 ml @ 50 mls/hr Q20H IV 12/12/17 01:30 01/11/18 01:29 12/15/17 09:08 Famotidine (Pepcid) 20 mg BID GT 11/30/17 18:00 12/30/17 17:59 12/15/17 09:07 Fluconazole (Diflucan) 100 mg DAILY ORAL 12/09/17 12:00 12/16/17 23:59 12/15/17 09:07 Heparin Sodium (Porcine) (Heparin 5000 units/ml) 5,000 units EVERY 12 HOURS SUBQ 12/05/17 21:00 01/04/18 20:59 12/15/17 09:08 Heparin Sodium/ Sodium Chloride (Heparin 2000 units/Ns 1000ml premix) 2,000 unit ONCE PRN INJ PICC line placement 12/14/17 13:45 12/15/17 23:59 Lidocaine HCl (Xylocaine 1% 30ml) 30 ml ONCE PRN INJ PICC line placement 12/14/17 13:45 12/15/17 23:59 Metoprolol Tartrate (Lopressor) 25 mg Q12HR GT 11/30/17 21:00 12/30/17 20:59 12/15/17 09:07 Vancomycin HCl (Vanco rx to dose) 1 ea DAILY PRN MISC Per rx protocol 11/30/17 17:30 12/30/17 17:29 Vancomycin HCl 500 mg/Dextrose 110 ml @ 110 mls/hr Q12H IVPB 12/13/17 20:00 12/16/17 23:59 12/15/17 09:36 Vitamin A/Vitamin D (A & D Oint) 1 applic QID TOPIC 12/12/17 13:00 01/11/18 12:59 12/15/17 09:07 FELICITAS MUIR December 15, 2017 11:34"
[2017-12-15 12:00] VITALS: BP 119/66
--- NOTE | 2017-12-15 12:04 | Pulmonology Progress Note ---
Assessment/Plan Assessment/Plan IMPRESSION: 1. Evidence of pneumonia, with effusion 2. G-tube, possible fistulous tract. 3. Left heel osteomyelitis. 4. Toxic metabolic encephalopathy. 5. Significant contractures. 6. History of CVA. 7. History of dysphagia. PLAN care noted amputation per surgery respiratory care follow up cxr ordered oxygen needs stable antibiotics noted monitor clinically for change DNR treat conservatively and consider tap pending repeat imaging all reviewed in detail; prognosis poor impression, plan, and exam edited and reviewed in detail care discussed with RN Subjective ROS Limited/Unobtainable: Yes Allergies: Coded Allergies: AMOXICILLIN (Verified Allergy, Mild, 06/21/09) ASPIRIN (Verified Allergy, Mild, 06/21/09) SALICYLATES (Verified Allergy, Mild, 06/21/09) PENICILLINS (Unverified Allergy, Unknown, 11/18/17) Subjective care reviewed wbc and labs noted imaging pending Objective Last 24 Hour Vital Signs Date Time Temp Pulse Resp B/P (MAP) Pulse Ox O2 Delivery O2 Flow Rate FiO2 12/15/17 09:07 85 115/63 12/15/17 09:06 85 115/63 12/15/17 08:00 97.0 85 20 115/63 99 97.0 12/15/17 07:26 94 Nasal Cannula 3.0 32 12/15/17 07:26 Nasal Cannula 3.0 32 12/15/17 04:00 97.5 84 17 112/58 99 97.5 12/15/17 04:00 99 Nasal Cannula 2.0 12/15/17 00:00 97.8 77 18 121/58 100 97.8 12/14/17 20:55 81 125/60 12/14/17 20:00 97.6 81 17 125/60 100 97.6 12/14/17 20:00 100 Nasal Cannula 2.0 12/14/17 16:00 98.0 85 20 123/61 100 Nasal Cannula 2.0 98.0 Intake and Output 12/14/17 12/15/17 19:00 07:00 Intake Total 760 ml 1430 ml Balance 760 ml 1430 ml Free Water 50 ml 50 ml IV Total 660 ml 880 ml Tube Feeding 50 ml 500 ml # Voids 5 Objective WDWN NAD reduced breath sounds R>L with rhonchi minimal [id number] without MRG NABS nontender no HSM no CCE weak with reduced LOC Laboratory Tests 12/15/17 08:30: Vancomycin Level Trough 18.3H Current Medications Medications (Trade) Dose Ordered Sig/Satish Route PRN Reason Start Time Stop Time Status Last Admin Dose Admin Acetaminophen (Tylenol) 500 mg Q4H PRN ORAL Mild Pain/Temp > 100.5 12/11/17 22:00 01/10/18 21:59 Acetaminophen (Tylenol) 650 mg Q4H PRN ORAL Mild Pain/Temp > 100.5 12/07/17 09:30 01/06/18 09:29 12/08/17 18:11 Acetaminophen/ Hydrocodone Bitart ([place] 5/325) 1 tab EVERY 8 HOURS ORAL 12/11/17 22:00 12/18/17 21:59 12/15/17 05:38 Amlodipine Besylate (Norvasc) 5 mg DAILY GT 12/09/17 09:00 01/08/18 08:59 12/15/17 09:06 Ceftriaxone Sodium 2 gm/ Dextrose 110 ml @ 220 mls/hr Q24H IVPB 12/15/17 20:00 12/21/17 23:59 Chlorhexidine Gluconate (Mireya-Hex 2%) 1 applic DAILY@2000 TOPIC 12/14/17 20:00 01/13/18 19:59 12/14/17 20:54 Dextrose (Dextrose 50%) 25 ml STAT PRN IV Hypoglycemia 11/30/17 17:30 12/30/17 17:29 Dextrose (Dextrose 50%) 50 ml STAT PRN IV Hypoglycemia 11/30/17 17:30 12/30/17 17:29 Dextrose/ Electrolytes 1,000 ml @ 50 mls/hr Q20H IV 12/12/17 01:30 01/11/18 01:29 12/15/17 09:08 Famotidine (Pepcid) 20 mg BID GT 11/30/17 18:00 12/30/17 17:59 12/15/17 09:07 Fluconazole (Diflucan) 100 mg DAILY ORAL 12/16/17 09:00 12/23/17 20:59 Heparin Sodium (Porcine) (Heparin 5000 units/ml) 5,000 units EVERY 12 HOURS SUBQ 12/05/17 21:00 01/04/18 20:59 12/15/17 09:08 Heparin Sodium/ Sodium Chloride (Heparin 2000 units/Ns 1000ml premix) 2,000 unit ONCE PRN INJ PICC line placement 12/14/17 13:45 12/15/17 23:59 Lidocaine HCl (Xylocaine 1% 30ml) 30 ml ONCE PRN INJ PICC line placement 12/14/17 13:45 12/15/17 23:59 Metoprolol Tartrate (Lopressor) 25 mg Q12HR GT 11/30/17 21:00 12/30/17 20:59 12/15/17 09:07 Vancomycin HCl (Vanco rx to dose) 1 ea DAILY PRN MISC Per rx protocol 12/15/17 11:45 01/14/18 11:44 Vancomycin HCl 500 mg/Dextrose 110 ml @ 110 mls/hr Q12H IVPB 12/15/17 20:00 12/18/17 23:59 Vitamin A/Vitamin D (A & D Oint) 1 applic QID TOPIC 12/12/17 13:00 01/11/18 12:59 12/15/17 09:07 Raj Reyes MD December 15, 2017 12:04
--- NOTE | 2017-12-15 14:32 | Consultation ---
History of Present Illness General Date patient seen: December 15, 2017 Chief Complaint: General Complaint Reason for Consultation: g tube site fistula Present Illness HPI 77F with multiple medical comorbidities currently admitted for medical care and management. During admission was noted to have leakage around g tube site. initial work up by astute GI colleague identified a small fistula on the lateral aspect of the g tube site. fistulogram performed and noted fistula to be directly from gastric lumen to skin. surgery called to evaluate. patient seen, chart reviewed, patient examined. Allergies: Coded Allergies: AMOXICILLIN (Verified Allergy, Mild, 06/21/09) ASPIRIN (Verified Allergy, Mild, 06/21/09) SALICYLATES (Verified Allergy, Mild, 06/21/09) PENICILLINS (Unverified Allergy, Unknown, 11/18/17) Medication History Scheduled Amlodipine Besylate (Norvasc), 10 MG GT DAILY, (Reported) Ciprofloxacin Hcl* (Ciprofloxacin Hcl*), 500 MG ORAL EVERY 12 HOURS, (Reported) Doxycycline Hyclate* (Vibramycin*), 100 MG ORAL EVERY 12 HOURS, (Reported) Levofloxacin (Levofloxacin*), 250 MG GT DAILY, (Reported) Metoprolol Tartrate* (Metoprolol Tartrate*), 25 MG GT EVERY 12 HOURS, (Reported) Nitrofurantoin Monohyd/M-Cryst (Nitrofurantoin [place]-Mcr 100 mg), 100 MG ORAL DAILY, (Reported) Omeprazole (Omeprazole), 20 MG GT DAILY, (Reported) Omeprazole (Omeprazole), 20 MG ORAL DAILY, (Reported) Tramadol Hcl (Tramadol Hcl), 50 MG ORAL Q8HR, (Reported) Scheduled PRN Diltiazem Hcl (Diltiazem Hcl), 90 MG PO for For High Blood Pressure, (Reported) Diphenhydramine HCl (Benadryl), 25 MG GT Q6HR PRN for Itching, (Reported) Sennosides (Senna Laxative), 8.8 MG for Constipation, (Reported) Miscellaneous Medications Diltiazem HCl (Diltiazem HCl), 90 MG GT, (Reported) Patient History Limited by: medical condition History Provided By: Medical Record, PMD Healthcare decision maker Resuscitation status Advanced Directive on File Past Medical/Surgical History Past Medical/Surgical History: (1) Functional quadriplegia (2) Malnutrition of moderate degree (3) Osteomyelitis (4) Gastrostomy tube dysfunction (5) Hypokalemia (6) Pleural effusion (7) Respiratory failure (8) Pneumonia Review of Systems ROS Narrative cannot obtain given patients medical condition Physical Exam General Appearance: no apparent distress HEENT: mucous membranes moist Neck: normal inspection Respiratory/Chest: lungs clear, normal breath sounds Cardiovascular/Chest: normal rate Abdomen: normal bowel sounds, soft, no organomegaly, no mass, other - small area of induration and fistula opening noted around lateral g tube site. Skin Exam: warm/dry Neurologic: unresponsiveness Last 24 Hour Vital Signs Date Time Temp Pulse Resp B/P (MAP) Pulse Ox O2 Delivery O2 Flow Rate FiO2 12/15/17 12:00 97.7 87 20 119/66 100 97.7 12/15/17 09:07 85 115/63 12/15/17 09:06 85 115/63 12/15/17 08:00 97.0 85 20 115/63 99 97.0 12/15/17 07:26 94 Nasal Cannula 3.0 32 12/15/17 07:26 Nasal Cannula 3.0 32 12/15/17 04:00 97.5 84 17 112/58 99 97.5 12/15/17 04:00 99 Nasal Cannula 2.0 12/15/17 00:00 97.8 77 18 121/58 100 97.8 12/14/17 20:55 81 125/60 12/14/17 20:00 97.6 81 17 125/60 100 97.6 12/14/17 20:00 100 Nasal Cannula 2.0 12/14/17 16:00 98.0 85 20 123/61 100 Nasal Cannula 2.0 98.0 Intake and Output 12/14/17 12/15/17 19:00 07:00 Intake Total 760 ml 1430 ml Balance 760 ml 1430 ml Free Water 50 ml 50 ml IV Total 660 ml 880 ml Tube Feeding 50 ml 500 ml # Voids 5 Laboratory Tests Test 12/15/17 08:30 Vancomycin Level Trough 18.3 ug/mL (5.0-12.0) H Height (Feet): 4 Height (Inches): 0.00 Weight (Pounds): 100 Medications Current Medications Medications (Trade) Dose Ordered Sig/Satish Route PRN Reason Start Time Stop Time Status Last Admin Dose Admin Acetaminophen (Tylenol) 500 mg Q4H PRN ORAL Mild Pain/Temp > 100.5 12/11/17 22:00 01/10/18 21:59 Acetaminophen (Tylenol) 650 mg Q4H PRN ORAL Mild Pain/Temp > 100.5 12/07/17 09:30 01/06/18 09:29 12/08/17 18:11 Acetaminophen/ Hydrocodone Bitart ([place] 5/325) 1 tab EVERY 8 HOURS ORAL 12/11/17 22:00 12/18/17 21:59 12/15/17 05:38 Amlodipine Besylate (Norvasc) 5 mg DAILY GT 12/09/17 09:00 01/08/18 08:59 12/15/17 09:06 Ceftriaxone Sodium 2 gm/ Dextrose 110 ml @ 220 mls/hr Q24H IVPB 12/15/17 20:00 12/21/17 23:59 Chlorhexidine Gluconate (Mireya-Hex 2%) 1 applic DAILY@2000 TOPIC 12/14/17 20:00 01/13/18 19:59 12/14/17 20:54 Dextrose (Dextrose 50%) 25 ml STAT PRN IV Hypoglycemia 11/30/17 17:30 12/30/17 17:29 Dextrose (Dextrose 50%) 50 ml STAT PRN IV Hypoglycemia 11/30/17 17:30 12/30/17 17:29 Dextrose/ Electrolytes 1,000 ml @ 50 mls/hr Q20H IV 12/12/17 01:30 01/11/18 01:29 12/15/17 09:08 Famotidine (Pepcid) 20 mg BID GT 11/30/17 18:00 12/30/17 17:59 12/15/17 09:07 Fluconazole (Diflucan) 100 mg DAILY ORAL 12/16/17 09:00 12/23/17 20:59 Heparin Sodium (Porcine) (Heparin 5000 units/ml) 5,000 units EVERY 12 HOURS SUBQ 12/05/17 21:00 01/04/18 20:59 12/15/17 09:08 Heparin Sodium/ Sodium Chloride (Heparin 2000 units/Ns 1000ml premix) 2,000 unit ONCE PRN INJ PICC line placement 12/14/17 13:45 12/15/17 23:59 Lidocaine HCl (Xylocaine 1% 30ml) 30 ml ONCE PRN INJ PICC line placement 12/14/17 13:45 12/15/17 23:59 Metoprolol Tartrate (Lopressor) 25 mg Q12HR GT 11/30/17 21:00 12/30/17 20:59 12/15/17 09:07 Vancomycin HCl (Vanco rx to dose) 1 ea DAILY PRN MISC Per rx protocol 12/15/17 11:45 01/14/18 11:44 Vancomycin HCl 500 mg/Dextrose 110 ml @ 110 mls/hr Q12H IVPB 12/15/17 20:00 12/18/17 23:59 Vitamin A/Vitamin D (A & D Oint) 1 applic QID TOPIC 12/12/17 13:00 01/11/18 12:59 12/15/17 09:07 Assessment/Plan Problem List: (1) Gastrostomy tube dysfunction Assessment & Plan: small sandro-g tube fistula identified. leaking of contents noted. no active infection noted but does have some induration. fistulogram identified passage from fistula opening into gastric lumen. currently stable and okay. could revise g tube site would not indicated at this time given small inconsequential fistula. will attempt possible non operative fistula closure with fibrin glue or manipulation of fistula site. for now cont with dressings and care to g tube site. g tube functional and leakage minimal. thank you for this consultation. will follow with you ICD Codes: K94.23 - Gastrostomy malfunction SNOMED: [id number] Status: stable Santana Tolbert December 15, 2017 14:32
--- NOTE | 2017-12-15 15:10 | Diagnostic Imaging Report ---
Indication: long term venous access Findings: After the indications, procedure, risks, complications, and alternatives of the procedure were explained, written informed consent was obtained. The left upper extremity was prepped with alcohol. All elements of maximal sterile barrier technique were followed including usage of a cap, mask, sterile gown, sterile gloves, hand hygiene and a large sterile sheet. Sonographic evaluation of the upper extremity was performed demonstrating a patent and compressible basilic vein. Access was obtained under real-time ultrasound guidance (with utilization of sterile gel and sterile probe cover) and digital image was saved and archived. An .018 wire was introduced. Needle exchanged for a 5 Indonesian peel-away sheath. Measurements were obtained. A 5 Indonesian dual-lumen Power PICC line catheter was cut to 31 cm and introduced over the wire. Peel-away sheath and wire were removed.Catheter was secured to the skin using 2-0 Prolene suture. Both ports aspirate and flush easily. Fluoroscopic images show distal tip in the superior vena cava. Total fluoroscopic time 0.5 minutes Impression: Successful placement of an upper extremity PICC line catheter
[2017-12-15 16:00] VITALS: BP 114/59
--- NOTE | 2017-12-15 16:35 | Anethesia Preoperative Eval ---
Anesthesia Pre-op PMH/ROS General Date of Evaluation: December 15, 2017 Time of Evaluation: 16:29 Anesthesiologist: Ketan ASA Score: ASA 4 Mallampati Score Class I : Soft palate, uvula, fauces, pillars visible Class II: Soft palate, uvula, fauces visible Class III: Soft palate, base of uvula visible Class IV: Only hard plate visible Mallampati Classification: Class III Surgeon: Lisa Diagnosis: L foot gangrene Surgical Procedure: L AKA Anesthesia History: none Family History: no anesthesia problems Allergies: Coded Allergies: AMOXICILLIN (Verified Allergy, Mild, 06/21/09) ASPIRIN (Verified Allergy, Mild, 06/21/09) SALICYLATES (Verified Allergy, Mild, 06/21/09) PENICILLINS (Unverified Allergy, Unknown, 11/18/17) Past Medical History Cardiovascular: Reports: HTN; Denies: CAD, [place], valve dz, arrhythmia, other Pulmonary: Reports: other - R sided pneumonia with pleural effusion; Denies: asthma, COPD, [place]MAR[place] Gastrointestinal/Genitourinary: Reports: other - dysphagia PEG tube in place; Denies: GERD, CRI, ESRD Neurologic/Psychiatric: Reports: dementia, CVA; Denies: depression/anxiety, TIA, other Endocrine: Reports: hypothyroidism; Denies: DM, steroids, other HEENT: Denies: cataract (L), cataract (R), glaucoma, [place] (L), [place] (R), other Hematology/Immune: Reports: anemia - of chronic d-s; Denies: DVT, bleeding disorder, other Musculoskeletal/Integumentary: Reports: DJD, other; Denies: OA, RA, DDD, edema Other: other - malnourished PMH Narrative: as above PSxH Narrative: see H&P Anesthesia Pre-op Phys. Exam Physician Exam Last Vital Signs Date Time Temp Pulse Resp B/P (MAP) Pulse Ox O2 Delivery O2 Flow Rate FiO2 12/15/17 12:00 97.7 87 20 119/66 100 97.7 12/15/17 07:26 Nasal Cannula 3.0 32 Constitutional: NAD Neurologic: other - unable t obtaine Cardiovascular: RRR Respiratory: other - Diminished breath sounds R>L some rhoky Airway Exam Mallampati Score: Class II MO: limited Neck: stiff ROM: limited Teeth: missing Dentures: no upper, no lower Anesthesia Pre-op A/P Labs see chart Risk Assessment & Plan Assessment: ASA 4 Plan: GA vs SAB Pre-Antibiotics Drug: as scheduled Jay Aceves MD December 15, 2017 16:35
[2017-12-15 20:00] VITALS: BP 117/63
[2017-12-15] MEDS: cefTRIAXone 2 GM in D5W 110 ML IVPB SCH ×2 (20:00)
[2017-12-15] MEDS: Vancomycin 500 MG in D5W 110 ML IVPB SCH (20:00)
[2017-12-15] MEDS: Dyna-Hex 2% Top Sol 2oz TOPIC SCH ×2 (20:22→20:49)
--- NOTE | 2017-12-15 21:25 | General Progress Note ---
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 - osteomyelitis Recommendations continue TF consider surgical consult for closure of fistula follow lab and exam await amputation Subjective Allergies: Coded Allergies: AMOXICILLIN (Verified Allergy, Mild, 06/21/09) ASPIRIN (Verified Allergy, Mild, 06/21/09) SALICYLATES (Verified Allergy, Mild, 06/21/09) PENICILLINS (Unverified Allergy, Unknown, 11/18/17) Subjective above noted No events overnight d/w RN some GT site leak noted Objective Last 24 Hour Vital Signs Date Time Temp Pulse Resp B/P (MAP) Pulse Ox O2 Delivery O2 Flow Rate FiO2 12/15/17 20:50 90 117/63 12/15/17 20:35 90 117/63 12/15/17 16:00 97.3 90 20 114/59 100 97.3 12/15/17 12:00 97.7 87 20 119/66 100 97.7 12/15/17 09:07 85 115/63 12/15/17 09:06 85 115/63 12/15/17 08:00 97.0 85 20 115/63 99 97.0 12/15/17 07:26 94 Nasal Cannula 3.0 32 12/15/17 07:26 Nasal Cannula 3.0 32 12/15/17 04:00 97.5 84 17 112/58 99 97.5 12/15/17 04:00 99 Nasal Cannula 2.0 12/15/17 00:00 97.8 77 18 121/58 100 97.8 Intake and Output 12/14/17 12/15/17 19:00 07:00 Intake Total 760 ml 1530 ml Balance 760 ml 1530 ml Free Water 50 ml 50 ml IV Total 660 ml 930 ml Tube Feeding 50 ml 550 ml # Voids 5 Laboratory Tests 12/15/17 08:30: Vancomycin Level Trough 18.3H Height (Feet): 4 Height (Inches): 0.00 Weight (Pounds): 100 Objective Thin woman NCAT CTA RRR abd soft, (+) GT , (+) small fistula at GI site proximity (++) contracture deformities Alex Rojas MD December 15, 2017 21:25
[2017-12-16] VITALS (14 sets, daily range): BP systolic 118–147; BP diastolic 59–82
[2017-12-16] MEDS: D5 1/2NS w/KCl 20mEq 1,000 ML IV SCH (05:45)
[2017-12-16] MEDS: Norco 5mg/325mg tab ORAL SCH ×3 (05:58→21:12)
[2017-12-16 07:15] LABS: BASOPHILS % (AUTO) 0.7 % (0.0-2.0); EOSINOPHILS % (AUTO) 1.6 % (0.0-3.0); HEMATOCRIT 25.6 % (37.0-47.0); HEMOGLOBIN 8.5 G/DL (12.0-16.0); LYMPHOCYTES % (AUTO) 21.1 % (20.0-45.0); MEAN CORPUSCULAR VOLUME 92 FL (80-99); MONOCYTES % (AUTO) 5.3 % (1.0-10.0); NEUTROPHILS % (AUTO) 71.2 % (45.0-75.0); PLATELET COUNT 318 K/UL (150-450); RED BLOOD COUNT 2.79 M/UL (4.20-5.40); RED CELL DISTRIBUTION WIDTH 15.1 % (11.6-14.8); WHITE BLOOD COUNT 9.9 K/UL (4.8-10.8)
[2017-12-16 07:26] LABS: ANION GAP 4 mmol/L (5-15); BLOOD UREA NITROGEN 11 mg/dL (7-18); CALCIUM 8.1 MG/DL (8.5-10.1); CARBON DIOXIDE 32 MMOL/L (21-32); CHLORIDE 100 MMOL/L (98-107); CREATININE 0.6 MG/DL (0.55-1.30); POTASSIUM 3.9 MMOL/L (3.5-5.1); SODIUM 136 MMOL/L (136-145)
--- NOTE | 2017-12-16 07:30 | Progress Note ---
DATE: 12/15/2017 CARDIOLOGY PROGRESS NOTE SUBJECTIVE: The patient is noted to have a fistulous tract around the G-tube entry site. Surgical input appreciated, possible intervention to seal since is being discussed. OBJECTIVE: VITAL SIGNS: Blood pressure 112/58, pulse 84, and respiratory rate 17. LUNGS: Diminished breath sounds. Few rhonchi. CARDIAC: Regular rhythm and rate. Normal S1 and S2. ABDOMEN: Soft. G-tube site as noted. EXTREMITIES: With contractures. Left heel with dressing in place. LABORATORY DATA: Reviewed. IMPRESSION: 1. Improved respiratory parameters still with osteomyelitis. 2. 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 3. Advanced dementia. 4. Severe protein malnutrition with feeding tube. 5. Hypertensive heart disease now with lower range blood pressure. PLAN: 1. Antimicrobials. 2. Surgical followup regarding G-tube. 3. Nutritional support. 4. Pain control. 5. Wound care. 6. Vascular followup regarding amputation to be scheduled. 7. The patient is now stable from cardiovascular standpoint to proceed. Tyrell Underwood M.D. DR: BUCKY JOB#: [id number] CC:
--- NOTE | 2017-12-16 07:55 | General Progress Note ---
Assessment/Plan Problem List: (1) Hypokalemia ICD Codes: E87.6 - Hypokalemia SNOMED: 36476451 (2) Functional quadriplegia ICD Codes: R53.2 - Functional quadriplegia SNOMED: 170977674592163 (3) Malnutrition of moderate degree ICD Codes: E44.0 - Moderate protein-calorie malnutrition SNOMED: 804096711 (4) Osteomyelitis ICD Codes: M86.9 - Osteomyelitis, unspecified SNOMED: 45293827 Qualifiers: Qualified Codes: M86.9 - Osteomyelitis, unspecified (5) Gastrostomy tube dysfunction ICD Codes: K94.23 - Gastrostomy malfunction SNOMED: 809081817 (6) Respiratory failure ICD Codes: J96.90 - Respiratory failure, unspecified, unspecified whether with hypoxia or hypercapnia SNOMED: 494165159 (7) Pneumonia ICD Codes: J18.9 - Pneumonia, unspecified organism SNOMED: 837182750 (8) Pleural effusion ICD Codes: J90 - Pleural effusion, not elsewhere classified SNOMED: 70603047 Status: stable, progressing Assessment/Plan iv abx ivf wean fio2 resp rx monitor abg monitor lytes wound care amputation today- pt is stable/optimized possible surgical closure of gt site fistula later Subjective ROS Limited/Unobtainable: Yes Constitutional: Reports: malaise, weakness HEENT: Reports: no symptoms Cardiovascular: Reports: no symptoms Respiratory: Reports: no symptoms Gastrointestinal/Abdominal: Reports: difficulty swallowing Genitourinary: Reports: no symptoms Neurologic/Psychiatric: Reports: pre-existing deficit Endocrine: Reports: no symptoms Hematologic/Lymphatic: Reports: no symptoms Allergies: Coded Allergies: AMOXICILLIN (Verified Allergy, Mild, 06/21/09) ASPIRIN (Verified Allergy, Mild, 06/21/09) SALICYLATES (Verified Allergy, Mild, 06/21/09) PENICILLINS (Unverified Allergy, Unknown, 11/18/17) All Systems: reviewed and negative except above Subjective no events. no distress, on o2 nasal cannula. sats 100%. poorly responsive. awake but nonverbal. surgery appreciated. npo for surgery today Objective Last 24 Hour Vital Signs Date Time Temp Pulse Resp B/P (MAP) Pulse Ox O2 Delivery O2 Flow Rate FiO2 12/16/17 04:00 100 Nasal Cannula 3.0 12/16/17 04:00 98.4 89 18 128/61 100 98.4 12/16/17 00:00 98.5 86 18 118/69 98 98.5 12/16/17 00:00 98 Nasal Cannula 3.0 12/15/17 20:50 90 117/63 12/15/17 20:35 90 117/63 12/15/17 20:00 98.5 90 18 117/63 100 98.5 12/15/17 20:00 100 Nasal Cannula 3.0 12/15/17 19:01 93 Nasal Cannula 3.0 32 12/15/17 19:01 Nasal Cannula 3.0 32 12/15/17 16:00 97.3 90 20 114/59 100 97.3 12/15/17 12:00 97.7 87 20 119/66 100 97.7 12/15/17 09:07 85 115/63 12/15/17 09:06 85 115/63 12/15/17 08:00 97.0 85 20 115/63 99 97.0 Intake and Output 12/15/17 12/16/17 19:00 07:00 Intake Total 1300 ml 1230 ml Balance 1300 ml 1230 ml Free Water 100 ml 100 ml IV Total 600 ml 880 ml Tube Feeding 600 ml 250 ml # Voids 5 3 # Bowel Movements 1 Laboratory Tests 12/15/17 08:30: Vancomycin Level Trough 18.3H 12/16/17 05:50: White Blood Count 9.9, Red Blood Count 2.79L, Hemoglobin 8.5L, Hematocrit 25.6L , Mean Corpuscular Volume 92, Mean Corpuscular Hemoglobin 30.6, Mean Corpuscular Hemoglobin Concent 33.3, Red Cell Distribution Width 15.1H, Platelet Count 318, Mean Platelet Volume 6.1L, Neutrophils (%) (Auto) 71.2, Lymphocytes (%) (Auto) 21.1, Monocytes (%) (Auto) 5.3, Eosinophils (%) (Auto) 1.6, Basophils (%) (Auto) 0.7, Prothrombin Time 10.1, Prothromb Time International Ratio 1.0, Activated Partial Thromboplast Time 31, Sodium Level 136, Potassium Level 3.9, Chloride Level 100, Carbon Dioxide Level 32, Anion Gap 4L, Blood Urea Nitrogen 11, Creatinine 0.6, Estimat Glomerular Filtration Rate , Glucose Level 119H, Calcium Level 8.1L Height (Feet): 4 Height (Inches): 0.00 Weight (Pounds): 100 Objective General Appearance: WD/WN, lethargic, confused Neck: supple Cardiovascular: normal peripheral pulses, tachycardia Respiratory/Chest: crackles/rales, rhonchi - bilaterally Abdomen: normal bowel sounds, non tender, soft, no organomegaly Edema: no edema noted Arm (L), no edema noted Arm (R), no edema noted Leg (L), no edema noted Leg (R), no edema noted Pedal (L), no edema noted Pedal (R), no edema noted Generalized Neurologic: disoriented, unresponsive, aphasia CAROL SMITH December 16, 2017 07:55
[2017-12-16] MEDS: Fluconazole 100mg tab ORAL SCH (08:25)
[2017-12-16] MEDS: Vancomycin 500 MG in D5W 110 ML IVPB SCH ×2 (08:25→21:58)
[2017-12-16] MEDS: Vitamin A&D Oint 2oz Tube TOPIC SCH ×4 (08:26→21:12)
--- NOTE | 2017-12-16 08:27 | General Progress Note ---
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 - osteomyelitis Recommendations continue TF surgical consult for closure of fistula at later date follow lab and exam await amputation Subjective Allergies: Coded Allergies: AMOXICILLIN (Verified Allergy, Mild, 06/21/09) ASPIRIN (Verified Allergy, Mild, 06/21/09) SALICYLATES (Verified Allergy, Mild, 06/21/09) PENICILLINS (Unverified Allergy, Unknown, 11/18/17) Subjective above noted No events overnight NPO for amputation Objective Last 24 Hour Vital Signs Date Time Temp Pulse Resp B/P (MAP) Pulse Ox O2 Delivery O2 Flow Rate FiO2 12/16/17 08:00 98.3 87 18 122/59 100 98.3 12/16/17 04:00 100 Nasal Cannula 3.0 12/16/17 04:00 98.4 89 18 128/61 100 98.4 12/16/17 00:00 98.5 86 18 118/69 98 98.5 12/16/17 00:00 98 Nasal Cannula 3.0 12/15/17 20:50 90 117/63 12/15/17 20:35 90 117/63 12/15/17 20:00 98.5 90 18 117/63 100 98.5 12/15/17 20:00 100 Nasal Cannula 3.0 12/15/17 19:01 93 Nasal Cannula 3.0 32 12/15/17 19:01 Nasal Cannula 3.0 32 12/15/17 16:00 97.3 90 20 114/59 100 97.3 12/15/17 12:00 97.7 87 20 119/66 100 97.7 12/15/17 09:07 85 115/63 12/15/17 09:06 85 115/63 Intake and Output 12/15/17 12/16/17 19:00 07:00 Intake Total 1300 ml 1230 ml Balance 1300 ml 1230 ml Free Water 100 ml 100 ml IV Total 600 ml 880 ml Tube Feeding 600 ml 250 ml # Voids 5 3 # Bowel Movements 1 Laboratory Tests 12/15/17 08:30: Vancomycin Level Trough 18.3H 12/16/17 05:50: White Blood Count 9.9, Red Blood Count 2.79L, Hemoglobin 8.5L, Hematocrit 25.6L , Mean Corpuscular Volume 92, Mean Corpuscular Hemoglobin 30.6, Mean Corpuscular Hemoglobin Concent 33.3, Red Cell Distribution Width 15.1H, Platelet Count 318, Mean Platelet Volume 6.1L, Neutrophils (%) (Auto) 71.2, Lymphocytes (%) (Auto) 21.1, Monocytes (%) (Auto) 5.3, Eosinophils (%) (Auto) 1.6, Basophils (%) (Auto) 0.7, Prothrombin Time 10.1, Prothromb Time International Ratio 1.0, Activated Partial Thromboplast Time 31, Sodium Level 136, Potassium Level 3.9, Chloride Level 100, Carbon Dioxide Level 32, Anion Gap 4L, Blood Urea Nitrogen 11, Creatinine 0.6, Estimat Glomerular Filtration Rate , Glucose Level 119H, Calcium Level 8.1L Height (Feet): 4 Height (Inches): 0.00 Weight (Pounds): 100 Objective Thin woman NCAT CTA RRR abd soft, (+) GT , (+) small fistula at GI site proximity (++) contracture deformities Alex Rojas MD December 16, 2017 08:27
[2017-12-16] MEDS: Heparin 5000 units/ml inj SUBQ SCH ×2 (08:32→21:14)
--- NOTE | 2017-12-16 09:25 | Pulmonology Progress Note ---
Assessment/Plan Assessment/Plan IMPRESSION: 1. Evidence of pneumonia, with effusion 2. G-tube, possible fistulous tract. 3. Left heel osteomyelitis. 4. Toxic metabolic encephalopathy. 5. Significant contractures. 6. History of CVA. 7. History of dysphagia. PLAN care noted amputation per surgery today gt closure today respiratory care follow up cxr oxygen needs stable antibiotics noted monitor clinically for change DNR treat conservatively and consider tap if needed monitor post op all reviewed in detail; prognosis poor impression, plan, and exam edited and reviewed in detail care discussed with RN Subjective ROS Limited/Unobtainable: Yes Allergies: Coded Allergies: AMOXICILLIN (Verified Allergy, Mild, 06/21/09) ASPIRIN (Verified Allergy, Mild, 06/21/09) SALICYLATES (Verified Allergy, Mild, 06/21/09) PENICILLINS (Unverified Allergy, Unknown, 11/18/17) Subjective care reviewed overnight events noted Objective Last 24 Hour Vital Signs Date Time Temp Pulse Resp B/P (MAP) Pulse Ox O2 Delivery O2 Flow Rate FiO2 12/16/17 08:00 98.3 87 18 122/59 100 98.3 12/16/17 04:00 100 Nasal Cannula 3.0 12/16/17 04:00 98.4 89 18 128/61 100 98.4 12/16/17 00:00 98.5 86 18 118/69 98 98.5 12/16/17 00:00 98 Nasal Cannula 3.0 12/15/17 20:50 90 117/63 12/15/17 20:35 90 117/63 12/15/17 20:00 98.5 90 18 117/63 100 98.5 12/15/17 20:00 100 Nasal Cannula 3.0 12/15/17 19:01 93 Nasal Cannula 3.0 32 12/15/17 19:01 Nasal Cannula 3.0 32 12/15/17 16:00 97.3 90 20 114/59 100 97.3 12/15/17 12:00 97.7 87 20 119/66 100 97.7 Intake and Output 12/15/17 12/16/17 19:00 07:00 Intake Total 1300 ml 1230 ml Balance 1300 ml 1230 ml Free Water 100 ml 100 ml IV Total 600 ml 880 ml Tube Feeding 600 ml 250 ml # Voids 5 3 # Bowel Movements 1 Objective WDWN NAD reduced breath sounds R>L with improved rhonchi [id number] without MRG NABS nontender no HSM; no distention no CCE weak with reduced LOC Laboratory Tests 12/16/17 05:50: White Blood Count 9.9, Red Blood Count 2.79L, Hemoglobin 8.5L, Hematocrit 25.6L , Mean Corpuscular Volume 92, Mean Corpuscular Hemoglobin 30.6, Mean Corpuscular Hemoglobin Concent 33.3, Red Cell Distribution Width 15.1H, Platelet Count 318, Mean Platelet Volume 6.1L, Neutrophils (%) (Auto) 71.2, Lymphocytes (%) (Auto) 21.1, Monocytes (%) (Auto) 5.3, Eosinophils (%) (Auto) 1.6, Basophils (%) (Auto) 0.7, Prothrombin Time 10.1, Prothromb Time International Ratio 1.0, Activated Partial Thromboplast Time 31, Sodium Level 136, Potassium Level 3.9, Chloride Level 100, Carbon Dioxide Level 32, Anion Gap 4L, Blood Urea Nitrogen 11, Creatinine 0.6, Estimat Glomerular Filtration Rate , Glucose Level 119H, Calcium Level 8.1L Current Medications Medications (Trade) Dose Ordered Sig/Satish Route PRN Reason Start Time Stop Time Status Last Admin Dose Admin Acetaminophen (Tylenol) 500 mg Q4H PRN ORAL Mild Pain/Temp > 100.5 12/11/17 22:00 01/10/18 21:59 Acetaminophen (Tylenol) 650 mg Q4H PRN ORAL Mild Pain/Temp > 100.5 12/07/17 09:30 01/06/18 09:29 12/08/17 18:11 Acetaminophen/ Hydrocodone Bitart ([place] 5/325) 1 tab EVERY 8 HOURS ORAL 12/11/17 22:00 12/18/17 21:59 12/16/17 05:58 Amlodipine Besylate (Norvasc) 5 mg DAILY GT 12/09/17 09:00 01/08/18 08:59 12/15/17 09:06 Ceftriaxone Sodium 2 gm/ Dextrose 110 ml @ 220 mls/hr Q24H IVPB 12/15/17 20:00 12/21/17 23:59 12/15/17 20:00 Chlorhexidine Gluconate (Mireya-Hex 2%) 1 applic DAILY@1999 TOPIC 12/14/17 20:00 01/13/18 19:59 12/15/17 20:49 Dextrose (Dextrose 50%) 25 ml STAT PRN IV Hypoglycemia 11/30/17 17:30 12/30/17 17:29 Dextrose (Dextrose 50%) 50 ml STAT PRN IV Hypoglycemia 11/30/17 17:30 12/30/17 17:29 Dextrose/ Electrolytes 1,000 ml @ 50 mls/hr Q20H IV 12/12/17 01:30 01/11/18 01:29 12/16/17 05:45 Famotidine (Pepcid) 20 mg BID GT 11/30/17 18:00 12/30/17 17:59 12/16/17 08:25 Fluconazole (Diflucan) 100 mg DAILY ORAL 12/16/17 09:00 12/23/17 20:59 12/16/17 08:25 Heparin Sodium (Porcine) (Heparin 5000 units/ml) 5,000 units EVERY 12 HOURS SUBQ 12/05/17 21:00 01/04/18 20:59 12/15/17 09:08 Metoprolol Tartrate (Lopressor) 25 mg Q12HR GT 11/30/17 21:00 12/30/17 20:59 12/15/17 20:50 Vancomycin HCl (Vanco rx to dose) 1 ea DAILY PRN MISC Per rx protocol 12/15/17 11:45 01/14/18 11:44 Vancomycin HCl 500 mg/Dextrose 110 ml @ 110 mls/hr Q12H IVPB 12/15/17 20:00 12/18/17 23:59 12/16/17 08:25 Vitamin A/Vitamin D (A & D Oint) 1 applic QID TOPIC 12/12/17 13:00 01/11/18 12:59 12/16/17 08:26 Raj Reyes MD December 16, 2017 09:25
--- NOTE | 2017-12-16 10:19 | Pre-Procedure Note/Attestation ---
Pre-Procedure Note/Attestation Complete Prior to Procedure Planned Procedure: left Procedure Narrative: Left leg above knee amputation Indications for Procedure Pre-Operative Diagnosis: Left foot osteomyelitis necrosis contracted PAD dementia Attestation I attest that I discussed the nature of the procedure; its benefits; risks and complications; and alternatives (and the risks and benefits of such alternatives ), prior to the procedure, with the patient (or the patient's legal new accounts banking representative). I attest that, if there was a reasonable possibility of needing a blood transfusion, the patient (or the patient's legal new accounts banking representative) was given the [facility] standardized written summary, pursuant to the Luca Deysi Blood Safety Act ([place] Health and Safety Code # 1645, as amended). I attest that I re-evaluated the patient just prior to the surgery and that there has been no change in the patient's H&P, except as documented below: Monico Gonzalez MD December 16, 2017 10:19
[2017-12-16] MEDS ORDERED: Bacitracin 50000 Units Vial ONE (10:21)
[2017-12-16] MEDS ORDERED: NeoSporin Gu Irrig 1ml Amp IRRIG ONE (10:21)
[2017-12-16] MEDS ORDERED: Bupivacaine 0.5% Inj 30 ml vial INJ ONE (10:31)
--- NOTE | 2017-12-16 10:39 | Diagnostic Imaging Report ---
Indication: Dyspnea Comparison: 12/13/2017 A single view chest radiograph was obtained. Findings: PICC line has been retracted slightly but the tip still resides in the SVC. There is dense right middle lobe atelectasis and possibly lower lobe atelectasis. An effusion is not excluded. Mild interstitial edema suspected. Heart is stable in size. IMPRESSION: No change from the prior study. PICC line remains in good position Right middle and probable lower lobe atelectasis and suspected pleural effusion
[2017-12-16] MEDS ORDERED: Midazolam 2mg/2ml Inj ONE (10:55)
[2017-12-16] MEDS ORDERED: fentaNYL 100 mcg/2 mL IV ONE (10:55)
[2017-12-16] MEDS ORDERED: NS Irrig 1000ml ONE (11:00)
[2017-12-16] MEDS ORDERED: Sterile Water Irrig 1000ml IRRIG ONE (11:00)
[2017-12-16] MEDS ORDERED: Bacitracin Oint 15gm Tube TOPIC ONE (12:19)
--- NOTE | 2017-12-16 13:08 | Operative Note - PDOC ---
Operative Note Operative Note Pre-op Diagnosis: Left foot osteomyelitis necrosis contracted PAD dementia Procedure: Left leg above knee amputation Post-op Diagnosis: same as pre-op Surgeon: Monico Gonzalez MD Anesthesiologist: Jay Aceves MD Anesthesia: regional Specimen: yes - left leg Complications: none Condition: stable Fluids: 300cc and once unit prbc Estimated Blood Loss: minimal - 50cc Drains: none Implant(s) used?: No Monico Gonzalez MD December 16, 2017 13:08
--- NOTE | 2017-12-16 13:10 | General Progress Note ---
Progress Note Progress Note Patient tolerated left leg above knee amputation very well under spinal anesthesia Rec Ok for d/c planning per vascular point Optimize nutrition Decub DVT precautions Off load right leg over 2 pillows Will change left stump dressing in 5 days (ok to be done in snf) d/w pt's daughter Monico Gonzalez MD December 16, 2017 13:10
--- NOTE | 2017-12-16 13:14 | Immediate Post-Op Evaluation ---
Immediate Post-Op Evalulation Immediate Post-Op Evalulation Procedure: Lamin LUQUE Date of Evaluation: December 16, 2017 Time of Evaluation: 13:12 IV Fluids: 300 Blood Products: 1 unit of PRBC Estimated Blood Loss: 50 Urinary Output: 251 Blood Pressure Systolic: 147 Blood Pressure Diastolic: 72 Pulse Rate: 78 Respiratory Rate: 22 O2 Sat by Pulse Oximetry: 99 Temperature (Fahrenheit): 97.8 Pain Score (1-10): 1 Nausea: No Vomiting: No Complications none Patient Status: reacts, patent, none Hydration Status: adequate Jay cAeves MD December 16, 2017 13:14
--- NOTE | 2017-12-16 14:06 | Diagnostic Imaging Report ---
Indication: Pain Findings: 2 views of the left femur were obtained. The knee is severely flexed. The bones are osteopenic. There is no obvious fracture. IMPRESSION: No obvious fracture
[2017-12-16] MEDS: Metoprolol 25mg tab GT SCH (21:12)
[2017-12-16] MEDS: cefTRIAXone 2 GM in D5W 110 ML IVPB SCH (21:59)
[2017-12-17] VITALS: BP 106/55
[2017-12-17] MEDS: D5 1/2NS w/KCl 20mEq 1,000 ML IV SCH (01:30)
--- NOTE | 2017-12-17 03:15 | Progress Note ---
DATE: 12/16/2017 CARDIOLOGY PROGRESS NOTE SUBJECTIVE: The patient is seen status post left AKA. No intraoperative complications were noted. OBJECTIVE: VITAL SIGNS: Blood pressure 121/60, heart rate 106, heart rate 20, temperature 99.9 degrees. HEENT: Oropharynx clear. LUNGS: Coarse breath sounds. No wheezing. CARDIAC: Regular rhythm. Rapid rate. Normal S1, S2. ABDOMEN: Soft. G-tube intact. Some drainage at the entry site. EXTREMITIES: AKA stump without active bleeding and dressing is in place. LABORATORY AND DIAGNOSTIC DATA: Chest x-ray today revealed atelectasis and small pleural effusion. White count 9.9 and hemoglobin 8.5. Potassium 3.9, BUN 11, and creatinine 0.6. IMPRESSION: 1. Status post left above-knee amputation due to osteomyelitis and severe peripheral artery disease. 2. Gastrostomy tube with second fistula site. 3. 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 4. Hypertensive heart disease, controlled blood pressure. 5. Secondary sinus tachycardia. 6. Recovering healthcare-acquired aspiration pneumonia and residual pleural effusion. 7. Severe protein-calorie malnutrition, on gastrostomy tube feedings. PLAN: 1. Antimicrobials per Infectious Disease. 2. Postoperative care. 3. Follow up labs. 4. May need transfusion. 5. DVT prophylaxis. 6. Respiratory hygiene. 7. Pain control. Tyrell Underwood M.D. DR: Ivy JOB#: [id number] CC:
[2017-12-17 04:00] VITALS: BP 99/60
[2017-12-17] MEDS: Norco 5mg/325mg tab ORAL SCH ×3 (05:57→21:05)
[2017-12-17 08:00] VITALS: BP 118/60
[2017-12-17] MEDS: Vancomycin 500 MG in D5W 110 ML IVPB SCH ×2 (08:00→18:49)
--- NOTE | 2017-12-17 08:05 | General Progress Note ---
Assessment/Plan Problem List: (1) Hypokalemia ICD Codes: E87.6 - Hypokalemia SNOMED: 74603867 (2) Functional quadriplegia ICD Codes: R53.2 - Functional quadriplegia SNOMED: 330786830970364 (3) Malnutrition of moderate degree ICD Codes: E44.0 - Moderate protein-calorie malnutrition SNOMED: 136224868 (4) Osteomyelitis ICD Codes: M86.9 - Osteomyelitis, unspecified SNOMED: 17386141 Qualifiers: Qualified Codes: M86.9 - Osteomyelitis, unspecified (5) Gastrostomy tube dysfunction ICD Codes: K94.23 - Gastrostomy malfunction SNOMED: 226396146 (6) Respiratory failure ICD Codes: J96.90 - Respiratory failure, unspecified, unspecified whether with hypoxia or hypercapnia SNOMED: 563129022 (7) Pneumonia ICD Codes: J18.9 - Pneumonia, unspecified organism SNOMED: 636753370 (8) Pleural effusion ICD Codes: J90 - Pleural effusion, not elsewhere classified SNOMED: 70550826 Status: stable Assessment/Plan iv abx gt feeds wean fio2 resp rx monitor abg monitor lytes wound care post op care possible surgical closure of gt site fistula later Subjective ROS Limited/Unobtainable: Yes Constitutional: Reports: malaise, weakness HEENT: Reports: no symptoms Cardiovascular: Reports: no symptoms Respiratory: Reports: no symptoms Gastrointestinal/Abdominal: Reports: difficulty swallowing Genitourinary: Reports: no symptoms Neurologic/Psychiatric: Reports: pre-existing deficit Endocrine: Reports: no symptoms Hematologic/Lymphatic: Reports: anemia Allergies: Coded Allergies: AMOXICILLIN (Verified Allergy, Mild, 06/21/09) ASPIRIN (Verified Allergy, Mild, 06/21/09) SALICYLATES (Verified Allergy, Mild, 06/21/09) PENICILLINS (Unverified Allergy, Unknown, 11/18/17) All Systems: reviewed and negative except above Subjective s/p uncomplicated left aka. on nasal cannula. awake but minimally verbal at baseline. Objective Last 24 Hour Vital Signs Date Time Temp Pulse Resp B/P (MAP) Pulse Ox O2 Delivery O2 Flow Rate FiO2 12/17/17 04:00 97.5 79 20 99/60 94 Room Air 97.5 12/17/17 04:00 85 12/17/17 00:00 82 12/17/17 00:00 99.7 83 20 106/55 100 Room Air 99.7 12/16/17 21:12 106 121/60 12/16/17 20:00 99.9 106 20 121/60 99 Room Air 99.9 12/16/17 20:00 104 12/16/17 16:00 97.8 70 18 128/70 97 Room Air 97.8 12/16/17 14:46 97.8 89 22 133/75 100 Nasal Cannula 3.0 97.8 12/16/17 14:30 88 22 124/73 100 Nasal Cannula 3.0 12/16/17 14:15 84 22 129/74 100 Nasal Cannula 3.0 12/16/17 14:00 89 22 140/82 100 Nasal Cannula 3.0 12/16/17 13:45 85 22 124/77 100 Nasal Cannula 3.0 12/16/17 13:45 80 22 130/80 100 Nasal Cannula 3.0 12/16/17 13:25 78 22 122/71 100 Simple Mask 8.0 12/16/17 13:14 77 22 133/70 100 Simple Mask 8.0 12/16/17 13:14 208.0 78 22 99 12/16/17 13:09 80 22 141/77 100 Simple Mask 8.0 12/16/17 13:04 98.8 82 22 147/76 100 Simple Mask 8.0 98.8 Intake and Output 12/16/17 12/17/17 19:00 07:00 Intake Total 810 ml 770 ml Output Total 600 ml Balance 210 ml 770 ml IV Total 560 ml 770 ml Blood Product 250 ml Output Urine Total 550 ml Estimated Blood Loss 50 ml # Voids 1 # Bowel Movements 1 Height (Feet): 4 Height (Inches): 0.00 Weight (Pounds): 100 Objective General Appearance: WD/WN, lethargic, confused Neck: supple Cardiovascular: normal peripheral pulses, tachycardia Respiratory/Chest: crackles/rales, rhonchi - bilaterally Abdomen: normal bowel sounds, non tender, soft, no organomegaly Edema: no edema noted Arm (L), no edema noted Arm (R), no edema noted Leg (L), no edema noted Leg (R), no edema noted Pedal (L), no edema noted Pedal (R), no edema noted Generalized Neurologic: disoriented, unresponsive, aphasia UOMOTO,CAROL December 17, 2017 08:05
--- NOTE | 2017-12-17 08:29 | Pulmonology Progress Note ---
Assessment/Plan Assessment/Plan IMPRESSION: 1. Evidence of pneumonia, with effusion 2. G-tube, possible fistulous tract. 3. Left heel osteomyelitis. 4. Toxic metabolic encephalopathy. 5. Significant contractures. 6. History of CVA. 7. History of dysphagia. 8. s/p AKA 9. gangrene PLAN care noted amputation noted gt closure today respiratory care follow up cxr for change oxygen needs stable antibiotics noted monitor clinically for change suction as needed DNR treat conservatively and consider tap if needed monitor post op all reviewed in detail; prognosis poor impression, plan, and exam edited and reviewed in detail care discussed with RN Subjective Allergies: Coded Allergies: AMOXICILLIN (Verified Allergy, Mild, 06/21/09) ASPIRIN (Verified Allergy, Mild, 06/21/09) SALICYLATES (Verified Allergy, Mild, 06/21/09) PENICILLINS (Unverified Allergy, Unknown, 11/18/17) Subjective care reviewed overnight events noted s/p AKA Objective Last 24 Hour Vital Signs Date Time Temp Pulse Resp B/P (MAP) Pulse Ox O2 Delivery O2 Flow Rate FiO2 12/17/17 04:00 97.5 79 20 99/60 94 Room Air 97.5 12/17/17 04:00 85 12/17/17 00:00 82 12/17/17 00:00 99.7 83 20 106/55 100 Room Air 99.7 12/16/17 21:12 106 121/60 12/16/17 20:00 99.9 106 20 121/60 99 Room Air 99.9 12/16/17 20:00 104 12/16/17 16:00 97.8 70 18 128/70 97 Room Air 97.8 12/16/17 14:46 97.8 89 22 133/75 100 Nasal Cannula 3.0 97.8 12/16/17 14:30 88 22 124/73 100 Nasal Cannula 3.0 12/16/17 14:15 84 22 129/74 100 Nasal Cannula 3.0 12/16/17 14:00 89 22 140/82 100 Nasal Cannula 3.0 12/16/17 13:45 85 22 124/77 100 Nasal Cannula 3.0 12/16/17 13:45 80 22 130/80 100 Nasal Cannula 3.0 12/16/17 13:25 78 22 122/71 100 Simple Mask 8.0 12/16/17 13:14 77 22 133/70 100 Simple Mask 8.0 12/16/17 13:14 208.0 78 22 99 12/16/17 13:09 80 22 141/77 100 Simple Mask 8.0 12/16/17 13:04 98.8 82 22 147/76 100 Simple Mask 8.0 98.8 Intake and Output 12/16/17 12/17/17 19:00 07:00 Intake Total 810 ml 770 ml Output Total 600 ml Balance 210 ml 770 ml IV Total 560 ml 770 ml Blood Product 250 ml Output Urine Total 550 ml Estimated Blood Loss 50 ml # Voids 1 # Bowel Movements 1 Objective WDWN NAD reduced breath sounds scattered rhonchi [id number] without MRG NABS nontender no HSM; no distention no CCE AKA weak with reduced LOC Current Medications Medications (Trade) Dose Ordered Sig/Satish Route PRN Reason Start Time Stop Time Status Last Admin Dose Admin Acetaminophen (Tylenol) 500 mg Q4H PRN ORAL Mild Pain/Temp > 100.5 12/11/17 22:00 01/10/18 21:59 Acetaminophen (Tylenol) 650 mg Q4H PRN ORAL Mild Pain/Temp > 100.5 12/07/17 09:30 01/06/18 09:29 12/17/17 01:51 Acetaminophen/ Hydrocodone Bitart ([place] 5/325) 1 tab EVERY 8 HOURS ORAL 12/11/17 22:00 12/18/17 21:59 12/17/17 05:57 Amlodipine Besylate (Norvasc) 5 mg DAILY GT 12/09/17 09:00 01/08/18 08:59 12/15/17 09:06 Ceftriaxone Sodium 2 gm/ Dextrose 110 ml @ 220 mls/hr Q24H IVPB 12/15/17 20:00 12/21/17 23:59 12/16/17 21:59 Chlorhexidine Gluconate (Mireya-Hex 2%) 1 applic DAILY@2000 TOPIC 12/14/17 20:00 01/13/18 19:59 12/15/17 20:49 Dextrose (Dextrose 50%) 25 ml STAT PRN IV Hypoglycemia 11/30/17 17:30 12/30/17 17:29 Dextrose (Dextrose 50%) 50 ml STAT PRN IV Hypoglycemia 11/30/17 17:30 12/30/17 17:29 Dextrose/ Electrolytes 1,000 ml @ 50 mls/hr Q20H IV 12/12/17 01:30 01/11/18 01:29 12/16/17 05:45 Famotidine (Pepcid) 20 mg BID GT 11/30/17 18:00 12/30/17 17:59 12/16/17 18:52 Fluconazole (Diflucan) 100 mg DAILY ORAL 12/16/17 09:00 12/23/17 20:59 12/16/17 08:25 Heparin Sodium (Porcine) (Heparin 5000 units/ml) 5,000 units EVERY 12 HOURS SUBQ 12/05/17 21:00 01/04/18 20:59 12/16/17 21:14 Metoprolol Tartrate (Lopressor) 25 mg Q12HR GT 11/30/17 21:00 12/30/17 20:59 12/16/17 21:12 Vancomycin HCl (Vanco rx to dose) 1 ea DAILY PRN MISC Per rx protocol 12/15/17 11:45 01/14/18 11:44 Vancomycin HCl 500 mg/Dextrose 110 ml @ 110 mls/hr Q12H IVPB 12/15/17 20:00 12/18/17 23:59 12/16/17 21:58 Vitamin A/Vitamin D (A & D Oint) 1 applic QID TOPIC 12/12/17 13:00 01/11/18 12:59 12/16/17 21:12 Raj Reyes MD December 17, 2017 08:29
--- NOTE | 2017-12-17 08:42 | 48 Hour Post Anesthesia Eval ---
Post Anesthesia Evaluation Procedure: L ARNOLDOA Date of Evaluation: December 17, 2017 Time of Evaluation: 08:41 Blood Pressure Systolic: 102 0: 56 Pulse Rate: 72 Respiratory Rate: 20 Temperature (Fahrenheit): 97.8 O2 Sat by Pulse Oximetry: 98 Airway: patent Nausea: No Vomiting: No Pain Intensity: 2 Hydration Status: adequate Cardiopulmonary Status: stable Mental Status/LOC: patient returned to baseline Follow-up Care/Observations: n/a Post-Anesthesia Complications: none Follow-up care needed: N/A Jay Aceves MD December 17, 2017 08:42
[2017-12-17] MEDS: Metoprolol 25mg tab GT SCH ×2 (10:04→21:04)
[2017-12-17] MEDS: Fluconazole 100mg tab ORAL SCH (10:04)
[2017-12-17] MEDS: Vitamin A&D Oint 2oz Tube TOPIC SCH ×4 (10:05→21:06)
[2017-12-17] MEDS: Heparin 5000 units/ml inj SUBQ SCH ×2 (10:06→21:07)
[2017-12-17 11:16] LABS: BASOPHILS % (AUTO) 0.5 % (0.0-2.0); EOSINOPHILS % (AUTO) 0.7 % (0.0-3.0); HEMATOCRIT 28.7 % (37.0-47.0); HEMOGLOBIN 9.6 G/DL (12.0-16.0); LYMPHOCYTES % (AUTO) 12.6 % (20.0-45.0); MEAN CORPUSCULAR VOLUME 93 FL (80-99); MONOCYTES % (AUTO) 6.5 % (1.0-10.0); NEUTROPHILS % (AUTO) 79.7 % (45.0-75.0); PLATELET COUNT 292 K/UL (150-450); RED CELL DISTRIBUTION WIDTH 14.4 % (11.6-14.8); WHITE BLOOD COUNT 13.1 K/UL (4.8-10.8)
[2017-12-17 11:38] LABS: ALANINE AMINOTRANSFERASE 29 U/L (12-78); ALBUMIN 1.7 G/DL (3.4-5.0); ALBUMIN/GLOBULIN RATIO 0.4 (1.0-2.7); ALKALINE PHOSPHATASE 85 U/L (46-116); ANION GAP 5 mmol/L (5-15); ASPARTATE AMINO TRANSFERASE 23 U/L (15-37); BILIRUBIN,TOTAL 0.4 MG/DL (0.2-1.0); BLOOD UREA NITROGEN 11 mg/dL (7-18); CALCIUM 7.5 MG/DL (8.5-10.1); CARBON DIOXIDE 30 MMOL/L (21-32); CHLORIDE 101 MMOL/L (98-107); CREATININE 0.6 MG/DL (0.55-1.30); POTASSIUM 4.3 MMOL/L (3.5-5.1); SODIUM 135 MMOL/L (136-145)
[2017-12-17 12:00] VITALS: BP 123/64
--- NOTE | 2017-12-17 12:58 | General Progress Note ---
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 - osteomyelitis Recommendations continue TF consider GJT placement if persistent GT leak follow lab and exam Subjective ROS Limited/Unobtainable: No Allergies: Coded Allergies: AMOXICILLIN (Verified Allergy, Mild, 06/21/09) ASPIRIN (Verified Allergy, Mild, 06/21/09) SALICYLATES (Verified Allergy, Mild, 06/21/09) PENICILLINS (Unverified Allergy, Unknown, 11/18/17) Objective Last 24 Hour Vital Signs Date Time Temp Pulse Resp B/P (MAP) Pulse Ox O2 Delivery O2 Flow Rate FiO2 12/17/17 10:04 86 118/60 12/17/17 10:04 86 118/60 12/17/17 08:42 208.0 72 20 98 12/17/17 04:00 97.5 79 20 99/60 94 Room Air 97.5 12/17/17 04:00 85 12/17/17 00:00 82 12/17/17 00:00 99.7 83 20 106/55 100 Room Air 99.7 12/16/17 21:12 106 121/60 12/16/17 20:00 99.9 106 20 121/60 99 Room Air 99.9 12/16/17 20:00 104 12/16/17 16:00 97.8 70 18 128/70 97 Room Air 97.8 12/16/17 14:46 97.8 89 22 133/75 100 Nasal Cannula 3.0 97.8 12/16/17 14:30 88 22 124/73 100 Nasal Cannula 3.0 12/16/17 14:15 84 22 129/74 100 Nasal Cannula 3.0 12/16/17 14:00 89 22 140/82 100 Nasal Cannula 3.0 12/16/17 13:45 85 22 124/77 100 Nasal Cannula 3.0 12/16/17 13:45 80 22 130/80 100 Nasal Cannula 3.0 12/16/17 13:25 78 22 122/71 100 Simple Mask 8.0 12/16/17 13:14 77 22 133/70 100 Simple Mask 8.0 12/16/17 13:14 208.0 78 22 99 12/16/17 13:09 80 22 141/77 100 Simple Mask 8.0 12/16/17 13:04 98.8 82 22 147/76 100 Simple Mask 8.0 98.8 Intake and Output 12/16/17 12/17/17 19:00 07:00 Intake Total 810 ml 770 ml Output Total 600 ml Balance 210 ml 770 ml IV Total 560 ml 770 ml Blood Product 250 ml Output Urine Total 550 ml Estimated Blood Loss 50 ml # Voids 1 # Bowel Movements 1 Laboratory Tests 12/17/17 10:30: White Blood Count 13.1H, Red Blood Count 3.10L, Hemoglobin 9.6L, Hematocrit 28.7L, Mean Corpuscular Volume 93, Mean Corpuscular Hemoglobin 30.8, Mean Corpuscular Hemoglobin Concent 33.3, Red Cell Distribution Width 14.4, Platelet Count 292, Mean Platelet Volume 6.0L, Neutrophils (%) (Auto) 79.7H, Lymphocytes (%) (Auto) 12.6L, Monocytes (%) (Auto) 6.5, Eosinophils (%) (Auto) 0.7, Basophils (%) (Auto) 0.5, Sodium Level 135L, Potassium Level 4.3, Chloride Level 101, Carbon Dioxide Level 30, Anion Gap 5, Blood Urea Nitrogen 11, Creatinine 0.6, Estimat Glomerular Filtration Rate , Glucose Level 242#H, Calcium Level 7.5L, Magnesium Level 2.3, Total Bilirubin 0.4, Aspartate Amino Transf (AST/SGOT) 23, Alanine Aminotransferase (ALT/SGPT) 29, Alkaline Phosphatase 85, Total Protein 6.3L, Albumin 1.7L, Globulin 4.6, Albumin/ Globulin Ratio 0.4L Height (Feet): 4 Height (Inches): 0.00 Weight (Pounds): 100 General Appearance: lethargic EENT: normal ENT inspection Neck: supple Cardiovascular: normal rate Respiratory/Chest: decreased breath sounds Abdomen: normal bowel sounds, non tender, soft Extremities: non-tender Claude Bay MD December 17, 2017 12:58
--- NOTE | 2017-12-17 13:10 | Infectious Diseases Prog Note ---
"Assessment/Plan Assessment/Plan A 1. 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 DM 3. hypertension 4. CVA 5. 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 continue iv vancomycin, ceftriaxone & Fluconazole Subjective ROS Limited/Unobtainable: Yes Allergies: Coded Allergies: AMOXICILLIN (Verified Allergy, Mild, 06/21/09) ASPIRIN (Verified Allergy, Mild, 06/21/09) SALICYLATES (Verified Allergy, Mild, 06/21/09) PENICILLINS (Unverified Allergy, Unknown, 11/18/17) Objective Vital Signs Last 24 Hour Vital Signs Date Time Temp Pulse Resp B/P (MAP) Pulse Ox O2 Delivery O2 Flow Rate FiO2 12/17/17 10:04 86 118/60 12/17/17 10:04 86 118/60 12/17/17 08:42 208.0 72 20 98 12/17/17 04:00 97.5 79 20 99/60 94 Room Air 97.5 12/17/17 04:00 85 12/17/17 00:00 82 12/17/17 00:00 99.7 83 20 106/55 100 Room Air 99.7 12/16/17 21:12 106 121/60 12/16/17 20:00 99.9 106 20 121/60 99 Room Air 99.9 12/16/17 20:00 104 12/16/17 16:00 97.8 70 18 128/70 97 Room Air 97.8 12/16/17 14:46 97.8 89 22 133/75 100 Nasal Cannula 3.0 97.8 12/16/17 14:30 88 22 124/73 100 Nasal Cannula 3.0 12/16/17 14:15 84 22 129/74 100 Nasal Cannula 3.0 12/16/17 14:00 89 22 140/82 100 Nasal Cannula 3.0 12/16/17 13:45 85 22 124/77 100 Nasal Cannula 3.0 12/16/17 13:45 80 22 130/80 100 Nasal Cannula 3.0 12/16/17 13:25 78 22 122/71 100 Simple Mask 8.0 12/16/17 13:14 77 22 133/70 100 Simple Mask 8.0 12/16/17 13:14 208.0 78 22 99 12/16/17 13:09 80 22 141/77 100 Simple Mask 8.0 Height (Feet): 4 Height (Inches): 0.00 Weight (Pounds): 100 General Appearance: no acute distress HEENT: mucous membranes moist Respiratory/Chest: rhonchi - bilaterally Cardiovascular: normal rate, other - left arm PICC line Abdomen: soft, non tender, other - GT feeding Extremities: other - left AKA Neurologic/Psychiatric: aphasia Laboratory Tests Test 12/17/17 10:30 White Blood Count 13.1 K/UL (4.8-10.8) H Red Blood Count 3.10 M/UL (4.20-5.40) L Hemoglobin 9.6 G/DL (12.0-16.0) L Hematocrit 28.7 % (37.0-47.0) L Mean Corpuscular Volume 93 FL (80-99) Mean Corpuscular Hemoglobin 30.8 PG (27.0-31.0) Mean Corpuscular Hemoglobin Concent 33.3 G/DL (32.0-36.0) Red Cell Distribution Width 14.4 % (11.6-14.8) Platelet Count 292 K/UL (150-450) Mean Platelet Volume 6.0 FL (6.5-10.1) L Neutrophils (%) (Auto) 79.7 % (45.0-75.0) H Lymphocytes (%) (Auto) 12.6 % (20.0-45.0) L Monocytes (%) (Auto) 6.5 % (1.0-10.0) Eosinophils (%) (Auto) 0.7 % (0.0-3.0) Basophils (%) (Auto) 0.5 % (0.0-2.0) Sodium Level 135 MMOL/L (136-145) L Potassium Level 4.3 MMOL/L (3.5-5.1) Chloride Level 101 MMOL/L (98-107) Carbon Dioxide Level 30 MMOL/L (21-32) Anion Gap 5 mmol/L (5-15) Blood Urea Nitrogen 11 mg/dL (7-18) Creatinine 0.6 MG/DL (0.55-1.30) Estimat Glomerular Filtration Rate mL/min (>60) Glucose Level 242 MG/DL (74-106) #H Calcium Level 7.5 MG/DL (8.5-10.1) L Magnesium Level 2.3 MG/DL (1.8-2.4) Total Bilirubin 0.4 MG/DL (0.2-1.0) Aspartate Amino Transf (AST/SGOT) 23 U/L (15-37) Alanine Aminotransferase (ALT/SGPT) 29 U/L (12-78) Alkaline Phosphatase 85 U/L (46-116) Total Protein 6.3 G/DL (6.4-8.2) L Albumin 1.7 G/DL (3.4-5.0) L Globulin 4.6 g/dL Albumin/Globulin Ratio 0.4 (1.0-2.7) L Current Medications Medications (Trade) Dose Ordered Sig/Satish Route PRN Reason Start Time Stop Time Status Last Admin Dose Admin Acetaminophen (Tylenol) 500 mg Q4H PRN ORAL Mild Pain/Temp > 100.5 12/11/17 22:00 01/10/18 21:59 Acetaminophen (Tylenol) 650 mg Q4H PRN ORAL Mild Pain/Temp > 100.5 12/07/17 09:30 01/06/18 09:29 12/17/17 01:51 Acetaminophen/ Hydrocodone Bitart ([place] 5/325) 1 tab EVERY 8 HOURS ORAL 12/11/17 22:00 12/18/17 21:59 12/17/17 05:57 Amlodipine Besylate (Norvasc) 5 mg DAILY GT 12/09/17 09:00 01/08/18 08:59 12/17/17 10:04 Ceftriaxone Sodium 2 gm/ Dextrose 110 ml @ 220 mls/hr Q24H IVPB 12/15/17 20:00 12/21/17 23:59 12/16/17 21:59 Chlorhexidine Gluconate (Mireya-Hex 2%) 1 applic DAILY@2000 TOPIC 12/14/17 20:00 01/13/18 19:59 12/15/17 20:49 Dextrose (Dextrose 50%) 25 ml STAT PRN IV Hypoglycemia 11/30/17 17:30 12/30/17 17:29 Dextrose (Dextrose 50%) 50 ml STAT PRN IV Hypoglycemia 11/30/17 17:30 12/30/17 17:29 Dextrose/ Electrolytes 1,000 ml @ 50 mls/hr Q20H IV 12/12/17 01:30 6/25/18 01:29 12/16/17 05:45 Famotidine (Pepcid) 20 mg BID GT 11/30/17 18:00 12/30/17 17:59 12/17/17 10:03 Fluconazole (Diflucan) 100 mg DAILY ORAL 12/16/17 09:00 12/23/17 20:59 12/17/17 10:04 Heparin Sodium (Porcine) (Heparin 5000 units/ml) 5,000 units EVERY 12 HOURS SUBQ 12/05/17 21:00 01/04/18 20:59 12/17/17 10:06 Metoprolol Tartrate (Lopressor) 25 mg Q12HR GT 11/30/17 21:00 12/30/17 20:59 12/17/17 10:04 Vancomycin HCl (Vanco rx to dose) 1 ea DAILY PRN MISC Per rx protocol 12/15/17 11:45 01/14/18 11:44 Vancomycin HCl 500 mg/Dextrose 110 ml @ 110 mls/hr Q12H IVPB 12/15/17 20:00 12/18/17 23:59 12/16/17 21:58 Vitamin A/Vitamin D (A & D Oint) 1 applic QID TOPIC 12/12/17 13:00 01/11/18 12:59 12/17/17 10:05 Ezio Mendoza MD December 17, 2017 13:10"
--- NOTE | 2017-12-17 15:08 | General Surgery Progress Note ---
General Surgery-Progress Note Subjective Additional Comments s/p amputation. doing well. mild leaking from g tube site but improved. Objective Last 24 Hour Vital Signs Date Time Temp Pulse Resp B/P (MAP) Pulse Ox O2 Delivery O2 Flow Rate FiO2 12/17/17 10:04 86 118/60 12/17/17 10:04 86 118/60 12/17/17 08:42 208.0 72 20 98 12/17/17 08:00 97.9 86 20 118/60 96 Nasal Cannula 2.0 97.9 12/17/17 04:00 97.5 79 20 99/60 94 Room Air 97.5 12/17/17 04:00 85 12/17/17 00:00 82 12/17/17 00:00 99.7 83 20 106/55 100 Room Air 99.7 12/16/17 21:12 106 121/60 12/16/17 20:00 99.9 106 20 121/60 99 Room Air 99.9 12/16/17 20:00 104 12/16/17 16:00 97.8 70 18 128/70 97 Room Air 97.8 I&O Intake and Output 12/16/17 12/17/17 19:00 07:00 Intake Total 810 ml 770 ml Output Total 600 ml Balance 210 ml 770 ml IV Total 560 ml 770 ml Blood Product 250 ml Output Urine Total 550 ml Estimated Blood Loss 50 ml # Voids 1 # Bowel Movements 1 Dressing: saturated Wound: clean Cardiovascular: RSR Respiratory: clear Abdomen: soft, flat, present bowel sounds Laboratory Tests Test 12/17/17 10:30 White Blood Count 13.1 K/UL (4.8-10.8) H Red Blood Count 3.10 M/UL (4.20-5.40) L Hemoglobin 9.6 G/DL (12.0-16.0) L Hematocrit 28.7 % (37.0-47.0) L Mean Corpuscular Volume 93 FL (80-99) Mean Corpuscular Hemoglobin 30.8 PG (27.0-31.0) Mean Corpuscular Hemoglobin Concent 33.3 G/DL (32.0-36.0) Red Cell Distribution Width 14.4 % (11.6-14.8) Platelet Count 292 K/UL (150-450) Mean Platelet Volume 6.0 FL (6.5-10.1) L Neutrophils (%) (Auto) 79.7 % (45.0-75.0) H Lymphocytes (%) (Auto) 12.6 % (20.0-45.0) L Monocytes (%) (Auto) 6.5 % (1.0-10.0) Eosinophils (%) (Auto) 0.7 % (0.0-3.0) Basophils (%) (Auto) 0.5 % (0.0-2.0) Sodium Level 135 MMOL/L (136-145) L Potassium Level 4.3 MMOL/L (3.5-5.1) Chloride Level 101 MMOL/L (98-107) Carbon Dioxide Level 30 MMOL/L (21-32) Anion Gap 5 mmol/L (5-15) Blood Urea Nitrogen 11 mg/dL (7-18) Creatinine 0.6 MG/DL (0.55-1.30) Estimat Glomerular Filtration Rate mL/min (>60) Glucose Level 242 MG/DL (74-106) #H Calcium Level 7.5 MG/DL (8.5-10.1) L Magnesium Level 2.3 MG/DL (1.8-2.4) Total Bilirubin 0.4 MG/DL (0.2-1.0) Aspartate Amino Transf (AST/SGOT) 23 U/L (15-37) Alanine Aminotransferase (ALT/SGPT) 29 U/L (12-78) Alkaline Phosphatase 85 U/L (46-116) Total Protein 6.3 G/DL (6.4-8.2) L Albumin 1.7 G/DL (3.4-5.0) L Globulin 4.6 g/dL Albumin/Globulin Ratio 0.4 (1.0-2.7) L Plan Problems: (1) Gastrostomy tube dysfunction Assessment & Plan: small sandro-g tube fistula identified. leaking of contents noted. no active infection noted but does have some induration. fistulogram identified passage from fistula opening into gastric lumen. currently stable and okay. could revise g tube site would not indicated at this time given small inconsequential fistula. cont with dressings and care to g tube site. g tube functional and leakage minimal. thank you for this consultation. will follow with you Santana Tolbert December 17, 2017 15:08
[2017-12-17 16:00] VITALS: BP 123/62
[2017-12-17 20:00] VITALS: BP 123/65
[2017-12-17] MEDS: Dyna-Hex 2% Top Sol 2oz TOPIC SCH (21:03)
[2017-12-17] MEDS: cefTRIAXone 2 GM in D5W 110 ML IVPB SCH (21:03)
[2017-12-18] VITALS: BP 122/64
--- NOTE | 2017-12-18 00:01 | Operative Note - Dictated ---
DATE OF OPERATION: 12/16/2017 SURGEON: Monico Gonzalez M.D. ANESTHESIOLOGIST: Jay Aceves M.D. PREOPERATIVE DIAGNOSES: 1. Left foot necrosis and osteomyelitis with severe knee contracture, nonambulatory with calcific arterial occlusive disease. 2. Dementia. 3. Encephalopathy. POSTOPERATIVE DIAGNOSES: 1. Left foot necrosis and osteomyelitis with severe knee contracture, nonambulatory with calcific arterial occlusive disease. 2. Dementia. 3. Encephalopathy. PROCEDURE: Left leg above-knee amputation. ANESTHESIA: Spinal anesthesia. COMPLICATIONS: None. EBL: Less than 60 mL. FINDINGS: Adequately perfused left above-knee amputation stump with good completion stump closure. The patient tolerated the procedure very well. INDICATIONS FOR PROCEDURE: The patient is a 77-year-old female, who presented for the above-mentioned procedure. Risks and benefits were discussed with the patient's family and consent obtained. DESCRIPTION OF PROCEDURE: The patient was brought to the procedure room. After spinal anesthesia, left leg was prepped and draped in the usual sterile manner. The left anterior and posterior thigh fish-mouth skin incision was made. Electrocautery was utilized to divide the muscle and left femur was mobilized superiorly and divided several centimeters above the skin lesion and muscles were divided, which were sutured and suture ligated with 4-0 Prolene suture. The left leg was sent to pathology for permanent sampling. Hemostasis was achieved. The muscle was viable. The edge of the bone was blunted. Bone was covered with muscle with interrupted 2-0 Vicryl suture and the fascial layer was closed using interrupted 2-0 and 3-0 Vicryl sutures. Skin was closed using interrupted 3-0 interrupted nylon suture. Sterile dressing was applied. The patient tolerated the procedure very well, was sent to the recovery room in a stable condition. Monico Gonzalez M.D. DR: ESTER JOB#: [id number] CC: Monico Gonzalez M.D.; Fax#: [phone] Tyrell Underwood M.D. Satinder Kirk M.D. JIMMY TRAORE D.P.M.; FAX#: [phone] [facility]
[2017-12-18 04:00] VITALS: BP 130/59
--- NOTE | 2017-12-18 04:46 | Progress Note ---
DATE: 12/17/2017 SUBJECTIVE: Postop day #1 following left AKA. controlled pain. Now voiding. Still with some leaking around G-tube site. PHYSICAL EXAMINATION: VITAL SIGNS: Blood pressure 118/60, pulse 86, respiratory rate 20, and afebrile. LUNGS: Bilateral breath sounds. HEART: Regular rhythm and rate. Normal S1, S2. ABDOMEN: Soft. G-tube intact. Drainage decreased. EXTREMITIES: Left AKA stump with dressing in place and no signs of active bleeding. LABORATORY AND DIAGNOSTIC DATA: White count 13, hemoglobin 9.6. Potassium 4.3, BUN 11, creatinine 0.6. Magnesium 2.3. Albumin 1.7. IMPRESSION: 1. Status post AKA for osteomyelitis of the left heel. 2. Hypertensive heart disease. 3. Chronic diastolic congestive heart failure. 4. Status post aspiration and healthcare acquired pneumonia. 5. G-tube leak and fistula. 6. Advanced dementia. 7. Dysphagia with G-tube. 8. Severe protein calorie malnutrition. PLAN: 1. Discontinue IV fluids. 2. Maintain nutritional support with protein supplement. 3. Postop wound care. 4. Pain control. 5. Antimicrobials per Infectious Disease consultant education. Tyrell Underwood M.D. DR: COLLIN JOB#: [id number] CC:
[2017-12-18 05:02] LABS: BASOPHILS % (AUTO) 0.6 % (0.0-2.0); EOSINOPHILS % (AUTO) 0.9 % (0.0-3.0); HEMATOCRIT 25.4 % (37.0-47.0); HEMOGLOBIN 8.8 G/DL (12.0-16.0); MEAN CORPUSCULAR VOLUME 93 FL (80-99); MONOCYTES % (AUTO) 8.5 % (1.0-10.0); NEUTROPHILS % (AUTO) 74.1 % (45.0-75.0); PLATELET COUNT 240 K/UL (150-450); RED BLOOD COUNT 2.74 M/UL (4.20-5.40); WHITE BLOOD COUNT 13.5 K/UL (4.8-10.8)
[2017-12-18 05:09] LABS: ALANINE AMINOTRANSFERASE 25 U/L (12-78); ALBUMIN 1.7 G/DL (3.4-5.0); ALBUMIN/GLOBULIN RATIO 0.4 (1.0-2.7); ALKALINE PHOSPHATASE 89 U/L (46-116); ANION GAP 3 mmol/L (5-15); ASPARTATE AMINO TRANSFERASE 20 U/L (15-37); BILIRUBIN,TOTAL 0.2 MG/DL (0.2-1.0); BLOOD UREA NITROGEN 13 mg/dL (7-18); CALCIUM 7.6 MG/DL (8.5-10.1); CARBON DIOXIDE 32 MMOL/L (21-32); CHLORIDE 104 MMOL/L (98-107); CREATININE 0.6 MG/DL (0.55-1.30); POTASSIUM 3.8 MMOL/L (3.5-5.1); SODIUM 139 MMOL/L (136-145)
[2017-12-18] MEDS: Vancomycin 500 MG in D5W 110 ML IVPB SCH ×2 (05:09→17:22)
[2017-12-18] MEDS: Norco 5mg/325mg tab ORAL SCH ×2 (05:11→13:34)
--- NOTE | 2017-12-18 07:25 | General Progress Note ---
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 - osteomyelitis Recommendations continue TF consider GJT placement if persistent GT leak follow lab and exam Subjective ROS Limited/Unobtainable: No Allergies: Coded Allergies: AMOXICILLIN (Verified Allergy, Mild, 06/21/09) ASPIRIN (Verified Allergy, Mild, 06/21/09) SALICYLATES (Verified Allergy, Mild, 06/21/09) PENICILLINS (Unverified Allergy, Unknown, 11/18/17) Objective Last 24 Hour Vital Signs Date Time Temp Pulse Resp B/P (MAP) Pulse Ox O2 Delivery O2 Flow Rate FiO2 12/18/17 04:00 99.2 88 20 130/59 97 Nasal Cannula 2.0 99.2 12/18/17 00:00 98.0 85 20 122/64 97 Nasal Cannula 2.0 98.0 12/18/17 00:00 80 12/17/17 21:04 96 123/65 12/17/17 20:09 97 Nasal Cannula 3.0 32 12/17/17 20:09 Nasal Cannula 3.0 32 12/17/17 20:00 89 12/17/17 20:00 98.9 96 20 123/65 94 Nasal Cannula 2.0 98.9 12/17/17 16:00 98.2 88 18 123/62 100 Nasal Cannula 2.0 98.2 12/17/17 16:00 91 12/17/17 15:50 97.8 12/17/17 12:00 97.5 74 20 123/64 95 Nasal Cannula 2.0 97.5 12/17/17 12:00 76 12/17/17 10:04 86 118/60 12/17/17 10:04 86 118/60 12/17/17 08:42 208.0 72 20 98 12/17/17 08:00 85 12/17/17 08:00 97.9 86 20 118/60 96 Nasal Cannula 2.0 97.9 Intake and Output 12/17/17 12/18/17 19:00 07:00 Intake Total 920 ml Balance 920 ml IV Total 920 ml # Voids 1 3 Laboratory Tests 12/17/17 10:30: White Blood Count 13.1H, Red Blood Count 3.10L, Hemoglobin 9.6L, Hematocrit 28.7L, Mean Corpuscular Volume 93, Mean Corpuscular Hemoglobin 30.8, Mean Corpuscular Hemoglobin Concent 33.3, Red Cell Distribution Width 14.4, Platelet Count 292, Mean Platelet Volume 6.0L, Neutrophils (%) (Auto) 79.7H, Lymphocytes (%) (Auto) 12.6L, Monocytes (%) (Auto) 6.5, Eosinophils (%) (Auto) 0.7, Basophils (%) (Auto) 0.5, Sodium Level 135L, Potassium Level 4.3, Chloride Level 101, Carbon Dioxide Level 30, Anion Gap 5, Blood Urea Nitrogen 11, Creatinine 0.6, Estimat Glomerular Filtration Rate , Glucose Level 242#H, Calcium Level 7.5L, Magnesium Level 2.3, Total Bilirubin 0.4, Aspartate Amino Transf (AST/SGOT) 23, Alanine Aminotransferase (ALT/SGPT) 29, Alkaline Phosphatase 85, Total Protein 6.3L, Albumin 1.7L, Globulin 4.6, Albumin/ Globulin Ratio 0.4L 12/18/17 03:00: White Blood Count 13.5H, Red Blood Count 2.74L, Hemoglobin 8.8L, Hematocrit 25.4L, Mean Corpuscular Volume 93, Mean Corpuscular Hemoglobin 32.2H, Mean Corpuscular Hemoglobin Concent 34.7, Red Cell Distribution Width 15.0H, Platelet Count 240, Mean Platelet Volume 5.9L, Neutrophils (%) (Auto) 74.1, Lymphocytes (%) (Auto) 16.0L, Monocytes (%) (Auto) 8.5, Eosinophils (%) (Auto) 0.9, Basophils (%) (Auto) 0.6, Sodium Level 139, Potassium Level 3.8, Chloride Level 104, Carbon Dioxide Level 32, Anion Gap 3L, Blood Urea Nitrogen 13, Creatinine 0.6, Estimat Glomerular Filtration Rate , Glucose Level 125#H, Calcium Level 7.6L, Magnesium Level 2.3, Total Bilirubin 0.2, Aspartate Amino Transf (AST/SGOT) 20, Alanine Aminotransferase (ALT/SGPT) 25, Alkaline Phosphatase 89, Total Protein 6.3L, Albumin 1.7L, Globulin 4.6, Albumin/ Globulin Ratio 0.4L Height (Feet): 4 Height (Inches): 0.00 Weight (Pounds): 100 General Appearance: no apparent distress EENT: normal ENT inspection Neck: supple Cardiovascular: normal rate Respiratory/Chest: decreased breath sounds Abdomen: normal bowel sounds, non tender, soft Extremities: non-tender Claude Bay MD Dec 18, 2017 07:25
[2017-12-18 08:00] VITALS: BP 131/58
--- NOTE | 2017-12-18 08:08 | Pulmonology Progress Note ---
Assessment/Plan Assessment/Plan IMPRESSION: 1. Evidence of pneumonia, with effusion 2. G-tube, possible fistulous tract. 3. Left heel osteomyelitis. 4. Toxic metabolic encephalopathy. 5. Significant contractures. 6. History of CVA. 7. History of dysphagia. 8. s/p AKA 9. gangrene PLAN care noted stump care respiratory care follow up cxr for change and recommend monitor fluid status oxygen needs stable antibiotics noted monitor clinically for change suction as needed SNF dc DNR treat conservatively and consider tap if needed monitor post op all reviewed in detail; prognosis poor impression, plan, and exam edited and reviewed in detail care discussed with RN Subjective ROS Limited/Unobtainable: Yes Allergies: Coded Allergies: AMOXICILLIN (Verified Allergy, Mild, 06/21/09) ASPIRIN (Verified Allergy, Mild, 06/21/09) SALICYLATES (Verified Allergy, Mild, 06/21/09) PENICILLINS (Unverified Allergy, Unknown, 11/18/17) Subjective care reviewed overnight events fairly stable s/p AKA Objective Last 24 Hour Vital Signs Date Time Temp Pulse Resp B/P (MAP) Pulse Ox O2 Delivery O2 Flow Rate FiO2 12/18/17 04:00 89 12/18/17 04:00 99.2 88 20 130/59 97 Nasal Cannula 2.0 99.2 12/18/17 00:00 98.0 85 20 122/64 97 Nasal Cannula 2.0 98.0 12/18/17 00:00 80 12/17/17 21:04 96 123/65 12/17/17 20:09 97 Nasal Cannula 3.0 32 12/17/17 20:09 Nasal Cannula 3.0 32 12/17/17 20:00 89 12/17/17 20:00 98.9 96 20 123/65 94 Nasal Cannula 2.0 98.9 12/17/17 16:00 98.2 88 18 123/62 100 Nasal Cannula 2.0 98.2 12/17/17 16:00 91 12/17/17 15:50 97.8 12/17/17 12:00 97.5 74 20 123/64 95 Nasal Cannula 2.0 97.5 12/17/17 12:00 76 12/17/17 10:04 86 118/60 12/17/17 10:04 86 118/60 12/17/17 08:42 208.0 72 20 98 Intake and Output 5/31/18 6/1/18 19:00 07:00 Intake Total 920 ml Balance 920 ml IV Total 920 ml # Voids 1 3 Objective WDWN NAD reduced breath sounds scattered rhonchi [id number] without MRG NABS nontender no HSM; no distention; GT no CCE AKA weak with reduced LOC reviewed Laboratory Tests 12/17/17 10:30: White Blood Count 13.1H, Red Blood Count 3.10L, Hemoglobin 9.6L, Hematocrit 28.7L, Mean Corpuscular Volume 93, Mean Corpuscular Hemoglobin 30.8, Mean Corpuscular Hemoglobin Concent 33.3, Red Cell Distribution Width 14.4, Platelet Count 292, Mean Platelet Volume 6.0L, Neutrophils (%) (Auto) 79.7H, Lymphocytes (%) (Auto) 12.6L, Monocytes (%) (Auto) 6.5, Eosinophils (%) (Auto) 0.7, Basophils (%) (Auto) 0.5, Sodium Level 135L, Potassium Level 4.3, Chloride Level 101, Carbon Dioxide Level 30, Anion Gap 5, Blood Urea Nitrogen 11, Creatinine 0.6, Estimat Glomerular Filtration Rate , Glucose Level 242#H, Calcium Level 7.5L, Magnesium Level 2.3, Total Bilirubin 0.4, Aspartate Amino Transf (AST/SGOT) 23, Alanine Aminotransferase (ALT/SGPT) 29, Alkaline Phosphatase 85, Total Protein 6.3L, Albumin 1.7L, Globulin 4.6, Albumin/ Globulin Ratio 0.4L 12/18/17 03:00: White Blood Count 13.5H, Red Blood Count 2.74L, Hemoglobin 8.8L, Hematocrit 25.4L, Mean Corpuscular Volume 93, Mean Corpuscular Hemoglobin 32.2H, Mean Corpuscular Hemoglobin Concent 34.7, Red Cell Distribution Width 15.0H, Platelet Count 240, Mean Platelet Volume 5.9L, Neutrophils (%) (Auto) 74.1, Lymphocytes (%) (Auto) 16.0L, Monocytes (%) (Auto) 8.5, Eosinophils (%) (Auto) 0.9, Basophils (%) (Auto) 0.6, Sodium Level 139, Potassium Level 3.8, Chloride Level 104, Carbon Dioxide Level 32, Anion Gap 3L, Blood Urea Nitrogen 13, Creatinine 0.6, Estimat Glomerular Filtration Rate , Glucose Level 125#H, Calcium Level 7.6L, Magnesium Level 2.3, Total Bilirubin 0.2, Aspartate Amino Transf (AST/SGOT) 20, Alanine Aminotransferase (ALT/SGPT) 25, Alkaline Phosphatase 89, Total Protein 6.3L, Albumin 1.7L, Globulin 4.6, Albumin/ Globulin Ratio 0.4L Current Medications Medications (Trade) Dose Ordered Sig/Satish Route PRN Reason Start Time Stop Time Status Last Admin Dose Admin Acetaminophen (Tylenol) 500 mg Q4H PRN ORAL Mild Pain/Temp > 100.5 12/11/17 22:00 01/10/18 21:59 Acetaminophen (Tylenol) 650 mg Q4H PRN ORAL Mild Pain/Temp > 100.5 12/07/17 09:30 01/06/18 09:29 12/17/17 01:51 Acetaminophen/ Hydrocodone Bitart ([place] 5/325) 1 tab EVERY 8 HOURS ORAL 12/11/17 22:00 12/18/17 21:59 12/18/17 05:11 Amlodipine Besylate (Norvasc) 5 mg DAILY GT 12/09/17 09:00 01/08/18 08:59 12/17/17 10:04 Ceftriaxone Sodium 2 gm/ Dextrose 110 ml @ 220 mls/hr Q24H IVPB 12/15/17 20:00 12/21/17 23:59 12/17/17 21:03 Chlorhexidine Gluconate (Mireya-Hex 2%) 1 applic DAILY@2000 TOPIC 12/14/17 20:00 01/13/18 19:59 12/17/17 21:03 Dextrose (Dextrose 50%) 25 ml STAT PRN IV Hypoglycemia 11/30/17 17:30 12/30/17 17:29 Dextrose (Dextrose 50%) 50 ml STAT PRN IV Hypoglycemia 11/30/17 17:30 12/30/17 17:29 Famotidine (Pepcid) 20 mg BID GT 11/30/17 18:00 12/30/17 17:59 12/17/17 17:05 Fluconazole (Diflucan) 100 mg DAILY ORAL 12/16/17 09:00 12/23/17 20:59 12/17/17 10:04 Heparin Sodium (Porcine) (Heparin 5000 units/ml) 5,000 units EVERY 12 HOURS SUBQ 12/05/17 21:00 01/04/18 20:59 12/17/17 21:07 Metoprolol Tartrate (Lopressor) 25 mg Q12HR GT 11/30/17 21:00 12/30/17 20:59 12/17/17 21:04 Vancomycin HCl (Vanco rx to dose) 1 ea DAILY PRN MISC Per rx protocol 12/15/17 11:45 01/14/18 11:44 Vancomycin HCl 500 mg/Dextrose 110 ml @ 110 mls/hr Q12H IVPB 12/17/17 17:00 12/22/17 16:59 12/18/17 05:09 Vitamin A/Vitamin D (A & D Oint) 1 applic QID TOPIC 12/12/17 13:00 01/11/18 12:59 12/17/17 21:06 Raj Reyes MD Dec 18, 2017 08:08
--- NOTE | 2017-12-18 08:19 | General Progress Note ---
Assessment/Plan Problem List: (1) Hypokalemia ICD Codes: E87.6 - Hypokalemia SNOMED: 98909053 (2) Functional quadriplegia ICD Codes: R53.2 - Functional quadriplegia SNOMED: 173279063276014 (3) Malnutrition of moderate degree ICD Codes: E44.0 - Moderate protein-calorie malnutrition SNOMED: 736733182 (4) Osteomyelitis ICD Codes: M86.9 - Osteomyelitis, unspecified SNOMED: 00499730 Qualifiers: Qualified Codes: M86.9 - Osteomyelitis, unspecified (5) Gastrostomy tube dysfunction ICD Codes: K94.23 - Gastrostomy malfunction SNOMED: 095872641 (6) Respiratory failure ICD Codes: J96.90 - Respiratory failure, unspecified, unspecified whether with hypoxia or hypercapnia SNOMED: 091750016 (7) Pneumonia ICD Codes: J18.9 - Pneumonia, unspecified organism SNOMED: 306721943 (8) Pleural effusion ICD Codes: J90 - Pleural effusion, not elsewhere classified SNOMED: 41218706 Status: stable, progressing Assessment/Plan iv abx gt feeds wean fio2 resp rx monitor abg monitor lytes wound care post op care ?dc planning to snf next few days if stable Subjective ROS Limited/Unobtainable: No Constitutional: Reports: malaise, weakness HEENT: Reports: no symptoms Cardiovascular: Reports: no symptoms Respiratory: Reports: cough Gastrointestinal/Abdominal: Reports: difficulty swallowing Genitourinary: Reports: no symptoms Neurologic/Psychiatric: Reports: pre-existing deficit Endocrine: Reports: no symptoms Hematologic/Lymphatic: Reports: no symptoms Allergies: Coded Allergies: AMOXICILLIN (Verified Allergy, Mild, 06/21/09) ASPIRIN (Verified Allergy, Mild, 06/21/09) SALICYLATES (Verified Allergy, Mild, 06/21/09) PENICILLINS (Unverified Allergy, Unknown, 11/18/17) All Systems: reviewed and negative except above Subjective no events. on o2. no distress. no surgery plans per general surgery. on feeds. Objective Last 24 Hour Vital Signs Date Time Temp Pulse Resp B/P (MAP) Pulse Ox O2 Delivery O2 Flow Rate FiO2 12/18/17 04:00 89 12/18/17 04:00 99.2 88 20 130/59 97 Nasal Cannula 2.0 99.2 12/18/17 00:00 98.0 85 20 122/64 97 Nasal Cannula 2.0 98.0 12/18/17 00:00 80 12/17/17 21:04 96 123/65 12/17/17 20:09 97 Nasal Cannula 3.0 32 12/17/17 20:09 Nasal Cannula 3.0 32 12/17/17 20:00 89 12/17/17 20:00 98.9 96 20 123/65 94 Nasal Cannula 2.0 98.9 12/17/17 16:00 98.2 88 18 123/62 100 Nasal Cannula 2.0 98.2 12/17/17 16:00 91 12/17/17 15:50 97.8 12/17/17 12:00 97.5 74 20 123/64 95 Nasal Cannula 2.0 97.5 12/17/17 12:00 76 12/17/17 10:04 86 118/60 12/17/17 10:04 86 118/60 12/17/17 08:42 208.0 72 20 98 Intake and Output 12/17/17 12/18/17 19:00 07:00 Intake Total 920 ml Balance 920 ml IV Total 920 ml # Voids 1 3 Laboratory Tests 12/17/17 10:30: White Blood Count 13.1H, Red Blood Count 3.10L, Hemoglobin 9.6L, Hematocrit 28.7L, Mean Corpuscular Volume 93, Mean Corpuscular Hemoglobin 30.8, Mean Corpuscular Hemoglobin Concent 33.3, Red Cell Distribution Width 14.4, Platelet Count 292, Mean Platelet Volume 6.0L, Neutrophils (%) (Auto) 79.7H, Lymphocytes (%) (Auto) 12.6L, Monocytes (%) (Auto) 6.5, Eosinophils (%) (Auto) 0.7, Basophils (%) (Auto) 0.5, Sodium Level 135L, Potassium Level 4.3, Chloride Level 101, Carbon Dioxide Level 30, Anion Gap 5, Blood Urea Nitrogen 11, Creatinine 0.6, Estimat Glomerular Filtration Rate , Glucose Level 242#H, Calcium Level 7.5L, Magnesium Level 2.3, Total Bilirubin 0.4, Aspartate Amino Transf (AST/SGOT) 23, Alanine Aminotransferase (ALT/SGPT) 29, Alkaline Phosphatase 85, Total Protein 6.3L, Albumin 1.7L, Globulin 4.6, Albumin/ Globulin Ratio 0.4L 12/18/17 03:00: White Blood Count 13.5H, Red Blood Count 2.74L, Hemoglobin 8.8L, Hematocrit 25.4L, Mean Corpuscular Volume 93, Mean Corpuscular Hemoglobin 32.2H, Mean Corpuscular Hemoglobin Concent 34.7, Red Cell Distribution Width 15.0H, Platelet Count 240, Mean Platelet Volume 5.9L, Neutrophils (%) (Auto) 74.1, Lymphocytes (%) (Auto) 16.0L, Monocytes (%) (Auto) 8.5, Eosinophils (%) (Auto) 0.9, Basophils (%) (Auto) 0.6, Sodium Level 139, Potassium Level 3.8, Chloride Level 104, Carbon Dioxide Level 32, Anion Gap 3L, Blood Urea Nitrogen 13, Creatinine 0.6, Estimat Glomerular Filtration Rate , Glucose Level 125#H, Calcium Level 7.6L, Magnesium Level 2.3, Total Bilirubin 0.2, Aspartate Amino Transf (AST/SGOT) 20, Alanine Aminotransferase (ALT/SGPT) 25, Alkaline Phosphatase 89, Total Protein 6.3L, Albumin 1.7L, Globulin 4.6, Albumin/ Globulin Ratio 0.4L Height (Feet): 4 Height (Inches): 0.00 Weight (Pounds): 100 Objective General Appearance: WD/WN, lethargic, confused Neck: supple Cardiovascular: normal peripheral pulses, tachycardia Respiratory/Chest: crackles/rales, rhonchi - bilaterally Abdomen: normal bowel sounds, non tender, soft, no organomegaly Edema: no edema noted Arm (L), no edema noted Arm (R), no edema noted Leg (L), no edema noted Leg (R), no edema noted Pedal (L), no edema noted Pedal (R), no edema noted Generalized Neurologic: disoriented, unresponsive, aphasia Satinder Kirk MD Dec 18, 2017 08:19
[2017-12-18] MEDS: Metoprolol 25mg tab GT SCH ×2 (10:02→20:35)
[2017-12-18] MEDS: Fluconazole 100mg tab ORAL SCH (10:02)
[2017-12-18] MEDS: Vitamin A&D Oint 2oz Tube TOPIC SCH ×4 (10:03→20:40)
[2017-12-18] MEDS: Heparin 5000 units/ml inj SUBQ SCH ×2 (10:06→20:37)
--- NOTE | 2017-12-18 11:11 | Infectious Diseases Prog Note ---
"Assessment/Plan Assessment/Plan antibiotics : vancomycin iv, ceftriaxone, fluconazole A 1. 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 DM 3. hypertension 4. CVA 5. right pleural effusion 6. pneumonia P 1. continue iv vancomycin, ceftriaxone 1 more day 2. continue fluconazole 1 more day 3. will follow up cultures Subjective ROS Limited/Unobtainable: Yes Allergies: Coded Allergies: AMOXICILLIN (Verified Allergy, Mild, 06/21/09) ASPIRIN (Verified Allergy, Mild, 06/21/09) SALICYLATES (Verified Allergy, Mild, 06/21/09) PENICILLINS (Unverified Allergy, Unknown, 11/18/17) Objective Vital Signs Last 24 Hour Vital Signs Date Time Temp Pulse Resp B/P (MAP) Pulse Ox O2 Delivery O2 Flow Rate FiO2 12/18/17 10:02 85 131/58 12/18/17 10:01 85 131/58 12/18/17 08:03 Nasal Cannula 3.0 32 12/18/17 08:03 98 Nasal Cannula 2.0 28 12/18/17 08:00 98.0 85 19 131/58 100 Nasal Cannula 2.0 98.0 12/18/17 04:00 89 12/18/17 04:00 99.2 88 20 130/59 97 Nasal Cannula 2.0 99.2 12/18/17 00:00 98.0 85 20 122/64 97 Nasal Cannula 2.0 98.0 12/18/17 00:00 80 12/17/17 21:04 96 123/65 12/17/17 20:09 97 Nasal Cannula 3.0 32 12/17/17 20:09 Nasal Cannula 3.0 32 12/17/17 20:00 89 12/17/17 20:00 98.9 96 20 123/65 94 Nasal Cannula 2.0 98.9 12/17/17 16:00 98.2 88 18 123/62 100 Nasal Cannula 2.0 98.2 12/17/17 16:00 91 12/17/17 15:50 97.8 12/17/17 12:00 97.5 74 20 123/64 95 Nasal Cannula 2.0 97.5 12/17/17 12:00 76 Height (Feet): 4 Height (Inches): 0.00 Weight (Pounds): 100 Respiratory/Chest: lungs clear Cardiovascular: normal rate, regular rhythm, no gallop/murmur Abdomen: soft, non tender, other - GT Extremities: no edema, other - left stump in dressings Laboratory Tests Test 12/18/17 03:00 White Blood Count 13.5 K/UL (4.8-10.8) H Red Blood Count 2.74 M/UL (4.20-5.40) L Hemoglobin 8.8 G/DL (12.0-16.0) L Hematocrit 25.4 % (37.0-47.0) L Mean Corpuscular Volume 93 FL (80-99) Mean Corpuscular Hemoglobin 32.2 PG (27.0-31.0) H Mean Corpuscular Hemoglobin Concent 34.7 G/DL (32.0-36.0) Red Cell Distribution Width 15.0 % (11.6-14.8) H Platelet Count 240 K/UL (150-450) Mean Platelet Volume 5.9 FL (6.5-10.1) L Neutrophils (%) (Auto) 74.1 % (45.0-75.0) Lymphocytes (%) (Auto) 16.0 % (20.0-45.0) L Monocytes (%) (Auto) 8.5 % (1.0-10.0) Eosinophils (%) (Auto) 0.9 % (0.0-3.0) Basophils (%) (Auto) 0.6 % (0.0-2.0) Sodium Level 139 MMOL/L (136-145) Potassium Level 3.8 MMOL/L (3.5-5.1) Chloride Level 104 MMOL/L (98-107) Carbon Dioxide Level 32 MMOL/L (21-32) Anion Gap 3 mmol/L (5-15) L Blood Urea Nitrogen 13 mg/dL (7-18) Creatinine 0.6 MG/DL (0.55-1.30) Estimat Glomerular Filtration Rate mL/min (>60) Glucose Level 125 MG/DL (74-106) #H Calcium Level 7.6 MG/DL (8.5-10.1) L Magnesium Level 2.3 MG/DL (1.8-2.4) Total Bilirubin 0.2 MG/DL (0.2-1.0) Aspartate Amino Transf (AST/SGOT) 20 U/L (15-37) Alanine Aminotransferase (ALT/SGPT) 25 U/L (12-78) Alkaline Phosphatase 89 U/L (46-116) Total Protein 6.3 G/DL (6.4-8.2) L Albumin 1.7 G/DL (3.4-5.0) L Globulin 4.6 g/dL Albumin/Globulin Ratio 0.4 (1.0-2.7) L Current Medications Medications (Trade) Dose Ordered Sig/Satish Route PRN Reason Start Time Stop Time Status Last Admin Dose Admin Acetaminophen (Tylenol) 500 mg Q4H PRN ORAL Mild Pain/Temp > 100.5 12/11/17 22:00 01/10/18 21:59 Acetaminophen (Tylenol) 650 mg Q4H PRN ORAL Mild Pain/Temp > 100.5 12/07/17 09:30 01/06/18 09:29 12/17/17 01:51 Acetaminophen/ Hydrocodone Bitart (Shell 5/325) 1 tab EVERY 8 HOURS ORAL 12/11/17 22:00 12/18/17 21:59 12/18/17 05:11 Amlodipine Besylate (Norvasc) 5 mg DAILY GT 12/09/17 09:00 01/08/18 08:59 12/18/17 10:01 Ceftriaxone Sodium 2 gm/ Dextrose 110 ml @ 220 mls/hr Q24H IVPB 12/15/17 20:00 12/21/17 23:59 12/17/17 21:03 Chlorhexidine Gluconate (Mireya-Hex 2%) 1 applic DAILY@2000 TOPIC 12/14/17 20:00 01/13/18 19:59 12/17/17 21:03 Dextrose (Dextrose 50%) 25 ml STAT PRN IV Hypoglycemia 11/30/17 17:30 12/30/17 17:29 Dextrose (Dextrose 50%) 50 ml STAT PRN IV Hypoglycemia 11/30/17 17:30 12/30/17 17:29 Famotidine (Pepcid) 20 mg BID GT 11/30/17 18:00 12/30/17 17:59 12/18/17 10:02 Fluconazole (Diflucan) 100 mg DAILY ORAL 12/16/17 09:00 12/23/17 20:59 12/18/17 10:02 Heparin Sodium (Porcine) (Heparin 5000 units/ml) 5,000 units EVERY 12 HOURS SUBQ 12/05/17 21:00 01/04/18 20:59 12/18/17 10:06 Metoprolol Tartrate (Lopressor) 25 mg Q12HR GT 11/30/17 21:00 12/30/17 20:59 12/18/17 10:02 Vancomycin HCl (Vanco rx to dose) 1 ea DAILY PRN MISC Per rx protocol 12/15/17 11:45 01/14/18 11:44 Vancomycin HCl 500 mg/Dextrose 110 ml @ 110 mls/hr Q12H IVPB 12/17/17 17:00 12/22/17 16:59 12/18/17 05:09 Vitamin A/Vitamin D (A & D Oint) 1 applic QID TOPIC 12/12/17 13:00 01/11/18 12:59 12/18/17 10:03 FELICITAS MUIR Dec 18, 2017 11:11"
[2017-12-18 12:00] VITALS: BP 124/53
[2017-12-18 16:00] VITALS: BP 105/59
[2017-12-18 20:00] VITALS: BP 128/64
--- NOTE | 2017-12-18 20:02 | Progress Note ---
DATE: 12/18/2017 CARDIOLOGY PROGRESS NOTE SUBJECTIVEN: The patient is status post left AKA. She is voiding. She is tolerating for nutrition by G-tube. Her G-tube site continues to have a fistulous tract. Surgical intervention is not planed, but observation is planned. has decreased of the G-tube site. OBJECTIVE: VITAL SIGNS: Blood pressure 124/53, pulse 77, respiratory rate 19 and afebrile. LUNGS: Few rhonchi. HEART: Regular rhythm and rate. Normal S1 and S2. ABDOMEN: Soft. No tenderness. EXTREMITIES: With contractures. Left AKA site has dressing in place with no signs of bleeding. LABORATORY AND DIAGNOSTIC DATA: White count 13 and hemoglobin 8.8. Potassium 3.8. Albumin 1.7. IMPRESSION: The patient remains at high risk with advanced dementia and multiorgan system disease. She is now status post AKA for osteomyelitis of the left heel due to severe peripheral artery disease and immobility. Additional concerns include severe protein calorie malnutrition, acute on chronic diastolic congestive heart failure, healthcare-acquired pneumonia due to aspiration and diabetes mellitus, diet controlled amongst other issues previously noted recommending at this time. RECOMMENDATION: Recommending at this time nutritional support, antimicrobials, wound care, management of G-tube site conservatively, DVT prophylaxis, discharge planning in progress. Tyrell Underwood M.D. DR: NATASHA JOB#: [id number] CC:
[2017-12-18] MEDS: Dyna-Hex 2% Top Sol 2oz TOPIC SCH (20:35)
[2017-12-18] MEDS: cefTRIAXone 2 GM in D5W 110 ML IVPB SCH (20:35)
[2017-12-19] VITALS: BP 121/64
[2017-12-19 04:00] VITALS: BP 132/68
[2017-12-19] MEDS: Vancomycin 500 MG in D5W 110 ML IVPB SCH ×2 (05:28→17:00)
--- NOTE | 2017-12-19 08:04 | General Progress Note ---
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 - osteomyelitis Recommendations continue TF consider GJT placement if persistent GT leak follow lab and exam Subjective ROS Limited/Unobtainable: No Allergies: Coded Allergies: AMOXICILLIN (Verified Allergy, Mild, 06/21/09) ASPIRIN (Verified Allergy, Mild, 06/21/09) SALICYLATES (Verified Allergy, Mild, 06/21/09) PENICILLINS (Unverified Allergy, Unknown, 11/18/17) Objective Last 24 Hour Vital Signs Date Time Temp Pulse Resp B/P (MAP) Pulse Ox O2 Delivery O2 Flow Rate FiO2 12/19/17 04:00 98.2 90 24 132/68 98 Nasal Cannula 2.0 98.2 12/19/17 04:00 90 12/19/17 00:00 98.6 87 20 121/64 99 Nasal Cannula 2.0 98.6 12/19/17 00:00 85 12/18/17 20:35 84 128/64 12/18/17 20:00 97.6 84 20 128/64 100 Nasal Cannula 2.0 97.6 12/18/17 20:00 81 12/18/17 19:30 Nasal Cannula 2.0 28 12/18/17 19:30 98 Nasal Cannula 2.0 28 12/18/17 16:00 98.2 81 20 105/59 99 Nasal Cannula 2.0 98.2 12/18/17 16:00 75 12/18/17 12:00 76 12/18/17 12:00 98.2 77 19 124/53 99 Nasal Cannula 2.0 98.2 12/18/17 10:02 85 131/58 12/18/17 10:01 85 131/58 Intake and Output 12/18/17 12/19/17 19:00 07:00 # Voids 2 2 Height (Feet): 4 Height (Inches): 0.00 Weight (Pounds): 100 General Appearance: no apparent distress EENT: normal ENT inspection Neck: supple Cardiovascular: normal rate Respiratory/Chest: decreased breath sounds Abdomen: normal bowel sounds, non tender, soft Extremities: non-tender Claude Bay MD Dec 19, 2017 08:03
[2017-12-19 08:13] VITALS: BP 132/59
--- NOTE | 2017-12-19 08:14 | General Progress Note ---
Assessment/Plan Problem List: (1) Hypokalemia ICD Codes: E87.6 - Hypokalemia SNOMED: 44904486 (2) Functional quadriplegia ICD Codes: R53.2 - Functional quadriplegia SNOMED: 550452553536185 (3) Malnutrition of moderate degree ICD Codes: E44.0 - Moderate protein-calorie malnutrition SNOMED: 080875351 (4) Osteomyelitis ICD Codes: M86.9 - Osteomyelitis, unspecified SNOMED: 13085246 Qualifiers: Qualified Codes: M86.9 - Osteomyelitis, unspecified (5) Gastrostomy tube dysfunction ICD Codes: K94.23 - Gastrostomy malfunction SNOMED: 039775617 (6) Respiratory failure ICD Codes: J96.90 - Respiratory failure, unspecified, unspecified whether with hypoxia or hypercapnia SNOMED: 765591973 (7) Pneumonia ICD Codes: J18.9 - Pneumonia, unspecified organism SNOMED: 088138804 (8) Pleural effusion ICD Codes: J90 - Pleural effusion, not elsewhere classified SNOMED: 73154643 Status: stable Assessment/Plan iv abx gt feeds wean fio2 resp rx monitor labs- pending wound care post op care Subjective ROS Limited/Unobtainable: No Constitutional: Reports: malaise, weakness HEENT: Reports: no symptoms Cardiovascular: Reports: no symptoms Respiratory: Reports: cough Gastrointestinal/Abdominal: Reports: difficulty swallowing Genitourinary: Reports: no symptoms Neurologic/Psychiatric: Reports: pre-existing deficit Endocrine: Reports: no symptoms Hematologic/Lymphatic: Reports: no symptoms Allergies: Coded Allergies: AMOXICILLIN (Verified Allergy, Mild, 06/21/09) ASPIRIN (Verified Allergy, Mild, 06/21/09) SALICYLATES (Verified Allergy, Mild, 06/21/09) PENICILLINS (Unverified Allergy, Unknown, 11/18/17) All Systems: reviewed and negative except above Subjective no events. on o2. no distress. no surgery plans per general surgery. on feeds. on o2. labs pending for today Objective Last 24 Hour Vital Signs Date Time Temp Pulse Resp B/P (MAP) Pulse Ox O2 Delivery O2 Flow Rate FiO2 12/19/17 04:00 98.2 90 24 132/68 98 Nasal Cannula 2.0 98.2 12/19/17 04:00 90 12/19/17 00:00 98.6 87 20 121/64 99 Nasal Cannula 2.0 98.6 12/19/17 00:00 85 12/18/17 20:35 84 128/64 12/18/17 20:00 97.6 84 20 128/64 100 Nasal Cannula 2.0 97.6 12/18/17 20:00 81 12/18/17 19:30 Nasal Cannula 2.0 28 12/18/17 19:30 98 Nasal Cannula 2.0 28 12/18/17 16:00 98.2 81 20 105/59 99 Nasal Cannula 2.0 98.2 12/18/17 16:00 75 12/18/17 12:00 76 12/18/17 12:00 98.2 77 19 124/53 99 Nasal Cannula 2.0 98.2 12/18/17 10:02 85 131/58 12/18/17 10:01 85 131/58 Intake and Output 12/18/17 12/19/17 19:00 07:00 # Voids 2 2 Height (Feet): 4 Height (Inches): 0.00 Weight (Pounds): 100 Objective General Appearance: WD/WN, lethargic, confused Neck: supple Cardiovascular: normal peripheral pulses, tachycardia Respiratory/Chest: crackles/rales, rhonchi - bilaterally Abdomen: normal bowel sounds, non tender, soft, no organomegaly Edema: no edema noted Arm (L), no edema noted Arm (R), no edema noted Leg (L), no edema noted Leg (R), no edema noted Pedal (L), no edema noted Pedal (R), no edema noted Generalized Neurologic: disoriented, unresponsive, aphasia Satinder Kirk MD Dec 19, 2017 08:14
[2017-12-19] MEDS: Vitamin A&D Oint 2oz Tube TOPIC SCH ×4 (09:01→20:36)
[2017-12-19] MEDS: Fluconazole 100mg tab ORAL SCH (09:01)
[2017-12-19] MEDS: Metoprolol 25mg tab GT SCH ×2 (09:01→20:39)
[2017-12-19] MEDS: Heparin 5000 units/ml inj SUBQ SCH ×2 (09:05→20:37)
--- NOTE | 2017-12-19 10:38 | General Surgery Progress Note ---
General Surgery-Progress Note Subjective Additional Comments leaking around g tube today now that resumed feeds. Objective Last 24 Hour Vital Signs Date Time Temp Pulse Resp B/P (MAP) Pulse Ox O2 Delivery O2 Flow Rate FiO2 12/19/17 09:01 93 132/59 12/19/17 09:01 93 132/59 12/19/17 08:13 99.0 93 20 132/59 98 Nasal Cannula 2.0 99.0 12/19/17 04:00 98.2 90 24 132/68 98 Nasal Cannula 2.0 98.2 12/19/17 04:00 90 12/19/17 00:00 98.6 87 20 121/64 99 Nasal Cannula 2.0 98.6 12/19/17 00:00 85 12/18/17 20:35 84 128/64 12/18/17 20:00 97.6 84 20 128/64 100 Nasal Cannula 2.0 97.6 12/18/17 20:00 81 12/18/17 19:30 Nasal Cannula 2.0 28 12/18/17 19:30 98 Nasal Cannula 2.0 28 12/18/17 16:00 98.2 81 20 105/59 99 Nasal Cannula 2.0 98.2 12/18/17 16:00 75 12/18/17 12:00 76 12/18/17 12:00 98.2 77 19 124/53 99 Nasal Cannula 2.0 98.2 I&O Intake and Output 12/18/17 12/19/17 19:00 07:00 # Voids 2 2 Dressing: saturated Wound: clean Abdomen: soft, flat, non-tender, present bowel sounds, other - small sandro g tube fistula with leak Plan Problems: (1) Gastrostomy tube dysfunction Assessment & Plan: small sandro-g tube fistula identified. leaking of contents noted. no active infection noted but does have some induration. fistulogram identified passage from fistula opening into gastric lumen. currently stable and okay. could revise g tube site would not indicated at this time given small inconsequential fistula. cont with dressings and care to g tube site. g tube functional and leakage. leak around g tube continues. new dressings applied with underlying vasaline gauze dressing. will monitor if leak or no. thank you for this consultation. will follow with you Santana Tolbert Dec 19, 2017 10:38
[2017-12-19 12:00] VITALS: BP 143/68
[2017-12-19 12:58] LABS: BASOPHILS % (AUTO) 0.5 % (0.0-2.0); HEMATOCRIT 28.3 % (37.0-47.0); HEMOGLOBIN 9.4 G/DL (12.0-16.0); LYMPHOCYTES % (AUTO) 14.4 % (20.0-45.0); MEAN CORPUSCULAR VOLUME 93 FL (80-99); MONOCYTES % (AUTO) 7.8 % (1.0-10.0); NEUTROPHILS % (AUTO) 76.2 % (45.0-75.0); PLATELET COUNT 297 K/UL (150-450); RED BLOOD COUNT 3.03 M/UL (4.20-5.40); RED CELL DISTRIBUTION WIDTH 14.8 % (11.6-14.8); WHITE BLOOD COUNT 11.5 K/UL (4.8-10.8)
[2017-12-19 13:04] LABS: ALANINE AMINOTRANSFERASE 28 U/L (12-78); ALBUMIN 1.7 G/DL (3.4-5.0); ALBUMIN/GLOBULIN RATIO 0.3 (1.0-2.7); ALKALINE PHOSPHATASE 101 U/L (46-116); ANION GAP 6 mmol/L (5-15); ASPARTATE AMINO TRANSFERASE 26 U/L (15-37); BILIRUBIN,TOTAL 0.2 MG/DL (0.2-1.0); BLOOD UREA NITROGEN 15 mg/dL (7-18); CARBON DIOXIDE 30 MMOL/L (21-32); CHLORIDE 102 MMOL/L (98-107); CREATININE 0.6 MG/DL (0.55-1.30); POTASSIUM 3.7 MMOL/L (3.5-5.1); SODIUM 138 MMOL/L (136-145)
--- NOTE | 2017-12-19 13:08 | Pulmonology Progress Note ---
Assessment/Plan Assessment/Plan IMPRESSION: 1. Evidence of pneumonia, 2. G-tube, possible fistulous tract. 3. Left heel osteomyelitis. 4. Toxic metabolic encephalopathy. 5. Significant contractures. 6. History of CVA. 7. History of dysphagia. 8. s/p AKA 9. gangrene 10. leukocytosis PLAN care noted stump care respiratory care ID clearnce follow up cxr and monitor monitor fluid status oxygen needs noted antibiotics noted monitor clinically for change suction as needed SNF dc when improved and stable DNR treat conservatively and consider tap if needed monitor post op for changes all reviewed in detail; prognosis poor impression, plan, and exam edited and reviewed in detail care discussed with RN Subjective ROS Limited/Unobtainable: Yes Allergies: Coded Allergies: AMOXICILLIN (Verified Allergy, Mild, 06/21/09) ASPIRIN (Verified Allergy, Mild, 06/21/09) SALICYLATES (Verified Allergy, Mild, 06/21/09) PENICILLINS (Unverified Allergy, Unknown, 11/18/17) Subjective care reviewed labs reviewed ID noted Objective Last 24 Hour Vital Signs Date Time Temp Pulse Resp B/P (MAP) Pulse Ox O2 Delivery O2 Flow Rate FiO2 12/19/17 12:00 98.3 83 20 143/68 100 Nasal Cannula 2.0 98.3 12/19/17 09:01 93 132/59 12/19/17 09:01 93 132/59 12/19/17 08:13 99.0 93 20 132/59 98 Nasal Cannula 2.0 99.0 12/19/17 08:00 96 12/19/17 04:00 98.2 90 24 132/68 98 Nasal Cannula 2.0 98.2 12/19/17 04:00 90 12/19/17 00:00 98.6 87 20 121/64 99 Nasal Cannula 2.0 98.6 12/19/17 00:00 85 12/18/17 20:35 84 128/64 12/18/17 20:00 97.6 84 20 128/64 100 Nasal Cannula 2.0 97.6 12/18/17 20:00 81 12/18/17 19:30 Nasal Cannula 2.0 28 12/18/17 19:30 98 Nasal Cannula 2.0 28 12/18/17 16:00 98.2 81 20 105/59 99 Nasal Cannula 2.0 98.2 12/18/17 16:00 75 Intake and Output 12/18/17 12/19/17 19:00 07:00 Intake Total 50 ml Balance 50 ml Tube Feeding 50 ml # Voids 2 2 Objective WDWN NAD reduced breath sounds scattered rhonchi [id number] without MRG NABS nontender no HSM; no distention; GT no CCE AKA weak with reduced LOC reviewed Laboratory Tests 12/19/17 12:30: White Blood Count [Pending], Red Blood Count [Pending], Hemoglobin [Pending], Hematocrit [Pending], Mean Corpuscular Volume [Pending], Mean Corpuscular Hemoglobin [Pending], Mean Corpuscular Hemoglobin Concent [Pending], Red Cell Distribution Width [Pending], Platelet Count [Pending], Mean Platelet Volume [ Pending], Neutrophils (%) (Auto) [Pending], Lymphocytes (%) (Auto) [Pending], Monocytes (%) (Auto) [Pending], Eosinophils (%) (Auto) [Pending], Basophils (%) (Auto) [Pending], Sodium Level [Pending], Potassium Level [Pending], Chloride Level [Pending], Carbon Dioxide Level [Pending], Blood Urea Nitrogen [Pending], Creatinine [Pending], Estimat Glomerular Filtration Rate [Pending], Glucose Level [Pending], Calcium Level [Pending], Total Bilirubin [Pending], Aspartate Amino Transf (AST/SGOT) [Pending], Alanine Aminotransferase (ALT/SGPT) [Pending] , Alkaline Phosphatase [Pending], Total Protein [Pending], Albumin [Pending], Globulin [Pending] Current Medications Medications (Trade) Dose Ordered Sig/Satish Route PRN Reason Start Time Stop Time Status Last Admin Dose Admin Acetaminophen (Tylenol) 500 mg Q4H PRN ORAL Mild Pain/Temp > 100.5 12/11/17 22:00 01/10/18 21:59 Acetaminophen (Tylenol) 650 mg Q4H PRN ORAL Mild Pain/Temp > 100.5 12/07/17 09:30 01/06/18 09:29 12/17/17 01:51 Amlodipine Besylate (Norvasc) 5 mg DAILY GT 12/09/17 09:00 01/08/18 08:59 6/2/18 09:01 Ceftriaxone Sodium 2 gm/ Dextrose 110 ml @ 220 mls/hr Q24H IVPB 12/15/17 20:00 12/21/17 23:59 12/18/17 20:35 Chlorhexidine Gluconate (Mireya-Hex 2%) 1 applic DAILY@2000 TOPIC 12/14/17 20:00 01/13/18 19:59 12/18/17 20:35 Dextrose (Dextrose 50%) 25 ml STAT PRN IV Hypoglycemia 11/30/17 17:30 12/30/17 17:29 Dextrose (Dextrose 50%) 50 ml STAT PRN IV Hypoglycemia 11/30/17 17:30 12/30/17 17:29 Famotidine (Pepcid) 20 mg BID GT 11/30/17 18:00 12/30/17 17:59 12/19/17 09:01 Fluconazole (Diflucan) 100 mg DAILY ORAL 12/16/17 09:00 12/23/17 20:59 12/19/17 09:01 Heparin Sodium (Porcine) (Heparin 5000 units/ml) 5,000 units EVERY 12 HOURS SUBQ 12/05/17 21:00 01/04/18 20:59 12/19/17 09:05 Metoprolol Tartrate (Lopressor) 25 mg Q12HR GT 11/30/17 21:00 12/30/17 20:59 12/19/17 09:01 Vancomycin HCl (Vanco rx to dose) 1 ea DAILY PRN MISC Per rx protocol 12/15/17 11:45 01/14/18 11:44 Vancomycin HCl 500 mg/Dextrose 110 ml @ 110 mls/hr Q12H IVPB 12/17/17 17:00 12/22/17 16:59 12/19/17 05:28 Vitamin A/Vitamin D (A & D Oint) 1 applic QID TOPIC 12/12/17 13:00 01/11/18 12:59 12/19/17 13:03 Raj Reyes MD Dec 19, 2017 13:08
[2017-12-19 16:00] VITALS: BP 139/74
[2017-12-19] MEDS: Vancomycin 750mg/NS 250ml IVPB SCH (19:05)
[2017-12-19 20:00] VITALS: BP 136/78
[2017-12-19] MEDS: Dyna-Hex 2% Top Sol 2oz TOPIC SCH (20:23)
[2017-12-19] MEDS: cefTRIAXone 2 GM in D5W 110 ML IVPB SCH (20:24)
[2017-12-20] VITALS: BP 128/78
[2017-12-20 04:00] VITALS: BP 130/84
[2017-12-20] MEDS: Vancomycin 750mg/NS 250ml IVPB SCH (06:26)
--- NOTE | 2017-12-20 06:47 | Diagnostic Imaging Report ---
EXAM: XR Chest, 1 View CLINICAL HISTORY: DYSPNEA TECHNIQUE: Frontal view of the chest. COMPARISON: 12/13/17 FINDINGS: Lungs: Interval increased opacity with near complete opacification of the right hemithorax. This may reflect increasing effusion and/or worsening airspace disease. No dense consolidation or effusion within the left hemithorax Pleural space: Unremarkable. No pneumothorax. Heart: Cardiovascular silhouette obscured by opacity in the right hemithorax Mediastinum: Unremarkable. Bones/joints: Mild scoliosis of the thoracic spine. Degenerative changes in the shoulders. Vasculature: Calcified tortuous thoracic aorta is again seen. Tubes, lines and devices: Left-sided PICC line, tip in the SVC/brachial junction. On the prior study, the tip appears near the SVC/atrial junction. This may reflect interval repositioning or pulled out PICC line IMPRESSION: Interval increase in right pleural effusions/pleural disease and/or worsening right sided airspace disease. Follow-up to clearing recommended to exclude underlying mass. Interval exchange versus repositioning of the left-sided PICC line as described.
[2017-12-20 08:00] VITALS: BP 130/84
--- NOTE | 2017-12-20 08:19 | General Progress Note ---
Assessment/Plan Problem List: (1) Hypokalemia ICD Codes: E87.6 - Hypokalemia SNOMED: 34111002 (2) Functional quadriplegia ICD Codes: R53.2 - Functional quadriplegia SNOMED: 373927954753445 (3) Malnutrition of moderate degree ICD Codes: E44.0 - Moderate protein-calorie malnutrition SNOMED: 907929247 (4) Osteomyelitis ICD Codes: M86.9 - Osteomyelitis, unspecified SNOMED: 62650693 Qualifiers: Qualified Codes: M86.9 - Osteomyelitis, unspecified (5) Gastrostomy tube dysfunction ICD Codes: K94.23 - Gastrostomy malfunction SNOMED: 845780631 (6) Respiratory failure ICD Codes: J96.90 - Respiratory failure, unspecified, unspecified whether with hypoxia or hypercapnia SNOMED: 580323012 (7) Pneumonia ICD Codes: J18.9 - Pneumonia, unspecified organism SNOMED: 430325303 (8) Pleural effusion ICD Codes: J90 - Pleural effusion, not elsewhere classified SNOMED: 94391717 Status: deteriorating Assessment/Plan bipap sucitoning resp rx and chest PT abg abx pulm follow up guarded. Subjective ROS Limited/Unobtainable: Yes Constitutional: Reports: malaise, weakness HEENT: Reports: no symptoms Cardiovascular: Reports: no symptoms Respiratory: Reports: cough, shortness of breath Gastrointestinal/Abdominal: Reports: difficulty swallowing Genitourinary: Reports: no symptoms Neurologic/Psychiatric: Reports: pre-existing deficit Endocrine: Reports: no symptoms Hematologic/Lymphatic: Reports: no symptoms Allergies: Coded Allergies: AMOXICILLIN (Verified Allergy, Mild, 06/21/09) ASPIRIN (Verified Allergy, Mild, 06/21/09) SALICYLATES (Verified Allergy, Mild, 06/21/09) PENICILLINS (Unverified Allergy, Unknown, 11/18/17) All Systems: reviewed and negative except above Subjective desaturated. on bipap. xray with white out right lung. Objective Last 24 Hour Vital Signs Date Time Temp Pulse Resp B/P (MAP) Pulse Ox O2 Delivery O2 Flow Rate FiO2 12/20/17 04:00 109 12/20/17 04:00 99.6 117 36 130/84 100 Nasal Cannula 2.0 99.6 12/20/17 00:00 97.6 113 26 128/78 100 Nasal Cannula 2.0 97.6 12/20/17 00:00 107 12/19/17 20:39 99 136/98 12/19/17 20:00 99 12/19/17 20:00 97.0 99 24 136/78 96 Nasal Cannula 2.0 97.0 12/19/17 16:40 Nasal Cannula 2.0 28 12/19/17 16:40 100 Nasal Cannula 2.0 28 12/19/17 16:00 97.5 87 20 139/74 100 Nasal Cannula 2.0 97.5 12/19/17 16:00 89 12/19/17 12:00 81 12/19/17 12:00 98.3 83 20 143/68 100 Nasal Cannula 2.0 98.3 12/19/17 09:01 93 132/59 12/19/17 09:01 93 132/59 Intake and Output 12/19/17 12/20/17 19:00 07:00 Intake Total 650 ml 110 ml Balance 650 ml 110 ml Free Water 100 ml IV Total 110 ml Tube Feeding 550 ml # Voids 5 # Bowel Movements 2 Laboratory Tests 12/19/17 12:30: White Blood Count 11.5H, Red Blood Count 3.03L, Hemoglobin 9.4L, Hematocrit 28.3L, Mean Corpuscular Volume 93, Mean Corpuscular Hemoglobin 31.1H, Mean Corpuscular Hemoglobin Concent 33.3, Red Cell Distribution Width 14.8, Platelet Count 297, Mean Platelet Volume 5.9L, Neutrophils (%) (Auto) 76.2H, Lymphocytes (%) (Auto) 14.4L, Monocytes (%) (Auto) 7.8, Eosinophils (%) (Auto) 1.0, Basophils (%) (Auto) 0.5, Sodium Level 138, Potassium Level 3.7, Chloride Level 102, Carbon Dioxide Level 30, Anion Gap 6, Blood Urea Nitrogen 15, Creatinine 0.6, Estimat Glomerular Filtration Rate , Glucose Level 145H, Calcium Level 8.0L , Total Bilirubin 0.2, Aspartate Amino Transf (AST/SGOT) 26, Alanine Aminotransferase (ALT/SGPT) 28, Alkaline Phosphatase 101, Total Protein 6.7, Albumin 1.7L, Globulin 5.0, Albumin/Globulin Ratio 0.3L 12/19/17 16:30: Vancomycin Level Trough 11.1 12/20/17 06:06: Arterial Blood pH 7.565*H, Arterial Blood Partial Pressure CO2 29.8L, Arterial Blood Partial Pressure O2 50.8L, Arterial Blood HCO3 26.4H, Arterial Blood Oxygen Saturation 88.0L, Arterial Blood Base Excess 4.6, Braden Test Positive Height (Feet): 4 Height (Inches): 0.00 Weight (Pounds): 100 Objective General Appearance: WD/WN, lethargic, confused Neck: supple Cardiovascular: normal peripheral pulses, tachycardia Respiratory/Chest: crackles/rales, rhonchi - bilaterally Abdomen: normal bowel sounds, non tender, soft, no organomegaly Edema: no edema noted Arm (L), no edema noted Arm (R), no edema noted Leg (L), no edema noted Leg (R), no edema noted Pedal (L), no edema noted Pedal (R), no edema noted Generalized Neurologic: disoriented, unresponsive, aphasia Satinder Kirk MD Dec 20, 2017 08:19
[2017-12-20] MEDS: Metoprolol 25mg tab GT SCH ×2 (09:00→21:10)
[2017-12-20] MEDS: Vitamin A&D Oint 2oz Tube TOPIC SCH ×4 (09:00→21:10)
[2017-12-20] MEDS: Fluconazole 100mg tab ORAL SCH (09:14)
[2017-12-20] MEDS: Heparin 5000 units/ml inj SUBQ SCH ×2 (09:15→21:00)
--- NOTE | 2017-12-20 10:48 | Infectious Diseases Prog Note ---
"Assessment/Plan Assessment/Plan A 1. 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 DM 3. hypertension 4. CVA 5. 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 Pneumonia/ Pleural effusion 7. Hypoxemic respiratory failure P 1. continue iv vancomycin, 2. discontinue ceftriaxone & Fluconazole 3. start on Cefepime 4. Poor prognosis, DNR, DNI Subjective ROS Limited/Unobtainable: Yes Respiratory: Reports: other - started on BIPAP since am Allergies: Coded Allergies: AMOXICILLIN (Verified Allergy, Mild, 06/21/09) ASPIRIN (Verified Allergy, Mild, 06/21/09) SALICYLATES (Verified Allergy, Mild, 06/21/09) PENICILLINS (Unverified Allergy, Unknown, 11/18/17) Objective Vital Signs Last 24 Hour Vital Signs Date Time Temp Pulse Resp B/P (MAP) Pulse Ox O2 Delivery O2 Flow Rate FiO2 12/20/17 08:53 Bi-pap 12/20/17 08:53 100 Bi-pap 12/20/17 08:43 124 42 100 Facial 100 12/20/17 06:45 126 51 88 Facial 100 12/20/17 04:00 109 12/20/17 04:00 99.6 117 36 130/84 100 Nasal Cannula 2.0 99.6 12/20/17 00:00 97.6 113 26 128/78 100 Nasal Cannula 2.0 97.6 12/20/17 00:00 107 12/19/17 20:39 99 136/98 12/19/17 20:00 99 12/19/17 20:00 97.0 99 24 136/78 96 Nasal Cannula 2.0 97.0 12/19/17 16:40 Nasal Cannula 2.0 28 12/19/17 16:40 100 Nasal Cannula 2.0 28 12/19/17 16:00 97.5 87 20 139/74 100 Nasal Cannula 2.0 97.5 12/19/17 16:00 89 12/19/17 12:00 81 12/19/17 12:00 98.3 83 20 143/68 100 Nasal Cannula 2.0 98.3 Height (Feet): 4 Height (Inches): 0.00 Weight (Pounds): 100 HEENT: mucous membranes moist Respiratory/Chest: lungs clear, respiratory distress, other - on BIPAP Cardiovascular: tachycardia Abdomen: soft, non tender, other - GT in place Extremities: no edema, other - left AKA Neurologic/Psychiatric: aphasia Laboratory Tests Test 12/19/17 12:30 12/19/17 16:30 12/20/17 06:06 White Blood Count 11.5 K/UL (4.8-10.8) H Red Blood Count 3.03 M/UL (4.20-5.40) L Hemoglobin 9.4 G/DL (12.0-16.0) L Hematocrit 28.3 % (37.0-47.0) L Mean Corpuscular Volume 93 FL (80-99) Mean Corpuscular Hemoglobin 31.1 PG (27.0-31.0) H Mean Corpuscular Hemoglobin Concent 33.3 G/DL (32.0-36.0) Red Cell Distribution Width 14.8 % (11.6-14.8) Platelet Count 297 K/UL (150-450) Mean Platelet Volume 5.9 FL (6.5-10.1) L Neutrophils (%) (Auto) 76.2 % (45.0-75.0) H Lymphocytes (%) (Auto) 14.4 % (20.0-45.0) L Monocytes (%) (Auto) 7.8 % (1.0-10.0) Eosinophils (%) (Auto) 1.0 % (0.0-3.0) Basophils (%) (Auto) 0.5 % (0.0-2.0) Sodium Level 138 MMOL/L (136-145) Potassium Level 3.7 MMOL/L (3.5-5.1) Chloride Level 102 MMOL/L (98-107) Carbon Dioxide Level 30 MMOL/L (21-32) Anion Gap 6 mmol/L (5-15) Blood Urea Nitrogen 15 mg/dL (7-18) Creatinine 0.6 MG/DL (0.55-1.30) Estimat Glomerular Filtration Rate mL/min (>60) Glucose Level 145 MG/DL (74-106) H Calcium Level 8.0 MG/DL (8.5-10.1) L Total Bilirubin 0.2 MG/DL (0.2-1.0) Aspartate Amino Transf (AST/SGOT) 26 U/L (15-37) Alanine Aminotransferase (ALT/SGPT) 28 U/L (12-78) Alkaline Phosphatase 101 U/L (46-116) Total Protein 6.7 G/DL (6.4-8.2) Albumin 1.7 G/DL (3.4-5.0) L Globulin 5.0 g/dL Albumin/Globulin Ratio 0.3 (1.0-2.7) L Vancomycin Level Trough 11.1 ug/mL (5.0-12.0) Arterial Blood pH 7.565 (7.350-7.450) Arterial Blood Partial Pressure CO2 29.8 mmHg (35.0-45.0) L Arterial Blood Partial Pressure O2 50.8 mmHg (75.0-100.0) L Arterial Blood HCO3 26.4 mmol/L (22.0-26.0) H Arterial Blood Oxygen Saturation 88.0 % (92.0-98.0) L Arterial Blood Base Excess 4.6 Braden Test Positive Current Medications Medications (Trade) Dose Ordered Sig/Satish Route PRN Reason Start Time Stop Time Status Last Admin Dose Admin Acetaminophen (Tylenol) 500 mg Q4H PRN ORAL Mild Pain/Temp > 100.5 12/20/17 14:00 01/10/18 21:59 UNV Acetaminophen (Tylenol) 650 mg Q4H PRN ORAL Mild Pain/Temp > 100.5 12/20/17 13:30 01/06/18 09:29 UNV Amlodipine Besylate (Norvasc) 5 mg DAILY GT 12/21/17 09:00 01/08/18 08:59 UNV Ceftriaxone Sodium 2 gm/ Dextrose 110 ml @ 220 mls/hr Q24H IVPB 12/20/17 20:00 12/21/17 23:59 UNV Chlorhexidine Gluconate (Mireya-Hex 2%) 1 applic DAILY@2000 TOPIC 12/20/17 20:00 01/13/18 19:59 UNV Dextrose (Dextrose 50%) 25 ml STAT PRN IV Hypoglycemia 12/20/17 17:30 12/30/17 17:29 UNV Dextrose (Dextrose 50%) 50 ml STAT PRN IV Hypoglycemia 12/20/17 17:30 12/30/17 17:29 UNV Famotidine (Pepcid) 20 mg BID GT 12/20/17 18:00 12/30/17 17:59 UNV Fluconazole (Diflucan) 100 mg DAILY ORAL 12/21/17 09:00 12/23/17 20:59 UNV Heparin Sodium (Porcine) (Heparin 5000 units/ml) 5,000 units EVERY 12 HOURS SUBQ 12/20/17 21:00 01/04/18 20:59 UNV Metoprolol Tartrate (Lopressor) 25 mg Q12HR GT 12/20/17 21:00 12/30/17 20:59 UNV Vancomycin HCl (Vanco rx to dose) 1 ea DAILY PRN MISC Per rx protocol 12/21/17 09:00 01/14/18 11:44 UNV Vancomycin/Sodium Chloride 250 ml @ 166.667 mls/hr Q12H IVPB 12/20/17 18:30 12/24/17 18:29 UNV Vitamin A/Vitamin D (A & D Oint) 1 applic QID TOPIC 12/20/17 13:00 01/11/18 12:59 UNV Ezio Mendoza MD Dec 20, 2017 10:48"
--- NOTE | 2017-12-20 11:02 | General Progress Note ---
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 - osteomyelitis Recommendations transferred to [facility] respiratory distress poor prognosis will fu Subjective ROS Limited/Unobtainable: No Allergies: Coded Allergies: AMOXICILLIN (Verified Allergy, Mild, 06/21/09) ASPIRIN (Verified Allergy, Mild, 06/21/09) SALICYLATES (Verified Allergy, Mild, 06/21/09) PENICILLINS (Unverified Allergy, Unknown, 11/18/17) Objective Last 24 Hour Vital Signs Date Time Temp Pulse Resp B/P (MAP) Pulse Ox O2 Delivery O2 Flow Rate FiO2 12/20/17 08:53 Bi-pap 12/20/17 08:53 100 Bi-pap 12/20/17 08:43 124 42 100 Facial 100 12/20/17 08:00 97.2 93 46 130/84 100 Bi-pap 100 97.2 12/20/17 06:45 126 51 88 Facial 100 12/20/17 04:00 109 12/20/17 04:00 99.6 117 36 130/84 100 Nasal Cannula 2.0 99.6 12/20/17 00:00 97.6 113 26 128/78 100 Nasal Cannula 2.0 97.6 12/20/17 00:00 107 12/19/17 20:39 99 136/98 12/19/17 20:00 99 12/19/17 20:00 97.0 99 24 136/78 96 Nasal Cannula 2.0 97.0 12/19/17 16:40 Nasal Cannula 2.0 28 12/19/17 16:40 100 Nasal Cannula 2.0 28 12/19/17 16:00 97.5 87 20 139/74 100 Nasal Cannula 2.0 97.5 12/19/17 16:00 89 12/19/17 12:00 81 12/19/17 12:00 98.3 83 20 143/68 100 Nasal Cannula 2.0 98.3 Intake and Output 12/19/17 12/20/17 19:00 07:00 Intake Total 650 ml 110 ml Balance 650 ml 110 ml Free Water 100 ml IV Total 110 ml Tube Feeding 550 ml # Voids 5 # Bowel Movements 2 Laboratory Tests 12/19/17 12:30: White Blood Count 11.5H, Red Blood Count 3.03L, Hemoglobin 9.4L, Hematocrit 28.3L, Mean Corpuscular Volume 93, Mean Corpuscular Hemoglobin 31.1H, Mean Corpuscular Hemoglobin Concent 33.3, Red Cell Distribution Width 14.8, Platelet Count 297, Mean Platelet Volume 5.9L, Neutrophils (%) (Auto) 76.2H, Lymphocytes (%) (Auto) 14.4L, Monocytes (%) (Auto) 7.8, Eosinophils (%) (Auto) 1.0, Basophils (%) (Auto) 0.5, Sodium Level 138, Potassium Level 3.7, Chloride Level 102, Carbon Dioxide Level 30, Anion Gap 6, Blood Urea Nitrogen 15, Creatinine 0.6, Estimat Glomerular Filtration Rate , Glucose Level 145H, Calcium Level 8.0L , Total Bilirubin 0.2, Aspartate Amino Transf (AST/SGOT) 26, Alanine Aminotransferase (ALT/SGPT) 28, Alkaline Phosphatase 101, Total Protein 6.7, Albumin 1.7L, Globulin 5.0, Albumin/Globulin Ratio 0.3L 12/19/17 16:30: Vancomycin Level Trough 11.1 12/20/17 06:06: Arterial Blood pH 7.565*H, Arterial Blood Partial Pressure CO2 29.8L, Arterial Blood Partial Pressure O2 50.8L, Arterial Blood HCO3 26.4H, Arterial Blood Oxygen Saturation 88.0L, Arterial Blood Base Excess 4.6, Braden Test Positive Height (Feet): 4 Height (Inches): 0.00 Weight (Pounds): 100 General Appearance: lethargic EENT: normal ENT inspection Neck: supple Cardiovascular: normal rate Respiratory/Chest: decreased breath sounds Abdomen: normal bowel sounds, non tender, soft Extremities: non-tender Claude Bay MD Dec 20, 2017 11:02
[2017-12-20] MEDS ORDERED: Sterile Water Irrig 1000ml IRRIG ONE (11:19)
[2017-12-20] MEDS ORDERED: NS 275ml ONE (11:19)
[2017-12-20] MEDS ORDERED: Tubing IV Secondary IV ONE (11:19)
[2017-12-20 12:00] VITALS: BP 132/80
[2017-12-20] MEDS: Cefepime HCl 1 GM in D5W 110 ML IVPB SCH ×2 (12:31→21:09)
[2017-12-20] MEDS ORDERED: Acetaminophen 500mg (ES) tab ORAL PRN (14:00)
--- NOTE | 2017-12-20 14:08 | Pulmonology Progress Note ---
Assessment/Plan Assessment/Plan IMPRESSION: 1. Evidence of pneumonia, worse with effusion 2. G-tube, possible fistulous tract. 3. Left heel osteomyelitis. 4. Toxic metabolic encephalopathy. 5. Significant contractures. 6. History of CVA. 7. History of dysphagia. 8. s/p AKA 9. gangrene 10. leukocytosis 11. respiratory failure PLAN care noted stump care respiratory care BIPAP follow up cxr and ABG monitor fluid status oxygen needs noted antibiotics noted monitor clinically for change suction as needed confirmed DNR tap if needed monitor post op for changes all reviewed in detail; prognosis poor impression, plan, and exam edited and reviewed in detail care discussed with RN Subjective ROS Limited/Unobtainable: Yes Allergies: Coded Allergies: AMOXICILLIN (Verified Allergy, Mild, 06/21/09) ASPIRIN (Verified Allergy, Mild, 06/21/09) SALICYLATES (Verified Allergy, Mild, 06/21/09) PENICILLINS (Unverified Allergy, Unknown, 11/18/17) Subjective care reviewed deteriorated and now on BIPAP labs reviewed d/w nursing seen earlier Objective Last 24 Hour Vital Signs Date Time Temp Pulse Resp B/P (MAP) Pulse Ox O2 Delivery O2 Flow Rate FiO2 12/20/17 13:02 113 24 94 Facial 100 12/20/17 11:06 121 49 47 Facial 100 12/20/17 08:53 Bi-pap 12/20/17 08:53 100 Bi-pap 12/20/17 08:43 124 42 100 Facial 100 12/20/17 08:00 117 12/20/17 08:00 97.2 93 46 130/84 100 Bi-pap 100 97.2 12/20/17 06:45 126 51 88 Facial 100 12/20/17 04:00 109 12/20/17 04:00 99.6 117 36 130/84 100 Nasal Cannula 2.0 99.6 12/20/17 00:00 97.6 113 26 128/78 100 Nasal Cannula 2.0 97.6 12/20/17 00:00 107 12/19/17 20:39 99 136/98 12/19/17 20:00 99 12/19/17 20:00 97.0 99 24 136/78 96 Nasal Cannula 2.0 97.0 12/19/17 16:40 Nasal Cannula 2.0 28 12/19/17 16:40 100 Nasal Cannula 2.0 28 12/19/17 16:00 97.5 87 20 139/74 100 Nasal Cannula 2.0 97.5 12/19/17 16:00 89 Intake and Output 12/19/17 12/20/17 19:00 07:00 Intake Total 650 ml 110 ml Balance 650 ml 110 ml Free Water 100 ml IV Total 110 ml Tube Feeding 550 ml # Voids 5 # Bowel Movements 2 Objective WDWN on BIPAP reduced breath sounds with worsening rhonchi [id number] without MRG NABS nontender no HSM; no distention; GT no CCE AKA weak with reduced LOC reviewed Laboratory Tests 12/19/17 16:30: Vancomycin Level Trough 11.1 12/20/17 06:06: Arterial Blood pH 7.565*H, Arterial Blood Partial Pressure CO2 29.8L, Arterial Blood Partial Pressure O2 50.8L, Arterial Blood HCO3 26.4H, Arterial Blood Oxygen Saturation 88.0L, Arterial Blood Base Excess 4.6, Braden Test Positive Current Medications Medications (Trade) Dose Ordered Sig/Satish Route PRN Reason Start Time Stop Time Status Last Admin Dose Admin Acetaminophen (Tylenol) 650 mg Q4H PRN ORAL Mild Pain/Temp > 100.5 12/20/17 11:00 01/06/18 10:59 Amlodipine Besylate (Norvasc) 5 mg DAILY GT 12/21/17 09:00 01/08/18 08:59 Cefepime HCl 1 gm/ Dextrose 110 ml @ 220 mls/hr EVERY 12 HOURS IVPB 12/20/17 12:00 12/27/17 11:59 12/20/17 12:31 Chlorhexidine Gluconate (Mireya-Hex 2%) 1 applic DAILY@2000 TOPIC 12/20/17 20:00 01/13/18 19:59 Dextrose (Dextrose 50%) 25 ml STAT PRN IV Hypoglycemia 12/20/17 11:00 12/30/17 10:59 Dextrose (Dextrose 50%) 50 ml STAT PRN IV Hypoglycemia 12/20/17 11:00 12/30/17 10:59 Famotidine (Pepcid) 20 mg BID GT 12/20/17 18:00 12/30/17 17:59 Fluconazole (Diflucan) 100 mg DAILY ORAL 12/21/17 09:00 12/23/17 20:59 Heparin Sodium (Porcine) (Heparin 5000 units/ml) 5,000 units EVERY 12 HOURS SUBQ 12/20/17 21:00 01/04/18 20:59 Metoprolol Tartrate (Lopressor) 25 mg Q12HR GT 12/20/17 21:00 12/30/17 20:59 Vancomycin HCl (Vanco rx to dose) 1 ea DAILY PRN MISC Per rx protocol 12/20/17 11:00 01/19/18 10:59 Vancomycin/Sodium Chloride 250 ml @ 166.667 mls/hr Q12H IVPB 12/20/17 18:30 12/24/17 18:29 Vitamin A/Vitamin D (A & D Oint) 1 applic QID TOPIC 12/20/17 13:00 01/11/18 12:59 12/20/17 12:31 Raj Reyes MD Dec 20, 2017 14:08
[2017-12-20 16:00] VITALS: BP 123/76
[2017-12-20] MEDS: Vancomycin 750mg/NS 250ml 250 ML IVPB SCH (18:00)
[2017-12-20 20:00] VITALS: BP 150/65
[2017-12-20] MEDS ORDERED: cefTRIAXone 2 GM in D5W 110 ML IVPB SCH (20:00)
[2017-12-20] MEDS: Dyna-Hex 2% Top Sol 2oz TOPIC SCH (20:10)
[2017-12-21] VITALS: BP 132/75
--- NOTE | 2017-12-21 01:45 | Progress Note ---
DATE: 12/20/2017 CARDIOLOGY PROGRESS NOTE SUBJECTIVE: The patient remains hypoxic with some respiratory distress. Requires BiPAP support and frequent suctioning. OBJECTIVE: VITAL SIGNS: Blood pressure 130/84, pulse 117, respiratory rate 36, and temperature 99.6 degrees. LUNGS: Diminished breath sounds on the right. Few rhonchi. HEART: Regular rhythm. Rapid rate. Normal S1 and S2. ABDOMEN: Soft. EXTREMITIES: Trace edema. Left AKA stump has dressing in place. LABORATORY AND DIAGNOSTIC DATA: No new labs. Chest x-ray reveals white-out of the right lung. IMPRESSION: 1. Status post left above-knee amputation for osteomyelitis. 2. Aspiration pneumonia. 3. Pleural effusion with white-out of right lung. 4. Hypoxia. 5. Acute respiratory insufficiency. 6. Secondary sinus tachycardia. 7. Hypertensive heart disease. 8. Severe protein-calorie malnutrition. 9. Advanced dementia. PLAN: 1. Repeat radiographs with ultrasound for possible thoracentesis. 2. Respiratory hygiene. 3. BiPAP support. 4. Oxygen supplementation. 5. Postoperative care. 6. Remains high risk. Tyrell Underwood M.D. DR: NATASHA JOB#: [id number] CC:
[2017-12-21 04:00] VITALS: BP 145/71
[2017-12-21 05:04] LABS: BASOPHILS % (AUTO) 0.3 % (0.0-2.0); EOSINOPHILS % (AUTO) 0.1 % (0.0-3.0); HEMATOCRIT 31.5 % (37.0-47.0); HEMOGLOBIN 10.7 G/DL (12.0-16.0); LYMPHOCYTES % (AUTO) 8.6 % (20.0-45.0); MEAN CORPUSCULAR VOLUME 93 FL (80-99); MONOCYTES % (AUTO) 6.3 % (1.0-10.0); NEUTROPHILS % (AUTO) 84.6 % (45.0-75.0); PLATELET COUNT 395 K/UL (150-450); RED BLOOD COUNT 3.38 M/UL (4.20-5.40); RED CELL DISTRIBUTION WIDTH 15.1 % (11.6-14.8); WHITE BLOOD COUNT 17.7 K/UL (4.8-10.8)
[2017-12-21 05:57] LABS: ALANINE AMINOTRANSFERASE 50 U/L (12-78); ALBUMIN 1.8 G/DL (3.4-5.0); ALBUMIN/GLOBULIN RATIO 0.3 (1.0-2.7); ALKALINE PHOSPHATASE 99 U/L (46-116); ANION GAP 8 mmol/L (5-15); ASPARTATE AMINO TRANSFERASE 44 U/L (15-37); BILIRUBIN,TOTAL 0.4 MG/DL (0.2-1.0); BLOOD UREA NITROGEN 33 mg/dL (7-18); CALCIUM 8.2 MG/DL (8.5-10.1); CARBON DIOXIDE 31 MMOL/L (21-32); CHLORIDE 103 MMOL/L (98-107); CREATININE 0.9 MG/DL (0.55-1.30); POTASSIUM 3.8 MMOL/L (3.5-5.1); SODIUM 141 MMOL/L (136-145)
[2017-12-21] MEDS: Vancomycin 750mg/NS 250ml 250 ML IVPB SCH ×2 (07:00→12:20)
[2017-12-21 08:00] VITALS: BP 148/97
--- NOTE | 2017-12-21 08:14 | Pulmonology Progress Note ---
Assessment/Plan Assessment/Plan IMPRESSION: 1. Evidence of pneumonia, worse with effusion 2. G-tube, possible fistulous tract. 3. Left heel osteomyelitis. 4. Toxic metabolic encephalopathy. 5. Significant contractures. 6. History of CVA. 7. History of dysphagia. 8. s/p AKA 9. gangrene 10. leukocytosis 11. respiratory failure PLAN care noted stump care respiratory care BIPAP as needed follow up cxr and ABG monitor fluid status oxygen needs noted antibiotics noted monitor clinically for change suction as needed confirmed DNR tap if able- will order monitor post op for changes all reviewed in detail; prognosis poor impression, plan, and exam edited and reviewed in detail care discussed with RN Subjective ROS Limited/Unobtainable: Yes Allergies: Coded Allergies: AMOXICILLIN (Verified Allergy, Mild, 06/21/09) ASPIRIN (Verified Allergy, Mild, 06/21/09) SALICYLATES (Verified Allergy, Mild, 06/21/09) PENICILLINS (Unverified Allergy, Unknown, 11/18/17) Subjective care reviewed deteriorated and now on non rebreather labs reviewed borderline oxygen saturations Objective Last 24 Hour Vital Signs Date Time Temp Pulse Resp B/P (MAP) Pulse Ox O2 Delivery O2 Flow Rate FiO2 12/21/17 07:05 110 41 97 Facial 100 12/21/17 05:02 111 41 98 Facial 100 12/21/17 04:00 98.0 107 24 145/71 99 Bi-pap 100 98.0 12/21/17 04:00 100 12/21/17 04:00 105 12/21/17 03:03 109 39 97 Facial 100 12/21/17 01:11 104 43 98 Full Face 100 12/21/17 00:00 103 12/21/17 00:00 98.1 107 22 132/75 99 Bi-pap 100 98.1 12/21/17 00:00 100 12/20/17 23:25 107 38 99 Full Face 100 12/20/17 21:10 117 150/65 12/20/17 21:00 111 43 92 Full Face 100 12/20/17 20:00 98.3 117 28 150/65 100 Bi-pap 100 98.3 12/20/17 20:00 111 12/20/17 20:00 100 12/20/17 19:16 110 44 96 Full Face 100 6/3/18 19:15 Bi-pap 12/20/17 19:15 100 Bi-pap 12/20/17 19:00 100 12/20/17 17:24 115 45 91 Full Face 100 12/20/17 16:00 97.9 108 28 123/76 100 Bi-pap 100 97.9 12/20/17 16:00 106 12/20/17 15:09 106 43 96 Facial 100 12/20/17 13:02 113 24 94 Facial 100 12/20/17 12:00 97.5 92 40 132/80 100 Bi-pap 100 97.5 12/20/17 11:47 119 12/20/17 11:06 121 49 47 Facial 100 12/20/17 08:53 Bi-pap 12/20/17 08:53 100 Bi-pap 12/20/17 08:43 124 42 100 Facial 100 Intake and Output 12/20/17 12/21/17 19:00 07:00 Intake Total 166.7 ml 193.3 ml Balance 166.7 ml 193.3 ml IV Total 166.7 ml 193.3 ml # Voids 2 3 # Bowel Movements 1 1 Objective WDWN on face mask reduced breath sounds with noted rhonchi [id number] without MRG NABS nontender no HSM; no distention; GT no CCE AKA weak with reduced LOC reviewed Laboratory Tests 12/21/17 03:00: White Blood Count 17.7H, Red Blood Count 3.38L, Hemoglobin 10.7L, Hematocrit 31.5L, Mean Corpuscular Volume 93, Mean Corpuscular Hemoglobin 31.6H, Mean Corpuscular Hemoglobin Concent 33.8, Red Cell Distribution Width 15.1H, Platelet Count 395, Mean Platelet Volume 5.8L, Neutrophils (%) (Auto) 84.6H, Lymphocytes (%) (Auto) 8.6L, Monocytes (%) (Auto) 6.3, Eosinophils (%) (Auto) 0.1, Basophils (%) (Auto) 0.3, Prothrombin Time 10.4, Prothromb Time International Ratio 1.0, Activated Partial Thromboplast Time 30, Sodium Level 141, Potassium Level 3.8, Chloride Level 103, Carbon Dioxide Level 31, Anion Gap 8, Blood Urea Nitrogen 33H, Creatinine 0.9, Estimat Glomerular Filtration Rate , Glucose Level 166H, Calcium Level 8.2L, Total Bilirubin 0.4, Aspartate Amino Transf (AST/SGOT) 44H, Alanine Aminotransferase (ALT/SGPT) 50, Alkaline Phosphatase 99, Pro-B-Type Natriuretic Peptide 1312H, Total Protein 7.1, Albumin 1.8L, Globulin 5.3, Albumin/Globulin Ratio 0.3L 12/21/17 04:00: Arterial Blood pH 7.540H, Arterial Blood Partial Pressure CO2 37.2, Arterial Blood Partial Pressure O2 77.5, Arterial Blood HCO3 31.1H, Arterial Blood Oxygen Saturation 95.2, Arterial Blood Base Excess 8.1, Braden Test Positive 12/21/17 06:00: Vancomycin Level Trough 26.2H Current Medications Medications (Trade) Dose Ordered Sig/Satish Route PRN Reason Start Time Stop Time Status Last Admin Dose Admin Acetaminophen (Tylenol) 650 mg Q4H PRN ORAL Mild Pain/Temp > 100.5 12/20/17 11:00 01/06/18 10:59 Amlodipine Besylate (Norvasc) 5 mg DAILY GT 12/21/17 09:00 01/08/18 08:59 Cefepime HCl 1 gm/ Dextrose 110 ml @ 220 mls/hr EVERY 12 HOURS IVPB 12/20/17 12:00 12/27/17 11:59 12/20/17 21:09 Chlorhexidine Gluconate (Mireya-Hex 2%) 1 applic DAILY@2000 TOPIC 12/20/17 20:00 01/13/18 19:59 12/20/17 20:10 Dextrose (Dextrose 50%) 25 ml STAT PRN IV Hypoglycemia 12/20/17 11:00 12/30/17 10:59 Dextrose (Dextrose 50%) 50 ml STAT PRN IV Hypoglycemia 12/20/17 11:00 12/30/17 10:59 Famotidine (Pepcid) 20 mg BID GT 12/20/17 18:00 12/30/17 17:59 12/20/17 18:00 Fluconazole (Diflucan) 100 mg DAILY ORAL 12/21/17 09:00 12/23/17 20:59 Heparin Sodium (Porcine) (Heparin 5000 units/ml) 5,000 units EVERY 12 HOURS SUBQ 12/20/17 21:00 01/04/18 20:59 Metoprolol Tartrate (Lopressor) 25 mg Q12HR GT 12/20/17 21:00 12/30/17 20:59 12/20/17 21:10 Vancomycin HCl (Vanco rx to dose) 1 ea DAILY PRN MISC Per rx protocol 12/20/17 11:00 01/19/18 10:59 Vancomycin/Sodium Chloride 250 ml @ 166.667 mls/hr Q18H IVPB 12/21/17 12:00 12/26/17 11:59 Vitamin A/Vitamin D (A & D Oint) 1 applic QID TOPIC 12/20/17 13:00 01/11/18 12:59 12/20/17 21:10 Raj Reyes MD Dec 21, 2017 08:14
--- NOTE | 2017-12-21 08:21 | General Progress Note ---
Assessment/Plan Problem List: (1) Hypokalemia ICD Codes: E87.6 - Hypokalemia SNOMED: 35931753 (2) Functional quadriplegia ICD Codes: R53.2 - Functional quadriplegia SNOMED: 533001602055843 (3) Malnutrition of moderate degree ICD Codes: E44.0 - Moderate protein-calorie malnutrition SNOMED: 855414940 (4) Osteomyelitis ICD Codes: M86.9 - Osteomyelitis, unspecified SNOMED: 42745890 Qualifiers: Qualified Codes: M86.9 - Osteomyelitis, unspecified (5) Gastrostomy tube dysfunction ICD Codes: K94.23 - Gastrostomy malfunction SNOMED: 060720799 (6) Respiratory failure ICD Codes: J96.90 - Respiratory failure, unspecified, unspecified whether with hypoxia or hypercapnia SNOMED: 613183224 (7) Pneumonia ICD Codes: J18.9 - Pneumonia, unspecified organism SNOMED: 722799212 (8) Pleural effusion ICD Codes: J90 - Pleural effusion, not elsewhere classified SNOMED: 35552135 Status: stable, deteriorating Assessment/Plan bipap sucitoning resp rx and chest PT tap effusion per pulm abg abx pulm follow up guarded. Subjective ROS Limited/Unobtainable: Yes Constitutional: Reports: malaise, weakness HEENT: Reports: no symptoms Cardiovascular: Reports: no symptoms Respiratory: Reports: shortness of breath, sputum Gastrointestinal/Abdominal: Reports: difficulty swallowing Genitourinary: Reports: no symptoms Neurologic/Psychiatric: Reports: pre-existing deficit Endocrine: Reports: no symptoms Hematologic/Lymphatic: Reports: anemia Allergies: Coded Allergies: AMOXICILLIN (Verified Allergy, Mild, 06/21/09) ASPIRIN (Verified Allergy, Mild, 06/21/09) SALICYLATES (Verified Allergy, Mild, 06/21/09) PENICILLINS (Unverified Allergy, Unknown, 11/18/17) All Systems: reviewed and negative except above Subjective remains on bipap. still sob and congested. lethargic. abg noted. Objective Last 24 Hour Vital Signs Date Time Temp Pulse Resp B/P (MAP) Pulse Ox O2 Delivery O2 Flow Rate FiO2 12/21/17 07:05 110 41 97 Facial 100 12/21/17 05:02 111 41 98 Facial 100 12/21/17 04:00 98.0 107 24 145/71 99 Bi-pap 100 98.0 12/21/17 04:00 100 12/21/17 04:00 105 12/21/17 03:03 109 39 97 Facial 100 12/21/17 01:11 104 43 98 Full Face 100 12/21/17 00:00 103 12/21/17 00:00 98.1 107 22 132/75 99 Bi-pap 100 98.1 12/21/17 00:00 100 12/20/17 23:25 107 38 99 Full Face 100 12/20/17 21:10 117 150/65 12/20/17 21:00 111 43 92 Full Face 100 12/20/17 20:00 98.3 117 28 150/65 100 Bi-pap 100 98.3 12/20/17 20:00 111 12/20/17 20:00 100 12/20/17 19:16 110 44 96 Full Face 100 12/20/17 19:15 Bi-pap 12/20/17 19:15 100 Bi-pap 12/20/17 19:00 100 12/20/17 17:24 115 45 91 Full Face 100 12/20/17 16:00 97.9 108 28 123/76 100 Bi-pap 100 97.9 12/20/17 16:00 106 12/20/17 15:09 106 43 96 Facial 100 12/20/17 13:02 113 24 94 Facial 100 12/20/17 12:00 97.5 92 40 132/80 100 Bi-pap 100 97.5 12/20/17 11:47 119 12/20/17 11:06 121 49 47 Facial 100 12/20/17 08:53 Bi-pap 12/20/17 08:53 100 Bi-pap 12/20/17 08:43 124 42 100 Facial 100 Intake and Output 12/20/17 12/21/17 19:00 07:00 Intake Total 166.7 ml 193.3 ml Balance 166.7 ml 193.3 ml IV Total 166.7 ml 193.3 ml # Voids 2 3 # Bowel Movements 1 1 Laboratory Tests 12/21/17 03:00: White Blood Count 17.7H, Red Blood Count 3.38L, Hemoglobin 10.7L, Hematocrit 31.5L, Mean Corpuscular Volume 93, Mean Corpuscular Hemoglobin 31.6H, Mean Corpuscular Hemoglobin Concent 33.8, Red Cell Distribution Width 15.1H, Platelet Count 395, Mean Platelet Volume 5.8L, Neutrophils (%) (Auto) 84.6H, Lymphocytes (%) (Auto) 8.6L, Monocytes (%) (Auto) 6.3, Eosinophils (%) (Auto) 0.1, Basophils (%) (Auto) 0.3, Prothrombin Time 10.4, Prothromb Time International Ratio 1.0, Activated Partial Thromboplast Time 30, Sodium Level 141, Potassium Level 3.8, Chloride Level 103, Carbon Dioxide Level 31, Anion Gap 8, Blood Urea Nitrogen 33H, Creatinine 0.9, Estimat Glomerular Filtration Rate , Glucose Level 166H, Calcium Level 8.2L, Total Bilirubin 0.4, Aspartate Amino Transf (AST/SGOT) 44H, Alanine Aminotransferase (ALT/SGPT) 50, Alkaline Phosphatase 99, Pro-B-Type Natriuretic Peptide 1312H, Total Protein 7.1, Albumin 1.8L, Globulin 5.3, Albumin/Globulin Ratio 0.3L 12/21/17 04:00: Arterial Blood pH 7.540H, Arterial Blood Partial Pressure CO2 37.2, Arterial Blood Partial Pressure O2 77.5, Arterial Blood HCO3 31.1H, Arterial Blood Oxygen Saturation 95.2, Arterial Blood Base Excess 8.1, Braden Test Positive 12/21/17 06:00: Vancomycin Level Trough 26.2H Height (Feet): 4 Height (Inches): 0.00 Weight (Pounds): 100 Objective General Appearance: WD/WN, lethargic, confused Neck: supple Cardiovascular: normal peripheral pulses, tachycardia Respiratory/Chest: crackles/rales, rhonchi - bilaterally. decreased BS on right Abdomen: normal bowel sounds, non tender, soft, no organomegaly Edema: no edema noted Arm (L), no edema noted Arm (R), no edema noted Leg (L), no edema noted Leg (R), no edema noted Pedal (L), no edema noted Pedal (R), no edema noted Generalized Neurologic: disoriented, unresponsive, aphasia Satinder Kirk MD Dec 21, 2017 08:21
--- NOTE | 2017-12-21 08:40 | General Progress Note ---
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 - osteomyelitis Recommendations transferred to [facility] respiratory distress GT balloon wa evaluated and fixed, will resume GTf at low dose and monitor poor prognosis will fu Subjective ROS Limited/Unobtainable: No Allergies: Coded Allergies: AMOXICILLIN (Verified Allergy, Mild, 06/21/09) ASPIRIN (Verified Allergy, Mild, 06/21/09) SALICYLATES (Verified Allergy, Mild, 06/21/09) PENICILLINS (Unverified Allergy, Unknown, 11/18/17) Subjective GT leak GTF on hold Objective Last 24 Hour Vital Signs Date Time Temp Pulse Resp B/P (MAP) Pulse Ox O2 Delivery O2 Flow Rate FiO2 12/21/17 07:05 110 41 97 Facial 100 12/21/17 05:02 111 41 98 Facial 100 12/21/17 04:00 98.0 107 24 145/71 99 Bi-pap 100 98.0 12/21/17 04:00 100 12/21/17 04:00 105 12/21/17 03:03 109 39 97 Facial 100 12/21/17 01:11 104 43 98 Full Face 100 12/21/17 00:00 103 12/21/17 00:00 98.1 107 22 132/75 99 Bi-pap 100 98.1 12/21/17 00:00 100 12/20/17 23:25 107 38 99 Full Face 100 12/20/17 21:10 117 150/65 12/20/17 21:00 111 43 92 Full Face 100 12/20/17 20:00 98.3 117 28 150/65 100 Bi-pap 100 98.3 12/20/17 20:00 111 12/20/17 20:00 100 12/20/17 19:16 110 44 96 Full Face 100 12/20/17 19:15 Bi-pap 12/20/17 19:15 100 Bi-pap 12/20/17 19:00 100 12/20/17 17:24 115 45 91 Full Face 100 12/20/17 16:00 97.9 108 28 123/76 100 Bi-pap 100 97.9 12/20/17 16:00 106 12/20/17 15:09 106 43 96 Facial 100 12/20/17 13:02 113 24 94 Facial 100 12/20/17 12:00 97.5 92 40 132/80 100 Bi-pap 100 97.5 12/20/17 11:47 119 12/20/17 11:06 121 49 47 Facial 100 12/20/17 08:53 Bi-pap 12/20/17 08:53 100 Bi-pap 12/20/17 08:43 124 42 100 Facial 100 Intake and Output 12/20/17 12/21/17 19:00 07:00 Intake Total 166.7 ml 193.3 ml Balance 166.7 ml 193.3 ml IV Total 166.7 ml 193.3 ml # Voids 2 3 # Bowel Movements 1 1 Laboratory Tests 12/21/17 03:00: White Blood Count 17.7H, Red Blood Count 3.38L, Hemoglobin 10.7L, Hematocrit 31.5L, Mean Corpuscular Volume 93, Mean Corpuscular Hemoglobin 31.6H, Mean Corpuscular Hemoglobin Concent 33.8, Red Cell Distribution Width 15.1H, Platelet Count 395, Mean Platelet Volume 5.8L, Neutrophils (%) (Auto) 84.6H, Lymphocytes (%) (Auto) 8.6L, Monocytes (%) (Auto) 6.3, Eosinophils (%) (Auto) 0.1, Basophils (%) (Auto) 0.3, Prothrombin Time 10.4, Prothromb Time International Ratio 1.0, Activated Partial Thromboplast Time 30, Sodium Level 141, Potassium Level 3.8, Chloride Level 103, Carbon Dioxide Level 31, Anion Gap 8, Blood Urea Nitrogen 33H, Creatinine 0.9, Estimat Glomerular Filtration Rate , Glucose Level 166H, Calcium Level 8.2L, Total Bilirubin 0.4, Aspartate Amino Transf (AST/SGOT) 44H, Alanine Aminotransferase (ALT/SGPT) 50, Alkaline Phosphatase 99, Pro-B-Type Natriuretic Peptide 1312H, Total Protein 7.1, Albumin 1.8L, Globulin 5.3, Albumin/Globulin Ratio 0.3L 12/21/17 04:00: Arterial Blood pH 7.540H, Arterial Blood Partial Pressure CO2 37.2, Arterial Blood Partial Pressure O2 77.5, Arterial Blood HCO3 31.1H, Arterial Blood Oxygen Saturation 95.2, Arterial Blood Base Excess 8.1, Braden Test Positive 12/21/17 06:00: Vancomycin Level Trough 26.2H Height (Feet): 4 Height (Inches): 0.00 Weight (Pounds): 100 General Appearance: mild distress EENT: normal ENT inspection Neck: supple Cardiovascular: tachycardia Respiratory/Chest: decreased breath sounds Abdomen: normal bowel sounds, non tender, soft Extremities: non-tender Claude Bay MD Dec 21, 2017 08:40
[2017-12-21] MEDS: Vitamin A&D Oint 2oz Tube TOPIC SCH ×4 (09:00→20:45)
[2017-12-21] MEDS: Heparin 5000 units/ml inj SUBQ SCH ×2 (09:00→20:45)
[2017-12-21] MEDS: Metoprolol 25mg tab GT SCH ×2 (09:00→20:44)
[2017-12-21] MEDS: Fluconazole 100mg tab ORAL SCH (09:00)
[2017-12-21] MEDS: Cefepime HCl 1 GM in D5W 110 ML IVPB SCH ×2 (09:03→20:45)
--- NOTE | 2017-12-21 11:28 | Infectious Diseases Prog Note ---
"Assessment/Plan Assessment/Plan A 1. 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 DM 3. hypertension 4. CVA 5. 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 Pneumonia with MRSA 7. Hypoxemic respiratory failure P 1. continue iv vancomycin & Cefepime 2. Poor prognosis, DNR, DNI Subjective ROS Limited/Unobtainable: Yes Allergies: Coded Allergies: AMOXICILLIN (Verified Allergy, Mild, 06/21/09) ASPIRIN (Verified Allergy, Mild, 06/21/09) SALICYLATES (Verified Allergy, Mild, 06/21/09) PENICILLINS (Unverified Allergy, Unknown, 11/18/17) Objective Vital Signs Last 24 Hour Vital Signs Date Time Temp Pulse Resp B/P (MAP) Pulse Ox O2 Delivery O2 Flow Rate FiO2 12/21/17 10:53 91 39 99 Facial 85 12/21/17 09:01 88 148/97 12/21/17 09:00 88 148/97 12/21/17 08:43 114 39 96 Facial 100 12/21/17 08:00 110 12/21/17 08:00 98.4 88 22 148/97 95 Bi-pap 100 98.4 12/21/17 08:00 100 12/21/17 07:05 110 41 97 Facial 100 12/21/17 05:02 111 41 98 Facial 100 12/21/17 04:00 98.0 107 24 145/71 99 Bi-pap 100 98.0 12/21/17 04:00 100 12/21/17 04:00 105 12/21/17 03:03 109 39 97 Facial 100 12/21/17 01:11 104 43 98 Full Face 100 12/21/17 00:00 103 12/21/17 00:00 98.1 107 22 132/75 99 Bi-pap 100 98.1 12/21/17 00:00 100 12/20/17 23:25 107 38 99 Full Face 100 12/20/17 21:10 117 150/65 12/20/17 21:00 111 43 92 Full Face 100 12/20/17 20:00 98.3 117 28 150/65 100 Bi-pap 100 98.3 12/20/17 20:00 111 12/20/17 20:00 100 12/20/17 19:16 110 44 96 Full Face 100 12/20/17 19:15 Bi-pap 12/20/17 19:15 100 Bi-pap 12/20/17 19:00 100 12/20/17 17:24 115 45 91 Full Face 100 12/20/17 16:00 97.9 108 28 123/76 100 Bi-pap 100 97.9 12/20/17 16:00 106 12/20/17 15:09 106 43 96 Facial 100 12/20/17 13:02 113 24 94 Facial 100 12/20/17 12:00 97.5 92 40 132/80 100 Bi-pap 100 97.5 12/20/17 11:47 119 Height (Feet): 4 Height (Inches): 0.00 Weight (Pounds): 100 HEENT: other - on BIPAP Respiratory/Chest: respiratory distress, rhonchi - bilaterally Cardiovascular: normal rate Abdomen: soft, non tender, other - GT feeding Extremities: other - left AKA Neurologic/Psychiatric: unresponsiveness Laboratory Tests Test 12/21/17 03:00 12/21/17 04:00 12/21/17 06:00 White Blood Count 17.7 K/UL (4.8-10.8) H Red Blood Count 3.38 M/UL (4.20-5.40) L Hemoglobin 10.7 G/DL (12.0-16.0) L Hematocrit 31.5 % (37.0-47.0) L Mean Corpuscular Volume 93 FL (80-99) Mean Corpuscular Hemoglobin 31.6 PG (27.0-31.0) H Mean Corpuscular Hemoglobin Concent 33.8 G/DL (32.0-36.0) Red Cell Distribution Width 15.1 % (11.6-14.8) H Platelet Count 395 K/UL (150-450) Mean Platelet Volume 5.8 FL (6.5-10.1) L Neutrophils (%) (Auto) 84.6 % (45.0-75.0) H Lymphocytes (%) (Auto) 8.6 % (20.0-45.0) L Monocytes (%) (Auto) 6.3 % (1.0-10.0) Eosinophils (%) (Auto) 0.1 % (0.0-3.0) Basophils (%) (Auto) 0.3 % (0.0-2.0) Prothrombin Time 10.4 SEC (9.30-11.50) Prothromb Time International Ratio 1.0 (0.9-1.1) Activated Partial Thromboplast Time 30 SEC (23-33) Sodium Level 141 MMOL/L (136-145) Potassium Level 3.8 MMOL/L (3.5-5.1) Chloride Level 103 MMOL/L (98-107) Carbon Dioxide Level 31 MMOL/L (21-32) Anion Gap 8 mmol/L (5-15) Blood Urea Nitrogen 33 mg/dL (7-18) H Creatinine 0.9 MG/DL (0.55-1.30) Estimat Glomerular Filtration Rate mL/min (>60) Glucose Level 166 MG/DL (74-106) H Calcium Level 8.2 MG/DL (8.5-10.1) L Total Bilirubin 0.4 MG/DL (0.2-1.0) Aspartate Amino Transf (AST/SGOT) 44 U/L (15-37) H Alanine Aminotransferase (ALT/SGPT) 50 U/L (12-78) Alkaline Phosphatase 99 U/L (46-116) Pro-B-Type Natriuretic Peptide 1312 pg/mL (0-125) H Total Protein 7.1 G/DL (6.4-8.2) Albumin 1.8 G/DL (3.4-5.0) L Globulin 5.3 g/dL Albumin/Globulin Ratio 0.3 (1.0-2.7) L Arterial Blood pH 7.540 (7.350-7.450) Arterial Blood Partial Pressure CO2 37.2 mmHg (35.0-45.0) Arterial Blood Partial Pressure O2 77.5 mmHg (75.0-100.0) Arterial Blood HCO3 31.1 mmol/L (22.0-26.0) H Arterial Blood Oxygen Saturation 95.2 % (92.0-98.0) Arterial Blood Base Excess 8.1 Braden Test Positive Vancomycin Level Trough 26.2 ug/mL (5.0-12.0) H Current Medications Medications (Trade) Dose Ordered Sig/Satish Route PRN Reason Start Time Stop Time Status Last Admin Dose Admin Acetaminophen (Tylenol) 650 mg Q4H PRN ORAL Mild Pain/Temp > 100.5 12/20/17 11:00 01/06/18 10:59 Amlodipine Besylate (Norvasc) 5 mg DAILY GT 12/21/17 09:00 01/08/18 08:59 12/21/17 09:01 Cefepime HCl 1 gm/ Dextrose 110 ml @ 220 mls/hr EVERY 12 HOURS IVPB 12/20/17 12:00 12/27/17 11:59 12/21/17 09:03 Chlorhexidine Gluconate (Mireya-Hex 2%) 1 applic DAILY@2000 TOPIC 12/20/17 20:00 01/13/18 19:59 12/20/17 20:10 Dextrose (Dextrose 50%) 25 ml STAT PRN IV Hypoglycemia 12/20/17 11:00 12/30/17 10:59 Dextrose (Dextrose 50%) 50 ml STAT PRN IV Hypoglycemia 12/20/17 11:00 12/30/17 10:59 Famotidine (Pepcid) 20 mg BID GT 12/20/17 18:00 12/30/17 17:59 12/21/17 08:59 Fluconazole (Diflucan) 100 mg DAILY ORAL 12/21/17 09:00 12/23/17 20:59 12/21/17 09:00 Heparin Sodium (Porcine) (Heparin 5000 units/ml) 5,000 units EVERY 12 HOURS SUBQ 12/20/17 21:00 01/04/18 20:59 Metoprolol Tartrate (Lopressor) 25 mg Q12HR GT 12/20/17 21:00 12/30/17 20:59 12/21/17 09:00 Vancomycin HCl (Vanco rx to dose) 1 ea DAILY PRN MISC Per rx protocol 12/20/17 11:00 01/19/18 10:59 Vancomycin/Sodium Chloride 250 ml @ 166.667 mls/hr Q18H IVPB 12/21/17 12:00 12/26/17 11:59 Vitamin A/Vitamin D (A & D Oint) 1 applic QID TOPIC 12/20/17 13:00 01/11/18 12:59 12/21/17 09:00 Ezio Mendoza MD Dec 21, 2017 11:28"
[2017-12-21 12:00] VITALS: BP 135/76
--- NOTE | 2017-12-21 13:53 | Diagnostic Imaging Report ---
Indication: Dyspnea Technique: One view of the chest Comparison: 12/20/2017 Findings: Interim marked improvement of aeration of the right mid and upper lung. There is persistent opacity at the right lung base, however. Previously demonstrated likely right mainstem bronchus obstruction is no longer definitely evident. Previously demonstrated be spinal shift is no longer evident. Left lung and pleural space remain clear. A gastrostomy is again visualized Impression: Markedly improved aeration of the right upper lobe,, presumably representing improved atelectasis, over one day Persistent right basilar opacity. This may represent a large right pleural effusion, versus atelectatic right lower and middle lobe, or combination of both.
--- NOTE | 2017-12-21 15:24 | General Surgery Progress Note ---
General Surgery-Progress Note Subjective Additional Comments no acute events. comfortable. leaking around g tube improved. Objective Last 24 Hour Vital Signs Date Time Temp Pulse Resp B/P (MAP) Pulse Ox O2 Delivery O2 Flow Rate FiO2 12/21/17 14:57 105 39 95 Full Face 75 12/21/17 13:15 102 36 98 Full Face 75 12/21/17 12:00 98.0 95 20 135/76 100 Bi-pap 95 98.0 12/21/17 12:00 95 12/21/17 12:00 93 12/21/17 10:53 91 39 99 Facial 85 12/21/17 09:01 88 148/97 12/21/17 09:00 88 148/97 12/21/17 08:43 114 39 96 Facial 100 12/21/17 08:00 110 12/21/17 08:00 98.4 88 22 148/97 95 Bi-pap 100 98.4 12/21/17 08:00 100 12/21/17 07:05 110 41 97 Facial 100 12/21/17 05:02 111 41 98 Facial 100 12/21/17 04:00 98.0 107 24 145/71 99 Bi-pap 100 98.0 12/21/17 04:00 100 12/21/17 04:00 105 12/21/17 03:03 109 39 97 Facial 100 12/21/17 01:11 104 43 98 Full Face 100 12/21/17 00:00 103 12/21/17 00:00 98.1 107 22 132/75 99 Bi-pap 100 98.1 12/21/17 00:00 100 12/20/17 23:25 107 38 99 Full Face 100 12/20/17 21:10 117 150/65 12/20/17 21:00 111 43 92 Full Face 100 12/20/17 20:00 98.3 117 28 150/65 100 Bi-pap 100 98.3 12/20/17 20:00 111 12/20/17 20:00 100 12/20/17 19:16 110 44 96 Full Face 100 12/20/17 19:15 Bi-pap 12/20/17 19:15 100 Bi-pap 12/20/17 19:00 100 12/20/17 17:24 115 45 91 Full Face 100 12/20/17 16:00 97.9 108 28 123/76 100 Bi-pap 100 97.9 12/20/17 16:00 106 I&O Intake and Output 12/20/17 12/21/17 19:00 07:00 Intake Total 166.7 ml 223.3 ml Balance 166.7 ml 223.3 ml Free Water 30 ml IV Total 166.7 ml 193.3 ml # Voids 2 3 # Bowel Movements 1 1 Wound: clean Drains: none Cardiovascular: RSR Respiratory: clear Abdomen: soft, flat, non-tender Extremities: other - left stump clean Laboratory Tests Test 12/21/17 03:00 12/21/17 04:00 12/21/17 06:00 White Blood Count 17.7 K/UL (4.8-10.8) H Red Blood Count 3.38 M/UL (4.20-5.40) L Hemoglobin 10.7 G/DL (12.0-16.0) L Hematocrit 31.5 % (37.0-47.0) L Mean Corpuscular Volume 93 FL (80-99) Mean Corpuscular Hemoglobin 31.6 PG (27.0-31.0) H Mean Corpuscular Hemoglobin Concent 33.8 G/DL (32.0-36.0) Red Cell Distribution Width 15.1 % (11.6-14.8) H Platelet Count 395 K/UL (150-450) Mean Platelet Volume 5.8 FL (6.5-10.1) L Neutrophils (%) (Auto) 84.6 % (45.0-75.0) H Lymphocytes (%) (Auto) 8.6 % (20.0-45.0) L Monocytes (%) (Auto) 6.3 % (1.0-10.0) Eosinophils (%) (Auto) 0.1 % (0.0-3.0) Basophils (%) (Auto) 0.3 % (0.0-2.0) Prothrombin Time 10.4 SEC (9.30-11.50) Prothromb Time International Ratio 1.0 (0.9-1.1) Activated Partial Thromboplast Time 30 SEC (23-33) Sodium Level 141 MMOL/L (136-145) Potassium Level 3.8 MMOL/L (3.5-5.1) Chloride Level 103 MMOL/L (98-107) Carbon Dioxide Level 31 MMOL/L (21-32) Anion Gap 8 mmol/L (5-15) Blood Urea Nitrogen 33 mg/dL (7-18) H Creatinine 0.9 MG/DL (0.55-1.30) Estimat Glomerular Filtration Rate mL/min (>60) Glucose Level 166 MG/DL (74-106) H Calcium Level 8.2 MG/DL (8.5-10.1) L Total Bilirubin 0.4 MG/DL (0.2-1.0) Aspartate Amino Transf (AST/SGOT) 44 U/L (15-37) H Alanine Aminotransferase (ALT/SGPT) 50 U/L (12-78) Alkaline Phosphatase 99 U/L (46-116) Pro-B-Type Natriuretic Peptide 1312 pg/mL (0-125) H Total Protein 7.1 G/DL (6.4-8.2) Albumin 1.8 G/DL (3.4-5.0) L Globulin 5.3 g/dL Albumin/Globulin Ratio 0.3 (1.0-2.7) L Arterial Blood pH 7.540 (7.350-7.450) Arterial Blood Partial Pressure CO2 37.2 mmHg (35.0-45.0) Arterial Blood Partial Pressure O2 77.5 mmHg (75.0-100.0) Arterial Blood HCO3 31.1 mmol/L (22.0-26.0) H Arterial Blood Oxygen Saturation 95.2 % (92.0-98.0) Arterial Blood Base Excess 8.1 Braden Test Positive Vancomycin Level Trough 26.2 ug/mL (5.0-12.0) H Additional Comments sacral decubitus ulcer stage II with skin breakdown but no underlying subcutaneous tissues noted. erythema. no odor. no active infection. Plan Problems: (1) Gastrostomy tube dysfunction Assessment & Plan: small sandro-g tube fistula identified. leaking of contents noted. no active infection noted but does have some induration. fistulogram identified passage from fistula opening into gastric lumen. currently stable and okay. could revise g tube site would not indicated at this time given small inconsequential fistula. cont with dressings and care to g tube site. g tube functional and leakage. leak around g tube continues. new dressings applied with underlying vasaline gauze dressing. will monitor if leak or no. sacral decubitus ulcer stage II with skin breakdown but no underlying subcutaneous tissues noted. erythema. no odor. no active infection. As for sacral ulcer, keep off wound, skin ointment and foam dressings. turn q2hrs. thank you for this consultation. will follow with you Santana Tolbert Dec 21, 2017 15:24
[2017-12-21 16:00] VITALS: BP 141/85
--- NOTE | 2017-12-21 17:02 | Diagnostic Imaging Report ---
Indication: Shortness of breath, suspected pleural effusion Technique: Grayscale images of the bilateral pleural spaces in anticipation of thoracentesis Comparison: Chest radiograph earlier the same day Findings: No pleural fluid is demonstrated on either side Impression: Negative for pleural effusion. No thoracentesis performed. Basilar opacity on recent chest radiograph presumably represents atelectatic right lower and middle lobes.
[2017-12-21 20:00] VITALS: BP 150/88
[2017-12-21] MEDS: Dyna-Hex 2% Top Sol 2oz TOPIC SCH (20:04)
[2017-12-22] VITALS: BP 147/79
--- NOTE | 2017-12-22 03:15 | Progress Note ---
DATE: 12/21/2017 CARDIOLOGY PROGRESS NOTE SUBJECTIVE: The patient continues to have congestion, respiratory distress and requiring BiPAP support. The patient was not able to complete a thoracentesis today as no fluid was isolated by ultrasound. The patient continues to have wounds that required aggressive skilled care. She is status post left AKA. Her G-tube fistula site is no longer draining. OBJECTIVE: VITAL SIGNS: Blood pressure 132/75, pulse 107, respiratory rate 22, and afebrile. LUNGS: Coarse breath sounds with rhonchi. Diminished right base. HEART: Regular rhythm and rate. Normal S1 and S2. ABDOMEN: Soft. G-tube intact. EXTREMITIES: Trace edema. Left AKA stump clean and dry. LABORATORY DATA: White count 17.7 and hemoglobin 10.7. ABG, 7.54, 37, and 77. Sodium 141, potassium 3.8, bicarbonate 31, BUN 33, and creatinine 0.9. IMPRESSION: 1. Osteomyelitis, status post AKA on the left. 2. Healthcare-acquired pneumonia. 3. Acute respiratory insufficiency. 4. Anemia. 5. Severe protein-calorie malnutrition. 6. Secondary sinus tachycardia. 7. Chronic diastolic congestive heart failure. 8. Hypertensive heart disease. 9. Multiple decubiti. PLAN: 1. Antibiotics per Infectious Disease. 2. Respiratory hygiene. 3. Bronchodilators. 4. Wound care. 5. Continue beta-michelle and amlodipine with titration. 6. Hold anti-platelet drugs due to bleeding risk at this time. 7. Pulmonary followup and discharge planning. 8. Remains at high risk. Tyrell Underwood M.D. DR: NATASHA JOB#: [id number] CC:
[2017-12-22 04:00] VITALS: BP 148/83
[2017-12-22] MEDS: Vancomycin 750mg/NS 250ml 250 ML IVPB SCH (05:32)
[2017-12-22 08:00] VITALS: BP 156/85
--- NOTE | 2017-12-22 08:23 | General Progress Note ---
Assessment/Plan Problem List: (1) Hypokalemia ICD Codes: E87.6 - Hypokalemia SNOMED: 97510448 (2) Functional quadriplegia ICD Codes: R53.2 - Functional quadriplegia SNOMED: 039859387600608 (3) Malnutrition of moderate degree ICD Codes: E44.0 - Moderate protein-calorie malnutrition SNOMED: 848273264 (4) Osteomyelitis ICD Codes: M86.9 - Osteomyelitis, unspecified SNOMED: 92987062 Qualifiers: Qualified Codes: M86.9 - Osteomyelitis, unspecified (5) Gastrostomy tube dysfunction ICD Codes: K94.23 - Gastrostomy malfunction SNOMED: 354111369 (6) Respiratory failure ICD Codes: J96.90 - Respiratory failure, unspecified, unspecified whether with hypoxia or hypercapnia SNOMED: 838197779 (7) Pneumonia ICD Codes: J18.9 - Pneumonia, unspecified organism SNOMED: 283315063 (8) Pleural effusion ICD Codes: J90 - Pleural effusion, not elsewhere classified SNOMED: 31098373 Status: stable, progressing Assessment/Plan bipap- wean sucitoning resp rx and chest PT abg abx pulm follow up guarded. Subjective ROS Limited/Unobtainable: Yes Constitutional: Reports: malaise, weakness HEENT: Reports: no symptoms Cardiovascular: Reports: no symptoms Respiratory: Reports: shortness of breath Gastrointestinal/Abdominal: Reports: no symptoms Genitourinary: Reports: no symptoms Neurologic/Psychiatric: Reports: pre-existing deficit Endocrine: Reports: no symptoms Hematologic/Lymphatic: Reports: no symptoms Allergies: Coded Allergies: AMOXICILLIN (Verified Allergy, Mild, 06/21/09) ASPIRIN (Verified Allergy, Mild, 06/21/09) SALICYLATES (Verified Allergy, Mild, 06/21/09) PENICILLINS (Unverified Allergy, Unknown, 11/18/17) All Systems: reviewed and negative except above Subjective remains on bipap. still sob and congested. no fluid to tap. CXR much improved. Objective Last 24 Hour Vital Signs Date Time Temp Pulse Resp B/P (MAP) Pulse Ox O2 Delivery O2 Flow Rate FiO2 12/22/17 08:00 60 12/22/17 07:20 104 37 100 Full Face 60 12/22/17 04:46 99 36 100 Full Face 70 12/22/17 04:00 75 12/22/17 04:00 98.0 106 24 148/83 99 Bi-pap 75 98.0 12/22/17 04:00 101 12/22/17 02:32 98 39 100 Full Face 75 12/22/17 01:01 95 38 100 Full Face 75 12/22/17 00:00 92 12/22/17 00:00 75 12/22/17 00:00 97.7 92 24 147/79 99 Bi-pap 75 97.7 12/21/17 23:15 99 32 100 Full Face 75 12/21/17 21:01 99 39 96 Full Face 75 12/21/17 20:44 106 150/88 12/21/17 20:00 106 12/21/17 20:00 97.6 106 24 150/88 99 Bi-pap 75 97.6 12/21/17 20:00 75 12/21/17 19:02 105 38 97 Full Face 75 12/21/17 17:03 105 39 98 Full Face 75 12/21/17 16:00 97.8 103 24 141/85 99 Bi-pap 75 97.8 12/21/17 16:00 106 12/21/17 16:00 75 12/21/17 14:57 105 39 95 Full Face 75 12/21/17 13:15 102 36 98 Full Face 75 12/21/17 12:00 98.0 95 20 135/76 100 Bi-pap 95 98.0 12/21/17 12:00 95 12/21/17 12:00 93 12/21/17 10:53 91 39 99 Facial 85 12/21/17 09:01 88 148/97 12/21/17 09:00 88 148/97 12/21/17 08:43 114 39 96 Facial 100 Intake and Output 12/21/17 12/22/17 19:00 07:00 Intake Total 923.334 ml 930.0 ml Output Total 200 ml 500 ml Balance 723.334 ml 430.0 ml Free Water 90 ml IV Total 443.334 ml 360.0 ml Tube Feeding 390 ml 570 ml Output Urine Total 200 ml 500 ml # Bowel Movements 2 Height (Feet): 4 Height (Inches): 0.00 Weight (Pounds): 100 Objective General Appearance: WD/WN, lethargic, confused Neck: supple Cardiovascular: normal peripheral pulses, tachycardia Respiratory/Chest: crackles/rales, rhonchi - bilaterally. decreased BS on right Abdomen: normal bowel sounds, non tender, soft, no organomegaly Edema: no edema noted Arm (L), no edema noted Arm (R), no edema noted Leg (L), no edema noted Leg (R), no edema noted Pedal (L), no edema noted Pedal (R), no edema noted Generalized Neurologic: disoriented, unresponsive, aphasia Satinder Kirk MD Dec 22, 2017 08:23
[2017-12-22] MEDS: Cefepime HCl 1 GM in D5W 110 ML IVPB SCH ×2 (08:31→22:23)
[2017-12-22] MEDS: Metoprolol 25mg tab GT SCH ×2 (08:32→22:23)
[2017-12-22] MEDS: Vitamin A&D Oint 2oz Tube TOPIC SCH ×4 (08:32→22:25)
[2017-12-22] MEDS: Fluconazole 100mg tab ORAL SCH (08:32)
[2017-12-22] MEDS: Heparin 5000 units/ml inj SUBQ SCH ×2 (08:34→22:24)
--- NOTE | 2017-12-22 09:42 | General Progress Note ---
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 - osteomyelitis Recommendations seen in [facility] respiratory distress GT balloon was evaluated and fixed yesterday now on GTF at 55 poor prognosis will fu Subjective ROS Limited/Unobtainable: No Allergies: Coded Allergies: AMOXICILLIN (Verified Allergy, Mild, 06/21/09) ASPIRIN (Verified Allergy, Mild, 06/21/09) SALICYLATES (Verified Allergy, Mild, 06/21/09) PENICILLINS (Unverified Allergy, Unknown, 11/18/17) Subjective GT leak GTF on hold Objective Last 24 Hour Vital Signs Date Time Temp Pulse Resp B/P (MAP) Pulse Ox O2 Delivery O2 Flow Rate FiO2 12/22/17 08:57 30 12/22/17 08:43 98 42 100 Full Face 60 12/22/17 08:32 108 156/85 12/22/17 08:32 104 156/85 12/22/17 08:00 105 12/22/17 08:00 60 12/22/17 08:00 97.0 108 31 156/85 100 Bi-pap 40 97.0 12/22/17 07:20 104 37 100 Full Face 60 12/22/17 04:46 99 36 100 Full Face 70 12/22/17 04:00 75 12/22/17 04:00 98.0 106 24 148/83 99 Bi-pap 75 98.0 12/22/17 04:00 101 12/22/17 02:32 98 39 100 Full Face 75 12/22/17 01:01 95 38 100 Full Face 75 12/22/17 00:00 92 12/22/17 00:00 75 12/22/17 00:00 97.7 92 24 147/79 99 Bi-pap 75 97.7 12/21/17 23:15 99 32 100 Full Face 75 12/21/17 21:01 99 39 96 Full Face 75 12/21/17 20:44 106 150/88 12/21/17 20:00 106 12/21/17 20:00 97.6 106 24 150/88 99 Bi-pap 75 97.6 12/21/17 20:00 75 12/21/17 19:02 105 38 97 Full Face 75 12/21/17 17:03 105 39 98 Full Face 75 12/21/17 16:00 97.8 103 24 141/85 99 Bi-pap 75 97.8 12/21/17 16:00 106 12/21/17 16:00 75 12/21/17 14:57 105 39 95 Full Face 75 12/21/17 13:15 102 36 98 Full Face 75 12/21/17 12:00 98.0 95 20 135/76 100 Bi-pap 95 98.0 12/21/17 12:00 95 12/21/17 12:00 93 12/21/17 10:53 91 39 99 Facial 85 Intake and Output 12/21/17 12/22/17 19:00 07:00 Intake Total 923.334 ml 930.0 ml Output Total 200 ml 500 ml Balance 723.334 ml 430.0 ml Free Water 90 ml IV Total 443.334 ml 360.0 ml Tube Feeding 390 ml 570 ml Output Urine Total 200 ml 500 ml # Bowel Movements 2 Laboratory Tests 12/22/17 08:50: Arterial Blood pH 7.499H, Arterial Blood Partial Pressure CO2 45.6H, Arterial Blood Partial Pressure O2 209.3H, Arterial Blood HCO3 34.6H, Arterial Blood Oxygen Saturation 98.5H, Arterial Blood Base Excess 10.3, Braden Test Positive Height (Feet): 4 Height (Inches): 0.00 Weight (Pounds): 100 General Appearance: mild distress EENT: normal ENT inspection Neck: supple Cardiovascular: tachycardia Respiratory/Chest: decreased breath sounds Abdomen: normal bowel sounds, non tender, soft Extremities: non-tender Claude Bay MD Dec 22, 2017 09:42
--- NOTE | 2017-12-22 10:33 | Infectious Diseases Prog Note ---
"Assessment/Plan Assessment/Plan antibiotics : vancomycin iv, cefepime A 1. 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 DM 3. hypertension 4. CVA 5. right pleural effusion 6. MRSA pneumonia 7. respiratory failure P 1. continue iv vancomycin, cefepime 2. will follow up cultures Subjective ROS Limited/Unobtainable: Yes Allergies: Coded Allergies: AMOXICILLIN (Verified Allergy, Mild, 06/21/09) ASPIRIN (Verified Allergy, Mild, 06/21/09) SALICYLATES (Verified Allergy, Mild, 06/21/09) PENICILLINS (Unverified Allergy, Unknown, 11/18/17) Objective Vital Signs Last 24 Hour Vital Signs Date Time Temp Pulse Resp B/P (MAP) Pulse Ox O2 Delivery O2 Flow Rate FiO2 12/22/17 08:57 30 12/22/17 08:43 98 42 100 Full Face 60 12/22/17 08:32 108 156/85 12/22/17 08:32 104 156/85 12/22/17 08:00 105 12/22/17 08:00 60 12/22/17 08:00 97.0 108 31 156/85 100 Bi-pap 40 97.0 12/22/17 07:20 104 37 100 Full Face 60 12/22/17 04:46 99 36 100 Full Face 70 12/22/17 04:00 75 12/22/17 04:00 98.0 106 24 148/83 99 Bi-pap 75 98.0 12/22/17 04:00 101 12/22/17 02:32 98 39 100 Full Face 75 12/22/17 01:01 95 38 100 Full Face 75 12/22/17 00:00 92 12/22/17 00:00 75 12/22/17 00:00 97.7 92 24 147/79 99 Bi-pap 75 97.7 12/21/17 23:15 99 32 100 Full Face 75 12/21/17 21:01 99 39 96 Full Face 75 12/21/17 20:44 106 150/88 12/21/17 20:00 106 12/21/17 20:00 97.6 106 24 150/88 99 Bi-pap 75 97.6 12/21/17 20:00 75 12/21/17 19:02 105 38 97 Full Face 75 12/21/17 17:03 105 39 98 Full Face 75 12/21/17 16:00 97.8 103 24 141/85 99 Bi-pap 75 97.8 12/21/17 16:00 106 12/21/17 16:00 75 12/21/17 14:57 105 39 95 Full Face 75 12/21/17 13:15 102 36 98 Full Face 75 12/21/17 12:00 98.0 95 20 135/76 100 Bi-pap 95 98.0 12/21/17 12:00 95 12/21/17 12:00 93 12/21/17 10:53 91 39 99 Facial 85 Height (Feet): 4 Height (Inches): 0.00 Weight (Pounds): 100 HEENT: other - on bipap Respiratory/Chest: lungs clear Cardiovascular: normal rate, regular rhythm, no gallop/murmur Abdomen: soft, non tender, other - GT Extremities: no edema, other - left stump in dressings Laboratory Tests Test 12/22/17 08:50 Arterial Blood pH 7.499 (7.350-7.450) Arterial Blood Partial Pressure CO2 45.6 mmHg (35.0-45.0) H Arterial Blood Partial Pressure O2 209.3 mmHg (75.0-100.0) H Arterial Blood HCO3 34.6 mmol/L (22.0-26.0) H Arterial Blood Oxygen Saturation 98.5 % (92.0-98.0) H Arterial Blood Base Excess 10.3 Braden Test Positive Current Medications Medications (Trade) Dose Ordered Sig/Satish Route PRN Reason Start Time Stop Time Status Last Admin Dose Admin Acetaminophen (Tylenol) 650 mg Q4H PRN ORAL Mild Pain/Temp > 100.5 12/20/17 11:00 01/06/18 10:59 Amlodipine Besylate (Norvasc) 5 mg DAILY GT 12/21/17 09:00 01/08/18 08:59 12/22/17 08:32 Cefepime HCl 1 gm/ Dextrose 110 ml @ 220 mls/hr EVERY 12 HOURS IVPB 12/20/17 12:00 12/27/17 11:59 12/22/17 08:31 Chlorhexidine Gluconate (Mireya-Hex 2%) 1 applic DAILY@2000 TOPIC 12/20/17 20:00 01/13/18 19:59 12/21/17 20:04 Dextrose (Dextrose 50%) 25 ml STAT PRN IV Hypoglycemia 12/20/17 11:00 12/30/17 10:59 Dextrose (Dextrose 50%) 50 ml STAT PRN IV Hypoglycemia 12/20/17 11:00 12/30/17 10:59 Famotidine (Pepcid) 20 mg BID GT 12/20/17 18:00 12/30/17 17:59 12/22/17 08:31 Fluconazole (Diflucan) 100 mg DAILY ORAL 12/21/17 09:00 12/23/17 20:59 12/22/17 08:32 Heparin Sodium (Porcine) (Heparin 5000 units/ml) 5,000 units EVERY 12 HOURS SUBQ 12/20/17 21:00 01/04/18 20:59 12/22/17 08:34 Metoprolol Tartrate (Lopressor) 25 mg Q12HR GT 12/20/17 21:00 12/30/17 20:59 12/22/17 08:32 Vancomycin HCl (Vanco rx to dose) 1 ea DAILY PRN MISC Per rx protocol 12/20/17 11:00 01/19/18 10:59 Vancomycin/Sodium Chloride 250 ml @ 166.667 mls/hr Q18H IVPB 12/21/17 12:00 12/26/17 11:59 12/22/17 05:32 Vitamin A/Vitamin D (A & D Oint) 1 applic QID TOPIC 12/20/17 13:00 01/11/18 12:59 12/22/17 08:32 FELICITAS MUIR Dec 22, 2017 10:32"
[2017-12-22 12:00] VITALS: BP_SYST 154; BP_SYST 54; BP_DIAS 82
[2017-12-22] MEDS ORDERED: NS 500ML ONE (14:53)
[2017-12-22] MEDS ORDERED: Tubing IV Secondary IV ONE (14:53)
[2017-12-22 16:00] VITALS: BP 138/77
--- NOTE | 2017-12-22 16:29 | General Surgery Progress Note ---
General Surgery-Progress Note Subjective Additional Comments still leaking around g tube site Objective Last 24 Hour Vital Signs Date Time Temp Pulse Resp B/P (MAP) Pulse Ox O2 Delivery O2 Flow Rate FiO2 12/22/17 16:00 113 12/22/17 15:04 111 44 96 Facial 30 12/22/17 13:10 117 39 96 Facial 30 12/22/17 12:00 110 12/22/17 12:00 98.3 115 30 54/82 100 Bi-pap 30 98.3 12/22/17 12:00 30 12/22/17 10:58 107 40 96 Full Face 30 12/22/17 08:57 30 12/22/17 08:43 98 42 100 Full Face 60 12/22/17 08:32 108 156/85 12/22/17 08:32 104 156/85 12/22/17 08:00 105 12/22/17 08:00 60 12/22/17 08:00 97.0 108 31 156/85 100 Bi-pap 40 97.0 12/22/17 07:20 104 37 100 Full Face 60 12/22/17 04:46 99 36 100 Full Face 70 12/22/17 04:00 75 12/22/17 04:00 98.0 106 24 148/83 99 Bi-pap 75 98.0 12/22/17 04:00 101 12/22/17 02:32 98 39 100 Full Face 75 12/22/17 01:01 95 38 100 Full Face 75 12/22/17 00:00 92 12/22/17 00:00 75 12/22/17 00:00 97.7 92 24 147/79 99 Bi-pap 75 97.7 12/21/17 23:15 99 32 100 Full Face 75 12/21/17 21:01 99 39 96 Full Face 75 12/21/17 20:44 106 150/88 12/21/17 20:00 106 12/21/17 20:00 97.6 106 24 150/88 99 Bi-pap 75 97.6 12/21/17 20:00 75 12/21/17 19:02 105 38 97 Full Face 75 12/21/17 17:03 105 39 98 Full Face 75 I&O Intake and Output 12/21/17 12/22/17 19:00 07:00 Intake Total 923.334 ml 930.0 ml Output Total 200 ml 500 ml Balance 723.334 ml 430.0 ml Free Water 90 ml IV Total 443.334 ml 360.0 ml Tube Feeding 390 ml 570 ml Output Urine Total 200 ml 500 ml # Bowel Movements 2 Dressing: saturated Wound: clean Drains: other - g tube Abdomen: soft, flat, present bowel sounds Laboratory Tests Test 12/22/17 08:50 12/22/17 16:04 Arterial Blood pH 7.499 (7.350-7.450) 7.565 (7.350-7.450) Arterial Blood Partial Pressure CO2 45.6 mmHg (35.0-45.0) H 36.5 mmHg (35.0-45.0) Arterial Blood Partial Pressure O2 209.3 mmHg (75.0-100.0) H 72.1 mmHg (75.0-100.0) L Arterial Blood HCO3 34.6 mmol/L (22.0-26.0) H 32.3 mmol/L (22.0-26.0) H Arterial Blood Oxygen Saturation 98.5 % (92.0-98.0) H 94.5 % (92.0-98.0) Arterial Blood Base Excess 10.3 9.6 Braden Test Positive Positive Plan Problems: (1) Gastrostomy tube dysfunction Assessment & Plan: small sandro-g tube fistula identified. leaking of contents noted. no active infection noted but does have some induration. fistulogram identified passage from fistula opening into gastric lumen. currently stable and okay. could revise g tube site would not indicated at this time given small inconsequential fistula. cont with dressings and care to g tube site. g tube functional and leakage. leak around g tube continues. packing and dressings placed into g tube site fistula. the fistula has become larger over the past few days. this is likely to persistent leakage. fistula track short and similar to g tube. almost as if double lumen g tube. placed packing and dressings. will evaluate over the next few days. could form granulation tissue and seal or may need revision. sacral decubitus ulcer stage II with skin breakdown but no underlying subcutaneous tissues noted. erythema. no odor. no active infection. As for sacral ulcer, keep off wound, skin ointment and foam dressings. turn q2hrs. thank you for this consultation. will follow with you Santana Tolbert Dec 22, 2017 16:29
--- NOTE | 2017-12-22 17:09 | Pulmonology Progress Note ---
Assessment/Plan Assessment/Plan IMPRESSION: 1. Evidence of pneumonia, worse with effusion 2. G-tube, possible fistulous tract. 3. Left heel osteomyelitis. 4. Toxic metabolic encephalopathy. 5. Significant contractures. 6. History of CVA. 7. History of dysphagia. 8. s/p AKA 9. gangrene 10. leukocytosis 11. respiratory failure PLAN care noted stump care respiratory care BIPAP for now pain management follow up cxr and ABG monitor fluid status oxygen needs noted antibiotics noted monitor clinically for change suction as needed confirmed DNR tap declined- minimal fluid active respiratory suctioning all reviewed in detail; prognosis poor impression, plan, and exam edited and reviewed in detail care discussed with RN Subjective ROS Limited/Unobtainable: Yes Allergies: Coded Allergies: AMOXICILLIN (Verified Allergy, Mild, 06/21/09) ASPIRIN (Verified Allergy, Mild, 06/21/09) SALICYLATES (Verified Allergy, Mild, 06/21/09) PENICILLINS (Unverified Allergy, Unknown, 11/18/17) Subjective care reviewed deteriorated and now on bipap doing poorly and tachypneic labs reviewed borderline oxygen saturations Objective Last 24 Hour Vital Signs Date Time Temp Pulse Resp B/P (MAP) Pulse Ox O2 Delivery O2 Flow Rate FiO2 12/22/17 16:56 112 42 97 Facial 30 12/22/17 16:00 30 12/22/17 16:00 98.4 113 31 138/77 98 Bi-pap 30 98.4 12/22/17 16:00 113 12/22/17 15:04 111 44 96 Facial 30 12/22/17 13:10 117 39 96 Facial 30 12/22/17 12:00 110 12/22/17 12:00 98.3 115 30 154/82 100 Bi-pap 30 98.3 12/22/17 12:00 30 12/22/17 10:58 107 40 96 Full Face 30 12/22/17 08:57 30 12/22/17 08:43 98 42 100 Full Face 60 12/22/17 08:32 108 156/85 12/22/17 08:32 104 156/85 12/22/17 08:00 105 12/22/17 08:00 60 12/22/17 08:00 97.0 108 31 156/85 100 Bi-pap 40 97.0 12/22/17 07:20 104 37 100 Full Face 60 12/22/17 04:46 99 36 100 Full Face 70 12/22/17 04:00 75 12/22/17 04:00 98.0 106 24 148/83 99 Bi-pap 75 98.0 12/22/17 04:00 101 12/22/17 02:32 98 39 100 Full Face 75 12/22/17 01:01 95 38 100 Full Face 75 12/22/17 00:00 92 12/22/17 00:00 75 12/22/17 00:00 97.7 92 24 147/79 99 Bi-pap 75 97.7 12/21/17 23:15 99 32 100 Full Face 75 12/21/17 21:01 99 39 96 Full Face 75 12/21/17 20:44 106 150/88 12/21/17 20:00 106 12/21/17 20:00 97.6 106 24 150/88 99 Bi-pap 75 97.6 12/21/17 20:00 75 12/21/17 19:02 105 38 97 Full Face 75 Intake and Output 12/21/17 12/22/17 19:00 07:00 Intake Total 923.334 ml 930.0 ml Output Total 200 ml 500 ml Balance 723.334 ml 430.0 ml Free Water 90 ml IV Total 443.334 ml 360.0 ml Tube Feeding 390 ml 570 ml Output Urine Total 200 ml 500 ml # Bowel Movements 2 Objective WDWN on bipap and increase in RR reduced breath sounds with noted rhonchi diffuse [id number] tachy without MRG NABS nontender no HSM; no distention; GT no CCE AKA weak with reduced LOC reviewed Laboratory Tests 12/22/17 08:50: Arterial Blood pH 7.499H, Arterial Blood Partial Pressure CO2 45.6H, Arterial Blood Partial Pressure O2 209.3H, Arterial Blood HCO3 34.6H, Arterial Blood Oxygen Saturation 98.5H, Arterial Blood Base Excess 10.3, Braden Test Positive 12/22/17 16:04: Arterial Blood pH 7.565*H, Arterial Blood Partial Pressure CO2 36.5, Arterial Blood Partial Pressure O2 72.1L, Arterial Blood HCO3 32.3H, Arterial Blood Oxygen Saturation 94.5, Arterial Blood Base Excess 9.6, Braden Test Positive Current Medications Medications (Trade) Dose Ordered Sig/Satish Route PRN Reason Start Time Stop Time Status Last Admin Dose Admin Acetaminophen (Tylenol) 650 mg Q4H PRN ORAL Mild Pain/Temp > 100.5 12/20/17 11:00 01/06/18 10:59 12/22/17 16:49 Acetaminophen/ Hydrocodone Bitart ([place] 5/325) 1 tab Q4H PRN ORAL Moderate Pain (Pain Scale 4-6) 12/22/17 17:15 12/29/17 17:14 Amlodipine Besylate (Norvasc) 5 mg DAILY GT 12/21/17 09:00 01/08/18 08:59 12/22/17 08:32 Cefepime HCl 1 gm/ Dextrose 110 ml @ 220 mls/hr EVERY 12 HOURS IVPB 12/20/17 12:00 12/27/17 11:59 12/22/17 08:31 Chlorhexidine Gluconate (Mireya-Hex 2%) 1 applic DAILY@2000 TOPIC 12/20/17 20:00 01/13/18 19:59 12/21/17 20:04 Dextrose (Dextrose 50%) 25 ml STAT PRN IV Hypoglycemia 12/20/17 11:00 12/30/17 10:59 Dextrose (Dextrose 50%) 50 ml STAT PRN IV Hypoglycemia 12/20/17 11:00 12/30/17 10:59 Famotidine (Pepcid) 20 mg BID GT 12/20/17 18:00 12/30/17 17:59 12/22/17 08:31 Fluconazole (Diflucan) 100 mg DAILY ORAL 12/21/17 09:00 12/23/17 20:59 12/22/17 08:32 Heparin Sodium (Porcine) (Heparin 5000 units/ml) 5,000 units EVERY 12 HOURS SUBQ 12/20/17 21:00 01/04/18 20:59 12/22/17 08:34 Metoprolol Tartrate (Lopressor) 25 mg Q12HR GT 12/20/17 21:00 12/30/17 20:59 12/22/17 08:32 Vancomycin HCl (Vanco rx to dose) 1 ea DAILY PRN MISC Per rx protocol 12/20/17 11:00 01/19/18 10:59 Vancomycin/Sodium Chloride 250 ml @ 166.667 mls/hr Q18H IVPB 12/21/17 12:00 12/26/17 11:59 12/22/17 05:32 Vitamin A/Vitamin D (A & D Oint) 1 applic QID TOPIC 12/20/17 13:00 01/11/18 12:59 12/22/17 12:55 Raj Reyes MD Dec 22, 2017 17:09
[2017-12-22] MEDS ORDERED: Norco 5mg/325mg tab ORAL PRN (17:15)
[2017-12-22 20:00] VITALS: BP 140/82
[2017-12-22] MEDS: Dyna-Hex 2% Top Sol 2oz TOPIC SCH (22:22)
[2017-12-23] VITALS: BP 139/68
[2017-12-23] MEDS: Vancomycin 750mg/NS 250ml 250 ML IVPB SCH ×2 (01:08→18:00)
[2017-12-23 04:00] VITALS: BP 131/68
--- NOTE | 2017-12-23 04:45 | Progress Note ---
DATE: 12/22/2017 CARDIOLOGY PROGRESS NOTE SUBJECTIVE: The patient continues to be hypoxic and tachypneic. OBJECTIVE: VITAL SIGNS: Blood pressure of 138/77, pulse 113, respirations 31, afebrile. Monitored rhythm, sinus tachycardia. LUNGS: Coarse breath sounds. Scattered rales. HEART: Regular rhythm. Rapid rate. Normal S1, S2. ABDOMEN: Soft. EXTREMITIES: No edema. Left AKA. IMPRESSION: 1. Healthcare-acquired pneumonia. 2. Hypoxia. 3. Respiratory insufficiency. 4. Status post AKA for osteomyelitis. 5. Hypertensive cardiomyopathy. 6. Cerebrovascular disease with dementia. 7. Recurring sepsis. PLAN: 1. Antimicrobials. 2. Respiratory hygiene. 3. Oxygenation. 4. BiPAP support as needed. 5. Postop care to the wound. 6. Try to diurese to improve oxygenation. 7. Remains high risk. 8. DNR. 9. Discussed with social media marketing manager to discuss hospice care again with family members. Tyrell Underwood M.D. DR: HALIMA JOB#: [id number] CC:
[2017-12-23 06:12] LABS: BASOPHILS % (AUTO) 0.9 % (0.0-2.0); EOSINOPHILS % (AUTO) 1.7 % (0.0-3.0); HEMATOCRIT 27.9 % (37.0-47.0); HEMOGLOBIN 9.1 G/DL (12.0-16.0); LYMPHOCYTES % (AUTO) 10.7 % (20.0-45.0); MEAN CORPUSCULAR VOLUME 96 FL (80-99); MONOCYTES % (AUTO) 4.3 % (1.0-10.0); NEUTROPHILS % (AUTO) 82.4 % (45.0-75.0); PLATELET COUNT 369 K/UL (150-450); RED BLOOD COUNT 2.89 M/UL (4.20-5.40); RED CELL DISTRIBUTION WIDTH 15.7 % (11.6-14.8)
[2017-12-23 06:44] LABS: ALANINE AMINOTRANSFERASE 112 U/L (12-78); ALBUMIN 1.9 G/DL (3.4-5.0); ALBUMIN/GLOBULIN RATIO 0.4 (1.0-2.7); ALKALINE PHOSPHATASE 102 U/L (46-116); ANION GAP 6 mmol/L (5-15); ASPARTATE AMINO TRANSFERASE 85 U/L (15-37); BILIRUBIN,TOTAL 0.3 MG/DL (0.2-1.0); BLOOD UREA NITROGEN 35 mg/dL (7-18); CALCIUM 8.4 MG/DL (8.5-10.1); CARBON DIOXIDE 35 MMOL/L (21-32); CHLORIDE 108 MMOL/L (98-107); CREATININE 0.8 MG/DL (0.55-1.30); POTASSIUM 3.7 MMOL/L (3.5-5.1); SODIUM 149 MMOL/L (136-145)
--- NOTE | 2017-12-23 07:55 | General Progress Note ---
Assessment/Plan Problem List: (1) Hypokalemia ICD Codes: E87.6 - Hypokalemia SNOMED: 25790908 (2) Functional quadriplegia ICD Codes: R53.2 - Functional quadriplegia SNOMED: 801013578734780 (3) Malnutrition of moderate degree ICD Codes: E44.0 - Moderate protein-calorie malnutrition SNOMED: 971616143 (4) Osteomyelitis ICD Codes: M86.9 - Osteomyelitis, unspecified SNOMED: 12735299 Qualifiers: Qualified Codes: M86.9 - Osteomyelitis, unspecified (5) Gastrostomy tube dysfunction ICD Codes: K94.23 - Gastrostomy malfunction SNOMED: 397947598 (6) Respiratory failure ICD Codes: J96.90 - Respiratory failure, unspecified, unspecified whether with hypoxia or hypercapnia SNOMED: 286480778 (7) Pneumonia ICD Codes: J18.9 - Pneumonia, unspecified organism SNOMED: 262961166 (8) Pleural effusion ICD Codes: J90 - Pleural effusion, not elsewhere classified SNOMED: 91758642 Status: stable, progressing Assessment/Plan wean fio2 sucitoning resp rx and chest PT monitor abg abx hypotonic fluids gt feeds pulm follow up guarded. Subjective ROS Limited/Unobtainable: Yes Constitutional: Reports: malaise, weakness HEENT: Reports: no symptoms Cardiovascular: Reports: no symptoms Respiratory: Reports: cough, shortness of breath, sputum Gastrointestinal/Abdominal: Reports: no symptoms Genitourinary: Reports: no symptoms Neurologic/Psychiatric: Reports: pre-existing deficit Endocrine: Reports: no symptoms Hematologic/Lymphatic: Reports: anemia Allergies: Coded Allergies: AMOXICILLIN (Verified Allergy, Mild, 06/21/09) ASPIRIN (Verified Allergy, Mild, 06/21/09) SALICYLATES (Verified Allergy, Mild, 06/21/09) PENICILLINS (Unverified Allergy, Unknown, 11/18/17) All Systems: reviewed and negative except above Subjective off bipap. remains on facemask. less sob and congested, labs reviewed Objective Last 24 Hour Vital Signs Date Time Temp Pulse Resp B/P (MAP) Pulse Ox O2 Delivery O2 Flow Rate FiO2 12/23/17 07:04 97 Venturi Mask 8.0 40 12/23/17 07:04 Venturi Mask 8.0 40 6/6/18 07:04 116 20 97 12/23/17 05:04 114 22 98 8.0 40 12/23/17 04:00 8.0 40 12/23/17 04:00 97.3 113 20 131/68 96 Venturi Mask 8.0 40 97.3 12/23/17 04:00 114 12/23/17 03:17 110 24 99 8.0 40 12/23/17 01:00 108 24 98 8.0 40 12/23/17 00:00 8.0 40 12/23/17 00:00 97.3 102 18 139/68 99 Venturi Mask 8.0 40 97.3 12/23/17 00:00 99 12/22/17 22:55 97 Venturi Mask 8.0 40 12/22/17 22:55 Venturi Mask 8.0 40 12/22/17 22:53 102 22 97 8.0 40 12/22/17 22:49 8.0 40 12/22/17 22:23 113 140/82 12/22/17 20:42 112 28 99 Facial 30 12/22/17 20:00 111 12/22/17 20:00 30 12/22/17 20:00 96.6 113 31 140/82 96 Bi-pap 30 96.6 12/22/17 18:59 109 27 99 Facial 30 12/22/17 16:56 112 42 97 Facial 30 12/22/17 16:00 30 12/22/17 16:00 98.4 113 31 138/77 98 Bi-pap 30 98.4 12/22/17 16:00 113 12/22/17 15:04 111 44 96 Facial 30 12/22/17 13:10 117 39 96 Facial 30 12/22/17 12:00 110 12/22/17 12:00 98.3 115 30 154/82 100 Bi-pap 30 98.3 12/22/17 12:00 30 12/22/17 10:58 107 40 96 Full Face 30 12/22/17 08:57 30 12/22/17 08:43 98 42 100 Full Face 60 12/22/17 08:32 108 156/85 6 08:32 104 156/85 12/22/17 08:00 105 12/22/17 08:00 60 12/22/17 08:00 97.0 108 31 156/85 100 Bi-pap 40 97.0 Intake and Output 12/22/17 12/23/17 19:00 07:00 Intake Total 800 ml 1070.000 ml Output Total 350 ml 1200 ml Balance 450 ml -130.000 ml Free Water 90 ml IV Total 110 ml 470.000 ml Tube Feeding 600 ml 600 ml Output Urine Total 350 ml 1200 ml # Voids 1 Laboratory Tests 12/22/17 08:50: Arterial Blood pH 7.499H, Arterial Blood Partial Pressure CO2 45.6H, Arterial Blood Partial Pressure O2 209.3H, Arterial Blood HCO3 34.6H, Arterial Blood Oxygen Saturation 98.5H, Arterial Blood Base Excess 10.3, Braden Test Positive 12/22/17 16:04: Arterial Blood pH 7.565*H, Arterial Blood Partial Pressure CO2 36.5, Arterial Blood Partial Pressure O2 72.1L, Arterial Blood HCO3 32.3H, Arterial Blood Oxygen Saturation 94.5, Arterial Blood Base Excess 9.6, Braden Test Positive 12/23/17 04:00: White Blood Count 17.0H, Red Blood Count 2.89L, Hemoglobin 9.1L, Hematocrit 27.9L, Mean Corpuscular Volume 96, Mean Corpuscular Hemoglobin 31.6H, Mean Corpuscular Hemoglobin Concent 32.8, Red Cell Distribution Width 15.7H, Platelet Count 369, Mean Platelet Volume 6.0L, Neutrophils (%) (Auto) 82.4H, Lymphocytes (%) (Auto) 10.7L, Monocytes (%) (Auto) 4.3, Eosinophils (%) (Auto) 1.7, Basophils (%) (Auto) 0.9, Sodium Level 149H, Potassium Level 3.7, Chloride Level 108H, Carbon Dioxide Level 35H, Anion Gap 6, Blood Urea Nitrogen 35H, Creatinine 0.8, Estimat Glomerular Filtration Rate , Glucose Level 160H, Calcium Level 8.4L, Total Bilirubin 0.3, Aspartate Amino Transf (AST/SGOT) 85H, Alanine Aminotransferase (ALT/SGPT) 112H, Alkaline Phosphatase 102, Total Protein 6.9, Albumin 1.9L, Globulin 5.0, Albumin/Globulin Ratio 0.4L Height (Feet): 4 Height (Inches): 0.00 Weight (Pounds): 100 Objective General Appearance: WD/WN, lethargic, confused Neck: supple Cardiovascular: normal peripheral pulses, tachycardia Respiratory/Chest: crackles/rales, rhonchi - bilaterally. decreased BS on right Abdomen: normal bowel sounds, non tender, soft, no organomegaly Edema: no edema noted Arm (L), no edema noted Arm (R), no edema noted Leg (L), no edema noted Leg (R), no edema noted Pedal (L), no edema noted Pedal (R), no edema noted Generalized Neurologic: disoriented, unresponsive, aphasia Satinder Kirk MD Dec 23, 2017 07:55
[2017-12-23 08:00] VITALS: BP 140/77
[2017-12-23] MEDS: Fluconazole 100mg tab ORAL SCH (08:54)
[2017-12-23] MEDS: Metoprolol 25mg tab GT SCH ×2 (08:54→22:03)
[2017-12-23] MEDS: Heparin 5000 units/ml inj SUBQ SCH ×2 (08:54→22:06)
[2017-12-23] MEDS: Vitamin A&D Oint 2oz Tube TOPIC SCH ×4 (09:05→22:04)
[2017-12-23] MEDS: Cefepime HCl 1 GM in D5W 110 ML IVPB SCH (09:05)
--- NOTE | 2017-12-23 10:32 | Pulmonology Progress Note ---
Assessment/Plan Assessment/Plan IMPRESSION: 1. Evidence of pneumonia, worse with effusion 2. G-tube, possible fistulous tract. 3. Left heel osteomyelitis. 4. Toxic metabolic encephalopathy. 5. Significant contractures. 6. History of CVA. 7. History of dysphagia. 8. s/p AKA 9. gangrene 10. leukocytosis 11. respiratory failure PLAN care noted stump care respiratory care BIPAP off and on oxygen pain management noted follow up cxr and ABG for change; ordered monitor fluid status oxygen needs noted antibiotics noted monitor clinically for change suction as needed confirmed DNR tap declined- minimal fluid active respiratory suctioning too ill for any invasive procedures all reviewed in detail; prognosis poor impression, plan, and exam edited and reviewed in detail care discussed with RN Subjective ROS Limited/Unobtainable: Yes Allergies: Coded Allergies: AMOXICILLIN (Verified Allergy, Mild, 06/21/09) ASPIRIN (Verified Allergy, Mild, 06/21/09) SALICYLATES (Verified Allergy, Mild, 06/21/09) PENICILLINS (Unverified Allergy, Unknown, 11/18/17) Subjective care reviewed off BIPAP and appears more comfortable labs reviewed o2 sats better Objective Last 24 Hour Vital Signs Date Time Temp Pulse Resp B/P (MAP) Pulse Ox O2 Delivery O2 Flow Rate FiO2 12/23/17 08:54 117 140/77 12/23/17 08:54 117 140/77 12/23/17 08:00 116 12/23/17 08:00 98.1 117 24 140/77 99 Venturi Mask 8.0 40 98.1 12/23/17 08:00 8.0 40 12/23/17 07:04 97 Venturi Mask 8.0 40 12/23/17 07:04 Venturi Mask 8.0 40 12/23/17 07:04 116 20 97 12/23/17 05:04 114 22 98 8.0 40 12/23/17 04:00 8.0 40 12/23/17 04:00 97.3 113 20 131/68 96 Venturi Mask 8.0 40 97.3 12/23/17 04:00 114 12/23/17 03:17 110 24 99 8.0 40 12/23/17 01:00 108 24 98 8.0 40 12/23/17 00:00 8.0 40 12/23/17 00:00 97.3 102 18 139/68 99 Venturi Mask 8.0 40 97.3 12/23/17 00:00 99 12/22/17 22:55 97 Venturi Mask 8.0 40 12/22/17 22:55 Venturi Mask 8.0 40 12/22/17 22:53 102 22 97 8.0 40 12/22/17 22:49 8.0 40 12/22/17 22:23 113 140/82 12/22/17 20:42 112 28 99 Facial 30 12/22/17 20:00 111 12/22/17 20:00 30 12/22/17 20:00 96.6 113 31 140/82 96 Bi-pap 30 96.6 12/22/17 18:59 109 27 99 Facial 30 12/22/17 16:56 112 42 97 Facial 30 12/22/17 16:00 30 12/22/17 16:00 98.4 113 31 138/77 98 Bi-pap 30 98.4 12/22/17 16:00 113 12/22/17 15:04 111 44 96 Facial 30 12/22/17 13:10 117 39 96 Facial 30 12/22/17 12:00 110 12/22/17 12:00 98.3 115 30 154/82 100 Bi-pap 30 98.3 12/22/17 12:00 30 12/22/17 10:58 107 40 96 Full Face 30 Intake and Output 12/22/17 12/23/17 19:00 07:00 Intake Total 800 ml 1070.000 ml Output Total 350 ml 1200 ml Balance 450 ml -130.000 ml Free Water 90 ml IV Total 110 ml 470.000 ml Tube Feeding 600 ml 600 ml Output Urine Total 350 ml 1200 ml # Voids 1 Objective WDWN withdrawn on oxygen reduced breath sounds with some rhonchi [id number] tachy without MRG NABS nontender no HSM; no distention; GT no CCE AKA weak with poor LOC reviewed Laboratory Tests 12/22/17 16:04: Arterial Blood pH 7.565*H, Arterial Blood Partial Pressure CO2 36.5, Arterial Blood Partial Pressure O2 72.1L, Arterial Blood HCO3 32.3H, Arterial Blood Oxygen Saturation 94.5, Arterial Blood Base Excess 9.6, Braden Test Positive 12/23/17 04:00: White Blood Count 17.0H, Red Blood Count 2.89L, Hemoglobin 9.1L, Hematocrit 27.9L, Mean Corpuscular Volume 96, Mean Corpuscular Hemoglobin 31.6H, Mean Corpuscular Hemoglobin Concent 32.8, Red Cell Distribution Width 15.7H, Platelet Count 369, Mean Platelet Volume 6.0L, Neutrophils (%) (Auto) 82.4H, Lymphocytes (%) (Auto) 10.7L, Monocytes (%) (Auto) 4.3, Eosinophils (%) (Auto) 1.7, Basophils (%) (Auto) 0.9, Sodium Level 149H, Potassium Level 3.7, Chloride Level 108H, Carbon Dioxide Level 35H, Anion Gap 6, Blood Urea Nitrogen 35H, Creatinine 0.8, Estimat Glomerular Filtration Rate , Glucose Level 160H, Calcium Level 8.4L, Total Bilirubin 0.3, Aspartate Amino Transf (AST/SGOT) 85H, Alanine Aminotransferase (ALT/SGPT) 112H, Alkaline Phosphatase 102, Total Protein 6.9, Albumin 1.9L, Globulin 5.0, Albumin/Globulin Ratio 0.4L Current Medications Medications (Trade) Dose Ordered Sig/Satish Route PRN Reason Start Time Stop Time Status Last Admin Dose Admin Acetaminophen (Tylenol) 650 mg Q4H PRN ORAL Mild Pain/Temp > 100.5 12/20/17 11:00 01/06/18 10:59 12/22/17 16:49 Acetaminophen/ Hydrocodone Bitart ([place] 5/325) 1 tab Q4H PRN ORAL Moderate Pain (Pain Scale 4-6) 12/22/17 17:15 12/29/17 17:14 12/22/17 17:44 Amlodipine Besylate (Norvasc) 5 mg DAILY GT 12/21/17 09:00 01/08/18 08:59 12/23/17 08:54 Cefepime HCl 1 gm/ Dextrose 110 ml @ 220 mls/hr EVERY 12 HOURS IVPB 12/20/17 12:00 12/27/17 11:59 12/23/17 09:05 Chlorhexidine Gluconate (Mireya-Hex 2%) 1 applic DAILY@2000 TOPIC 12/20/17 20:00 01/13/18 19:59 12/22/17 22:22 Dextrose 1,000 ml @ 50 mls/hr Q20H IV 12/23/17 08:30 01/22/18 08:29 12/23/17 09:05 Dextrose (Dextrose 50%) 25 ml STAT PRN IV Hypoglycemia 12/23/17 09:15 01/22/18 09:14 Dextrose (Dextrose 50%) 50 ml STAT PRN IV Hypoglycemia 12/23/17 09:15 01/22/18 09:14 Famotidine (Pepcid) 20 mg BID GT 12/20/17 18:00 12/30/17 17:59 12/23/17 08:53 Fluconazole (Diflucan) 100 mg DAILY ORAL 12/21/17 09:00 12/23/17 20:59 12/23/17 08:54 Heparin Sodium (Porcine) (Heparin 5000 units/ml) 5,000 units EVERY 12 HOURS SUBQ 12/20/17 21:00 01/04/18 20:59 12/23/17 08:54 Insulin Aspart (NovoLOG) Q6HR SUBQ 12/23/17 12:00 01/22/18 11:29 Metoprolol Tartrate (Lopressor) 25 mg Q12HR GT 12/20/17 21:00 12/30/17 20:59 12/23/17 08:54 Vancomycin HCl (Vanco rx to dose) 1 ea DAILY PRN MISC Per rx protocol 12/20/17 11:00 01/19/18 10:59 Vancomycin/Sodium Chloride 250 ml @ 166.667 mls/hr Q18H IVPB 12/21/17 12:00 12/26/17 11:59 12/23/17 01:08 Vitamin A/Vitamin D (A & D Oint) 1 applic QID TOPIC 12/20/17 13:00 01/11/18 12:59 12/23/17 09:05 Raj Reyes MD Dec 23, 2017 10:32
--- NOTE | 2017-12-23 11:00 | Infectious Diseases Prog Note ---
"Assessment/Plan Assessment/Plan antibiotics : vancomycin iv, cefepime, fluconazole A 1. 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 DM 3. hypertension 4. CVA 5. right pleural effusion 6. MRSA pneumonia 7. respiratory failure resolved P 1. continue iv vancomycin 2. d/c cefepime, fluconazole 2. will follow up cultures Subjective ROS Limited/Unobtainable: Yes Allergies: Coded Allergies: AMOXICILLIN (Verified Allergy, Mild, 06/21/09) ASPIRIN (Verified Allergy, Mild, 06/21/09) SALICYLATES (Verified Allergy, Mild, 06/21/09) PENICILLINS (Unverified Allergy, Unknown, 11/18/17) Objective Vital Signs Last 24 Hour Vital Signs Date Time Temp Pulse Resp B/P (MAP) Pulse Ox O2 Delivery O2 Flow Rate FiO2 12/23/17 10:46 99 Venturi Mask 6.0 35 12/23/17 08:54 117 140/77 12/23/17 08:54 117 140/77 12/23/17 08:00 116 12/23/17 08:00 98.1 117 24 140/77 99 Venturi Mask 8.0 40 98.1 12/23/17 08:00 8.0 40 12/23/17 07:04 97 Venturi Mask 8.0 40 12/23/17 07:04 Venturi Mask 8.0 40 12/23/17 07:04 116 20 97 12/23/17 05:04 114 22 98 8.0 40 12/23/17 04:00 8.0 40 12/23/17 04:00 97.3 113 20 131/68 96 Venturi Mask 8.0 40 97.3 12/23/17 04:00 114 12/23/17 03:17 110 24 99 8.0 40 12/23/17 01:00 108 24 98 8.0 40 12/23/17 00:00 8.0 40 12/23/17 00:00 97.3 102 18 139/68 99 Venturi Mask 8.0 40 97.3 12/23/17 00:00 99 12/22/17 22:55 97 Venturi Mask 8.0 40 12/22/17 22:55 Venturi Mask 8.0 40 12/22/17 22:53 102 22 97 8.0 40 12/22/17 22:49 8.0 40 12/22/17 22:23 113 140/82 12/22/17 20:42 112 28 99 Facial 30 12/22/17 20:00 111 12/22/17 20:00 30 12/22/17 20:00 96.6 113 31 140/82 96 Bi-pap 30 96.6 12/22/17 18:59 109 27 99 Facial 30 12/22/17 16:56 112 42 97 Facial 30 12/22/17 16:00 30 12/22/17 16:00 98.4 113 31 138/77 98 Bi-pap 30 98.4 12/22/17 16:00 113 12/22/17 15:04 111 44 96 Facial 30 12/22/17 13:10 117 39 96 Facial 30 12/22/17 12:00 110 12/22/17 12:00 98.3 115 30 154/82 100 Bi-pap 30 98.3 12/22/17 12:00 30 12/22/17 10:58 107 40 96 Full Face 30 Height (Feet): 4 Height (Inches): 0.00 Weight (Pounds): 100 Respiratory/Chest: lungs clear Cardiovascular: normal rate, regular rhythm, no gallop/murmur Abdomen: soft, non tender, other - GT Extremities: no edema, other - left stump clean, left arm PICC Laboratory Tests Test 12/22/17 16:04 12/23/17 04:00 12/23/17 10:36 Arterial Blood pH 7.565 (7.350-7.450) 7.527 (7.350-7.450) Arterial Blood Partial Pressure CO2 36.5 mmHg (35.0-45.0) 45.3 mmHg (35.0-45.0) H Arterial Blood Partial Pressure O2 72.1 mmHg (75.0-100.0) L 113.4 mmHg (75.0-100.0) H Arterial Blood HCO3 32.3 mmol/L (22.0-26.0) H 36.7 mmol/L (22.0-26.0) H Arterial Blood Oxygen Saturation 94.5 % (92.0-98.0) 97.8 % (92.0-98.0) Arterial Blood Base Excess 9.6 12.7 Braden Test Positive Positive White Blood Count 17.0 K/UL (4.8-10.8) H Red Blood Count 2.89 M/UL (4.20-5.40) L Hemoglobin 9.1 G/DL (12.0-16.0) L Hematocrit 27.9 % (37.0-47.0) L Mean Corpuscular Volume 96 FL (80-99) Mean Corpuscular Hemoglobin 31.6 PG (27.0-31.0) H Mean Corpuscular Hemoglobin Concent 32.8 G/DL (32.0-36.0) Red Cell Distribution Width 15.7 % (11.6-14.8) H Platelet Count 369 K/UL (150-450) Mean Platelet Volume 6.0 FL (6.5-10.1) L Neutrophils (%) (Auto) 82.4 % (45.0-75.0) H Lymphocytes (%) (Auto) 10.7 % (20.0-45.0) L Monocytes (%) (Auto) 4.3 % (1.0-10.0) Eosinophils (%) (Auto) 1.7 % (0.0-3.0) Basophils (%) (Auto) 0.9 % (0.0-2.0) Sodium Level 149 MMOL/L (136-145) H Potassium Level 3.7 MMOL/L (3.5-5.1) Chloride Level 108 MMOL/L (98-107) H Carbon Dioxide Level 35 MMOL/L (21-32) H Anion Gap 6 mmol/L (5-15) Blood Urea Nitrogen 35 mg/dL (7-18) H Creatinine 0.8 MG/DL (0.55-1.30) Estimat Glomerular Filtration Rate mL/min (>60) Glucose Level 160 MG/DL (74-106) H Calcium Level 8.4 MG/DL (8.5-10.1) L Total Bilirubin 0.3 MG/DL (0.2-1.0) Aspartate Amino Transf (AST/SGOT) 85 U/L (15-37) H Alanine Aminotransferase (ALT/SGPT) 112 U/L (12-78) H Alkaline Phosphatase 102 U/L (46-116) Total Protein 6.9 G/DL (6.4-8.2) Albumin 1.9 G/DL (3.4-5.0) L Globulin 5.0 g/dL Albumin/Globulin Ratio 0.4 (1.0-2.7) L Current Medications Medications (Trade) Dose Ordered Sig/Satish Route PRN Reason Start Time Stop Time Status Last Admin Dose Admin Acetaminophen (Tylenol) 650 mg Q4H PRN ORAL Mild Pain/Temp > 100.5 12/20/17 11:00 01/06/18 10:59 12/22/17 16:49 Acetaminophen/ Hydrocodone Bitart ([place] 5/325) 1 tab Q4H PRN ORAL Moderate Pain (Pain Scale 4-6) 12/22/17 17:15 12/29/17 17:14 12/22/17 17:44 Amlodipine Besylate (Norvasc) 5 mg DAILY GT 12/21/17 09:00 01/08/18 08:59 12/23/17 08:54 Cefepime HCl 1 gm/ Dextrose 110 ml @ 220 mls/hr EVERY 12 HOURS IVPB 12/20/17 12:00 12/27/17 11:59 12/23/17 09:05 Chlorhexidine Gluconate (Mireya-Hex 2%) 1 applic DAILY@2000 TOPIC 12/20/17 20:00 01/13/18 19:59 12/22/17 22:22 Dextrose 1,000 ml @ 50 mls/hr Q20H IV 12/23/17 08:30 01/22/18 08:29 12/23/17 09:05 Dextrose (Dextrose 50%) 25 ml STAT PRN IV Hypoglycemia 12/23/17 09:15 01/22/18 09:14 Dextrose (Dextrose 50%) 50 ml STAT PRN IV Hypoglycemia 12/23/17 09:15 01/22/18 09:14 Famotidine (Pepcid) 20 mg BID GT 12/20/17 18:00 12/30/17 17:59 12/23/17 08:53 Fluconazole (Diflucan) 100 mg DAILY ORAL 12/21/17 09:00 12/23/17 20:59 12/23/17 08:54 Heparin Sodium (Porcine) (Heparin 5000 units/ml) 5,000 units EVERY 12 HOURS SUBQ 12/20/17 21:00 01/04/18 20:59 12/23/17 08:54 Insulin Aspart (NovoLOG) Q6HR SUBQ 12/23/17 12:00 01/22/18 11:29 Metoprolol Tartrate (Lopressor) 25 mg Q12HR GT 12/20/17 21:00 12/30/17 20:59 12/23/17 08:54 Vancomycin HCl (Vanco rx to dose) 1 ea DAILY PRN MISC Per rx protocol 12/20/17 11:00 01/19/18 10:59 Vancomycin/Sodium Chloride 250 ml @ 166.667 mls/hr Q18H IVPB 12/21/17 12:00 12/26/17 11:59 12/23/17 01:08 Vitamin A/Vitamin D (A & D Oint) 1 applic QID TOPIC 12/20/17 13:00 01/11/18 12:59 12/23/17 09:05 FELICITAS MUIR Dec 23, 2017 11:00"
[2017-12-23] MEDS ORDERED: NovoLOG Insulin Flexpen SUBQ SCH (11:30)
[2017-12-23 12:00] VITALS: BP 128/60
--- NOTE | 2017-12-23 12:21 | Diagnostic Imaging Report ---
Indication: Shortness of breath Technique: One view of the chest Comparison: 12/21/2017 Findings: There is persistent opacification at the right lung base, previously thought to represent atelectasis of the middle and lower lobes. Left lung and pleural space, right upper lobe are clear. The heart size is normal. Left arm PICC remains. Impression: Unchanged, over 2 days, findings as above.
--- NOTE | 2017-12-23 12:22 | General Progress Note ---
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 - osteomyelitis Recommendations seen in [facility] respiratory distress GT balloon was evaluated and fixed and now on GTF at 50 fu H&H will fu Subjective ROS Limited/Unobtainable: No Allergies: Coded Allergies: AMOXICILLIN (Verified Allergy, Mild, 06/21/09) ASPIRIN (Verified Allergy, Mild, 06/21/09) SALICYLATES (Verified Allergy, Mild, 06/21/09) PENICILLINS (Unverified Allergy, Unknown, 11/18/17) Subjective GT leak GTF on hold Objective Last 24 Hour Vital Signs Date Time Temp Pulse Resp B/P (MAP) Pulse Ox O2 Delivery O2 Flow Rate FiO2 12/23/17 12:00 6.0 35 12/23/17 10:46 99 Venturi Mask 6.0 35 12/23/17 08:54 117 140/77 12/23/17 08:54 117 140/77 12/23/17 08:00 116 12/23/17 08:00 98.1 117 24 140/77 99 Venturi Mask 8.0 40 98.1 12/23/17 08:00 8.0 40 12/23/17 07:04 97 Venturi Mask 8.0 40 12/23/17 07:04 Venturi Mask 8.0 40 12/23/17 07:04 116 20 97 12/23/17 05:04 114 22 98 8.0 40 12/23/17 04:00 8.0 40 12/23/17 04:00 97.3 113 20 131/68 96 Venturi Mask 8.0 40 97.3 12/23/17 04:00 114 12/23/17 03:17 110 24 99 8.0 40 12/23/17 01:00 108 24 98 8.0 40 12/23/17 00:00 8.0 40 12/23/17 00:00 97.3 102 18 139/68 99 Venturi Mask 8.0 40 97.3 12/23/17 00:00 99 12/22/17 22:55 97 Venturi Mask 8.0 40 12/22/17 22:55 Venturi Mask 8.0 40 12/22/17 22:53 102 22 97 8.0 40 12/22/17 22:49 8.0 40 12/22/17 22:23 113 140/82 12/22/17 20:42 112 28 99 Facial 30 12/22/17 20:00 111 12/22/17 20:00 30 12/22/17 20:00 96.6 113 31 140/82 96 Bi-pap 30 96.6 12/22/17 18:59 109 27 99 Facial 30 12/22/17 16:56 112 42 97 Facial 30 12/22/17 16:00 30 12/22/17 16:00 98.4 113 31 138/77 98 Bi-pap 30 98.4 12/22/17 16:00 113 12/22/17 15:04 111 44 96 Facial 30 12/22/17 13:10 117 39 96 Facial 30 Intake and Output 12/22/17 12/23/17 19:00 07:00 Intake Total 800 ml 1070.000 ml Output Total 350 ml 1200 ml Balance 450 ml -130.000 ml Free Water 90 ml IV Total 110 ml 470.000 ml Tube Feeding 600 ml 600 ml Output Urine Total 350 ml 1200 ml # Voids 1 Laboratory Tests 12/22/17 16:04: Arterial Blood pH 7.565*H, Arterial Blood Partial Pressure CO2 36.5, Arterial Blood Partial Pressure O2 72.1L, Arterial Blood HCO3 32.3H, Arterial Blood Oxygen Saturation 94.5, Arterial Blood Base Excess 9.6, Braden Test Positive 12/23/17 04:00: White Blood Count 17.0H, Red Blood Count 2.89L, Hemoglobin 9.1L, Hematocrit 27.9L, Mean Corpuscular Volume 96, Mean Corpuscular Hemoglobin 31.6H, Mean Corpuscular Hemoglobin Concent 32.8, Red Cell Distribution Width 15.7H, Platelet Count 369, Mean Platelet Volume 6.0L, Neutrophils (%) (Auto) 82.4H, Lymphocytes (%) (Auto) 10.7L, Monocytes (%) (Auto) 4.3, Eosinophils (%) (Auto) 1.7, Basophils (%) (Auto) 0.9, Sodium Level 149H, Potassium Level 3.7, Chloride Level 108H, Carbon Dioxide Level 35H, Anion Gap 6, Blood Urea Nitrogen 35H, Creatinine 0.8, Estimat Glomerular Filtration Rate , Glucose Level 160H, Calcium Level 8.4L, Total Bilirubin 0.3, Aspartate Amino Transf (AST/SGOT) 85H, Alanine Aminotransferase (ALT/SGPT) 112H, Alkaline Phosphatase 102, Total Protein 6.9, Albumin 1.9L, Globulin 5.0, Albumin/Globulin Ratio 0.4L 12/23/17 10:36: Arterial Blood pH 7.527H, Arterial Blood Partial Pressure CO2 45.3H, Arterial Blood Partial Pressure O2 113.4H, Arterial Blood HCO3 36.7H, Arterial Blood Oxygen Saturation 97.8, Arterial Blood Base Excess 12.7, Braden Test Positive Height (Feet): 4 Height (Inches): 0.00 Weight (Pounds): 100 General Appearance: mild distress EENT: normal ENT inspection Neck: supple Cardiovascular: normal rate Respiratory/Chest: decreased breath sounds Abdomen: normal bowel sounds, non tender, soft Extremities: non-tender Claude Bay MD Dec 23, 2017 12:22
[2017-12-23] MEDS: NovoLOG Insulin Flexpen SUBQ SCH ×2 (12:29→17:14)
--- NOTE | 2017-12-23 12:50 | General Surgery Progress Note ---
General Surgery-Progress Note Subjective Additional Comments leak around g tube site improved. fistula present. Objective Last 24 Hour Vital Signs Date Time Temp Pulse Resp B/P (MAP) Pulse Ox O2 Delivery O2 Flow Rate FiO2 12/23/17 12:00 107 12/23/17 12:00 97.9 103 26 128/60 91 Venturi Mask 6.0 35 97.9 12/23/17 12:00 6.0 35 12/23/17 10:46 99 Venturi Mask 6.0 35 12/23/17 08:54 117 140/77 12/23/17 08:54 117 140/77 12/23/17 08:00 116 12/23/17 08:00 98.1 117 24 140/77 99 Venturi Mask 8.0 40 98.1 12/23/17 08:00 8.0 40 12/23/17 07:04 97 Venturi Mask 8.0 40 12/23/17 07:04 Venturi Mask 8.0 40 12/23/17 07:04 116 20 97 12/23/17 05:04 114 22 98 8.0 40 12/23/17 04:00 8.0 40 12/23/17 04:00 97.3 113 20 131/68 96 Venturi Mask 8.0 40 97.3 12/23/17 04:00 114 12/23/17 03:17 110 24 99 8.0 40 12/23/17 01:00 108 24 98 8.0 40 12/23/17 00:00 8.0 40 12/23/17 00:00 97.3 102 18 139/68 99 Venturi Mask 8.0 40 97.3 12/23/17 00:00 99 12/22/17 22:55 97 Venturi Mask 8.0 40 12/22/17 22:55 Venturi Mask 8.0 40 12/22/17 22:53 102 22 97 8.0 40 12/22/17 22:49 8.0 40 12/22/17 22:23 113 140/82 12/22/17 20:42 112 28 99 Facial 30 12/22/17 20:00 111 12/22/17 20:00 30 12/22/17 20:00 96.6 113 31 140/82 96 Bi-pap 30 96.6 12/22/17 18:59 109 27 99 Facial 30 12/22/17 16:56 112 42 97 Facial 30 12/22/17 16:00 30 12/22/17 16:00 98.4 113 31 138/77 98 Bi-pap 30 98.4 12/22/17 16:00 113 12/22/17 15:04 111 44 96 Facial 30 12/22/17 13:10 117 39 96 Facial 30 I&O Intake and Output 12/22/17 12/23/17 19:00 07:00 Intake Total 800 ml 1070.000 ml Output Total 350 ml 1200 ml Balance 450 ml -130.000 ml Free Water 90 ml IV Total 110 ml 470.000 ml Tube Feeding 600 ml 600 ml Output Urine Total 350 ml 1200 ml # Voids 1 Dressing: saturated Wound: clean Drains: none Cardiovascular: RSR Respiratory: clear Abdomen: soft, flat, non-tender Laboratory Tests Test 12/22/17 16:04 12/23/17 04:00 12/23/17 10:36 Arterial Blood pH 7.565 (7.350-7.450) 7.527 (7.350-7.450) Arterial Blood Partial Pressure CO2 36.5 mmHg (35.0-45.0) 45.3 mmHg (35.0-45.0) H Arterial Blood Partial Pressure O2 72.1 mmHg (75.0-100.0) L 113.4 mmHg (75.0-100.0) H Arterial Blood HCO3 32.3 mmol/L (22.0-26.0) H 36.7 mmol/L (22.0-26.0) H Arterial Blood Oxygen Saturation 94.5 % (92.0-98.0) 97.8 % (92.0-98.0) Arterial Blood Base Excess 9.6 12.7 Braden Test Positive Positive White Blood Count 17.0 K/UL (4.8-10.8) H Red Blood Count 2.89 M/UL (4.20-5.40) L Hemoglobin 9.1 G/DL (12.0-16.0) L Hematocrit 27.9 % (37.0-47.0) L Mean Corpuscular Volume 96 FL (80-99) Mean Corpuscular Hemoglobin 31.6 PG (27.0-31.0) H Mean Corpuscular Hemoglobin Concent 32.8 G/DL (32.0-36.0) Red Cell Distribution Width 15.7 % (11.6-14.8) H Platelet Count 369 K/UL (150-450) Mean Platelet Volume 6.0 FL (6.5-10.1) L Neutrophils (%) (Auto) 82.4 % (45.0-75.0) H Lymphocytes (%) (Auto) 10.7 % (20.0-45.0) L Monocytes (%) (Auto) 4.3 % (1.0-10.0) Eosinophils (%) (Auto) 1.7 % (0.0-3.0) Basophils (%) (Auto) 0.9 % (0.0-2.0) Sodium Level 149 MMOL/L (136-145) H Potassium Level 3.7 MMOL/L (3.5-5.1) Chloride Level 108 MMOL/L (98-107) H Carbon Dioxide Level 35 MMOL/L (21-32) H Anion Gap 6 mmol/L (5-15) Blood Urea Nitrogen 35 mg/dL (7-18) H Creatinine 0.8 MG/DL (0.55-1.30) Estimat Glomerular Filtration Rate mL/min (>60) Glucose Level 160 MG/DL (74-106) H Calcium Level 8.4 MG/DL (8.5-10.1) L Total Bilirubin 0.3 MG/DL (0.2-1.0) Aspartate Amino Transf (AST/SGOT) 85 U/L (15-37) H Alanine Aminotransferase (ALT/SGPT) 112 U/L (12-78) H Alkaline Phosphatase 102 U/L (46-116) Total Protein 6.9 G/DL (6.4-8.2) Albumin 1.9 G/DL (3.4-5.0) L Globulin 5.0 g/dL Albumin/Globulin Ratio 0.4 (1.0-2.7) L Plan Problems: (1) Gastrostomy tube dysfunction Assessment & Plan: small sandro-g tube fistula identified. leaking of contents noted. no active infection noted but does have some induration. fistulogram identified passage from fistula opening into gastric lumen. currently stable and okay. could revise g tube site would not indicated at this time given small inconsequential fistula. cont with dressings and care to g tube site. g tube functional and leakage. leak around g tube continues. packing and dressings placed into g tube site fistula. the fistula has become larger over the past few days. this is likely to persistent leakage. fistula track short and similar to g tube. almost as if double lumen g tube. placed packing and dressings. will evaluate over the next few days. could form granulation tissue and seal or may need revision. sacral decubitus ulcer stage II with skin breakdown but no underlying subcutaneous tissues noted. erythema. no odor. no active infection. As for sacral ulcer, keep off wound, skin ointment and foam dressings. turn q2hrs. thank you for this consultation. will follow with you Santana Tolbert Dec 23, 2017 12:50
[2017-12-23 16:00] VITALS: BP 132/68
[2017-12-23 20:00] VITALS: BP 144/75
[2017-12-23] MEDS: Dyna-Hex 2% Top Sol 2oz TOPIC SCH (20:45)
[2017-12-23] MEDS ORDERED: Vancomycin 1gm/D5W 275ml IVPB SCH ×2 (23:00)
[2017-12-24] VITALS: BP 150/80
[2017-12-24] MEDS: NovoLOG Insulin Flexpen SUBQ SCH ×3 (00:23→11:48)
[2017-12-24 04:00] VITALS: BP 138/53
--- NOTE | 2017-12-24 07:14 | General Progress Note ---
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 - osteomyelitis Recommendations seen in [facility] respiratory distress GT balloon was evaluated and fixed and now on GTF at 50 fu H&H will fu Subjective ROS Limited/Unobtainable: No Allergies: Coded Allergies: AMOXICILLIN (Verified Allergy, Mild, 06/21/09) ASPIRIN (Verified Allergy, Mild, 06/21/09) SALICYLATES (Verified Allergy, Mild, 06/21/09) PENICILLINS (Unverified Allergy, Unknown, 11/18/17) Subjective GTF tolerated Objective Last 24 Hour Vital Signs Date Time Temp Pulse Resp B/P (MAP) Pulse Ox O2 Delivery O2 Flow Rate FiO2 12/24/17 06:00 106 12/24/17 04:00 4.0 12/24/17 04:00 98.0 110 30 138/53 95 Nasal Cannula 4.0 98.0 12/24/17 00:00 102 12/24/17 00:00 4.0 12/24/17 00:00 98.6 100 32 150/80 98 Nasal Cannula 4.0 98.6 12/23/17 22:03 113 144/75 12/23/17 20:00 4.0 12/23/17 20:00 98.9 113 24 144/75 99 Nasal Cannula 4.0 98.9 12/23/17 20:00 107 12/23/17 19:37 Nasal Cannula 4.0 36 12/23/17 16:11 99 Nasal Cannula 4.0 36 12/23/17 16:00 98.8 108 28 132/68 91 Nasal Cannula 4.0 98.8 12/23/17 16:00 112 12/23/17 16:00 4.0 12/23/17 12:00 107 12/23/17 12:00 97.9 103 26 128/60 91 Venturi Mask 6.0 35 97.9 12/23/17 12:00 6.0 35 12/23/17 10:46 99 Venturi Mask 6.0 35 12/23/17 08:54 117 140/77 12/23/17 08:54 117 140/77 12/23/17 08:00 116 12/23/17 08:00 98.1 117 24 140/77 99 Venturi Mask 8.0 40 98.1 12/23/17 08:00 8.0 40 Intake and Output 12/23/17 12/24/17 19:00 07:00 Intake Total 1165 ml 750 ml Output Total 100 ml 550 ml Balance 1065 ml 200 ml IV Total 585 ml Tube Feeding 550 ml 650 ml Other 30 ml 100 ml Output Urine Total 100 ml 550 ml # Voids 1 2 # Bowel Movements 2 Laboratory Tests 12/23/17 10:36: Arterial Blood pH 7.527H, Arterial Blood Partial Pressure CO2 45.3H, Arterial Blood Partial Pressure O2 113.4H, Arterial Blood HCO3 36.7H, Arterial Blood Oxygen Saturation 97.8, Arterial Blood Base Excess 12.7, Braden Test Positive 12/23/17 17:10: Vancomycin Level Trough 19.6H 12/24/17 06:00: Sodium Level [Pending], Potassium Level [Pending], Chloride Level [Pending], Carbon Dioxide Level [Pending], Blood Urea Nitrogen [Pending], Creatinine [ Pending], Estimat Glomerular Filtration Rate [Pending], Glucose Level [Pending] , Calcium Level [Pending], Total Bilirubin [Pending], Aspartate Amino Transf ( AST/SGOT) [Pending], Alanine Aminotransferase (ALT/SGPT) [Pending], Alkaline Phosphatase [Pending], Total Protein [Pending], Albumin [Pending], Globulin [ Pending] Height (Feet): 4 Height (Inches): 0.00 Weight (Pounds): 100 General Appearance: lethargic EENT: normal ENT inspection Neck: supple Cardiovascular: normal rate Respiratory/Chest: decreased breath sounds Abdomen: normal bowel sounds, non tender, soft Extremities: non-tender Claude Bay MD Dec 24, 2017 07:14
[2017-12-24 07:52] LABS: ALANINE AMINOTRANSFERASE 105 U/L (12-78); ALBUMIN 2.1 G/DL (3.4-5.0); ALBUMIN/GLOBULIN RATIO 0.4 (1.0-2.7); ALKALINE PHOSPHATASE 106 U/L (46-116); ANION GAP 7 mmol/L (5-15); ASPARTATE AMINO TRANSFERASE 70 U/L (15-37); BILIRUBIN,TOTAL 0.3 MG/DL (0.2-1.0); BLOOD UREA NITROGEN 29 mg/dL (7-18); CALCIUM 8.5 MG/DL (8.5-10.1); CARBON DIOXIDE 32 MMOL/L (21-32); CHLORIDE 104 MMOL/L (98-107); CREATININE 0.7 MG/DL (0.55-1.30); POTASSIUM 3.8 MMOL/L (3.5-5.1); SODIUM 143 MMOL/L (136-145)
[2017-12-24 08:00] VITALS: BP 143/76
[2017-12-24] MEDS: Vitamin A&D Oint 2oz Tube TOPIC SCH ×2 (08:09→13:00)
[2017-12-24] MEDS: Metoprolol 25mg tab GT SCH (08:09)
[2017-12-24] MEDS: Heparin 5000 units/ml inj SUBQ SCH (08:11)
--- NOTE | 2017-12-24 08:22 | General Progress Note ---
Assessment/Plan Problem List: (1) Hypokalemia ICD Codes: E87.6 - Hypokalemia SNOMED: 31014605 (2) Functional quadriplegia ICD Codes: R53.2 - Functional quadriplegia SNOMED: 020125508538289 (3) Malnutrition of moderate degree ICD Codes: E44.0 - Moderate protein-calorie malnutrition SNOMED: 487427253 (4) Osteomyelitis ICD Codes: M86.9 - Osteomyelitis, unspecified SNOMED: 41254938 Qualifiers: Qualified Codes: M86.9 - Osteomyelitis, unspecified (5) Gastrostomy tube dysfunction ICD Codes: K94.23 - Gastrostomy malfunction SNOMED: 969908403 (6) Respiratory failure ICD Codes: J96.90 - Respiratory failure, unspecified, unspecified whether with hypoxia or hypercapnia SNOMED: 672049656 (7) Pneumonia ICD Codes: J18.9 - Pneumonia, unspecified organism SNOMED: 337470353 (8) Pleural effusion ICD Codes: J90 - Pleural effusion, not elsewhere classified SNOMED: 78343785 Assessment/Plan wean fio2 sucitoning resp rx and chest PT monitor abg abx hypotonic fluids gt feeds pulm follow up comfort care/hospice Subjective ROS Limited/Unobtainable: Yes Constitutional: Reports: malaise, weakness HEENT: Reports: no symptoms Cardiovascular: Reports: no symptoms Respiratory: Reports: cough, shortness of breath Gastrointestinal/Abdominal: Reports: difficulty swallowing Genitourinary: Reports: no symptoms Neurologic/Psychiatric: Reports: pre-existing deficit Endocrine: Reports: no symptoms Hematologic/Lymphatic: Reports: no symptoms Allergies: Coded Allergies: AMOXICILLIN (Verified Allergy, Mild, 06/21/09) ASPIRIN (Verified Allergy, Mild, 06/21/09) SALICYLATES (Verified Allergy, Mild, 06/21/09) PENICILLINS (Unverified Allergy, Unknown, 11/18/17) All Systems: reviewed and negative except above Subjective off facemask. now on o2 via NC. less sob and congested, labs reviewed. family requesting hospice/comfort care Objective Last 24 Hour Vital Signs Date Time Temp Pulse Resp B/P (MAP) Pulse Ox O2 Delivery O2 Flow Rate FiO2 12/24/17 08:09 116 143/76 12/24/17 08:09 116 143/76 12/24/17 06:00 106 12/24/17 04:00 4.0 12/24/17 04:00 98.0 110 30 138/53 95 Nasal Cannula 4.0 98.0 12/24/17 00:00 102 12/24/17 00:00 4.0 12/24/17 00:00 98.6 100 32 150/80 98 Nasal Cannula 4.0 98.6 12/23/17 22:03 113 144/75 12/23/17 20:00 4.0 12/23/17 20:00 98.9 113 24 144/75 99 Nasal Cannula 4.0 98.9 12/23/17 20:00 107 12/23/17 19:37 Nasal Cannula 4.0 36 12/23/17 16:11 99 Nasal Cannula 4.0 36 12/23/17 16:00 98.8 108 28 132/68 91 Nasal Cannula 4.0 98.8 12/23/17 16:00 112 12/23/17 16:00 4.0 12/23/17 12:00 107 12/23/17 12:00 97.9 103 26 128/60 91 Venturi Mask 6.0 35 97.9 12/23/17 12:00 6.0 35 12/23/17 10:46 99 Venturi Mask 6.0 35 12/23/17 08:54 117 140/77 12/23/17 08:54 117 140/77 Intake and Output 12/23/17 12/24/17 19:00 07:00 Intake Total 1165 ml 1625.000 ml Output Total 100 ml 550 ml Balance 1065 ml 1075.000 ml IV Total 585 ml 875.000 ml Tube Feeding 550 ml 650 ml Other 30 ml 100 ml Output Urine Total 100 ml 550 ml # Voids 1 2 # Bowel Movements 2 Laboratory Tests 12/23/17 10:36: Arterial Blood pH 7.527H, Arterial Blood Partial Pressure CO2 45.3H, Arterial Blood Partial Pressure O2 113.4H, Arterial Blood HCO3 36.7H, Arterial Blood Oxygen Saturation 97.8, Arterial Blood Base Excess 12.7, Braden Test Positive 12/23/17 17:10: Vancomycin Level Trough 19.6H 12/24/17 06:00: Sodium Level 143, Potassium Level 3.8, Chloride Level 104, Carbon Dioxide Level 32, Anion Gap 7, Blood Urea Nitrogen 29H, Creatinine 0.7, Estimat Glomerular Filtration Rate , Glucose Level 165H, Calcium Level 8.5, Total Bilirubin 0.3, Aspartate Amino Transf (AST/SGOT) 70H, Alanine Aminotransferase (ALT/SGPT) 105H , Alkaline Phosphatase 106, Total Protein 7.3, Albumin 2.1L, Globulin 5.2, Albumin/Globulin Ratio 0.4L Height (Feet): 4 Height (Inches): 0.00 Weight (Pounds): 100 Objective General Appearance: WD/WN, lethargic, confused Neck: supple Cardiovascular: normal peripheral pulses, tachycardia Respiratory/Chest: few rhonchi ryan Abdomen: normal bowel sounds, non tender, soft, no organomegaly Edema: no edema noted Arm (L), no edema noted Arm (R), no edema noted Leg (L), no edema noted Leg (R), no edema noted Pedal (L), no edema noted Pedal (R), no edema noted Generalized Neurologic: disoriented, unresponsive, aphasia Satinder Kirk MD Dec 24, 2017 08:22
--- NOTE | 2017-12-24 09:59 | Infectious Diseases Prog Note ---
"Assessment/Plan Assessment/Plan A 1. 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 DM 3. hypertension 4. CVA 5. 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 Pneumonia with MRSA 7. GT site fistula P 1. continue iv vancomycin 2. Poor prognosis, DNR, DNI Subjective ROS Limited/Unobtainable: Yes Constitutional: Reports: other - afebrile Gastrointestinal/Abdominal: Reports: other - decreased leaking around GT Allergies: Coded Allergies: AMOXICILLIN (Verified Allergy, Mild, 06/21/09) ASPIRIN (Verified Allergy, Mild, 06/21/09) SALICYLATES (Verified Allergy, Mild, 06/21/09) PENICILLINS (Unverified Allergy, Unknown, 11/18/17) Objective Vital Signs Last 24 Hour Vital Signs Date Time Temp Pulse Resp B/P (MAP) Pulse Ox O2 Delivery O2 Flow Rate FiO2 12/24/17 08:09 116 143/76 12/24/17 08:09 116 143/76 12/24/17 08:00 98.4 116 28 143/76 96 Nasal Cannula 4.0 98.4 12/24/17 08:00 4.0 12/24/17 06:00 106 12/24/17 04:00 4.0 12/24/17 04:00 98.0 110 30 138/53 95 Nasal Cannula 4.0 98.0 12/24/17 00:00 102 12/24/17 00:00 4.0 12/24/17 00:00 98.6 100 32 150/80 98 Nasal Cannula 4.0 98.6 12/23/17 22:03 113 144/75 12/23/17 20:00 4.0 12/23/17 20:00 98.9 113 24 144/75 99 Nasal Cannula 4.0 98.9 12/23/17 20:00 107 12/23/17 19:37 Nasal Cannula 4.0 36 12/23/17 16:11 99 Nasal Cannula 4.0 36 12/23/17 16:00 98.8 108 28 132/68 91 Nasal Cannula 4.0 98.8 12/23/17 16:00 112 12/23/17 16:00 4.0 12/23/17 12:00 107 12/23/17 12:00 97.9 103 26 128/60 91 Venturi Mask 6.0 35 97.9 12/23/17 12:00 6.0 35 12/23/17 10:46 99 Venturi Mask 6.0 35 Height (Feet): 4 Height (Inches): 0.00 Weight (Pounds): 100 General Appearance: no acute distress HEENT: mucous membranes moist Respiratory/Chest: lungs clear, other - O2 by nasal cannula Cardiovascular: tachycardia Abdomen: soft, non tender, other - GT feeding Extremities: no edema, other - left AKA Neurologic/Psychiatric: aphasia Laboratory Tests Test 12/23/17 10:36 12/23/17 17:10 12/24/17 06:00 Arterial Blood pH 7.527 (7.350-7.450) Arterial Blood Partial Pressure CO2 45.3 mmHg (35.0-45.0) H Arterial Blood Partial Pressure O2 113.4 mmHg (75.0-100.0) H Arterial Blood HCO3 36.7 mmol/L (22.0-26.0) H Arterial Blood Oxygen Saturation 97.8 % (92.0-98.0) Arterial Blood Base Excess 12.7 Braden Test Positive Vancomycin Level Trough 19.6 ug/mL (5.0-12.0) H Sodium Level 143 MMOL/L (136-145) Potassium Level 3.8 MMOL/L (3.5-5.1) Chloride Level 104 MMOL/L (98-107) Carbon Dioxide Level 32 MMOL/L (21-32) Anion Gap 7 mmol/L (5-15) Blood Urea Nitrogen 29 mg/dL (7-18) H Creatinine 0.7 MG/DL (0.55-1.30) Estimat Glomerular Filtration Rate mL/min (>60) Glucose Level 165 MG/DL (74-106) H Calcium Level 8.5 MG/DL (8.5-10.1) Total Bilirubin 0.3 MG/DL (0.2-1.0) Aspartate Amino Transf (AST/SGOT) 70 U/L (15-37) H Alanine Aminotransferase (ALT/SGPT) 105 U/L (12-78) H Alkaline Phosphatase 106 U/L (46-116) Total Protein 7.3 G/DL (6.4-8.2) Albumin 2.1 G/DL (3.4-5.0) L Globulin 5.2 g/dL Albumin/Globulin Ratio 0.4 (1.0-2.7) L Current Medications Medications (Trade) Dose Ordered Sig/Satish Route PRN Reason Start Time Stop Time Status Last Admin Dose Admin Acetaminophen (Tylenol) 650 mg Q4H PRN ORAL Mild Pain/Temp > 100.5 12/20/17 11:00 01/06/18 10:59 12/22/17 16:49 Acetaminophen/ Hydrocodone Bitart (Newell 5/325) 1 tab Q4H PRN ORAL Moderate Pain (Pain Scale 4-6) 12/22/17 17:15 12/29/17 17:14 12/22/17 17:44 Amlodipine Besylate (Norvasc) 5 mg DAILY GT 12/21/17 09:00 01/08/18 08:59 12/24/17 08:09 Chlorhexidine Gluconate (Mireya-Hex 2%) 1 applic DAILY@2000 TOPIC 12/20/17 20:00 01/13/18 19:59 12/23/17 20:45 Dextrose 1,000 ml @ 50 mls/hr Q20H IV 12/23/17 08:30 01/22/18 08:29 12/24/17 04:16 Dextrose (Dextrose 50%) 25 ml STAT PRN IV Hypoglycemia 12/23/17 09:15 01/22/18 09:14 Dextrose (Dextrose 50%) 50 ml STAT PRN IV Hypoglycemia 12/23/17 09:15 01/22/18 09:14 Famotidine (Pepcid) 20 mg BID GT 12/20/17 18:00 12/30/17 17:59 12/24/17 08:09 Heparin Sodium (Porcine) (Heparin 5000 units/ml) 5,000 units EVERY 12 HOURS SUBQ 12/20/17 21:00 01/04/18 20:59 12/24/17 08:11 Insulin Aspart (NovoLOG) Q6HR SUBQ 12/23/17 12:00 01/22/18 11:29 12/24/17 06:33 Metoprolol Tartrate (Lopressor) 25 mg Q12HR GT 12/20/17 21:00 12/30/17 20:59 12/24/17 08:09 Vancomycin HCl (Vanco rx to dose) 1 ea DAILY PRN MISC Per rx protocol 12/20/17 11:00 01/19/18 10:59 Vancomycin HCl 1 gm/Dextrose 275 ml @ 183.708 mls/hr Q24H IVPB 12/23/17 23:00 12/28/17 22:59 12/24/17 00:07 Vitamin A/Vitamin D (A & D Oint) 1 applic QID TOPIC 12/20/17 13:00 01/11/18 12:59 12/24/17 08:09 Ezio Mendoza MD Dec 24, 2017 09:58"
[2017-12-24 12:00] VITALS: BP 148/74
[2017-12-24] MEDS ORDERED: PCA Morphine 1mg/ml 30 ML IV PRN ×4 (14:15→20:15)
--- NOTE | 2017-12-24 14:43 | General Surgery Progress Note ---
General Surgery-Progress Note Subjective Additional Comments no acute events. g tube fistula site leak resolved with packing and dressings. Objective Last 24 Hour Vital Signs Date Time Temp Pulse Resp B/P (MAP) Pulse Ox O2 Delivery O2 Flow Rate FiO2 12/24/17 12:00 98.2 102 28 148/74 99 Nasal Cannula 4.0 98.2 12/24/17 12:00 100 12/24/17 12:00 4.0 12/24/17 08:09 116 143/76 12/24/17 08:09 116 143/76 12/24/17 08:00 114 12/24/17 08:00 98.4 116 28 143/76 96 Nasal Cannula 4.0 98.4 12/24/17 08:00 4.0 12/24/17 06:00 106 12/24/17 04:00 4.0 12/24/17 04:00 98.0 110 30 138/53 95 Nasal Cannula 4.0 98.0 12/24/17 00:00 102 12/24/17 00:00 4.0 12/24/17 00:00 98.6 100 32 150/80 98 Nasal Cannula 4.0 98.6 12/23/17 22:03 113 144/75 12/23/17 20:00 4.0 12/23/17 20:00 98.9 113 24 144/75 99 Nasal Cannula 4.0 98.9 12/23/17 20:00 107 12/23/17 19:37 Nasal Cannula 4.0 36 12/23/17 16:11 99 Nasal Cannula 4.0 36 12/23/17 16:00 98.8 108 28 132/68 91 Nasal Cannula 4.0 98.8 12/23/17 16:00 112 12/23/17 16:00 4.0 I&O Intake and Output 12/23/17 12/24/17 19:00 07:00 Intake Total 1165 ml 1625.000 ml Output Total 100 ml 550 ml Balance 1065 ml 1075.000 ml IV Total 585 ml 875.000 ml Tube Feeding 550 ml 650 ml Other 30 ml 100 ml Output Urine Total 100 ml 550 ml # Voids 1 2 # Bowel Movements 2 Dressing: dry Wound: clean Drains: none Cardiovascular: RSR Respiratory: clear Abdomen: soft, flat, other - no leak from g tube fistula site. Extremities: no edema Laboratory Tests Test 6/6/18 17:10 12/24/17 06:00 Vancomycin Level Trough 19.6 ug/mL (5.0-12.0) H Sodium Level 143 MMOL/L (136-145) Potassium Level 3.8 MMOL/L (3.5-5.1) Chloride Level 104 MMOL/L (98-107) Carbon Dioxide Level 32 MMOL/L (21-32) Anion Gap 7 mmol/L (5-15) Blood Urea Nitrogen 29 mg/dL (7-18) H Creatinine 0.7 MG/DL (0.55-1.30) Estimat Glomerular Filtration Rate mL/min (>60) Glucose Level 165 MG/DL (74-106) H Calcium Level 8.5 MG/DL (8.5-10.1) Total Bilirubin 0.3 MG/DL (0.2-1.0) Aspartate Amino Transf (AST/SGOT) 70 U/L (15-37) H Alanine Aminotransferase (ALT/SGPT) 105 U/L (12-78) H Alkaline Phosphatase 106 U/L (46-116) Total Protein 7.3 G/DL (6.4-8.2) Albumin 2.1 G/DL (3.4-5.0) L Globulin 5.2 g/dL Albumin/Globulin Ratio 0.4 (1.0-2.7) L Plan Problems: (1) Gastrostomy tube dysfunction Assessment & Plan: small sandro-g tube fistula identified. leaking of contents noted. no active infection noted but does have some induration. fistulogram identified passage from fistula opening into gastric lumen. currently stable and okay. could revise g tube site would not indicated at this time given small inconsequential fistula. cont with dressings and care to g tube site. g tube functional and leakage. leak around g tube continues. packing and dressings placed into g tube site fistula. seems to have stopped leaking! sacral decubitus ulcer stage II with skin breakdown but no underlying subcutaneous tissues noted. erythema. no odor. no active infection. As for sacral ulcer, keep off wound, skin ointment and foam dressings. turn q2hrs. thank you for this consultation. will follow with you Santana Tolbert Dec 24, 2017 14:43
[2017-12-24] MEDS ORDERED: Morphine Sulfate 2mg/ml Inj IV PRN (15:00)
[2017-12-24] MEDS ORDERED: Morphine Sulfate 4mg/ml Inj IVP ONE (15:00)
[2017-12-24] MEDS ORDERED: Rate Change Narcotic Drip MISC PRN ×2 (15:00→21:00)
[2017-12-24] MEDS ORDERED: Narcotic Shift Volume MISC SCH ×2 (15:00→19:00)
[2017-12-24 16:00] VITALS: BP 131/76
--- NOTE | 2017-12-24 17:23 | Pulmonology Progress Note ---
Assessment/Plan Assessment/Plan IMPRESSION: 1. Evidence of pneumonia, worse with effusion 2. G-tube, possible fistulous tract. 3. Left heel osteomyelitis. 4. Toxic metabolic encephalopathy. 5. Significant contractures. 6. History of CVA. 7. History of dysphagia. 8. s/p AKA 9. gangrene 10. leukocytosis 11. respiratory failure PLAN hospice care planned monitor clinically for change suction as needed advance directives noted all reviewed in detail; prognosis poor impression, plan, and exam edited and reviewed in detail care discussed with RN Subjective ROS Limited/Unobtainable: Yes Allergies: Coded Allergies: AMOXICILLIN (Verified Allergy, Mild, 06/21/09) ASPIRIN (Verified Allergy, Mild, 06/21/09) SALICYLATES (Verified Allergy, Mild, 06/21/09) PENICILLINS (Unverified Allergy, Unknown, 11/18/17) Subjective care reviewed plans for hospice noted o2 sats better Objective Last 24 Hour Vital Signs Date Time Temp Pulse Resp B/P (MAP) Pulse Ox O2 Delivery O2 Flow Rate FiO2 12/24/17 16:00 99.9 119 22 131/76 99 Room Air 99.9 12/24/17 16:00 115 12/24/17 16:00 4.0 12/24/17 15:00 98.2 12/24/17 12:00 98.2 102 28 148/74 99 Nasal Cannula 4.0 98.2 12/24/17 12:00 100 12/24/17 12:00 4.0 12/24/17 11:30 96 Nasal Cannula 4.0 36 12/24/17 08:09 116 143/76 12/24/17 08:09 116 143/76 12/24/17 08:00 114 12/24/17 08:00 98.4 116 28 143/76 96 Nasal Cannula 4.0 98.4 12/24/17 08:00 4.0 12/24/17 06:00 106 12/24/17 04:00 4.0 12/24/17 04:00 98.0 110 30 138/53 95 Nasal Cannula 4.0 98.0 12/24/17 00:00 102 12/24/17 00:00 4.0 12/24/17 00:00 98.6 100 32 150/80 98 Nasal Cannula 4.0 98.6 12/23/17 22:03 113 144/75 6/6/18 20:00 4.0 12/23/17 20:00 98.9 113 24 144/75 99 Nasal Cannula 4.0 98.9 12/23/17 20:00 107 12/23/17 19:37 Nasal Cannula 4.0 36 Intake and Output 12/23/17 12/24/17 19:00 07:00 Intake Total 1165 ml 1625.000 ml Output Total 100 ml 550 ml Balance 1065 ml 1075.000 ml IV Total 585 ml 875.000 ml Tube Feeding 550 ml 650 ml Other 30 ml 100 ml Output Urine Total 100 ml 550 ml # Voids 1 2 # Bowel Movements 2 Objective WDWN withdrawn on oxygen reduced breath sounds with scattered rhonchi [id number] tachy without MRG NABS nontender no HSM; no distention; GT no CCE AKA weak with poor LOC withdrawn Laboratory Tests 12/24/17 06:00: Sodium Level 143, Potassium Level 3.8, Chloride Level 104, Carbon Dioxide Level 32, Anion Gap 7, Blood Urea Nitrogen 29H, Creatinine 0.7, Estimat Glomerular Filtration Rate , Glucose Level 165H, Calcium Level 8.5, Total Bilirubin 0.3, Aspartate Amino Transf (AST/SGOT) 70H, Alanine Aminotransferase (ALT/SGPT) 105H , Alkaline Phosphatase 106, Total Protein 7.3, Albumin 2.1L, Globulin 5.2, Albumin/Globulin Ratio 0.4L Current Medications Medications (Trade) Dose Ordered Sig/Satish Route PRN Reason Start Time Stop Time Status Last Admin Dose Admin Miscellaneous Medication (Narcotic Drip Rate Change) 1 ea DAILY PRN MISC . 12/24/17 15:00 01/23/18 14:59 Miscellaneous Medication (Narcotic Shift Volume) 1 ea Q12HR@0700,1900 MISC 12/24/17 19:00 01/23/18 14:59 Morphine Sulfate 30 ml @ 1 mls/hr ADJ[employer]CT [employer] Protocol PRN IV COMFORT CARE 12/24/17 15:30 01/23/18 14:59 Raj Reyes MD Dec 24, 2017 17:23
[2017-12-24 20:00] VITALS: BP 129/74
[2017-12-25] VITALS: BP 129/77
--- NOTE | 2017-12-25 01:00 | Progress Note ---
DATE: 12/24/2017 CARDIOLOGY PROGRESS NOTE SUBJECTIVE: The patient's family members have decided on comfort care. The patient is placed on a morphine drip. She is unable to communicate pain, however, the nursing staff cues from her vital signs to help titrate the morphine drip. Hospice care being addressed. In case patient's expected is long enough discharge home. We will discontinue all unnecessary medications at this time in favor of a comfort care plan only. Tyrell Underwood M.D. DR: NATASHA JOB#: [id number] CC:
[2017-12-25 04:00] VITALS: BP 133/75
[2017-12-25] MEDS ORDERED: Narcotic Shift Volume MISC SCH (07:00)
--- NOTE | 2017-12-25 09:40 | General Progress Note ---
Assessment/Plan Problem List: (1) Hypokalemia ICD Codes: E87.6 - Hypokalemia SNOMED: 40155463 (2) Functional quadriplegia ICD Codes: R53.2 - Functional quadriplegia SNOMED: 513828009836453 (3) Malnutrition of moderate degree ICD Codes: E44.0 - Moderate protein-calorie malnutrition SNOMED: 808344770 (4) Osteomyelitis ICD Codes: M86.9 - Osteomyelitis, unspecified SNOMED: 91871411 Qualifiers: Qualified Codes: M86.9 - Osteomyelitis, unspecified (5) Gastrostomy tube dysfunction ICD Codes: K94.23 - Gastrostomy malfunction SNOMED: 729503881 (6) Respiratory failure ICD Codes: J96.90 - Respiratory failure, unspecified, unspecified whether with hypoxia or hypercapnia SNOMED: 508720599 (7) Pneumonia ICD Codes: J18.9 - Pneumonia, unspecified organism SNOMED: 682510204 (8) Pleural effusion ICD Codes: J90 - Pleural effusion, not elsewhere classified SNOMED: 68555479 Status: deteriorating Assessment/Plan comfort care Subjective ROS Limited/Unobtainable: Yes Constitutional: Reports: no symptoms HEENT: Reports: no symptoms Cardiovascular: Reports: no symptoms Respiratory: Reports: no symptoms Gastrointestinal/Abdominal: Reports: no symptoms Genitourinary: Reports: no symptoms Neurologic/Psychiatric: Reports: pre-existing deficit Endocrine: Reports: no symptoms Hematologic/Lymphatic: Reports: no symptoms Allergies: Coded Allergies: AMOXICILLIN (Verified Allergy, Mild, 06/21/09) ASPIRIN (Verified Allergy, Mild, 06/21/09) SALICYLATES (Verified Allergy, Mild, 06/21/09) PENICILLINS (Unverified Allergy, Unknown, 11/18/17) All Systems: reviewed and negative except above Subjective agonal respirations but appears comfortable Objective Last 24 Hour Vital Signs Date Time Temp Pulse Resp B/P (MAP) Pulse Ox O2 Delivery O2 Flow Rate FiO2 12/25/17 04:00 99.4 116 20 133/75 83 Room Air 99.4 12/25/17 00:00 98.9 117 22 129/77 88 Room Air 98.9 12/24/17 20:00 Room Air 12/24/17 20:00 97 Room Air 12/24/17 20:00 100.1 118 32 129/74 90 Room Air 100.1 12/24/17 20:00 115 12/24/17 16:00 99.9 119 22 131/76 99 Room Air 99.9 12/24/17 16:00 115 12/24/17 16:00 4.0 12/24/17 15:00 98.2 12/24/17 12:00 98.2 102 28 148/74 99 Nasal Cannula 4.0 98.2 12/24/17 12:00 100 12/24/17 12:00 4.0 12/24/17 11:30 96 Nasal Cannula 4.0 36 12/24/17 11:00 Nasal Cannula 4.0 36 Intake and Output 12/24/17 12/25/17 19:00 07:00 Intake Total 634 ml 1 ml Output Total 600 ml 150 ml Balance 34 ml -149 ml IV Total 254 ml 1 ml Tube Feeding 350 ml Other 30 ml Output Urine Total 600 ml 150 ml # Voids 1 2 # Bowel Movements 1 Height (Feet): 4 Height (Inches): 0.00 Weight (Pounds): 100 Objective General Appearance: WD/WN, lethargic, confused Neck: supple Cardiovascular: normal peripheral pulses, tachycardia Respiratory/Chest: few rhonchi ryan Abdomen: normal bowel sounds, non tender, soft, no organomegaly Edema: no edema noted Arm (L), no edema noted Arm (R), no edema noted Leg (L), no edema noted Leg (R), no edema noted Pedal (L), no edema noted Pedal (R), no edema noted Generalized Neurologic: disoriented, unresponsive, aphasia Satinder Kirk MD Dec 25, 2017 09:40
[2017-12-25] MEDS ORDERED: Tubing IV Secondary IV ONE (09:45)
[2017-12-25] MEDS ORDERED: NS Irrig 1000ml ONE (09:45)
--- NOTE | 2017-12-26 04:00 | Progress Note ---
DATE: 12/25/2017 CARDIOLOGY PROGRESS NOTE SUBJECTIVE: The patient's condition is deteriorating. She is unresponsive. Marginal blood pressure noted. Sinus rhythm. She is now on comfort care. Hospice team is to evaluate her today if she does not pass. OBJECTIVE: VITAL SIGNS: Temperature 99.4, blood pressure 132/75, heart rate 116, and respiratory rate 20. LUNGS: Coarse breath sounds and rhonchi. HEART: Regular rhythm. Rapid rate. Normal S1 and S2. ABDOMEN: Soft. G-tube intact. Left AKA stump has dressing in place. IMPRESSION: . PLAN: Nursing staff advised to increase morphine for additional comfort care. is expected. Family is aware. Tyrell Underwood M.D. DR: VIVI JOB#: [id number] CC:
--- NOTE | 2017-12-26 14:00 | Discharge Summary ---
Discharge Summary Hospital Course Date of Admission November 30, 2017 at 14:11 Date of Discharge Dec 25, 2017 at 12:00 Admitting Diagnosis osteomyelitis L heel HPI Tan Woodruff is a 77 year old female who was admitted on November 30, 2017 at 14:11 for Osteomyelitis Left Heel Hospital Course summary #[id number] Discharge Condition Upon Discharge: stable Discharge Disposition Patient was discharged to Discharge Instructions Discharge Instructions Special Instructions I have been assigned to complete a D/C Summary on this account. I was not involved in the patient management Roxana Sarah NP Dec 26, 2017 14:00
--- NOTE | 2017-12-27 01:15 | Discharge Summary 2 SIG ---
SUMMARY DATE OF ADMISSION: 11/30/2017 DATE OF EXPIRATION: 12/25/2017. REASON FOR ADMISSION: 77 years old female with past medical history significant for cerebrovascular disease, hypertensive heart disease, type 2 diabetes mellitus, protein-calorie malnutrition, history of diastolic congestive heart failure, dementia, aphasia, and history of hyponatremia due to SIADH, was sent to emergency department due to the nonfunctioning G-tube. There was also report of left heel infection with increased drainage. The patient was recently hospitalized and discharged on 11/26/2017 ,following treatment of G-tube site infection with G-tube replacement as well as the workup of left heel ulcer with imaging studies ,noted to be negative for osteomyelitis. The patient was [facility] time [facility] facility for further skilled services, however, family refused. The patient was discharged on oral antibiotics. At this time, during the presentation, no leukocytosis, hemoglobin 11, sedimentation rate 100. Lactic acid 1.7. Pro BNP 378. Renal parameters stable. Left foot x-ray showed severe osteopenia. Healed ulcer with bony irregularity of the posterior calcaneus concerning for osteomyelitis. The patient admitted with diagnoses of osteomyelitis left heel, nonfunctioning gastrostomy tube, malnutrition, functional quadriplegia, hypertension, and diabetes. CONSULTANTS: 1. Satinder Kirk M.D., Internal Medicine. 2. Alex Melendez D.P.M., Database Engineer. 3. Santana Tolbert M.D., General Surgeon. 4. Alex Rojas M.D., GI specialist. 5. Mary Manriquez M.D., Infectious Disease specialist. 6. Monico Gonzalez M.D., Vascular Surgeon. 7. Raj Reyes M.D., [place]. HOSPITAL COURSE: The patient admitted. The patient pancultured and started on empiric antibiotics. The patient was on cautious hydration. Cardiovascular regimen was titrated along diabetic therapy. Social service evaluation was requested since apparently family was not able to provide adequate care at home. Protein supplements were added to the feeding tube. Strict aspiration precautions were maintained. Bone scan revealed findings consistent with osteomyelitis. The patient was on antibiotics, regimen was optimized based on culture. Blood culture were negative. Wound culture revealed E. coli and MRSA, and sputum culture later showed MRSA. PICC line was inserted for long-term antibiotic treatment for osteomyelitis. The patient demonstrated evidence of respiratory insufficiency. Chest x-ray revealed moderate right pleural effusion. Supplemental oxygen and pulmonary toilet provided as needed. Ultrasound-guided thoracentesis was ordered, however, only trace pleural fluid was demonstrated, not sufficient for safe thoracentesis. The patient was followed up with chest x-ray. [place] closely followed. CT of the chest revealed extensive consolidation likely due to pneumonia, involving most of the right middle and lower lobes as well as the atelectasis with significant volume loss, less extensive patchy infiltrate in the right upper lobe. The patient was suctioned frequently as needed. Nebulizing treatment provided. The patient was on antibiotics. Database Engineer seen and evaluated the patient. Per grease cup filler, the patient had complex pressure ulcer stage IV of the left heel as well as the severe rigid knee contracture along with osteomyelitis of the left calcaneus. Arterial studies revealed moderate to severe peripheral arterial disease; x- ray with bone scan revealed osteomyelitis. The patient was unlikely candidate for vascular intervention, given rigid knee contracture. The patient was nonambulatory. In light of this, considering complex wound with osteomyelitis, and given the fall, the patient had a poor prognosis for limb salvage and grease cup filler recommended above-knee amputation. Subsequently, Vascular surgeon consult was requested. Wound care provided. Vascular Surgeon evaluated the patient and stated that left leg was non- salvageable with extensive large left heel necrosis and exposed bone. He recommended left above-knee amputation. Family consented. Echocardiogram revealed ejection fraction of 65% , mild left ventricular hypertrophy, and grade 1 diastolic dysfunction. Blood pressure was managed with current regimen and remained stable. The patient was medically optimized and stable for surgery. The patient subsequently undergone above-knee amputation on 12/16/2017. Stump care was provided. GI closely followed. Per GI specialist, the patient undergone evaluation of G- tube balloon, which was fixed , and the patient started on the G-tube feeding with strict aspiration and reflux precautions. 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 Fistulogram revealed communication with gastric lumen. Subsequently the patient was treated with packing and dressing, and fistula was healing. Patient was on antibiotics. Hemoglobin and hematocrit were closely monitored. DVT prophylaxis provided. Pain management was addressed. Nutritional recommendation implemented in plan of care. Patient clinical condition continued to deteriorate. All consultants agreed on poor prognosis. Supplemental oxygen and pulmonary toilet provided as needed. The patient was on BiPAP. The patient was DNR/DNI since 12/05/2017, however, family at that time requested full treatment. On 12/24/2017, after multiple conservations with family about futility of further treatment , lack of progress, clinical deterioration and poor prognosis, family decided on comfort care. At that time, all unnecessary medications were stopped. The patient was on supplemental oxygen via nasal cannula. The patient was started on morphine drip. The patient was pronounced at 9:45 a.m. on 12/25/2017. Cause of : cardiopulmonary arrest. FINAL DIAGNOSES: 1. Recurring sepsis. 2. Respiratory failure. 3. Left heel osteomyelitis with MRSA/E. coli. 4. Left heel complex pressure ulcer, stage IV. 5. Status post left above-knee amputation. 6. Healthcare-acquired pneumonia with MRSA. 7. Toxic metabolic encephalopathy 8. Pleural effusion. 9. Dysphagia, G-tube dysfunction. 10. G-tube site fistula. 11. Diabetes mellitus, type 2. 12. Hypertensive cardiomyopathy. 13. Cerebrovascular disease with dementia. 14. Anemia of chronic disease. 15. Peripheral arterial disease. 16. Functional quadriplegia. 17. Severe protein-calorie malnutrition. Tyrell Underwood M.D. I have been assigned to dictate discharge summary on this account and I was not involved in the patient's management. R[facility]apt[facility] N[facility] DR: CLIFTON JOB#: [id number] CC: KISHAN
== END 2017-12-25 12:00 | disposition expired | DRG 616 ==
LOC: EDBD 11:18 → EMR 12:27 → 4E 14:11 → EDBEDREQ 14:21 → 4E 17:17 → 2E 12-16 17:10 → 2W 12-20 09:40 → 4E 12-24 20:35
PROC: 0D20XUZ Change Feeding Device in Upper Intestinal Tract, External Approach (ICD-10-PCS; principal; 2017-11-30)
PROC: B548ZZA Ultrasonography of Superior Vena Cava, Guidance (ICD-10-PCS; 2017-12-03)
PROC: 02HV33Z Insertion of Infusion Device into Superior Vena Cava, Percutaneous Approach (ICD-10-PCS; 2017-12-03)
PROC: B518ZZA Fluoroscopy of Superior Vena Cava, Guidance (ICD-10-PCS; 2017-12-15)
PROC: 02HV33Z Insertion of Infusion Device into Superior Vena Cava, Percutaneous Approach (ICD-10-PCS; 2017-12-15)
PROC: 0Y6D0Z3 Detachment at Left Upper Leg, Low, Open Approach (ICD-10-PCS; 2017-12-17)
DX: E11.69 Type 2 diabetes mellitus with other specified complication (principal); L89.624 Pressure ulcer of left heel, stage 4; E43 Unspecified severe protein-calorie malnutrition; I50.33 Acute on chronic diastolic (congestive) heart failure; J15.212 Pneumonia due to Methicillin resistant Staphylococcus aureus; J96.91 Respiratory failure, unspecified with hypoxia; A41.9 Sepsis, unspecified organism; M86.172 Other acute osteomyelitis, left ankle and foot; I96 Gangrene, not elsewhere classified; K31.6 Fistula of stomach and duodenum; E11.52 Type 2 diabetes mellitus with diabetic peripheral angiopathy with gangrene; J90 Pleural effusion, not elsewhere classified; E87.0 Hyperosmolality and hypernatremia; R53.2 Functional quadriplegia; G92 Toxic encephalopathy; L89.152 Pressure ulcer of sacral region, stage 2; L08.89 Other specified local infections of the skin and subcutaneous tissue; B95.62 Methicillin resistant Staphylococcus aureus infection as the cause of diseases classified elsewhere; K94.29 Other complications of gastrostomy; I11.0 Hypertensive heart disease with heart failure; I73.89 Other specified peripheral vascular diseases; I69.920 Aphasia following unspecified cerebrovascular disease; M24.562 Contracture, left knee; M24.561 Contracture, right knee; R13.10 Dysphagia, unspecified; E87.6 Hypokalemia; E86.0 Dehydration; R00.0 Tachycardia, unspecified; Z51.5 Encounter for palliative care
CPT/HCPCS: 20501; 36415; 36569; 36600; 71045; 71250; 74018; 74247; 76080; 76604; 76937; 78315; 80048; 80053; 80202; 81003; 82550; 82565; 82803; 82962; 83605; 83735; 83880; 84484; 84520; 85007; 85025; 85610; 85651; 85730; 86140; 86850; 86900; 86901; 86920; 87040; 87070; 87181; 87205; 93005; 93306; 93925; 94003; 94150; 94660; 94760; 99285; J1815; J2250; J8499